=== PATIENT | female | born 1985 | race Caucasian/White ===

== ENCOUNTER → 2017-10-10 13:50 | Outpatient (CLI) | payer BC, SELFPAY ==
[2017-10-10 15:53] LABS: BUN 8 mg/dL (7-18); Creatinine, Serum 0.83 mg/dL (0.55-1.02); EST Glomerular Filtration Rate 86 mL/min (>60); Est Glom Filt Rate - Afr Amer 104 mL/min (>60)
== END ==
PROVIDERS: Family Provider Family Medicine; PCP Family Medicine; Visit Provider Ophthalmology
DX: H57.02 Anisocoria (principal); R51 Headache
CPT/HCPCS: 36415; 82565; 84520

== ENCOUNTER → 2017-10-10 16:31 | Outpatient (CLI) | payer BC, SELFPAY ==
--- NOTE | 2017-10-10 16:34 | CT_ITS ---
STUDY: CTA OF THE BRAIN REASON FOR EXAM: Female, 31 years old. Headaches different pupil size RADIATION DOSAGE (If Supplied By Facility): CTDIvol = ( 24.73 ) mGy, DLP = ( 1133.15 ) mGycm TECHNIQUE: CT angiography was performed with a multi-detector CT scanner. Data acquisition was obtained from the skull base through the vertex following intravenous administration of 100 ml of Isovue-370. MIP images were reconstructed from the axial data set. Post-processing of the angiographic images was performed, with multiplanar reformation and 3D reconstruction. Individualized dose optimization techniques were used for this CT. COMPARISON: None. FINDINGS: Normal bilateral petrous carotid arteries. Normal right cavernous carotid artery with a normal supraclinoid bifurcation. Normal left cavernous carotid artery with a normal supraclinoid bifurcation. Nonvisualization of the right A1 segment of the anterior cerebral artery. Normal left A1 segments of the anterior cerebral artery. Normal intact anterior communicating artery (ACOM). Normal bilateral A2 segments of the anterior cerebral arteries. Normal right M1 and M2 segments of the middle cerebral arteries, with a normal M1 bifurcation. Normal left M1 and M2 segments of the middle cerebral arteries, with a normal M1 bifurcation. Normal right posterior communicating artery (PCOM). Nonvisualization of the left posterior communicating artery (PCOM). Normal bilateral vertebral arteries. Normal basilar artery with a normal basilar bifurcation. The visualized bilateral superior cerebellar (SCA) arteries are normal. Normal left posterior cerebral artery. Nonvisualization of the proximal segment of the right posterior cerebral artery. There is no demonstrated aneurysm of the [place]. There is no demonstrated abnormality of the visualized brain. CT/CTA Head W/WO Contrast IMPRESSION: Nonvisualization of the right A1 segment and the proximal segment of the right posterior cerebral artery. Electronically Signed: Mateo Jarvis DO at 18:26 EST Tel [phone], Service support ,
== END ==
PROVIDERS: Family Provider Family Medicine; PCP Family Medicine; Visit Provider Ophthalmology
DX: R51 Headache (principal)
CPT/HCPCS: 70496; Q9967

== ENCOUNTER → 2017-10-25 16:56 | Outpatient (CLI) | payer BC, SELFPAY ==
[2017-10-25 18:11] LABS: Progesterone Level 12.91 ng/mL (See Comment)
[2017-10-28 13:37] LABS: HPV Reflexed? NOT INDICATED
== END ==
PROVIDERS: Visit Provider Obstetrics & Gynecology
DX: Z12.4 Encounter for screening for malignant neoplasm of cervix (principal); N92.0 Excessive and frequent menstruation with regular cycle
CPT/HCPCS: 36415; 82670; 84144; 88175; G0145

== ENCOUNTER → 2018-02-13 17:50 | Outpatient (CLI) | payer BC, SELFPAY ==
--- NOTE | 2018-02-13 17:58 | US_ITS ---
STUDY: ULTRASOUND OF THE FEMALE PELVIS - COMPLETE REASON FOR EXAM: Female, 32 years old. Right lower quadrant pain LMP: 01/29/2018 TECHNIQUE: Transabdominal and Transvaginal TECHNICAL QUALITY: Adequate. COMPARISON: 04/27/2017. FINDINGS: The uterus is anteverted and is in a midline position. The uterus measures 9.2 x 5.8 x 3.3 cm. There is a Nabothian cyst of the cervix. The endometrium measures 14 mm in thickness, and is hyperechoic. There is no demonstrated endometrial mass. There is a left upper uterine segment/fundal fibroid measuring up to 4.1 cm. The right ovary is visualized. The right ovary measures 7.9 x 6.2 x 5.5 cm. There is no right ovarian cyst. There is a 2.6 cm paraovarian cyst. There is a 5.1 x 4.9 cm heterogeneous ovarian mass without color flow. There is no visualized right adnexal mass or complex lesion. There is normal arterial and normal venous vascularity. The left ovary is visualized. The left ovary measures 4.0 x 2.7 x 1.9 cm. There is a 1.7 cm complex left ovarian cyst. No ovarian mass. There is no visualized left adnexal mass or complex lesion. There is normal arterial and normal venous vascularity. There is no fluid in the cul-de-sac. The pre void volume of the bladder was 338 ml. US/Pelvic (Non ) IMPRESSION: There is a right ovarian 5.1 cm nonvascular mass. Right paraovarian cyst. Left ovarian complex cyst. No torsion. There is a 4.1 cm fibroid. Thickened homogeneous endometrium measuring 14 mm. Electronically Signed: Eliezer Zamorano DO at 19:29 EDT , Service support ,
--- NOTE | 2018-02-13 18:20 | US_ITS ---
STUDY: ULTRASOUND OF THE FEMALE PELVIS - COMPLETE REASON FOR EXAM: Female, 32 years old. Right lower quadrant pain LMP: 01/29/2018 TECHNIQUE: Transabdominal and Transvaginal TECHNICAL QUALITY: Adequate. COMPARISON: 04/27/2017. FINDINGS: The uterus is anteverted and is in a midline position. The uterus measures 9.2 x 5.8 x 3.3 cm. There is a Nabothian cyst of the cervix. The endometrium measures 14 mm in thickness, and is hyperechoic. There is no demonstrated endometrial mass. There is a left upper uterine segment/fundal fibroid measuring up to 4.1 cm. The right ovary is visualized. The right ovary measures 7.9 x 6.2 x 5.5 cm. There is no right ovarian cyst. There is a 2.6 cm paraovarian cyst. There is a 5.1 x 4.9 cm heterogeneous ovarian mass without color flow. There is no visualized right adnexal mass or complex lesion. There is normal arterial and normal venous vascularity. The left ovary is visualized. The left ovary measures 4.0 x 2.7 x 1.9 cm. There is a 1.7 cm complex left ovarian cyst. No ovarian mass. There is no visualized left adnexal mass or complex lesion. There is normal arterial and normal venous vascularity. There is no fluid in the cul-de-sac. The pre void volume of the bladder was 338 ml. US/Transvaginal Non- IMPRESSION: There is a right ovarian 5.1 cm nonvascular mass. Right paraovarian cyst. Left ovarian complex cyst. No torsion. There is a 4.1 cm fibroid. Thickened homogeneous endometrium measuring 14 mm. Electronically Signed: Eliezer Zamorano DO at 19:29 EDT , Service support ,
== END ==
PROVIDERS: Family Provider Family Medicine; PCP Family Medicine; Visit Provider Family Medicine
DX: D25.9 Leiomyoma of uterus, unspecified (principal)
CPT/HCPCS: 76830; 76856; 93976

== ENCOUNTER → 2018-02-16 15:53 | Outpatient (CLI) | payer BC, SELFPAY ==
--- NOTE | 2018-02-16 16:01 | CT_ITS ---
STUDY: CT ABDOMEN AND PELVIS WITH CONTRAST REASON FOR EXAM: Female, 32 years old. Right-sided abdominal pain for months. Worsening recently. RADIATION DOSAGE (If Supplied By Facility): CTDIvol = ( 6.7+13.7 ) mGy, DLP = ( 650.22 ) mGycm TECHNIQUE: Transaxial images were obtained from the dome of the diaphragm to the symphysis pubis with oral contrast. 75 ml of Isovue 300 contrast was administered. Sagittal and coronal images were reconstructed. Individualized dose optimization techniques were used for this CT. COMPARISON: None. FINDINGS: Body wall soft tissues: No acute process. Osseous structures: No acute process. Inferior chest: No acute process. Hepatobiliary: Normal. Pancreas: No acute process. Spleen: Normal. Adrenal glands: Normal. Urogenital: Normal kidneys, collecting systems, ureters, urinary bladder. There is a dermoid of the right ovary, measuring approximately 6.6+4.6+3.8 cm. Left ovary unremarkable. A small amount of cul-de-sac free fluid. Uterine fundal fibroid approximately 3.4 cm. Probable nabothian cysts. Pelvic floor and sidewalls and retroperitoneum: No mass or adenopathy. Vasculature: No acute process. Stomach: No acute process. Small bowel and mesentery: No acute process. Large bowel: A short appendix is visible and appears normal. Unremarkable large bowel and rectum. Free fluid or free air: None. CT/Abdomen/Pelvis WITH Contrast IMPRESSION: Large right adnexal dermoid. No other acute intra-abdominal process. Electronically Signed: Campbell Lynn, at 21:34 EDT Tel , Service support ,
[2018-02-16 17:10] LABS: ALB/GLOB Ratio 0.9 RATIO (0.9-2.4); AST(SGOT) 13 U/L (15-37); Alanine Aminotransfer ALT/SGPT 17 U/L (13-56); Alkaline Phosphatase 64 U/L (45-117); Anion Gap 8 (5-15); BUN 11 mg/dL (7-18); BUN/Creat Ratio 10.8 RATIO (10-20); Calcium,Total 8.8 mg/dL (8.5-10.1); Chloride 105 mmol/L (98-107); Creatinine, Serum 1.02 mg/dL (0.55-1.02); EST Glomerular Filtration Rate 68 mL/min (>60); Est Glom Filt Rate - Afr Amer 82 mL/min (>60); Globulin 4.4 g/dL (2.2-4.2); Glucose 86 mg/dL (74-106); Potassium 3.5 mmol/L (3.5-5.1); Protein, Total 8.4 g/dL (6.4-8.2); Sodium Level 139 mmol/L (136-145)
== END ==
PROVIDERS: Family Provider Family Medicine; PCP Family Medicine; Visit Provider Obstetrics & Gynecology
DX: R10.9 Unspecified abdominal pain (principal); N83.9 Noninflammatory disorder of ovary, fallopian tube and broad ligament, unspecified; R19.00 Intra-abdominal and pelvic swelling, mass and lump, unspecified site
CPT/HCPCS: 36415; 74177; 80053; Q9967

== ENCOUNTER → 2018-02-16 16:14 | Outpatient (CLI) | payer SELFPAY ==
[2018-03-20 13:40] LABS: Hematocrit 38.9 % (37-47); Hemoglobin 12.9 g/dl (12.0-15.0); Mean Corp Hgb Conc 33.2 g/gl (32-36); Mean Corpuscular Hgb 30.5 pg (27.0-32.0); Mean Platelet Vol. 11.4 fl (6.2-12.0); Platelet Count 232 K/mm3 (150-450); RBC Distribution Width CV 12.7 % (11.6-14.6); Red Blood Count 4.23 M/mm3 (4.2-5.4); White Blood Count 8.1 K/mm3 (4.4-11.0)
[2018-03-20 13:41] LABS: Scan Indicated on CBC? Y/N NO
[2018-03-20 13:58] LABS: International Normalized Ratio 1.1
[2018-03-20 13:59] LABS: Partial Thromboplast Time 32.8 Seconds (24.1-36.2)
[2018-03-20 16:15] LABS: AST(SGOT) 16 U/L (15-37); Alanine Aminotransfer ALT/SGPT 21 U/L (13-56); Albumin, Serum 3.8 g/dL (3.2-5.0); Alkaline Phosphatase 61 U/L (45-117); Anion Gap 10 (5-15); BUN 6 mg/dL (7-18); BUN/Creat Ratio 7.2 RATIO (10-20); Calcium,Total 8.6 mg/dL (8.5-10.1); Chloride 105 mmol/L (98-107); Creatinine, Serum 0.84 mg/dL (0.55-1.02); EST Glomerular Filtration Rate 85 mL/min (>60); Est Glom Filt Rate - Afr Amer 103 mL/min (>60); Glucose 86 mg/dL (74-106); Potassium 3.6 mmol/L (3.5-5.1); Protein, Total 7.8 g/dL (6.4-8.2); Sodium Level 140 mmol/L (136-145)
--- OUTSIDE RECORDS SUMMARY | 2018-09-01 00:10 | XMS RPT_ITS ---
:1985 Author Organization OHIP Support Name Relationship Address Phone [facility] Unavailable [address] + [address] [place] [address] CRYSTAL, BILL Unavailable Unavailable + [place] [address] [facility] Unavailable [address] + [address] [place] [address] CRYSTAL, BILL Unavailable Unavailable + [place] [address] CRYSTAL, BILL Unavailable [address] + [place] [address] [facility] Unavailable [address] + [place] [address] CRYSTAL, BILL Unavailable [address] + [place] [address] [facility] Unavailable [address] + [place] [address] CRYSTAL, BILL Unavailable [address] + [place] [address] [facility] Unavailable [address] + [place] [address] [facility] Unavailable [address] + [address] [place] [address] CRYSTAL, BILL Unavailable Unavailable + [place] [address] CRYSTAL, BILL Unavailable [address] + [place] [address] [facility] Unavailable [address] + [place] [address] CRYSTLA, BILL Unavailable [address] + [place] [address] [facility] Unavailable [address] + [place] [address] CRYSTAL, BILL Unavailable [address] + [place] [address] [facility] Unavailable [address] + [place] [address] CRYSTAL, BILL Unavailable [address] + [place] [address] [facility] Unavailable [address] + [place] [address] CRYSTAL, BILL Unavailable [address] + [place] [address] [facility] Unavailable [address] + [place] [address] Care Team Providers Name Role Phone Babin, Elvis Primary Care Unavailable Al Murguia Attending Unavailable Familia Atkinson Attending Unavailable Berto, Elvis Primary Care Unavailable Familia Atkinson Attending Unavailable Familia Atkinson Referring Unavailable Babin, Elvis Primary Care Unavailable Christie Loyd Attending Unavailable Elvis Babin Attending Unavailable Babin, Elvis Referring Unavailable Babin, Elvis Primary Care Unavailable Christie Loyd Attending Unavailable Christie Loyd Referring Unavailable Babin, Elvis Primary Care Unavailable Christie Loyd Attending Unavailable Christie Loyd Referring Unavailable Babin, Elvis Primary Care Unavailable Yolande Brizuela Attending Unavailable Elivs Babin Referring Unavailable Babin, Elvis Primary Care Unavailable Noah Levy Attending Unavailable Christie Loyd Referring Unavailable Magda Cooley Attending Unavailable Magda Cooley Referring Unavailable Babin, Evlis Primary Care Unavailable Christie Loyd Attending Unavailable Babin, Elvis Primary Care Unavailable PROBLEMS PROBLEMS DATE TYPE CONDITION / CODE ATTENDING STATUS SOURCE 03/22/2018 Unknown N83.209 - Christie Loyd Active [place] Unspecified ovarian Community cyst, unspecified Hospital side / Repository N83.209(ICD-10) 03/22/2018 Unknown 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 / D68.51(ICD-10) Hospital Repository 04/18/2018 Unknown Z01.810 - Encounter Noah Levy Active [place] for preprocedural [facility] examination / Repository Z01.810(ICD-10) 07/08/2018 Unknown R10.10 - Upper Christie Loyd abdominal pain, Community unspecified / Hospital R10.10(ICD-10) Repository 10/25/2017 Unknown N92.0 - Excessive Christie Loyd and frequent Community menstruation with Hospital regular cycle / Repository N92.0(ICD-10) 10/25/2017 Unknown Z12.4 - Encounter Christie Loyd for screening for Community malignant neoplasm [facility] / Repository Z12.4(ICD-10) 10/16/2017 Unknown R51 - Headache / DemetrioFamilia Active [place] R51(ICD-10) [facility] Repository 10/10/2017 Unknown H57.02 - Anisocoria Familia Atkinson Active [place] / H57.02(ICD-10) [facility] Repository PROCEDURES PROCEDURES No Procedure Records FoundRESULTS RESULTS EMERGENCY DEPARTMENT Observed: 07/23/2018 Status: F Source: [place] SUMMARY 4:11 PM [facility] REPOSITORY [facility] Medical Records Department [address] [place] [address] Emergency Department Summary 07/23/18 1609 MR#: [id number] Acct: [id number] Name: AN MOYA Rep #: [id number] : 1985 32 From: Al Murguia MD PCP: Elvis Babin MD Status: REG ER - ER Visit Summary Date of Service: 07/23/18 Chief Complaint: Near syncope History of Present Illness: The patient is a 32 F who presents with near syncopal-like symptoms. She states that she was on the toilet when she started feeling lightheaded and dizzy. She was having some lower abdominal cramping and she went back to the bathroom and still felt the same way. She is not on her menstrual cycle. She denies any blood in her stools. No heavy straining. She has been sick with a cold for the past couple of days. Denies chest pain but did feel short of breath. She has a history of vasovagal syncope. She has been eating and drinking well normally. She states that she did question she did have some palpitations earlier this week. Physical Examination: Vital signs reviewed. HEENT exam unremarkable. Heart is regular rate and rhythm without murmurs. Lungs are clear to auscultation. Abdomen is soft and nontender. Extremities reveal no edema. Skin exam normal. Neurologic exam normal. Test Results: EKG is sinus rhythm with rate of 76. No ST changes. White blood cell count 12.2. Chloride 108, AST of 10. Urinalysis negative for infection. HCG negative Emergency Department Course and Treatment: Patient was given IV fluids. Upon reevaluation she feels much better. This is likely vasovagal syncope. I do not feel she needs to be admitted to the hospital. Patient will be discharged to follow-up with her PCP. Treatment Plan: [] Disposition: Discharge Impression: Vasovagal syncope This note was generated with [employer] dictation software. It may contain incorrect words, spelling, and punctuation that were not noted in review of the chart prior to signing ED Disposition - Plan for ED Patient: Chief Complaint: Syncope Referrals: Elvis Babin MD [Primary Care Provider] - What to do if you have Problems For any increased pain, shortness of breath, bleeding, nausea or vomiting, chest pain, or any unexpected problems, contact your Primary Care Provider. Call [facility] ([phone]) or report to the closest Emergency Room. Call 911 if necessary. 07/23/181610 <Electronically signed by Al Murguia MD> Date Al Murguia MD Cosigner Signature (If Indicated): Date CC: Elvis Babin MD DISCHARGE INSTRUCTION Observed: 07/23/2018 Status: F Source: [place] 4:11 PM [facility] REPOSITORY [facility] Medical Records Department [address] [place] [address] Discharge Instruction 07/23/181610 MR#: [id number] Acct: [id number] Name: AN MOYA Rep #: [id number] : 1985 32 From: Al Murguia MD PCP: Elvis Babin MD Status: REG ER ED Disposition - Plan for ED Patient: Disposition: Home or Assisted Living Chief Complaint: Syncope Instructions: ED Syncope Vasovagal Referrals: Elvis Babin MD [Primary Care Provider] - What to do if you have Problems For any increased pain, shortness of breath, bleeding, nausea or vomiting, chest pain, or any unexpected problems, contact your Primary Care Provider. Call [facility] ([phone]) or report to the closest Emergency Room. Call 911 if necessary. 07/23/18 1611 <Electronically signed by Al Murguia MD> Date Al Murguia MD Cosigner Signature (If Indicated): Date CC: Elvis Babin MD URINALYSIS, COMPLETE Collected: 07/23/2018 Status: F Source: [place] 3:00 PM [facility] REPOSITORY Order Comment: How was Urine Obtained? CLEAN CATCH TYPE CODE TESTS RESULT OUT OF RANGE REFERENCE UNITS LAB L400.3000 Yellow COLOR Normal Yellow LAB L400.3050 Clear Normal CLARITY Sl. Cloudy LAB L400.3200 Normal mg/dl Normal GLUCOSE, UR Normal LAB L400.3300 Negative mg/dL Normal BILIRUBIN URINE Negative LAB L400.3400 Negative mg/dl Normal KETONE UR Negative LAB L400.3465 1.002-1.030 Normal SP.GR. DIPSTX 1.015 LAB L400.3550 5.0 - 8.0 pH UR Normal 8.0 LAB L400.3600 Negative mg/dl PROT Normal DIPSTX Negative LAB L400.3700 Normal mg/dl Normal UROBILI Normal LAB L400.3750 Negative Normal NITRITE UR Negative LAB L400.3780 Negative /ul High 10 OCCULT BLOOD-UR LAB L400.3800 Negative /ul LEUK Normal ESTERASE Negative LAB L400.4050 0-5 /hpf WBC 0 Normal SEEN LAB L400.4100 0-5 /hpf Normal RBC-UA 0-5 SEEN LAB L400.4150 5-10 /hpf SQUAM Normal EPI 0-5 SEEN LAB L400.4300 None Seen /hpf 1+ Normal BACTERIA LAB L400.4350 <or=2+ /hpf 0 Normal MUCUS, URINE SEEN LAB L400.4900 1+ Normal AMORPHOUS Performed By: #### L400.0001 #### [facility] [address] [place], [address] ,URINE Collected: 07/23/2018 Status: F Source: [place] 3:00 PM [facility] REPOSITORY TYPE CODE TESTS RESULT OUT OF REFERENCE UNITS RANGE LAB L400.8000 Negative Normal HCGUQUAL Negative Result Comment: Very dilute urine specimens, as indicated by a low specific gravity, may not contain public service representative levels of hCG. If is still suspected, a first morning urine specimen should be collected 48 hours later and tested. Performed By: #### L400.7600 #### [facility] [address] [facility] [place], [place], [address] CBC W/DIFF, AUTOMATED Collected: 07/23/2018 Status: F Source: [place] 2:50 PM [facility] REPOSITORY TYPE CODE TESTS RESULT OUT OF RANGE REFERENCE UNITS LAB L100.1000 4.4-11.0 K/mm3 High WBC 12.2 LAB L100.1200 4.2-5.4 M/mm3 Low RBC 4.16 LAB L100.1300 12.0-15.0 g/dl Normal HGB 12.7 LAB L100.1400 37-47 % Normal HCT 38.2 LAB L100.1500 81-99 fL Normal MCV 91.8 LAB L100.1600 27.0-32.0 pg Normal MCH 30.5 LAB L100.1700 32-36 g/gl Normal MCHC 33.2 LAB L100.1810 11.6-14.6 % Normal RDW CV 12.5 LAB L100.1820 35.1-43.9 fl Normal RDW SD 41.0 LAB L100.1900 150-450 K/mm3 Normal PLT 226 LAB L100.2000 6.2-12.0 fl Normal MPV 10.9 LAB L100.2100 47-70 % High NEUT% 73.7 LAB L100.2200 19-41 % Low LY% 18.3 LAB L100.2300 0-10 % Normal MONO% 6.3 LAB L100.2400 0-5 % Normal EO% 1.1 LAB L100.2500 0-1 % Normal BASO% 0.4 LAB L100.2550 0.0-0.9 % Normal IM GRAN % 0.200 Result Comment: IG% - Immature Granulocytes (promyelocytes, myelocytes and metamyelocytes) > 1% indicates that a LEFT SHIFT is Present. LAB L100.2620 2.0-7.7 X10 3/uL High Absolute Neut 9.0 LAB L100.2720 0.83-4.51 X10 3/ul Normal Absolute Lymph 2.23 Performed By: #### L100.0100 #### [facility] [address] [place], [address] COMPREHENSIVE METABOLIC Collected: 07/23/2018 Status: F Source: [facility] 2:50 PM [facility] REPOSITORY TYPE CODE TESTS RESULT OUT OF RANGE REFERENCE UNITS LAB L501.0100 74-106 mg/dL High GLU 110 Result Comment: Fasting Glucose result from 100 to 125 mg/dL suggests IMPAIRED HOMEOSTASIS per A.D.A. criteria. Please note revised GLUCOSE reference range effective 2017. LAB L501.1000 7-18 mg/dL Normal BUN 11 LAB L501.1100 0.55-1.02 mg/dL Normal CREAT,SERUM 0.78 Result Comment: The validity of the calculated GFR AND GFRAA in patients over 70 years has not been determined. Clinical correlation is essential. LAB L501.1110 >60 mL/min Normal EST GFR 92 Result Comment: Non- GFR Calc LAB L501.1115 >60 mL/min Normal EST GFR - AA 111 Result Comment: GFR Calc LAB L501.1255 ml/min Normal Estimated CRCL 87.24 LAB L501.1300 10-20 RATIO Normal BUN/CRE 14.1 LAB L501.1500 6.4-8. g/dL Normal 2 T PROT 7.4 LAB L501.1800 3.2-5. g/dL Normal 0 ALB 3.5 LAB L501.1950 2.2-4. g/dL Normal 2 GLOB 3.9 LAB L501.2000 0.9-2. RATIO Normal 4 A/G 0.9 LAB L501.2200 8.5-10 mg/dL Normal .1 CA 8.5 LAB L501.4100 15-37 U/L Low AST 10 LAB L501.4305 45-117 U/L Normal ALK P 67 LAB L501.4405 13-56 U/L Normal ALT 16 LAB L501.4600 0.20-1 mg/dL Normal .00 T BILI 0.20 LAB L501.5300 136-14 mmol/L Normal 5 NA 140 LAB L501.5600 3.5-5. mmol/L Normal 1 K 3.7 LAB L501.5900 98-107 mmol/L High CL 108 LAB L501.6100 21.0-3 mmol/L Normal 2.0 CO2 26.0 LAB L501.6200 5-15 Normal GAP 6 Performed By: #### L500.4050, L501.4010 #### [facility] [address] [place], [place], [address] TROPONIN-I Collected: 07/23/2018 Status: F Source: [place] 2:50 PM [facility] REPOSITORY TYPE CODE TESTS RESULT OUT OF RANGE REFERENCE UNITS LAB L501.4010 <0.045 ng/mL Normal < 0.015 TROPONIN-I Result Comment: TROPONIN-I EXPECTED VALUES <0.045 Negative 0.045 - 0.590 Consistent with Cardiac Damage > OR = 0.600 Critical Value Not every elevated troponin is indicative of ID. These values should be used with clinical judgement in examining the patient's clinical picture for diagnosis. To establish a diagnosis of ID versus myocardial injury, there must be a demonstrated rise and/or fall in the troponin values, in addition to ischemic symptoms, EKG changes, new regional wall motion abnormality, and/or angiographical evidence. PLEASE NOTE: REFERENCE RANGES EDITED 17 Performed By: #### L500.4050, L501.4010 #### [facility] [address] [place], [place], [address] KIDNEY AND BLADDER Observed: 07/09/2018 Status: F Source: [place] 4:55 PM [facility] REPOSITORY [facility] Imaging Services [address] [place] [address] Kidney and Bladder MR#: [id number] Acct: [id number] Name: AN MOYA Rep #: [id number] : 1985 F 32 From: Abdulkadir Hammonds MD PCP: Elvis Babin MD Status: REG CLI Study: Kidney and Bladder Date of Exam: 07/09/18 Exam# [id number] Ordering Dr: Magda Cooley MD STUDY: RENAL ULTRASOUND - COMPLETE REASON FOR EXAM: Female, 32 years old. Nocturia. TECHNIQUE: Ultrasound evaluation of the kidneys was performed with real-time and static cole-scale imaging. COMPARISON: CT scan 02/16/2018. FINDINGS: RIGHT KIDNEY: Normal location of the right kidney, which is normal in size. The right kidney measures 11.1 x 5.4 x 4.1 cm. There is a normal cortex of the right kidney. The renal cortex measures 1.5 cm. There is no right renal mass or cyst. There are no right renal calculi. There is no right hydronephrosis. DISTAL RIGHT URETER: There is non-visualization of the distal right ureter. There is no demonstrated right ureterovesical junction calculus. There is no demonstrated right ureteral jet. LEFT KIDNEY: Normal location of the left kidney, which is normal in size. The left kidney measures 11.2 x 4.6 x 6.4 cm. There is a normal cortex of the left kidney. The renal cortex measures 1.8 cm. There is no left renal mass or cyst. There are no left renal calculi. There is no left hydronephrosis. DISTAL LEFT URETER: There is non-visualization of the distal left ureter. There is no demonstrated left ureterovesical junction calculus. There is a visualized left ureteral jet. BLADDER: The distended urinary bladder has a volume of 464 ml. The empty urinary bladder has a volume of 27 ml. There is a normal wall thickness of the distended urinary bladder. There is no demonstrated mass within the urinary bladder. There are no demonstrated bladder calculi. US/Kidney and Bladder IMPRESSION: Normal ultrasound of the kidneys and urinary bladder. Electronically Signed: Abdulkadir Hammonds MD at 0:01 EST , Service support , CC: Magda Cooley MD; Elvis Babin MD Breaker Oiler: Signed [employer] OFFICE VISIT Observed: 03/28/2018 Status: F Source: [place] REPORT 11:49 AM [facility] [address] [place] [address] OFFICE VISIT Date of Service: 03/28/18 MR#: [id number] Acct: [id number] Name: AN MOYA Rep #: [id number] : 1985 Provider: Yolande Brizuela MD Age/Sex: 32/F Location: [facility] Status: Signed Intake Vital Signs03/28/18 Height 5 ft 3 in 03/28/18 Weight: 167 lb 4 oz 03/28/18 Body Mass Index (BMI) 29.6 03/28/18 Blood Pressure 109/79 Intake Visit Reasons: 2nd opinion Regulatory Manager Required: No Is patient in pain?: Yes Allergies No Known Allergies Allergy (Verified 03/28/18 08:50) Medications Albuterol Inhaler [Ventolin Hfa (SP)] 1 - 2 puff INHALATION Q4H PRN PRN 03/13/15 [History Confirmed 03/28/18] Budesonide/Formoterol 80-4.5 [Symbicort 80-4.5 Mcg Inhaler] 2 puff INHALATION PRN PRN 03/13/15 [History Confirmed 03/28/18] L.acidoph,Paracasei, B.lactis [Probiotic] 1 ea PO DAILY 03/19/18 [History Confirmed 03/28/18] Multivitamin [Multiple Vitamins] 1 ea PO DAILY 03/19/18 [History Confirmed 03/28/18] Oxycodone HCl/Acetaminophen [Percocet 5/325] 1 - 2 tab PO Q4H PRN PRN 7 Days #20 tab 03/22/18 [Rx Confirmed 03/28/18] Is last menstrual period known: Yes Last Menstral Period: 03/24/18 Post menopausal: No : No [facility] Medical History Factor V Leiden (Acute) Surgical History Dermoid cyst (Acute) Family History Grandmother Cancer lymphoma ruptured aneurysm Social History number of children: 0 current occupational status: employed current occupation: [employer] Smoking Status: Never smoker alcohol intake: never substance use type: does not use caffeine: Yes Type: carbonated beverages Number of servings: 1 seatbelt use: always do you feel safe at home: Yes HPI 2nd opinion: Details: AN MOYA is a 32 year old who presents for hormonal concerns heavy menses and dyspareunia. she started having urinary symptoms- she has uti type symptoms, she has urge incontinence only occasionally and has lost urine several times at night- no causal factors associated. she denies any stress incontinence. she has had her urine checked for infections she has very painful periods and heavy. she has tried progesterone cream at different levels with no improvements and she has a 4 cm fundal uterine fibroid. she wants to maintain fertility but her has had a vasectomy. Female Reproductive History Last Menstral Period: 03/24/18 Cycle Length: 21-35 Bleeding Duration: 7 associated symptoms: heavy, painful Questions: Metorrhagia: No, Sexually active: Yes, Dyspareunia: Yes (deep) Pregancy History 0 Elective abortions Hx Para 0 Spontaneous abortions ROS Const Constitutional: Reports system reviewed and no additional complaints, except as docu GI GI: Reports as per HPI and other : Reports as per HPI Exam Const General: cooperative, healthy appearing, comfortable, no acute distress, well developed Nutritional Appearance: average body habitus Orientation: alert [facility] Head: normal to inspection, normocephalic Neck Neck: normal visual inspection, trachea midline Thyroid: thyroid normal Resp Effort AND Inspection: normal respiratory effort GI Inspection: normal to inspection, non-distended Palpation: soft, no hepatosplenomegaly, other (incisions: C/D/I) General: bladder normal to palpation External Female Exam: normal external appearance, normal appearance of the urethra Urethra: normal appearance of the urethra, normal palpation, no discharge Speculum Exam - Vagina: normal appearance of the vagina, normal vaginal discharge Speculum Exam - Cervix: normal appearance of the cervix, nontender Bimanual Exam- Vagina AND Uterus: bladder normal to palpation, No cervical tenderness, normal bimanual exam, uterine size normal, uterine shape normal, uterine mobility normal, uterine consistency normal, normal cervical palpation, uterus non-tender Bimanual Exam- Adnexa, other: normal adnexae, adnexae mobile, no adnexal masses, pelvic support normal Pelvic Support: normal Skin General: no rashes or lesions noted Assessment AND Plan Problems 1. Abnormal uterine bleeding N93.9 2. Intramural and subserous leiomyoma of uterus D25.1; D25.2 refer to RGI for removal 3. Nocturnal enuresis N39.44 Plan discussed failed hormonal management- could consider IUD but most likely needs a myomectomy. refer to RGI. discussed nocturnal eneuresis with urogyn- recommend exp management until recovered from surgery and if persistent, consider myrbetriq, and if no improvement recommend urogyn referral for evaluation. Coding Level of Care Code Off vis,new,level 3 Diagnoses Abnormal uterine bleeding N93.9 Intramural and subserous leiomyoma of uterus D25.1; D25.2 Uterine leiomyoma location: intramural and subserous Nocturnal enuresis N39.44 Urinary Incontinence type: nocturnal enuresis 03/28/18 1149 <Electronically signed by Yolande Brizuela MD> Date Yolande Brizuela MD Cosigner Signature: Date (if applicable) CC: 12 LEAD ELECTROCARDIOGRAM Observed: 03/27/2018 Status: F Source: [place] 3:04 PM [facility] REPOSITORY [facility] Cardiovascular Services [address] [place] [address] 12 Lead EKG 03/22/18 0705 MR#: [id number] Acct: [id number] Name: AN MOYA Rep #: [id number] : 1985 32 From: Noah Levy MD Attending Dr: Christie Loyd MD Status: [place] [facility] [place] Dr: Christie Loyd MD Date: 03/22/18 [place] [facility] [place] Sex: F C Admitted: Test Reason : PREOP Blood Pressure : / mmHG Vent. Rate : 079 BPM Atrial Rate : 079 BPM P-R Int : 136 ms QRS Dur : 086 ms QT Int : 394 ms P-R-T Axes : 049 057 027 degrees QTc Int : 451 ms Normal sinus rhythm Normal ECG When compared with ECG of 06-JUL-2011 22:44, No significant change was found Confirmed by NOAH LEVY MD ([id number]), material expeditor LION BABIN ([id number]) on 03/27/2018 3:03:46 PM Referred By: Christie Loyd Confirmed By:NOAH LEVY MD 03/27/18 1503 Date Noah Levy MD CC: Christie Loyd MD; Elvis Babin MD Signed DISCHARGE INSTRUCTION Observed: 03/22/2018 Status: F Source: [place] 8:58 AM [facility] REPOSITORY [facility] Medical Records Department [address] [place] [address] Instructions for Home/Discharge Instructions 03/22/18 0856 MR#: [id number] Acct: [id number] Name: AN MOYA Rep #: [id number] : 1985 32 From: Christie Loyd MD PCP: Elvis Babin MD Status: [place] [facility] [place] Diet: No Restrictions - increase fluid intake for 48 hours., - - low residue diet x 72 hours. Protein drinks/smoothies encouraged Discharge Activity: Return to Normal Activity, May Drive - when you are no longer taking pain/narcotic medicines., May Shower, May Take a Tub Bath - in 14 days. May shower in (days): 0 - TODAY May resume sexual activity in: 3 weeks Weight Bearing Status: Full weight bearing Lifting Restrictions: 10 pounds Additional Activity Instructions:: Ambulate often the next week after surgery. Nothing in the vagina for 5 days. Call your doctor if your incision/area has: Continuous Slow Oozing, Sudden Increased Bleeding, Increased Pain/ Swelling, Increased Redness, Foul Smelling Discharge Call your doctor if you observe: Fever of 101 or Higher, Inability to urinate, Inability to have a bowel movement Remove Dressing in (days):: 1 - remove and leave open to air on 03/23/18 Cleanse incision/area with: Soap AND Water Allergies/Adverse Reactions: Allergies No Known Allergies Allergy (Verified 03/19/18 14:08) Medications to take at Discharge Albuterol Inhaler [Ventolin Hfa (SP)] 1 - 2 puff INHALATION Q4H PRN PRN 03/13/15 Budesonide/Formoterol 80-4.5 [Symbicort 80-4.5 Mcg Inhaler] 2 puff INHALATION PRN PRN 03/13/15 L.acidoph,Paracasei, B.lactis [Probiotic] 1 each PO DAILY 03/19/18 Multivitamin [Multiple Vitamins] 1 each PO DAILY 03/19/18 Primary Care Physician: Elvis Babin MD [Primary Care Provider] - Test Results: Test results from this visit will be discussed in further detail at your follow-up appointment, if applicable. Please Follow Up With: Christie Loyd MD - [phone] When: post op appt next week. Call to schedule if not already arranged 03/22/18 0858 <Electronically signed by Christie Loyd MD> Date Christie Loyd MD CC: Elvis Babin MD OPERATIVE REPORT Observed: 03/22/2018 Status: F Source: [place] 8:55 AM [facility] [facility] Medical Records Department [address] [place] [address] Operative Report 03/22/18 0845 MR#: [id number] Acct: [id number] Name: AN MOYA Rep #: [id number] : 1985 32 From: Christie Loyd MD PCP: Elvis Babin MD Status: [place] [facility] [place] [address] Report of Operation Date of Procedure: 03/22/18 Pre-Operative Diagnosis: Right ovarian cyst Post-Operative Diagnosis: Right ovarian dermoid cyst Surgery/Procedure Performed:: Operative laparoscopy, right oophorectomy Description of Surgical Findings:: Uterus was sounded to approximately 9 cm in an anterior position and fully mobile. The adnexa on pelvic examination were somewhat limited examination secondary to bowel preparation. Upon entering the abdominal cavity with the laparoscope it was noted that the left ovary was within normal limits. The right ovary appeared to have a large dermoid cyst encompassing the entire ovary with no normal ovarian tissue noted. Bilateral fallopian tubes normal. There is an anterior fibroid of the uterus noted. Appendix noted to be normal. Rest of the pelvis noted to be normal. zig zag stitcher: Mike Leyva zig zag stitcher: Elaine Saavedra Type of Anesthesia:: General Anesthesiologist: Bin Martins Special Medications: Cefotetan 2 g IV and heparin 5000 subcu preoperatively Specimen's removed: Right ovary Drains: None Estimated Blood Loss (mL): Minimal Fluids Replaced: Lactated Ringer Description of Procedure: Patient presented to the surgical suite in an n.p.o. status. Patient was placed on the operating bed with appropriate monitors attached. She underwent a general anesthetic. Once found to be adequate, the patient was placed in dorsal lithotomy position via the Shivam stirrups. Patient then was prepped and draped in the normal sterile fashion. The uterine manipulator was placed to the cervical region after uterus was sounded to approximately 9 cm in anterior position. Rivera catheter drainage throughout the procedure occurred via a Rivera catheter. Gloves and turned to the top of the patient a 1 cm incision was placed at the umbilicus in anticipation of using the enlarged trocar for Endo Catch bag for removal of the ovarian cyst. There is seen was placed through this incision and once water test confirmed abdominal placement 2 L of CO2 gas placed into the abdominal cavity. Veress needle was then removed and placement of a disposable 1112 trocar into the abdominal incision occurred. Lap scope placed into the abdominal cavity revealed abdominal placement and hemostasis. The station of the pelvis with the prior notations of an enlarged right ovary ring fully encapsulated by this was appeared to be a dermoid cyst. 2 additional disposable trochars of 5 mm size were placed in the left and right lower quadrants under direct visualization. Through these trochars then the ovary was grasped and elevated and the suture was used to sequentially cauterize and transected the ovary away from the mesosalpinx and the uterine ovarian ligament. Stasis was noted throughout in the ovary with encapsulating cyst was placed into the posterior Cul-de-sac. Investigation of the operative site for added hemostasis was noted. At this point time the camera was removed from the umbilical incision replaced by an Endo Catch bag of the right lower quadrant 5 mm trocar site was used for camera placement. The Endo Catch bag was then used to encapsulate the right ovary with cyst into the Endo Catch bag and this was brought up through the umbilical incision. The umbilical incision was extended and the fascial and peritoneal relationships under direct visualization to aid with removal of the entire cyst intact inside the Endo Catch bag to be sent away for pathological evaluation. Replacement of the trocar back into that umbilical incision and replacement the camera into the umbilical incision further investigation of the pelvis occurred with a bilateral ureters noting to be peristalsing and well away from the operative site. The right operative site was noted be hemostatic as well. At this point in time the camera was then switched to the right lower quadrant trocar site once again and manual replacement and repair of the fascia of the umbilical area due to the extension occurred with an 0 Vicryl suture. This was repaired with an 0 Vicryl suture in a running interlocking stitch. The subcutaneous fascia cutaneous tissue was then reapproximated with a throat 3-0 Vicryl suture. And then the skin was approximate with a 4-0 Monocryl. Investigation revealed hemostasis and encapsulation and occlusion of the entire fascial area and this repaired to prevent hernia later on. The bilateral lower quadrant 5 mm trochars were released and removed under direct visualization with release of CO2 gas as well. These trocar sites were closed in a subcuticular fashion with the 4-0 Monocryl. Turning to the vagina the Rivera catheter was removed along with the uterine manipulator and sponge instrument and needle counts were correct 2 patient was awakened in stable condition to be taken to recovery room and discharged home later today Grafts/Implants Used: None - Complications None - Admit VTE Documentation VTE Present on Admission: No VTE Mechan Device Prophylaxis: SCD's VTE Pharm Prophylaxis ordered?: Yes 03/22/18 0855 <Electronically signed by Christie Loyd MD> Date Christie Loyd MD CC: Christie Loyd MD; Elvis Babin MD Signed OVARY (CHOOSE SIDE) Observed: 03/22/2018 Status: F Source: [place] 7:30 AM [facility] REPOSITORY Patient: AN MOYA : 1985 () Acct Num: [id number] Phys: Christie Loyd MD Unit Num: [id number] [place] [facility] [place] Specimen: [id number] Received: 03/22/18914 Spec Type: OVARY TISSUES TISSUES: Right ovary GROSS DESCRIPTION Received in fixative is one container labeled with the patient's name and designated right ovary. The specimen consists of a previously opened ovary weighing 42 gm and measuring 6.5 x 4 x 4 cm. The outer surface is smooth. The entire ovary is replaced by a cyst filled with multiple hairs and sebum-like material. The cyst measures 0.2 to 1 cm in thickness. At one edge, normal appearing uninvolved ovary is also noted and shows multiple cysts filled with clear to bloody fluid. Network Security Administrator sections are submitted in six cassettes. Cassettes 5 AND 6 contain the adjacent portion of the normal appearing uninvolved portion of ovarian tissue. / SJ:татьяна 03/22/18 TC:1 CPT: 54121 HEADER OPERATION: Diagnostic laparoscopy, oophorectomy PRE-OP DIAGNOSIS: Benign neoplasm right ovary TISSUE SUBMITTED: Right ovary MICROSCOPIC DESCRIPTION Slides are reviewed. MICROSCOPIC DIAGNOSIS Right ovary, oophorectomy: Mature cystic teratoma (dermoid cyst). AM: 03/23/18 Signed [facility] 03/23/18 <signature on file> Performed By: #### POV #### [facility] [address] [place], [place], [address] BASIC METABOLIC Collected: 03/22/2018 Status: F Source: [place] PROFILE (BMP) 6:50 AM [facility] REPOSITORY TYPE CODE TESTS RESULT OUT OF RANGE REFERENCE UNITS LAB L501.0100 74-106 mg/dL Normal GLU 84 Result Comment: Please note revised GLUCOSE reference range effective 2017. LAB L501.1000 7-18 mg/dL Normal BUN 7 LAB L501.1100 0.55-1.02 mg/dL Normal CREAT,SERUM 0.84 Result Comment: The validity of the calculated GFR AND GFRAA in patients over 70 years has not been determined. Clinical correlation is essential. LAB L501.1110 >60 mL/min Normal EST GFR 85 Result Comment: Non- GFR Calc LAB L501.1115 >60 mL/min Normal EST GFR - AA 102 Result Comment: GFR Calc LAB L501.1300 10-20 RATIO Low BUN/CRE 8.3 LAB L501.2200 8.5-10.1 mg/dL Normal CA 8.8 LAB L501.5300 136-145 mmol/L Normal NA 139 LAB L501.5600 3.5-5.1 mmol/L Normal K 3.8 LAB L501.5900 98-107 mmol/L Normal CL 105 LAB L501.6100 21.0-32.0 mmol/L Normal CO2 27.0 LAB L501.6200 5-15 Normal GAP 7 Performed By: #### L500.2500 #### [facility] [address] [place], [place], [address] ,SERUM,HCG QUALI. Collected: Status: F Source: JUAN 03/22/2018 6:50 AM [facility] REPOSITORY TYPE CODE TESTS RESULT OUT OF REFERENCE UNITS RANGE LAB L700.7000 0-9 Nonpreg Negative Normal HCGSQUAL NEGATIVE LAB L700.6700 =>Qualitative mIU/mL Normal HCG Qual < 1 triggr Performed By: #### L700.6800 #### [facility] [address] [place], [address] TYPE AND SCREEN Collected: 03/20/2018 Status: F Source: [place] 12:15 PM [facility] REPOSITORY Order Comment: Surgery Date: 03/23/18 Hx of Preganancy in last 3 Months No Ever experience any problems with transfusion(s)? N Hx of Transfusion in last 3 Months N Reason for Type AND Screen/Red Cells: SURGERY Time: 0600 SURGICAL PROCEDURE: CYCTECTOMY TYPE CODE TESTS RESULT OUT OF RANGE REFERENCE UNITS LAB B10.0800 A Normal BLOOD TYPE GEL POSITIVE LAB B100.4000 Normal Antibody NEGATIVE Screen Performed By: #### B101.7475 #### [facility] [address] [place], [place], [id number] CBC-COMPLETE BLOOD CNT Collected: 03/20/2018 Status: F Source: [place] NO DIFF 12:10 PM [facility] REPOSITORY TYPE CODE TESTS RESULT OUT OF RANGE REFERENCE UNITS LAB L100.1000 4.4-11.0 K/mm3 Normal WBC 8.1 LAB L100.1200 4.2-5.4 M/mm3 Normal RBC 4.23 LAB L100.1300 12.0-15.0 g/dl Normal HGB 12.9 LAB L100.1400 37-47 % Normal HCT 38.9 LAB L100.1500 81-99 fL Normal MCV 92.0 LAB L100.1600 27.0-32.0 pg Normal MCH 30.5 LAB L100.1700 32-36 g/gl Normal MCHC 33.2 LAB L100.1810 11.6-14.6 % Normal RDW CV 12.7 LAB L100.1820 35.1-43.9 fl Normal RDW SD 42.0 LAB L100.1900 150-450 K/mm3 Normal PLT 232 LAB L100.2000 6.2-12.0 fl Normal MPV 11.4 Performed By: #### L100.0500 #### [facility] [address] [place], [place], [id number] PROTHROMBIN TIME W/INR Collected: 03/20/2018 Status: F Source: [place] 12:10 PM [facility] REPOSITORY TYPE CODE TESTS RESULT OUT OF RANGE REFERENCE UNITS LAB L300.4150 11.7-14.9 SECONDS Normal PROTIME 14.0 LAB L300.4200 Normal INR 1.1 Performed By: #### L300.3900, L300.4310 #### [facility] [address] [place], [place], [address] PARTIAL THROMBOPLAST Collected: 03/20/2018 Status: F Source: [place] TIME 12:10 PM [facility] REPOSITORY TYPE CODE TESTS RESULT OUT OF RANGE REFERENCE UNITS LAB L300.4310 24.1-36.2 Seconds Normal PTT 32.8 Performed By: #### L300.3900, L300.4310 #### [facility] [address] [place], [place], [address] COMPREHENSIVE METABOLIC Collected: 03/20/2018 Status: F Source: [place] M[place] 12:10 PM [facility] REPOSITORY TYPE CODE TESTS RESULT OUT OF RANGE REFERENCE UNITS LAB L501.0100 74-106 mg/dL Normal GLU 86 Result Comment: Please note revised GLUCOSE reference range effective 2017. LAB L501.1000 7-18 mg/dL Low BUN 6 LAB L501.1100 0.55-1.02 mg/dL Normal CREAT,SERUM 0.84 Result Comment: The validity of the calculated GFR AND GFRAA in patients over 70 years has not been determined. Clinical correlation is essential. LAB L501.1110 >60 mL/min Normal EST GFR 85 Result Comment: Non- GFR Calc LAB L501.1115 >60 mL/min Normal EST GFR - AA 103 Result Comment: GFR Calc LAB L501.1300 10-20 RATIO Low BUN/CRE 7.2 LAB L501.1500 6.4-8.2 g/dL Normal T PROT 7.8 LAB L501.1800 3.2-5.0 g/dL Normal ALB 3.8 LAB L501.1950 2.2-4.2 g/dL Normal GLOB 4.0 LAB L501.2000 0.9-2.4 RATIO Normal A/G 1.0 LAB L501.2200 8.5-10.1 mg/dL Normal CA 8.6 LAB L501.4100 15-37 U/L Normal AST 16 LAB L501.4305 45-117 U/L Normal ALK P 61 LAB L501.4405 13-56 U/L Normal ALT 21 LAB L501.4600 0.20-1.00 mg/dL Normal T BILI 0.40 LAB L501.5300 136-145 mmol/L Normal NA 140 LAB L501.5600 3.5-5.1 mmol/L Normal K 3.6 LAB L501.5900 98-107 mmol/L Normal CL 105 LAB L501.6100 21.0-32.0 mmol/L Normal CO2 25.0 LAB L501.6200 5-15 Normal GAP 10 Performed By: #### L500.4050 #### [facility] [address] [place], [address] ABDOMEN/PELVIS WITH Observed: 02/16/2018 Status: F Source: [place] CONTRAST 4:02 PM [facility] REPOSITORY [facility] Imaging Services [address] [place] [address] Abdomen/Pelvis WITH Contrast MR#: [id number] Acct: [id number] Name: AN MOYA Rep #: [id number] : 1985 F 32 From: Campbell Lynn MD PCP: Elvis Babin MD Status: REG CLI Study: Abdomen/Pelvis WITH Contrast Date of Exam: 02/16/18 Exam# [id number] Ordering Dr: Christie Loyd MD STUDY: CT ABDOMEN AND PELVIS WITH CONTRAST REASON FOR EXAM: Female, 32 years old. Right-sided abdominal pain for months. Worsening recently. RADIATION DOSAGE (If Supplied By Facility): CTDIvol = ( 6.7+13.7 ) mGy, DLP = ( 650.22 ) mGycm TECHNIQUE: Transaxial images were obtained from the dome of the diaphragm to the symphysis pubis with oral contrast. 75 ml of Isovue 300 contrast was administered. Sagittal and coronal images were reconstructed. Individualized dose optimization techniques were used for this CT. COMPARISON: None. FINDINGS: Body wall soft tissues: No acute process. Osseous structures: No acute process. Inferior chest: No acute process. Hepatobiliary: Normal. Pancreas: No acute process. Spleen: Normal. Adrenal glands: Normal. Urogenital: Normal kidneys, collecting systems, ureters, urinary bladder. There is a dermoid of the right ovary, measuring approximately 6.6+4.6+3.8 cm. Left ovary unremarkable. A small amount of cul-de-sac free fluid. Uterine fundal fibroid approximately 3.4 cm. Probable nabothian cysts. Pelvic floor and sidewalls and retroperitoneum: No mass or adenopathy. Vasculature: No acute process. Stomach: No acute process. Small bowel and mesentery: No acute process. Large bowel: A short appendix is visible and appears normal. Unremarkable large bowel and rectum. Free fluid or free air: None. CT/Abdomen/Pelvis WITH Contrast IMPRESSION: Large right adnexal dermoid. No other acute intra-abdominal process. Electronically Signed: Campbell Lynn, at 21:34 EDT Tel , Service support , CC: Christie Loyd MD; Elvis Babin MD Breaker Oiler: Signed COMPREHENSIVE METABOLIC Collected: 02/16/2018 Status: F Source: [place] M[place] 3:58 PM [facility] REPOSITORY TYPE CODE TESTS RESULT OUT OF RANGE REFERENCE UNITS LAB L501.0100 74-106 mg/dL Normal GLU 86 Result Comment: Please note revised GLUCOSE reference range effective 2017. LAB L501.1000 7-18 mg/dL Normal BUN 11 LAB L501.1100 0.55-1.02 mg/dL Normal CREAT,SERUM 1.02 Result Comment: The validity of the calculated GFR AND GFRAA in patients over 70 years has not been determined. Clinical correlation is essential. LAB L501.1110 >60 mL/min Normal EST GFR 68 Result Comment: Non- GFR Calc LAB L501.1115 >60 mL/min Normal EST GFR - AA 82 Result Comment: GFR Calc LAB L501.1300 10-20 RATIO Normal BUN/CRE 10.8 LAB L501.1500 6.4-8.2 g/dL High T PROT 8.4 LAB L501.1800 3.2-5.0 g/dL Normal ALB 4.0 LAB L501.1950 2.2-4.2 g/dL High GLOB 4.4 LAB L501.2000 0.9-2.4 RATIO Normal A/G 0.9 LAB L501.2200 8.5-10.1 mg/dL CA Normal 8.8 LAB L501.4100 15-37 U/L Low AST 13 LAB L501.4305 45-117 U/L Normal ALK P 64 LAB L501.4405 13-56 U/L Normal ALT 17 LAB L501.4600 0.20-1.00 mg/dL T Normal BILI 0.40 LAB L501.5300 136-145 mmol/L NA Normal 139 LAB L501.5600 3.5-5.1 mmol/L K Normal 3.5 LAB L501.5900 98-107 mmol/L CL Normal 105 LAB L501.6100 21.0-32.0 mmol/L Normal CO2 26.0 LAB L501.6200 5-15 Normal GAP 8 Performed By: #### L500.4050 #### [facility] [address] [place], [address] TRANSVAGINAL Observed: 02/13/2018 Status: F Source: [place] NON- 6:20 PM [facility] REPOSITORY [facility] Imaging Services [address] [place] [address] Transvaginal Non- MR#: [id number] Acct: [id number] Name: AN MOYA Rep #: [id number] : 1985 F 32 From: Eliezer Zamorano PCP: Elvis Babin MD Status: REG CLI Study: Transvaginal Non- Date of Exam: 02/13/18 Exam# [id number] Ordering Dr: Elvis Babin MD STUDY: ULTRASOUND OF THE FEMALE PELVIS - COMPLETE REASON FOR EXAM: Female, 32 years old. Right lower quadrant pain LMP: 01/29/2018 TECHNIQUE: Transabdominal and Transvaginal TECHNICAL QUALITY: Adequate. COMPARISON: 04/27/2017. FINDINGS: The uterus is anteverted and is in a midline position. The uterus measures 9.2 x 5.8 x 3.3 cm. There is a Nabothian cyst of the cervix. The endometrium measures 14 mm in thickness, and is hyperechoic. There is no demonstrated endometrial mass. There is a left upper uterine segment/fundal fibroid measuring up to 4.1 cm. The right ovary is visualized. The right ovary measures 7.9 x 6.2 x 5.5 cm. There is no right ovarian cyst. There is a 2.6 cm paraovarian cyst. There is a 5.1 x 4.9 cm heterogeneous ovarian mass without color flow. There is no visualized right adnexal mass or complex lesion. There is normal arterial and normal venous vascularity. The left ovary is visualized. The left ovary measures 4.0 x 2.7 x 1.9 cm. There is a 1.7 cm complex left ovarian cyst. No ovarian mass. There is no visualized left adnexal mass or complex lesion. There is normal arterial and normal venous vascularity. There is no fluid in the cul-de-sac. The pre void volume of the bladder was 338 ml. US/Transvaginal Non- IMPRESSION: There is a right ovarian 5.1 cm nonvascular mass. Right paraovarian cyst. Left ovarian complex cyst. No torsion. There is a 4.1 cm fibroid. Thickened homogeneous endometrium measuring 14 mm. Electronically Signed: Eliezer Zamorano DO at 19:29 EDT , Service support , CC: Elvis Babin MD Breaker Oiler: Signed PELVIC (NON ) Observed: 02/13/2018 Status: F Source: [place] 5:58 PM [facility] REPOSITORY [facility] Imaging Services [address] [place] [address] Pelvic (Non ) MR#: [id number] Acct: [id number] Name: AN MOYA Rep #: [id number] : 1985 F 32 From: Eliezer Zamorano PCP: Elvis Babin MD Status: REG CLI Study: Pelvic (Non ) Date of Exam: 02/13/18 Exam# [id number] Ordering Dr: Elvis Babin MD STUDY: ULTRASOUND OF THE FEMALE PELVIS - COMPLETE REASON FOR EXAM: Female, 32 years old. Right lower quadrant pain LMP: 01/29/2018 TECHNIQUE: Transabdominal and Transvaginal TECHNICAL QUALITY: Adequate. COMPARISON: 04/27/2017. FINDINGS: The uterus is anteverted and is in a midline position. The uterus measures 9.2 x 5.8 x 3.3 cm. There is a Nabothian cyst of the cervix. The endometrium measures 14 mm in thickness, and is hyperechoic. There is no demonstrated endometrial mass. There is a left upper uterine segment/fundal fibroid measuring up to 4.1 cm. The right ovary is visualized. The right ovary measures 7.9 x 6.2 x 5.5 cm. There is no right ovarian cyst. There is a 2.6 cm paraovarian cyst. There is a 5.1 x 4.9 cm heterogeneous ovarian mass without color flow. There is no visualized right adnexal mass or complex lesion. There is normal arterial and normal venous vascularity. The left ovary is visualized. The left ovary measures 4.0 x 2.7 x 1.9 cm. There is a 1.7 cm complex left ovarian cyst. No ovarian mass. There is no visualized left adnexal mass or complex lesion. There is normal arterial and normal venous vascularity. There is no fluid in the cul-de-sac. The pre void volume of the bladder was 338 ml. US/Pelvic (Non ) IMPRESSION: There is a right ovarian 5.1 cm nonvascular mass. Right paraovarian cyst. Left ovarian complex cyst. No torsion. There is a 4.1 cm fibroid. Thickened homogeneous endometrium measuring 14 mm. Electronically Signed: Eliezer Zamorano DO at 19:29 EDT , Service support , CC: Elvis Babin MD Breaker Oiler: Signed ESTRADIOL Collected: 10/25/2017 Status: F Source: [place] 4:59 PM [facility] REPOSITORY TYPE CODE TESTS RESULT OUT OF RANGE REFERENCE UNITS LAB L3300.1750 pg/mL Normal ESTRADIOL 115.0 Result Comment: NORMAL REFERENCE RANGES FEMALE FOLLICULAR 21.4 - 164.8 pg/mL MID-CYCLE PEAK 49.9 - 367.2 pg/mL LUTEAL 40.2 - 259.0 pg/mL POST-MENOPAUSAL ON MHT <11.0 - 462.1 pg/mL NOT ON MHT <11.0 - 58.3 pg/mL MALE <11.0 - 52.5 pg/mL NOTE: [facility] HAS CONFIRMED THE DRUG FULVETRANT (FASLODEX) MAY CAUSE FALSELY ELEVATED ESTRADIOL RESULTS WHEN USING THIS TEST METHOD. IF PATIENT IS TAKING FULVESTRANT AN ALTERNATIVE METHOD SHOULD BE USED TO DETERMINE ESTRADIOL CONCENTRATION. Performed By: #### L3300.1750 #### [facility] [address] [place], [address] PROGESTERONE LEVEL Collected: 10/25/2017 Status: F Source: [place] 4:59 PM [facility] REPOSITORY TYPE CODE TESTS RESULT OUT OF REFERENCE UNITS RANGE LAB L509.4001 See Comment ng/mL Progesterone Normal 12.91 Result Comment: Progesterone Reference Table: UNITS Female: Follicular 0.15 - 1.40 ng/mL Luteal 3.34 - 25.56 ng/mL Mid-luteal 4.44 - 28.03 ng/mL Postmenopausal 0.0 - 0.73 ng/mL : 1st Trimester 11.22 - 90.00 ng/mL 2nd Trimester 25.55 - 89.40 ng/mL 3rd Trimester 48.40 -422.50 ng/mL Performed By: #### L509.4001 #### [facility] [address] [place], [address] PAP I-G W/RFX HRHPV Collected: 10/25/2017 Status: F Source: [place] 4:15 PM [facility] REPOSITORY Order Comment: CYTOLOGY INFORMATION: - CLINICAL INFORMATION: - DATE LMP/MENOPAUSE: LMP - COLLECTION VIAL: Thin Prep Vial - TRANSFER PUMPER SOURCE: CERVICAL/ENDOCERVICAL - COLLECTION TECHNIQUE: BRUSH/SPATULA Specimen Comment: [id number] Specimen Comment: No. of containers..01 ThinPrep Vial TYPE CODE TESTS RESULT OUT OF RANGE REFERENCE UNITS LAB L7400.0800 . Normal DIAGN Comment Result Comment: NEGATIVE FOR INTRAEPITHELIAL LESION AND MALIGNANCY. LAB L7400.0900 . Normal ADEQ Comment Result Comment: Satisfactory for evaluation. No endocervical component is identified. LAB L7400.1400 . Normal PERFORM Comment Result Comment: Karen Ramirez, Intake Counselor (ASCP) LAB L7400.2575 . Normal TEST METHOD Comment Result Comment: This liquid based ThinPrep(R) pap test was screened with the use of an image guided system. LAB L7400.2600 . Normal . COMM LAB L7400.2700 . Normal PAPSMR Comment Result Comment: The Pap smear is a screening test designed to aid in the detection of premalignant and malignant conditions of the uterine cervix. It is not a diagnostic procedure and should not be used as the sole means of detecting cervical cancer. Both false-positive and false-negative reports do occur. LAB L7400.2800 . Normal HPV RFLX Comment Result Comment: The HPV DNA reflex criteria were not met with this specimen result therefore, no HPV testing was performed. Performed at: [facility] [id number] Fagoter: Soo Tariq MD, Phone: [phone] Performed By: #### L7400.0350 #### [facility] (refer to report for specific site) refer to report for address and phone number CTA HEAD W/WO Observed: 10/10/2017 Status: F Source: [place] CONTRAST 4:35 PM [facility] REPOSITORY [facility] Imaging Services [address] [place] [address] CTA Head W/WO Contrast MR#: [id number] Acct: [id number] Name: AN MOYA Rep #: [id number] : 1985 F 31 From: Mateo Jarvis DO PCP: Elvis Babin MD Status: REG CLI Study: CTA Head W/WO Contrast Date of Exam: 10/10/17 Exam# [id number] Ordering Dr: Familia Atkinson MD STUDY: CTA OF THE BRAIN REASON FOR EXAM: Female, 31 years old. Headaches different pupil size RADIATION DOSAGE (If Supplied By Facility): CTDIvol = ( 24.73 ) mGy, DLP = ( 1133.15 ) mGycm TECHNIQUE: CT angiography was performed with a multi-detector CT scanner. Data acquisition was obtained from the skull base through the vertex following intravenous administration of 100 ml of Isovue-370. MIP images were reconstructed from the axial data set. Post-processing of the angiographic images was performed, with multiplanar reformation and 3D reconstruction. Individualized dose optimization techniques were used for this CT. COMPARISON: None. FINDINGS: Normal bilateral petrous carotid arteries. Normal right cavernous carotid artery with a normal supraclinoid bifurcation. Normal left cavernous carotid artery with a normal supraclinoid bifurcation. Nonvisualization of the right A1 segment of the anterior cerebral artery. Normal left A1 segments of the anterior cerebral artery. Normal intact anterior communicating artery (ACOM). Normal bilateral A2 segments of the anterior cerebral arteries. Normal right M1 and M2 segments of the middle cerebral arteries, with a normal M1 bifurcation. Normal left M1 and M2 segments of the middle cerebral arteries, with a normal M1 bifurcation. Normal right posterior communicating artery (PCOM). Nonvisualization of the left posterior communicating artery (PCOM). Normal bilateral vertebral arteries. Normal basilar artery with a normal basilar bifurcation. The visualized bilateral superior cerebellar (SCA) arteries are normal. Normal left posterior cerebral artery. Nonvisualization of the proximal segment of the right posterior cerebral artery. There is no demonstrated aneurysm of the [place]. There is no demonstrated abnormality of the visualized brain. CT/CTA Head W/WO Contrast IMPRESSION: Nonvisualization of the right A1 segment and the proximal segment of the right posterior cerebral artery. Electronically Signed: Mateo Jarvis DO at 18:26 EST Tel [phone], Service support , CC: Elvis Babin MD; Familia Atkinson MD Breaker Oiler: Signed BUN Collected: 10/10/2017 Status: F Source: JUAN 1:53 PM [facility] REPOSITORY TYPE CODE TESTS RESULT OUT OF RANGE REFERENCE UNITS LAB L501.1000 7-18 mg/dL Normal BUN 8 Performed By: #### L501.1000, L501.1105 #### [facility] [address] [place], [address] SERUM CREATININE AND Collected: 10/10/2017 Status: F Source: JUAN GFR 1:53 PM [facility] REPOSITORY TYPE CODE TESTS RESULT OUT OF RANGE REFERENCE UNITS LAB L501.1100 0.55-1.02 mg/dL Normal 0.83 CREAT,SERUM Result Comment: The validity of the calculated GFR AND GFRAA in patients over 70 years has not been determined. Clinical correlation is essential. LAB L501.1110 >60 mL/min Normal EST GFR 86 Result Comment: Non- GFR Calc LAB L501.1115 >60 mL/min Normal EST GFR - AA 104 Result Comment: GFR Calc Performed By: #### L501.1000, L501.1105 #### [facility] [address] [place], [address] ALLERGIES ALLERGIES DATE TYPE / CODE NAME / CODE REACTION SEVERITY SOURCE 07/23/2018 Drug No Known Unknown [facility] Allergy/4160 Allergies/F00 Hospital [address](SNOMED 4855357(RXNOR Repository CT) M) ENCOUNTERS ENCOUNTERS ADMIT/DISCHARGE ACCOUNT ADMITTING ENCOUNTER LOCATION SOURCE NUMBER CLASS 07/23/2018/ [id number] Emergency [place] 8 8 [facility] ing:ED Repository 07/09/2018 [id number] Ambulatory [place] 0 [facility] ing:[place] Repository 03/28/2018/ [id number] Ambulatory BMSBuilding:B [place] 8 8 [place] Repository 03/22/2018/ [id number] Ambulatory [place] 8 6 [facility] ing[place] [place] 03/22/2018 [id number] Ambulatory BMSBuilding:W [place] 1 [facility] Repository 02/16/2018 [id number] Ambulatory [place] Juan 6 [facility] ing:LAB.FUTUR Repository E 02/16/2018 [id number] Ambulatory [place] 1 [facility] ing:CT Repository 02/13/2018 [id number] Ambulatory [place] 8 [facility] ing:US Repository 10/25/2017 [id number] Ambulatory [place] Juan 2 [facility] ing:WOBLAB Repository 10/10/2017 [id number] Ambulatory [place] 8 [facility] ing:CT Repository 10/10/2017 [id number] Ambulatory [place] 7 [facility] ing:MFPLAB Repository PAYERS PAYERS ENCOUNTER GUARANTOR PAYER SUBSCRIBER SOURCE 07/23/2018 AN B Primary AN B [place] [id number] Insurance:ANTHEMPolic AMSTUTZDOB: [facility] y [place]: [id number] [id number] Repository [address]Jjp: (330) Date:7762-96-56JV [phone] () [id number], [place] [address]YK: 07/23/2018 Secondary NOT GIVENUNK [place] Insurance:SELF PAY [facility] Number: Effective Repository Date:2018-07-23 07/09/2018 AN B Primary AN B [place] [id number] Insurance:ANTHEMPolic AMSTUTZDOB: [facility] y Number: [id number] [id number] Repository [address]Rsk: (330) Date:3986-63-76YS [phone] () [id number], [place] [address]EA: 07/09/2018 Secondary NOT GIVENUNK [place] Insurance:SELF PAY [facility] Number: Effective Repository Date:2018-07-03 03/28/2018 AN B Primary AN B [place] [id number] Insurance:ANTHEMPolic AMSTUTZDOB: [facility] y Number: [id number] [id number] Repository [address]Ygw: (330) Date:0504-36-94HF [phone] () 189372HZJDEEZ, [place] [address]UG: 03/28/2018 Secondary NOT GIVENUNK [place] Insurance:SELF PAY [facility] Number: Effective Repository Date:2018-03-23 03/22/2018 An B Primary An B Juan [id number] Insurance:ANTHEMPolic AmstutzDOB: [facility] y Number: [id number], [place] [id number] Repository [address]Bmm: (330) Date:5284-19-46DB [phone] () [id number], [place] [address]DZ: 03/22/2018 Secondary NOT GIVENUNK [place] Insurance:SELF PAY [facility] Number: Effective Repository Date:2018-02-23 03/22/2018 AN B Primary AN B Jaun [id number] Insurance:ANTHEMPolic AMSTUTZDOB: [facility] y Number: [id number], [place] [id number] Repository [address]Vfz: (330) Date:4110-97-72SP [phone] () [id number], [place] [address]KD: 03/22/2018 Secondary NOT GIVENUNK [place] Insurance:SELF PAY [facility] Number: Effective Repository Date:2018-03-22 02/16/2018 AN B Primary NOT GIVENUNK [place] [id number] Insurance:SELF [place] Number: Effective Repository [phone]: (330) Date:2018-02-16 [phone] () 02/16/2018 An B Primary An B Juan [id number] Insurance:ANTHEMPolic AmstutzDOB: [facility] y Number: [id number] [id number] Repository [address]Ttm: (330) Date:6445-72-04VY [phone] () [id number], [place] [address]OF: 02/16/2018 Secondary NOT GIVENUNK [place] Insurance:SELF PAY [facility] Number: Effective Repository Date:2018-02-15 02/13/2018 An B Primary An B [place] [id number] Insurance:ANTHEMPolic AmstutzDOB: [facility] y Number: [id number], [place] [id number] Repository [address]Yjg: (330) Date:0297-30-28DP [phone] () TANISHA WILSON [address]JP: 02/13/2018 Secondary NOT GIVENUNK [place] Insurance:SELF PAY [facility] Number: Effective Repository Date:2018-02-13 10/25/2017 An B Primary An B [place] [id number] Insurance:ANTHEMPolic AmstutzDOB: [facility] y Number: [id number], [place] [id number] Repository [address]Bcd: (330) Date:4829-49-85ZQ [phone] () TANISHA WILSON [address]LQ: 10/25/2017 Secondary NOT GIVENUNK [place] Insurance:SELF PAY [facility] Number: Effective Repository Date:2017-10-25 10/10/2017 An B Primary An B [place] [id number] Insurance:ANTHEMPolic AmstutzDOB: [facility] y Number: [id number], [place] [id number] Repository [address]Cyj: (330) Date:1407-01-19OD [phone] () TANISHA WILSON [address]GN: 10/10/2017 Secondary NOT GIVENUNK [place] Insurance:SELF PAY [facility] Number: Effective Repository Date:2017-10-05 10/10/2017 An B Primary An B [place] [id number] Insurance:ANTHEMPolic AmstutzDOB: [facility] y Number: [id number], [place] [id number] Repository [address]Pqr: (330) Date:1703-06-41GP [phone] () TANISHA WILSON [address]KJ: 10/10/2017 Secondary NOT GIVENUNK [place] Insurance:SELF PAY [facility] Effective Repository Date:2017-10-10
== END ==
PROVIDERS: Family Provider Family Medicine; PCP Family Medicine; Visit Provider Obstetrics & Gynecology
DX: Z01.812 Encounter for preprocedural laboratory examination (principal); R10.10 Upper abdominal pain, unspecified
CPT/HCPCS: 36415; 80053; 85027; 85610; 85730; 86850; 86900

== ENCOUNTER 2018-03-22 05:58 | Day surgery (SDC) | payer BC, SELFPAY ==
[2018-03-22] VITALS (8 sets, daily range): BP systolic 104–124; BP diastolic 62–75; PULSE 71–105; RESP 14–16; TEMP 36.9–37.1; O2SAT 96–100
[2018-03-22 07:16] LABS: Anion Gap 7 (5-15); BUN 7 mg/dL (7-18); BUN/Creat Ratio 8.3 RATIO (10-20); Calcium,Total 8.8 mg/dL (8.5-10.1); Chloride 105 mmol/L (98-107); Creatinine, Serum 0.84 mg/dL (0.55-1.02); EST Glomerular Filtration Rate 85 mL/min (>60); Est Glom Filt Rate - Afr Amer 102 mL/min (>60); Glucose 84 mg/dL (74-106); Potassium 3.8 mmol/L (3.5-5.1); Sodium Level 139 mmol/L (136-145)
--- NOTE | 2018-03-22 07:30 | OV_PTH ---
PATIENT: EMMANUEL ROJAS LOC: [facility] [place] U#:[id number] AGE/SX: 32/F ROOM: RE03/22/[address]: Dr. Christie Loyd MD : [id number] BED: DIS: 03/22/2018 SPEC #: [id number] RECD: 03/22/18 09:15 STATUS: CAMILA YASIR #: [id number] WILNER: 03/22/18 07:[address]: Christie Loyd DEPT: SURGICAL PATHOLOGY RECD BY: Campbell Toro ENTERED: 03/22/18 10:15 SP TYPE: OVARY OTHR DR: Dr. Elvis Thomson MD Tissues: Right ovary Procedures: Surgery Specimen Level IV HEADER OPERATION: Diagnostic laparoscopy, oophorectomy PRE-OP DIAGNOSIS: Benign neoplasm right ovary TISSUE SUBMITTED: Right ovary MICROSCOPIC DIAGNOSIS Right ovary, oophorectomy: Mature cystic teratoma (dermoid cyst). AM:татьяна 8/17/18 MICROSCOPIC DESCRIPTION Slides are reviewed. GROSS DESCRIPTION Received in fixative is one container labeled with the patient's name and designated right ovary. The specimen consists of a previously opened ovary weighing 42 gm and measuring 6.5 x 4 x 4 cm. The outer surface is smooth. The entire ovary is replaced by a cyst filled with multiple hairs and sebum-like material. The cyst measures 0.2 to 1 cm in thickness. At one edge, normal appearing uninvolved ovary is also noted and shows multiple cysts filled with clear to bloody fluid. Rn Baby sections are submitted in six cassettes. Cassettes 5 & 6 contain the adjacent portion of the normal appearing uninvolved portion of ovarian tissue. / SJ:татьяна 03/22/18 TC:1 CPT: 07351
[2018-03-22 07:34] LABS: Pregnancy, Serum, hCG Quali. NEGATIVE Negative (0-9 Nonpreg)
--- NOTE | 2018-03-22 08:45 | PCM.OPRPT ---
Report of Operation Date of Procedure: 03/22/18 Pre-Operative Diagnosis: Right ovarian cyst Post-Operative Diagnosis: Right ovarian dermoid cyst Surgery/Procedure Performed:: Operative laparoscopy, right oophorectomy Description of Surgical Findings:: Uterus was sounded to approximately 9 cm in an anterior position and fully mobile. The adnexa on pelvic examination were somewhat limited examination secondary to bowel preparation. Upon entering the abdominal cavity with the laparoscope it was noted that the left ovary was within normal limits. The right ovary appeared to have a large dermoid cyst encompassing the entire ovary with no normal ovarian tissue noted. Bilateral fallopian tubes normal. There is an anterior fibroid of the uterus noted. Appendix noted to be normal. Rest of the pelvis noted to be normal. hardware design engineer: Mike Leyva hardware design engineer: Elaine Saavedra Type of Anesthesia:: General Anesthesiologist: Bin [employer]ins Special Medications: Cefotetan 2 g IV and heparin 5000 subcu preoperatively Specimen's removed: Right ovary Drains: None Estimated Blood Loss (mL): Minimal Fluids Replaced: Lactated Ringer Description of Procedure: Patient presented to the surgical suite in an n.p.o. status. Patient was placed on the operating bed with appropriate monitors attached. She underwent a general anesthetic. Once found to be adequate, the patient was placed in dorsal lithotomy position via the Shivam stirrups. Patient then was prepped and draped in the normal sterile fashion. The uterine manipulator was placed to the cervical region after uterus was sounded to approximately 9 cm in anterior position. Rivera catheter drainage throughout the procedure occurred via a Rivera catheter. Gloves and turned to the top of the patient a 1 cm incision was placed at the umbilicus in anticipation of using the enlarged trocar for Endo Catch bag for removal of the ovarian cyst. There is seen was placed through this incision and once water test confirmed abdominal placement 2 L of CO2 gas placed into the abdominal cavity. Veress needle was then removed and placement of a disposable 1112 trocar into the abdominal incision occurred. Lap scope placed into the abdominal cavity revealed abdominal placement and hemostasis. The station of the pelvis with the prior notations of an enlarged right ovary ring fully encapsulated by this was appeared to be a dermoid cyst. 2 additional disposable trochars of 5 mm size were placed in the left and right lower quadrants under direct visualization. Through these trochars then the ovary was grasped and elevated and the suture was used to sequentially cauterize and transected the ovary away from the mesosalpinx and the uterine ovarian ligament. Stasis was noted throughout in the ovary with encapsulating cyst was placed into the posterior Cul-de-sac. Investigation of the operative site for added hemostasis was noted. At this point time the camera was removed from the umbilical incision replaced by an Endo Catch bag of the right lower quadrant 5 mm trocar site was used for camera placement. The Endo Catch bag was then used to encapsulate the right ovary with cyst into the Endo Catch bag and this was brought up through the umbilical incision. The umbilical incision was extended and the fascial and peritoneal relationships under direct visualization to aid with removal of the entire cyst intact inside the Endo Catch bag to be sent away for pathological evaluation. Replacement of the trocar back into that umbilical incision and replacement the camera into the umbilical incision further investigation of the pelvis occurred with a bilateral ureters noting to be peristalsing and well away from the operative site. The right operative site was noted be hemostatic as well. At this point in time the camera was then switched to the right lower quadrant trocar site once again and manual replacement and repair of the fascia of the umbilical area due to the extension occurred with an 0 Vicryl suture. This was repaired with an 0 Vicryl suture in a running interlocking stitch. The subcutaneous fascia cutaneous tissue was then reapproximated with a throat 3-0 Vicryl suture. And then the skin was approximate with a 4-0 Monocryl. Investigation revealed hemostasis and encapsulation and occlusion of the entire fascial area and this repaired to prevent hernia later on. The bilateral lower quadrant 5 mm trochars were released and removed under direct visualization with release of CO2 gas as well. These trocar sites were closed in a subcuticular fashion with the 4-0 Monocryl. Turning to the vagina the Rivera catheter was removed along with the uterine manipulator and sponge instrument and needle counts were correct ?2 patient was awakened in stable condition to be taken to recovery room and discharged home later today Grafts/Implants Used: None - Complications None - Admit VTE Documentation VTE Present on Admission: No VTE Mechan Device Prophylaxis: SCD's VTE Pharm Prophylaxis ordered?: Yes
--- NOTE | 2018-03-22 08:56 | PCM.DC.TUB ---
Discharge Diet: No Restrictions - increase fluid intake for 48 hours., - - low residue diet x 72 hours. Protein drinks/smoothies encouraged Discharge Activity: Return to Normal Activity, May Drive - when you are no longer taking pain/narcotic medicines., May Shower, May Take a Tub Bath - in 14 days. May shower in (days): 0 - TODAY May resume sexual activity in: 3 weeks Weight Bearing Status: Full weight bearing Lifting Restrictions: 10 pounds Additional Activity Instructions:: Ambulate often the next week after surgery. Nothing in the vagina for 5 days. Call your doctor if your incision/area has: Continuous Slow Oozing, Sudden Increased Bleeding, Increased Pain/ Swelling, Increased Redness, Foul Smelling Discharge Call your doctor if you observe: Fever of 101 or Higher, Inability to urinate, Inability to have a bowel movement Remove Dressing in (days):: 1 - remove and leave open to air on 03/23/18 Cleanse incision/area with: Soap & Water Allergies/Adverse Reactions: Allergies No Known Allergies Allergy (Verified 03/19/18 14:08) Medications to take at Discharge Albuterol Inhaler [Ventolin Hfa (SP)] 1 - 2 puff INHALATION Q4H PRN PRN 03/13/15 Budesonide/Formoterol 80-4.5 [Symbicort 80-4.5 Mcg Inhaler] 2 puff INHALATION PRN PRN 03/13/15 L.acidoph,Paracasei, B.lactis [Probiotic] 1 each PO DAILY 03/19/18 Multivitamin [Multiple Vitamins] 1 each PO DAILY 03/19/18 Primary Care Physician: Elvis Thomson MD [Primary Care Provider] - Test Results: Test results from this visit will be discussed in further detail at your follow-up appointment, if applicable. Please Follow Up With: Christie Loyd MD - [phone] When: post op appt next week. Call to schedule if not already arranged
== END 2018-03-22 14:30 | disposition home or self-care (01) ==
LOC: SDC 06:01 → AC 07:25
PROVIDERS: Family Provider Family Medicine; PCP Family Medicine; Visit Provider Obstetrics & Gynecology
PROC: (CPT 58720; principal; 2018-03-22 07:15)
DX: D27.0 Benign neoplasm of right ovary (principal); D68.51 Activated protein C resistance; J45.909 Unspecified asthma, uncomplicated
CPT/HCPCS: 00840; 58661; 80048; 84703; 88305; 93005; J7120; J2405

== ENCOUNTER → 2018-07-09 16:50 | Outpatient (CLI) | payer BC, SELFPAY ==
--- NOTE | 2018-07-09 16:55 | US_ITS ---
STUDY: RENAL ULTRASOUND - COMPLETE REASON FOR EXAM: Female, 32 years old. Nocturia. TECHNIQUE: Ultrasound evaluation of the kidneys was performed with real-time and static cole-scale imaging. COMPARISON: CT scan 02/16/2018. FINDINGS: RIGHT KIDNEY: Normal location of the right kidney, which is normal in size. The right kidney measures 11.1 x 5.4 x 4.1 cm. There is a normal cortex of the right kidney. The renal cortex measures 1.5 cm. There is no right renal mass or cyst. There are no right renal calculi. There is no right hydronephrosis. DISTAL RIGHT URETER: There is non-visualization of the distal right ureter. There is no demonstrated right ureterovesical junction calculus. There is no demonstrated right ureteral jet. LEFT KIDNEY: Normal location of the left kidney, which is normal in size. The left kidney measures 11.2 x 4.6 x 6.4 cm. There is a normal cortex of the left kidney. The renal cortex measures 1.8 cm. There is no left renal mass or cyst. There are no left renal calculi. There is no left hydronephrosis. DISTAL LEFT URETER: There is non-visualization of the distal left ureter. There is no demonstrated left ureterovesical junction calculus. There is a visualized left ureteral jet. BLADDER: The distended urinary bladder has a volume of 464 ml. The empty urinary bladder has a volume of 27 ml. There is a normal wall thickness of the distended urinary bladder. There is no demonstrated mass within the urinary bladder. There are no demonstrated bladder calculi. US/Kidney and Bladder IMPRESSION: Normal ultrasound of the kidneys and urinary bladder. Electronically Signed: Abdulkadir Hammonds MD at 0:01 EST , Service support ,
== END ==
PROVIDERS: Family Provider Family Medicine; PCP Family Medicine; Referring Provider Urology; Visit Provider Urology
DX: N39.44 Nocturnal enuresis (principal)
CPT/HCPCS: 76770

== ENCOUNTER 2018-07-23 14:21 | Emergency (ER) | payer BC, SELFPAY ==
[2018-07-23 14:22] VITALS: BP 128/94; PULSE 69; RESP 14; TEMP 36.7; O2SAT 100; BMI 30.1
--- NOTE | 2018-07-23 14:44 | EKG12_ITS ---
Test Reason : SYNCOPE Blood Pressure : / mmHG Vent. Rate : 076 BPM Atrial Rate : 076 BPM P-R Int : 132 ms QRS Dur : 084 ms QT Int : 378 ms P-R-T Axes : 063 061 029 degrees QTc Int : 425 ms Normal sinus rhythm with sinus arrhythmia Normal ECG Confirmed by ANALI PORTILLO, ZEB ([id number]), industrial editor LION BABIN ([id number] on 07/27/2018 1:20:26 PM Referred By: JEREMY Confirmed By:ZEB BRIONES MD
[2018-07-23] MEDS: 0.9% Normal Saline 1,000 ML 1000 ML IV (15:06)
[2018-07-23 15:11] LABS: Absolute Lymphocyte Count 2.23 X10^3/ul (0.83-4.51); Basophil# 0.05 X10^3/uL; Basophil% 0.4 % (0-1); Eosinophil# 0.13 X10^3/uL; Eosinophils% 1.1 % (0-5); Hematocrit 38.2 % (37-47); Hemoglobin 12.7 g/dl (12.0-15.0); Lymphocyte # 2.23 X10^3/ul (4.0); Lymphocyte % 18.3 % (19-41); Mean Corp Hgb Conc 33.2 g/gl (32-36); Mean Corpuscular Hgb 30.5 pg (27.0-32.0); Mean Corpuscular Volume 91.8 fL (81-99); Mean Platelet Vol. 10.9 fl (6.2-12.0); Monocyte# 0.77 X10^3/uL; Monocyte% 6.3 % (0-10); Neutrophil # 8.96 X10^3/uL (2.7-7.7); Neutrophil % 73.7 % (47-70); Platelet Count 226 K/mm3 (150-450); RBC Distribution Width CV 12.5 % (11.6-14.6); Red Blood Count 4.16 M/mm3 (4.2-5.4); White Blood Count 12.2 K/mm3 (4.4-11.0)
[2018-07-23 15:12] LABS: POSITIVE COUNT NO; POSITIVE DIFFERENTIAL NO; POSITIVE MORPHOLOGY NO
[2018-07-23 15:13] LABS: Mucous, Urine 0 SEEN /hpf (<or=2+)
[2018-07-23 15:15] LABS: Color, Urine Yellow (Yellow); Glucose, Dipstick Normal (Normal); Ketone-Dipstick Negative (Negative); Leukocyte Esterase-Dipstick Negative /ul (Negative); Nitrite-Dipstick Negative (Negative); Occult Blood-Urine 10 /ul (Negative); Protein-Dipstick Negative (Negative); Specific Gravity, Urine 1.015 (1.002-1.030); Urine Bilirubin Dipstick Negative (Negative); Urine Clarity Sl. Cloudy (Clear); Urine Urobilinogen Normal (Normal)
[2018-07-23 15:16] LABS: Internal QC Validated? YES +Cl - CLEAR BKGD; Pregnancy, Urine Negative Negative
[2018-07-23 15:27] LABS: Red Blood Cells-Urine 0-5 SEEN /hpf (0-5); Squamous Epithelial Cells - UA 0-5 SEEN /hpf (5-10); White Blood Cells 0 SEEN /hpf (0-5)
[2018-07-23 15:28] LABS: Amorphous Sediment 1+; Bacteria 1+ /hpf (None Seen)
[2018-07-23 15:31] LABS: ALB/GLOB Ratio 0.9 RATIO (0.9-2.4); AST(SGOT) 10 U/L (15-37); Alanine Aminotransfer ALT/SGPT 16 U/L (13-56); Albumin, Serum 3.5 g/dL (3.2-5.0); Alkaline Phosphatase 67 U/L (45-117); Anion Gap 6 (5-15); BUN 11 mg/dL (7-18); BUN/Creat Ratio 14.1 RATIO (10-20); Calcium,Total 8.5 mg/dL (8.5-10.1); Chloride 108 mmol/L (98-107); Creatinine, Serum 0.78 mg/dL (0.55-1.02); EST Glomerular Filtration Rate 92 mL/min (>60); Est Glom Filt Rate - Afr Amer 111 mL/min (>60); Estimated Creatinine Clearance 87.24 ml/min; Globulin 3.9 g/dL (2.2-4.2); Glucose 110 mg/dL (74-106); Potassium 3.7 mmol/L (3.5-5.1); Protein, Total 7.4 g/dL (6.4-8.2); Sodium Level 140 mmol/L (136-145)
--- NOTE | 2018-07-23 16:09 | ED.VISSUMM ---
- ER Visit Summary Date of Service: 07/23/18 Chief Complaint: Near syncope History of Present Illness: The patient is a 32 F who presents with near syncopal-like symptoms. She states that she was on the toilet when she started feeling lightheaded and dizzy. She was having some lower abdominal cramping and she went back to the bathroom and still felt the same way. She is not on her menstrual cycle. She denies any blood in her stools. No heavy straining. She has been sick with a cold for the past couple of days. Denies chest pain but did feel short of breath. She has a history of vasovagal syncope. She has been eating and drinking well normally. She states that she did question she did have some palpitations earlier this week. Physical Examination: Vital signs reviewed. HEENT exam unremarkable. Heart is regular rate and rhythm without murmurs. Lungs are clear to auscultation. Abdomen is soft and nontender. Extremities reveal no edema. Skin exam normal. Neurologic exam normal. Test Results: EKG is sinus rhythm with rate of 76. No ST changes. White blood cell count 12.2. Chloride 108, AST of 10. Urinalysis negative for infection. HCG negative Emergency Department Course and Treatment: Patient was given IV fluids. Upon reevaluation she feels much better. This is likely vasovagal syncope. I do not feel she needs to be admitted to the hospital. Patient will be discharged to follow-up with her PCP. Treatment Plan: [] Disposition: Discharge Impression: Vasovagal syncope This note was generated with [employer] dictation software. It may contain incorrect words, spelling, and punctuation that were not noted in review of the chart prior to signing ED Disposition - Plan for ED Patient: Chief Complaint: Syncope Referrals: Elvis Thomson MD [Primary Care Provider] -
--- NOTE | 2018-07-23 16:11 | ED.DEP ---
ED Disposition - Plan for ED Patient: Disposition: Home or Assisted Living Chief Complaint: Syncope Instructions: ED Syncope Vasovagal Referrals: Elvis Thomson MD [Primary Care Provider] -
[2018-07-23 16:48] VITALS: BP 125/78; PULSE 78; RESP 16; O2SAT 99
--- OUTSIDE RECORDS SUMMARY | 2018-10-25 07:48 | XMS RPT_ITS ---
:1985 Author Organization OHIP Support Name Relationship Address Phone [facility] Unavailable [address] + [address] [place] [address] CRYSTAL, BILL Unavailable Unavailable + [place] [address] [facility] Unavailable [address] + [address] [place] [address] CRYSTAL, BILL Unavailable Unavailable + [place] [address] [facility] Unavailable [address] + [address] [place] [address] CRYSTAL, BILL Unavailable Unavailable + [place] [address] [facility] Unavailable [address] + [address] [place] [address] CRYSTAL, BILL Unavailable Unavailable + [place] [address] CRYSTAL, BILL Unavailable [address] + [place] [address] [facility] Unavailable [address] + [place] [address] CRYSTAL, BILL Unavailable [address] + [place] [address] [facility] Unavailable [address] + [place] [address] CRYSTAL, BILL Unavailable [address] + [place] [address] [facility] Unavailable [address] + [place] [address] [facility] Unavailable [address] + [address] [place] [address] CRYSTAL, BILL Unavailable Unavailable + [place] [address] CRYSTAL, BILL Unavailable [address] + [place] [address] [facility] Unavailable [address] + [place] [address] CRYSTAL, BILL Unavailable [address] + [place] [address] [facility] Unavailable [address] + [place] [address] CRYSTAL, BILL Unavailable [address] + [place] [address] [facility] Unavailable [address] + [place] [address] CRYSTAL, BILL Unavailable [address] + [place] [address] [facility] Unavailable [address] + [place] [address] CRYSTAL, BILL Unavailable [address] + [place] [address] [facility] Unavailable [address] + [place] [address] Care Team Providers Name Role Phone Babin, Elvis Primary Care Unavailable Al Murguia Attending Unavailable Christie Loyd Attending Unavailable Babin, Elvis Primary Care Unavailable Noah Levy Attending Unavailable Christie Loyd Referring Unavailable Yolande Brizuela Attending Unavailable Babin, Elvis Referring Unavailable Babin, Elvis Primary Care Unavailable Christie Loyd Attending Unavailable Christie Loyd Referring Unavailable Babin, Elvis Primary Care Unavailable Christie Loyd Attending Unavailable Christie Loyd Referring Unavailable Babin, Elvis Primary Care Unavailable Babin, Elvis Attending Unavailable Babin, Elvis Referring Unavailable Babin, Elvis Primary Care Unavailable Babin, Elvis Attending Unavailable Babin, Elvis Referring Unavailable Babin, Elvis Primary Care Unavailable Christie Loyd Attending Unavailable Familia Atkinson Attending Unavailable Familia Atkinson Referring Unavailable Babin, Elvis Primary Care Unavailable Familia Atkinson Attending Unavailable Babin, Elvis Primary Care Unavailable BabinElvis Attending Unavailable Babin, Elvis Referring Unavailable Babin, Elvis Primary Care Unavailable Magda Cooley Attending Unavailable Magda Cooley Referring Unavailable Elvis Babin Primary Care Unavailable PROBLEMS PROBLEMS DATE TYPE CONDITION / CODE ATTENDING STATUS SOURCE 08/03/2018 Unknown R55 - Syncope and Al Murguia Active [place] collapse / Community R55(ICD-10) Hospital Repository 04/18/2018 Unknown Z01.810 - Encounter Noah Levy Active [place] for preprocedural [facility] cardiovascular Hospital examination / Repository Z01.810(ICD-10) 03/22/2018 Unknown N83.209 - Christie Loyd Active [place] Unspecified ovarian Community cyst, unspecified Hospital side / Repository N83.209(ICD-10) 03/22/2018 Unknown 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 Community / D68.51(ICD-10) Hospital Repository 07/08/2018 Unknown R10.10 - Upper ShrChristie michel Active [place] abdominal pain, Community unspecified / Hospital R10.10(ICD-10) Repository 10/25/2017 Unknown N92.0 - Excessive ShrChristie michel Active [place] and frequent [facility] menstruation with Hospital regular cycle / Repository N92.0(ICD-10) 10/25/2017 Unknown Z12.4 - Encounter Christie Loyd Active [place] for screening for [facility] malignant neoplasm [facility] cervix / Repository Z12.4(ICD-10) 10/16/2017 Unknown R51 - Headache / Familia Atkinson Active [place] R51(ICD-10) [facility] Repository 10/10/2017 Unknown H57.02 - Anisocoria Familia Atkinson Active [place] / H57.02(ICD-10) [facility] Repository PROCEDURES PROCEDURES No Procedure Records FoundRESULTS RESULTS SPINE LUMBAR Observed: 08/22/2018 Status: F Source: [place] (ROUTINE) 7:34 AM [facility] REPOSITORY [facility] Imaging Services [address] [place] [address] Spine Lumbar (Routine) MR#: [id number] Acct: [id number] Name: AN MOYA Rep #: [id number] : 1985 F 32 From: Trevin King MD PCP: Elvis Babin MD Status: REG CLI Study: Spine Lumbar (Routine) Date of Exam: 08/22/18 Exam# [id number] Ordering Dr: Elvis Babin MD ADDENDUM by Trevin King MD on 08/23/18 at 2159 ADDENDUM ADDENDUM: Comparison with lumbar spine films demonstrate no significant change given differences in imaging techniques Electronically Signed: Trevin King MD at 21:59 EST , Service support , 08/23/182158 Date cc: Elvis Babin MD * Signed ADDENDUM by Trevin King MD on 08/23/18 at 215 MRI/Spine Lumbar (Routine) 08/23/182205 Date cc: Elvis Babin MD * Signed STUDY: MRI LUMBAR SPINE WITHOUT CONTRAST REASON FOR EXAM: Female, 32 years old. Low back pain with foot numbness and incontinence TECHNIQUE: Standardized fat and water weighted pulse sequences were obtained in the sagittal and axial planes. COMPARISON: None FINDINGS: T12-L1: Normal endplates. Normal disc height, hydration and morphology. Normal bilateral facet joints. Normal central canal and bilateral lateral recesses. Normal bilateral intervertebral neural foramina. Normal lumbar lordosis. There is no substantial scoliosis. Normal conus medullaris that terminates at T12-L1 L1-2: Normal endplates. Normal disc height, hydration and morphology. Normal bilateral facet joints. Normal central canal and bilateral lateral recesses. Normal bilateral intervertebral neural foramina. L2-3: Normal endplates. Normal disc height, hydration and morphology. Normal bilateral facet joints. Normal central canal and bilateral lateral recesses. Normal bilateral intervertebral neural foramina. L3-4: Normal endplates. Normal disc height, hydration and morphology. Normal bilateral facet joints. Normal central canal and bilateral lateral recesses. Normal bilateral intervertebral neural foramina. L4-5: Normal endplates. Normal disc height, hydration and morphology. Normal bilateral facet joints. Normal central canal and bilateral lateral recesses. Normal bilateral intervertebral neural foramina. L5-S1: Normal endplates. Normal disc height, desiccation and mild annular bulge in association with small right paracentral annular tear and disc protrusion.. Mild facet arthropathy.. Normal central canal and bilateral lateral recesses. Mild bilateral neural foraminal encroachment. Normal visualized sacral ala. Normal visualized paraspinous soft tissue structures. MRI/Spine Lumbar (Routine) IMPRESSION: Mild spinal stenosis at L5-S1 secondary to mild annular bulge with small right paracentral annular tear and disc protrusion with facet arthropathy.. Electronically Signed: Trevin King MD at 19:04 EST , Service support , CC: Elvis Babin MD Dwarf Tree Grower: Signed L/S SPINE MIN 4 Observed: 08/20/2018 Status: F Source: [place] VIEWS 9:05 AM [facility] REPOSITORY [facility] Imaging Services [address] [place] [address] L/S Spine Min 4 Views MR#: [id number] Acct: [id number] Name: AN MOYA Rep #: [id number] : 1985 F 32 From: Trevin King MD PCP: Elvis Babin MD Status: REG CLI Study: L/S Spine Min 4 Views Date of Exam: 08/20/18 Exam# [id number] Ordering Dr: Elvis Babin MD STUDY: X-RAY - LUMBAR SPINE REASON FOR EXAM: Female, 32 years old. Back pain radiating down both legs TECHNIQUE: 5 view(s) of the lumbar spine were obtained. COMPARISON: None FINDINGS: Normal lumbar lordosis. There is no substantial scoliosis. There is a normal alignment of the vertebrae. Normal vertebral bodies and endplates. Normal disc space heights. The soft tissue structures are unremarkable. RAD/L/S Spine Min 4 Views IMPRESSION: Normal x-ray examination of the lumbar spine. Electronically Signed: Trevin King MD at 17:10 EST , Service support , CC: Elvis Babin MD Dwarf Tree Grower: Signed 12 LEAD ELECTROCARDIOGRAM Observed: 07/27/2018 Status: F Source: [place] 1:20 PM [facility] REPOSITORY [facility] Cardiovascular Services [address] [place] [address] 12 Lead EKG 07/23/18 1502 MR#: [id number] Acct: [id number] Name: AN MOYA Rep #: [id number] : 1985 32 From: Noah Levy MD Attending Dr: Status: DEP ER Ordering Dr: Al Murguia MD Date: 07/23/18 Location: ED Sex: F C Admitted: Test Reason : SYNCOPE Blood Pressure : / mmHG Vent. Rate : 076 BPM Atrial Rate : 076 BPM P-R Int : 132 ms QRS Dur : 084 ms QT Int : 378 ms P-R-T Axes : 063 061 029 degrees QTc Int : 425 ms Normal sinus rhythm with sinus arrhythmia Normal ECG Confirmed by NOAH LEVY MD ([id number]), primer expeditor and drier LION BABIN (56) on 07/27/2018 1:20:26 PM Referred By: JEREMY Confirmed By:NOAH LEVY MD 07/27/18 1320 Date Noah Levy MD CC: Elvis Babin MD; Al Murguia MD Signed EMERGENCY DEPARTMENT Observed: 07/23/2018 Status: F Source: [place] SUMMARY 4:11 PM [facility] REPOSITORY [facility] Medical Records Department [address] [place] [address] Emergency Department Summary 07/23/18 1609 MR#: [id number] Acct: [id number] Name: AN MOYA Rep #: [id number] : 1985 32 From: Al Murguia MD [...] Vasovagal syncope This note was generated with Elanceation software. It may contain incorrect words, spelling, [...] your Primary Care Provider. Call [facility] ([phone]) or report to the closest Emergency Room. Call 911 if necessary. 07/23/181610 <Electronically signed by Al Murguia MD> Date Al Murguia MD Cosigner Signature (If Indicated): Date CC: Elvis Babin MD DISCHARGE INSTRUCTION Observed: 07/23/2018 Status: F Source: [place] 4:11 PM [facility] REPOSITORY [facility] Medical Records Department [address] [place] [address] Discharge Instruction 07/23/181610 MR#: [id number] Acct: [id number] Name: AN MOYA Rep #: [id number] : 1985 32 From: Al Murguia MD [...] your Primary Care Provider. Call [facility] ([phone]) or report to the closest Emergency Room. Call 911 if necessary. 07/23/181610 <Electronically signed by Al Murguia MD> Date Al Murguia MD Cosigner Signature (If Indicated): Date CC: Elvis Babin MD URINALYSIS, COMPLETE Collected: 07/23/2018 Status: F Source: [place] 3:00 PM [facility] REPOSITORY Order Comment: How was Urine Obtained? [...] Normal AMORPHOUS Performed By: #### L400.0001 #### [facility] [address] [place], [place], [address] ,URINE Collected: 07/23/2018 Status: F Source: [place] 3:00 PM [facility] REPOSITORY TYPE CODE TESTS RESULT OUT OF REFERENCE UNITS RANGE LAB L400.8000 Negative Normal HCGUQUAL Negative Result Comment: Very dilute urine specimens, as indicated by a low specific gravity, may not contain player services representative levels of hCG. If is still suspected, a first morning urine specimen should be collected 48 hours later and tested. Performed By: #### L400.7600 #### [facility] [address] [place], [place], [address] CBC W/DIFF, AUTOMATED Collected: 07/23/2018 Status: F Source: [place] 2:50 PM [facility] REPOSITORY TYPE CODE TESTS RESULT OUT OF [...] Lymph 2.23 Performed By: #### L100.0100 #### [facility] [address] [place], [address] COMPREHENSIVE METABOLIC Collected: 07/23/2018 Status: F Source: [place] 2:50 PM [facility] REPOSITORY TYPE CODE TESTS RESULT OUT OF [...] 6 Performed By: #### L500.4050, L501.4010 #### [facility] [address] [place], [address] TROPONIN-I Collected: 07/23/2018 Status: F Source: [place] 2:50 PM [facility] REPOSITORY TYPE CODE TESTS RESULT OUT OF RANGE REFERENCE UNITS LAB L501.4010 <0.045 ng/mL Normal < 0.015 TROPONIN-I Result Comment: TROPONIN-I EXPECTED VALUES <0.045 Negative 0.045 - 0.590 Consistent with Cardiac Damage > OR = 0.600 Critical Value Not every elevated troponin is indicative of AZ. These values should be used with clinical judgement in examining the patient's clinical picture for diagnosis. To establish a diagnosis of AZ versus myocardial injury, there must be a demonstrated rise and/or fall in the troponin values, in addition to ischemic symptoms, EKG changes, new regional wall motion abnormality, and/or angiographical evidence. PLEASE NOTE: REFERENCE RANGES EDITED 17 Performed By: #### L500.4050, L501.4010 #### [facility] [address] [place], [address] KIDNEY AND BLADDER Observed: 07/09/2018 Status: F Source: [place] 4:55 PM [facility] REPOSITORY [facility] Imaging Services [address] [place] [address] Kidney and Bladder MR#: [id number] Acct: [id number] Name: AN MOYA Rep #: [id number] : 1985 F 32 From: Abdulkadir Hammonds MD PCP: Elvis Babin MD Status: REG CLI Study: Kidney and Bladder Date of Exam: 07/09/18 Exam# [id number] Ordering Dr: Magda Cooley MD STUDY: RENAL [...] CC: Magda Cooley MD; Elvis Babin MD Dwarf Tree Grower: Signed PLANISHER OFFICE VISIT Observed: 03/28/2018 Status: F Source: [place] REPORT 11:49 AM [facility]'s [address] [place] [address] OFFICE VISIT Date of Service: 03/28/18 MR#: [id number] Acct: [id number] Name: AN MOYA Rep #: [id number] : 1985 Provider: Yolande Brizuela MD Age/Sex: 32/F [place] [facility]: Signed Intake Vital Signs03/28/18 Height 5 ft 3 in 03/28/18 Weight: 167 lb 4 oz 03/28/18 Body Mass Index (BMI) 29.6 03/28/18 Blood Pressure 109/79 Intake Visit Reasons: 2nd opinion Salon Leader Required: No Is patient in pain?: Yes [...] Period: 03/24/18 Post menopausal: No : No PFSH Medical History Factor V Leiden (Acute) Surgical History Dermoid cyst (Acute) Family History Grandmother Cancer lymphoma ruptured aneurysm Social History number of children: 0 current occupational status: employed current occupation: [employer] Smoking Status: Never smoker alcohol intake: [...] Nutritional Appearance: average body habitus Orientation: alert HENMT Head: normal to inspection, normocephalic Neck Neck: [...] LEAD ELECTROCARDIOGRAM Observed: 03/27/2018 Status: F Source: [place] 3:04 PM [facility] REPOSITORY [facility] Cardiovascular Services [address] [place] [address] 12 Lead EKG 03/22/18 0705 MR#: [id number] Acct: [id number] Name: AN MOYA Rep #: [id number] : 1985 32 From: Noah Levy MD Attending Dr: Christie [place]oyd MD Status: DEP [facility] [place]: Christie Loyd MD Date: 03/22/18 [place] [facility] Sex: F C Admitted: Test Reason : [...] found Confirmed by NOAH LEVY MD ([id number]), primer expeditor and drier LION BABIN (56) on 03/27/2018 3:03:46 PM Referred By: Christie Loyd Confirmed By:NOAH LEVY MD 03/27/18 1503 Date Noah Levy MD CC: Christie Loyd MD; Elvis Babin MD Signed DISCHARGE INSTRUCTION Observed: 03/22/2018 Status: F Source: [place] 8:58 AM [facility] REPOSITORY [facility] Medical Records Department [address] [place] [address] Instructions for Home/Discharge Instructions 03/22/18 0856 MR#: [id number] Acct: [id number] Name: AN MOYA Rep #: [id number] : 1985 32 From: Christie Loyd MD PCP: Elvis Babin MD Status: REG SDC Discharge Diet: No Restrictions - increase fluid [...] Follow Up With: Christie Loyd MD - [phone] When: post op appt next week. Call to schedule if not already arranged 03/22/18 0858 <Electronically signed by Christie Loyd MD> Date Christie Loyd MD CC: Elvis Babin MD OPERATIVE REPORT Observed: 03/22/2018 Status: F Source: [place] 8:55 AM [facility] REPOSITORY [facility] Medical Records Department [address] [place] [address] Operative Report 03/22/18 0845 MR#: [id number] Acct: [id number] Name: AN MOYA Rep #: [id number] : 1985 32 From: Christie Loyd MD PCP: Elvis Babin MD Status: REG SD Y Location: [place] [address] Report of Operation Date of Procedure: 03/22/18 [...] of the pelvis noted to be normal. metallographic technician: Mike Leyva metallographic technician: Elaine Saavedra Type of Anesthesia:: General Anesthesiologist: [...] 03/22/2018 Status: F Source: [place] 7:30 AM [facility] REPOSITORY Patient: AN MOYA : 1985 () Acct Num: [id number] Phys: Christie Loyd MD Unit Num: [id number] [place] [facility] Specimen: [id number] Received: 03/22/18914 Spec Type: OVARY TISSUES TISSUES: [...] cysts filled with clear to bloody fluid. Fire Prevention Officer sections are submitted in six cassettes. Cassettes 5 AND 6 contain the adjacent portion of the normal appearing uninvolved portion of ovarian tissue. / SJ:татьяна 03/22/18 TC:1 CPT: 57708 HEADER OPERATION: Diagnostic laparoscopy, oophorectomy PRE-OP DIAGNOSIS: Benign neoplasm right ovary TISSUE SUBMITTED: Right ovary MICROSCOPIC DESCRIPTION Slides are reviewed. MICROSCOPIC DIAGNOSIS Right ovary, oophorectomy: Mature cystic teratoma (dermoid cyst). AM:татьяна 03/23/18 Signed Jose Chelsea 03/23/18 <signature on file> Performed By: #### POV #### [facility] [address] [place], [place] [address], [address] BASIC METABOLIC Collected: 03/22/2018 Status: F Source: [place] PROFILE ([facility]) 6:50 AM [facility] REPOSITORY TYPE CODE TESTS RESULT OUT OF [...] GAP 7 Performed By: #### L500.2500 #### [facility] [address] [facility] [place], [address] ,SERUM,HCG QUALI. Collected: Status: F Source: [place] 03/22/2018 6:50 AM [facility] REPOSITORY TYPE CODE TESTS RESULT OUT OF REFERENCE UNITS RANGE LAB L700.7000 0-9 Nonpreg Negative Normal HCGSQUAL NEGATIVE LAB L700.6700 =>Qualitative mIU/mL Normal HCG Qual < 1 triggr Performed By: #### L700.6800 #### [facility] [address] [place], [address] TYPE AND SCREEN Collected: 03/20/2018 Status: F Source: [place] 12:15 PM [facility] REPOSITORY Order Comment: Surgery Date: 03/23/18 Hx of Preganancy in last 3 Months No Ever experience any problems with transfusion(s)? N Hx of Transfusion in last 3 Months N Reason for Type AND Screen/Red Cells: SURGERY Time: 06 SURGICAL PROCEDURE: CYCTECTOMY TYPE CODE TESTS RESULT OUT OF RANGE REFERENCE UNITS LAB B10.0800 A Normal BLOOD TYPE GEL POSITIVE LAB B100.4000 Normal Antibody NEGATIVE Screen Performed By: #### B101.7475 #### [facility] [address] [place], [address] CBC-COMPLETE BLOOD CNT Collected: 03/20/2018 Status: F Source: [place] NO DIFF 12:10 PM [facility] REPOSITORY TYPE CODE TESTS RESULT OUT OF [...] MPV 11.4 Performed By: #### L100.0500 #### [facility] [address] [facility] [place], [address] PROTHROMBIN TIME W/INR Collected: 03/20/2018 Status: F Source: [place] 12:10 PM [facility] REPOSITORY TYPE CODE TESTS RESULT OUT OF RANGE REFERENCE UNITS LAB L300.4150 11.7-14.9 SECONDS Normal PROTIME 14.0 LAB L300.4200 Normal INR 1.1 Performed By: #### L300.3900, L300.4310 #### [facility] [address] [facility] [address] PARTIAL THROMBOPLAST Collected: 03/20/2018 Status: F Source: [facility] 12:10 PM [facility] REPOSITORY TYPE CODE TESTS RESULT OUT OF RANGE REFERENCE UNITS LAB L300.4310 24.1-36.2 Seconds Normal PTT 32.8 Performed By: #### L300.3900, L300.4310 #### [facility] [address] [place], [address] COMPREHENSIVE METABOLIC Collected: 03/20/2018 Status: F Source: [place]IL 12:10 PM [facility] REPOSITORY TYPE CODE TESTS RESULT OUT OF [...] GAP 10 Performed By: #### L500.4050 #### [facility] [address] [place], [address] ABDOMEN/PELVIS WITH Observed: 02/16/2018 Status: F Source: [place] CONTRAST 4:02 PM [facility] REPOSITORY [facility] Imaging Services [address] [place] [address] Abdomen/Pelvis WITH Contrast MR#: [id number] Acct: [id number] Name: HAIIVELISSEAN B Rep #: [id number] : 1985 F 32 From: Campbell Lynn MD PCP: Elvis Babin MD Status: REG CLI Study: Abdomen/Pelvis WITH Contrast Date of Exam: 02/16/18 Exam# [id number] Ordering Dr: Christie Loyd MD STUDY: CT [...] CC: Christie Loyd MD; Elvis Babin MD Dwarf Tree Grower: Signed COMPREHENSIVE METABOLIC Collected: 02/16/2018 Status: F Source: [place] 3:58 PM [facility] REPOSITORY TYPE CODE TESTS RESULT OUT OF [...] GAP 8 Performed By: #### L500.4050 #### [facility] [address] [place], [address] TRANSVAGINAL Observed: 02/13/2018 Status: F Source: [place] NON- 6:20 PM [facility] REPOSITORY [facility] Imaging Services [address] [place] [address] Transvaginal Non- MR#: [id number] Acct: [id number] Name: AN MOYA Rep #: [id number] : 1985 F 32 From: Eliezer Zamorano PCP: Elvis Babin MD Status: REG CLI Study: Transvaginal Non- Date of Exam: 02/13/18 Exam# [id number] Ordering Dr: Elvis Babin MD STUDY: ULTRASOUND [...] Service support , CC: Elvis Babin MD Dwarf Tree Grower: Signed PELVIC (NON ) Observed: 02/13/2018 Status: F Source: [place] 5:58 PM [facility] REPOSITORY [facility] Imaging Services [address] [place] [address] Pelvic (Non ) MR#: [id number] Acct: [id number] Name: AN MOYA Rep #: [id number] : 1985 F 32 From: Eliezer Zamorano PCP: Elvis Babin MD Status: REG CLI Study: Pelvic (Non ) Date of Exam: 02/13/18 Exam# [id number] Ordering Dr: Elvis Babin MD STUDY: ULTRASOUND [...] Service support , CC: Elvis Babin MD Dwarf Tree Grower: Signed ESTRADIOL Collected: 10/25/2017 Status: F Source: [place] 4:59 PM [facility] REPOSITORY TYPE CODE TESTS RESULT OUT OF [...] ESTRADIOL CONCENTRATION. Performed By: #### L3300.1750 #### [facility] [address] [place], [address] PROGESTERONE LEVEL Collected: 10/25/2017 Status: F Source: [place] 4:59 PM [facility] REPOSITORY TYPE CODE TESTS RESULT OUT OF [...] -422.50 ng/mL Performed By: #### L509.4001 #### [facility] [address] [place], [address] PAP I-G W/RFX HRHPV Collected: 10/25/2017 Status: F Source: [place] 4:15 PM [facility] REPOSITORY Order Comment: CYTOLOGY INFORMATION: - CLINICAL INFORMATION: - DATE LMP/MENOPAUSE: LMP - COLLECTION VIAL: Thin Prep Vial - SHUTTLE HAND SOURCE: CERVICAL/ENDOCERVICAL - COLLECTION TECHNIQUE: BRUSH/SPATULA Specimen Comment: [id number] Specimen Comment: No. of containers..01 ThinPrep Vial TYPE CODE TESTS RESULT OUT OF RANGE REFERENCE UNITS LAB L7400.0800 . Normal DIAGN Comment Result Comment: NEGATIVE FOR INTRAEPITHELIAL LESION AND MALIGNANCY. LAB L7400.0900 . Normal ADEQ Comment Result Comment: Satisfactory for evaluation. No endocervical component is identified. LAB L7400.1400 . Normal PERFORM Comment Result Comment: Karen Ramirez, Contract Administration Manager (ASCP) LAB L7400.2575 . Normal TEST METHOD [...] no HPV testing was performed. Performed at: [facility] [place] [id number] Laborer Pipelines: Soo Tariq MD, Phone: [phone] Performed By: #### L7400.0350 #### [facility] (refer to report for specific site) refer to report for address and phone number CTA HEAD W/WO Observed: 10/10/2017 Status: F Source: [place] CONTRAST 4:35 PM [facility] REPOSITORY [facility] Imaging Services [address] [place] [address] CTA Head W/WO Contrast MR#: [id number] Acct: [id number] Name: AN MOYA Rep #: [id number] : 1985 F 31 From: Mateo Jarvis DO PCP: Elvis Babin MD Status: REG CLI Study: CTA Head W/WO Contrast Date of Exam: 10/10/17 Exam# [id number] Ordering Dr: Familia Atkinson MD STUDY: CTA [...] There is no demonstrated aneurysm of the [place]. There is no demonstrated abnormality of the visualized brain. CT/CTA Head W/WO Contrast IMPRESSION: Nonvisualization of the right A1 segment and the proximal segment of the right posterior cerebral artery. Electronically Signed: Mateo Jarvis DO at 18:26 EST Tel [phone], Service support , CC: Elvis Babin MD; Familia Atkinson MD Dwarf Tree Grower: Signed BUN Collected: 10/10/2017 Status: F Source: [place] 1:53 PM [facility] REPOSITORY TYPE CODE TESTS RESULT OUT OF RANGE REFERENCE UNITS LAB L501.1000 7-18 mg/dL Normal BUN 8 Performed By: #### L501.1000, L501.1105 #### [facility] Laboratory [address] [place], [place], [id number] SERUM CREATININE AND Collected: 10/10/2017 Status: F Source: [place] GFR 1:53 PM [facility] REPOSITORY TYPE CODE TESTS RESULT OUT OF [...] Calc Performed By: #### L501.1000, L501.1105 #### [facility] Laboratory [address] [place], [place], [address] ALLERGIES ALLERGIES DATE TYPE / CODE NAME / CODE REACTION SEVERITY SOURCE 07/23/2018 Drug No Known Unknown Juan [facility] Allergy/4160 Allergies/F00 Hospital 19856(SNOMED [id number](RXNOR Repository CT) M) ENCOUNTERS ENCOUNTERS ADMIT/DISCHARGE ACCOUNT ADMITTING ENCOUNTER LOCATION SOURCE NUMBER CLASS 08/22/2018 [id number] Ambulatory Juan [place] 1 [facility] ing:MRI Repository 08/20/2018 [id number] Ambulatory [place] D[place]o 4 [facility] ing:MTRAD Repository 07/23/2018/ [id number] Emergency [place]o D[place]o 8 8 [facility] ing:ED Repository 07/09/2018 [id number] Ambulatory Juan Juan 0 [facility] ing:US Repository 03/28/2018/ [id number] Ambulatory BMSBuilding:B [place] 8 8 [facility] Repository 03/22/2018 [id number] Ambulatory BMSBuilding:W Juan 1 [facility] Repository 03/22/2018/ [id number] Ambulatory Juan Juan 8 6 [facility] ing:SDC Repository 02/16/2018 [id number] Ambulatory Juan Juan 6 [facility] ing:LAB.FUTUR Repository E 02/16/2018 [id number] Ambulatory Juan Juan 1 [facility] Hospital ing:CT Repository 02/13/2018 [id number] Ambulatory Juan [place]o 8 [facility] Hospital ing:US Repository 10/25/2017 [id number] Ambulatory Juan Juan 2 [facility] ing:WOBLAB Repository 10/10/2017 [id number] Ambulatory [place] Juan 8 [facility] Hospital ing:CT Repository 10/10/2017 [id number] Ambulatory [place] Juan 7 [facility] ing:MFPLAB Repository PAYERS PAYERS ENCOUNTER GUARANTOR PAYER SUBSCRIBER SOURCE 08/22/2018 AN B Primary AN B Juan [id number] [facility] AMSTUTZD[facility]: [facility] y Number: [id number] [id number] Repository [address]Nbk: (330) Date:3679-51-37JW [phone] () TANISHA WILSON [address]TF: 08/22/2018 Secondary NOT GIVENUNK [place] Insurance:SELF PAY [facility] Number: Effective Repository Date:2018-08-21 08/20/2018 AN B Primary AN B [place] [id number] Insurance:ANTHEMPolic AMSTUTZDOB[facility] Number: [id number], [place] [id number] Repository [address]Nyt: (330) Date:7125-44-45KG [phone] () TANISHA WILSON [address]NJ: 08/20/2018 Secondary NOT GIVENUNK Juan Insurance:SELF PAY [facility] Number: Effective Repository Date:2018-08-20 07/23/2018 AN B Primary AN B [place] [id number] Insurance:ANTHEMPolic AMSTUTZDOB: [facility] y Number: [id number], [place] [id number] Repository [address]Aua: (330) Date:6483-00-97RI [phone] () TANISHA WILSON [address]SI: 07/23/2018 Secondary NOT GIVENUNK Juan Insurance:SELF PAY [facility] Number: Effective Repository Date:2018-07-23 07/09/2018 AN B Primary AN B [place] [id number] Insurance:ANTHEMPolic AMSTUTZDOB: [facility] y Number: [id number], [place] [id number] Repository [address]Hmy: (330) Date:9681-75-42PX [phone] () [id number] LINDA [address]NW: 07/09/2018 Secondary NOT GIVENUNK [place] Insurance:SELF PAY [facility] Number: Effective Repository Date:2018-07-03 03/28/2018 AN B Primary AN B [place] [id number] Insurance:ANTHEMPolic AMSTUTZDOB: [facility] y Number: [id number] [id number] Repository [address]Ejz: (330) Date:7817-15-01HD [phone] () [address] [place] [address] [place] [address]GC: 03/28/2018 Secondary NOT GIVENUNK Juan Insurance:SELF PAY [facility] Number: Effective Repository Date:2018-03-23 03/22/2018 AN B Primary AN B [place] [id number] Insurance:ANTHEMPolic AMSTUTZDOB: [facility] y Number: [id number], [place] [id number] Repository [address]Xyx: (330) Date:0898-33-71FY [phone] () [address] [place] [address] [place] [address]JV: 03/22/2018 Secondary NOT GIVENUNK Juan Insurance:SELF PAY [facility] Number: Effective Repository Date:2018-03-22 03/22/2018 An B Primary An B Juan [id number] Insurance:ANTHEMPolic AmstutzDOB[facility] y Number: [id number], [place] [id number] Repository [address]Jmv: (330) Date:6759-67-35SM [phone] () [address] [place] [address] [place] [address]TM: 03/22/2018 Secondary NOT GIVENUNK Juan Insurance:SELF PAY [facility] Number: Effective Repository Date:2018-02-23 02/16/2018 AN B Primary NOT GIVENUNK [place] [id number] Insurance:SELF PAY [place] Number: Effective Repository [address]Vgj: (330) Date:2018-02-16 [phone] () 02/16/2018 An B Primary An B [place] [id number] Insurance:ANTHEMPolic AmstutzDOB: [facility] y Number: [id number], [place] [id number] Repository [address]Myu: (330) Date:8418-55-32SX [phone] () 757857ODKZHATTANISHA LINDA [address]LX: 02/16/2018 Secondary NOT GIVENUNK [place] Insurance:SELF PAY [facility] Number: Effective Repository Date:2018-02-15 02/13/2018 An B Primary An B [place] [id number] Insurance:ANTHEMPolic AmstutzDOB: [facility] y Number: [id number], [place] [id number] Repository [address]Bhd: (330) Date:7169-82-24TF [phone] () 230652VWSFMQDTANISHA LINDA [address]TW: 02/13/2018 Secondary NOT GIVENUNK Juan Insurance:SELF PAY [facility] Number: Effective Repository Date:2018-02-13 10/25/2017 An B Primary An B [place] [id number] Insurance:ANTHEMPolic AmstutzDOB: [facility] y Number: [id number], [place] [id number] Repository [address]Hto: (330) Date:4860-10-23BU [phone] () [id number] LINDA [address]RI: 10/25/2017 Secondary NOT GIVENUNK [place] Insurance:SELF PAY [facility] Number: Effective Repository Date:2017-10-25 10/10/2017 An B Primary An B [place] [id number] Insurance:ANTHEMPolic AmstutzDOB: [facility] y Number: [id number], [place] [id number] Repository [address]Qbr: (330) Date:0954-88-60IC [phone] () TANISHA WILSON [address]JL: 10/10/2017 Secondary NOT GIVENUNK [place] Insurance:SELF PAY [facility] Number: Effective Repository Date:2017-10-05 10/10/2017 An B Primary An B Juan [id number] Insurance:ANTHEMPolic AmstutzDOB: [facility] Number: [id number], [place] [id number] Repository [address]Ply: (330) Date:9843-23-28OI [phone] () [id number], [place] [address]CN: 10/10/2017 Secondary NOT GIVENUNK Juan Insurance:SELF PAY [facility] Number: Effective Repository Date:2017-10-10
== END 2018-07-23 16:49 | disposition home or self-care (01) ==
PROVIDERS: Emergency Provider Emergency Medicine; Family Provider Family Medicine; PCP Family Medicine
DX: R55 Syncope and collapse (principal); R10.9 Unspecified abdominal pain; D68.51 Activated protein C resistance; R42 Dizziness and giddiness
CPT/HCPCS: 80053; 81001; 81025; 84484; 85025; 93005; 96360; 99285; J7030; A4216

== ENCOUNTER → 2018-08-20 09:02 | Outpatient (CLI) | payer BC, SELFPAY ==
[2018-07-23 14:22] VITALS: BMI 30.1
--- NOTE | 2018-08-20 09:05 | RAD_ITS ---
STUDY: X-RAY - LUMBAR SPINE REASON FOR EXAM: Female, 32 years old. Back pain radiating down both legs TECHNIQUE: 5 view(s) of the lumbar spine were obtained. COMPARISON: None FINDINGS: Normal lumbar lordosis. There is no substantial scoliosis. There is a normal alignment of the vertebrae. Normal vertebral bodies and endplates. Normal disc space heights. The soft tissue structures are unremarkable. RAD/L/S Spine Min 4 Views IMPRESSION: Normal x-ray examination of the lumbar spine. Electronically Signed: Trevin King MD at 17:10 EST , Service support ,
== END ==
PROVIDERS: Family Provider Family Medicine; PCP Family Medicine; Referring Provider Family Medicine; Visit Provider Family Medicine
DX: M54.5 Low back pain (principal)
CPT/HCPCS: 72110

== ENCOUNTER → 2018-08-22 07:20 | Outpatient (CLI) | payer BC, SELFPAY ==
[2018-07-23 14:22] VITALS: BMI 30.1
--- NOTE | 2018-08-22 07:34 | MRI_ITS ---
STUDY: MRI LUMBAR SPINE WITHOUT CONTRAST REASON FOR EXAM: Female, 32 years old. Low back pain with foot numbness and incontinence TECHNIQUE: Standardized fat and water weighted pulse sequences were obtained in the sagittal and axial planes. COMPARISON: None FINDINGS: T12-L1: Normal endplates. Normal disc height, hydration and morphology. Normal bilateral facet joints. Normal central canal and bilateral lateral recesses. Normal bilateral intervertebral neural foramina. Normal lumbar lordosis. There is no substantial scoliosis. Normal conus medullaris that terminates at T12-L1 L1-2: Normal endplates. Normal disc height, hydration and morphology. Normal bilateral facet joints. Normal central canal and bilateral lateral recesses. Normal bilateral intervertebral neural foramina. L2-3: Normal endplates. Normal disc height, hydration and morphology. Normal bilateral facet joints. Normal central canal and bilateral lateral recesses. Normal bilateral intervertebral neural foramina. L3-4: Normal endplates. Normal disc height, hydration and morphology. Normal bilateral facet joints. Normal central canal and bilateral lateral recesses. Normal bilateral intervertebral neural foramina. L4-5: Normal endplates. Normal disc height, hydration and morphology. Normal bilateral facet joints. Normal central canal and bilateral lateral recesses. Normal bilateral intervertebral neural foramina. L5-S1: Normal endplates. Normal disc height, desiccation and mild annular bulge in association with small right paracentral annular tear and disc protrusion.. Mild facet arthropathy.. Normal central canal and bilateral lateral recesses. Mild bilateral neural foraminal encroachment. Normal visualized sacral ala. Normal visualized paraspinous soft tissue structures. MRI/Spine Lumbar (Routine) IMPRESSION: Mild spinal stenosis at L5-S1 secondary to mild annular bulge with small right paracentral annular tear and disc protrusion with facet arthropathy.. Electronically Signed: Trevin King MD at 19:04 EST , Service support ,
--- OUTSIDE RECORDS SUMMARY | 2018-10-26 22:21 | XMS RPT_ITS ---
:1985 Author Organization OHIP Support Name Relationship Address Phone [facility] Unavailable [address] + [address] [place] [address] CRYSTAL, BILL Unavailable Unavailable + [place] [address] [facility] Unavailable [address] + [address] [place] [address] CRYSTAL, BILL Unavailable Unavailable + [place] [address] [facility] Unavailable [address] + [address] [place] [address] CRYSTAL, BILL Unavailable Unavailable + [place] [address] [facility] Unavailable [address] + [address] [place] [address] CRYSTAL, BILL Unavailable Unavailable + [place] [address] CRYSTAL, BILL Unavailable [address] + [place] [address] [facility] Unavailable [address] + [place] [address] CRYSTAL, BILL Unavailable [address] + [place] [address] [facility] Unavailable [address] + [place] [address] CRYSTAL, BILL Unavailable [address] + [place] [address] [facility] Unavailable [address] + [place] [address] [facility] Unavailable [address] + [address] [place] [address] CRYSTAL, BILL Unavailable Unavailable + [place] [address] CRYSTAL, BILL Unavailable [address] + [place] [address] [facility] Unavailable [address] + [place] [address] CRYSTAL, BILL Unavailable [address] + [place] [address] [facility] Unavailable [address] + [place] [address] CRYSTAL, BILL Unavailable [address] + [place] [address] [facility] Unavailable [address] + [place] [address] CRYSTAL, BILL Unavailable [address] + [place] [address] [facility] Unavailable [address] + [place] [address] CRYSTAL, BILL Unavailable [address] + [place] [address] [facility] Unavailable [address] + [place] [address] Care Team Providers Name Role Phone Babin, Elvis Primary Care Unavailable Al Murguia Attending Unavailable BabinElvis Attending Unavailable Babin, Elvis Referring Unavailable Babin, Elvis Primary Care Unavailable Familia Atkinson Attending Unavailable Babin, Elvis Primary Care Unavailable Familia [...] Primary Care Unavailable Yolande Brizuela Attending Unavailable Babin, Elvis Referring Unavailable Babin, Elvis Primary Care Unavailable Noah Levy Attending Unavailable Christie Loyd Referring Unavailable Magda Cooley Attending Unavailable Magda Cooley Referring Unavailable Babin, Elvis Primary Care Unavailable Christie Loyd Attending Unavailable Elvis Babin Primary Care Unavailable PROBLEMS PROBLEMS DATE TYPE CONDITION / CODE ATTENDING STATUS SOURCE 08/03/2018 Unknown R55 - Syncope and LowAl steward Active [place] collapse / Community R55(ICD-10) Hospital Repository 03/22/2018 Unknown N83.209 - Christie Loyd Active [place] Unspecified ovarian Community cyst, unspecified Hospital side / Repository N83.209(ICD-10) 03/22/2018 Unknown 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 Community / D68.51(ICD-10) Hospital Repository 04/18/2018 Unknown Z01.810 - Encounter CamAdolph helmsril Active [place] for preprocedural [facility] cardiovascular [facility] examination / Repository Z01.810(ICD-10) 07/08/2018 Unknown R10.10 - Upper Christie Loyd Active [place] abdominal pain, Community unspecified / Hospital R10.10(ICD-10) Repository 10/25/2017 Unknown N92.0 - Excessive Christie Loyd Active [place] and frequent Community menstruation with Hospital regular cycle / Repository N92.0(ICD-10) 10/25/2017 Unknown Z12.4 - Encounter Christie Loyd Active [place] for screening for [facility] malignant neoplasm [facility] cervix / Repository Z12.4(ICD-10) 10/16/2017 Unknown R51 - Headache / Familia Atkinson Active [place] R51(ICD-10) [facility] Hospital Repository 10/10/2017 Unknown H57.02 - Anisocoria Familia Atkinson Active [place] / H57.02(ICD-10) [facility] Repository PROCEDURES PROCEDURES No Procedure Records FoundRESULTS RESULTS SPINE LUMBAR Observed: 08/22/2018 Status: F Source: [place] (ROUTINE) 7:34 AM [facility] REPOSITORY [facility] Imaging Services [address] [place] [address] Spine Lumbar (Routine) MR#: [id number] Acct: [id number] Name: AN MOYA Rep #: [id number] : 1985 F 32 From: Trevin King MD PCP: Elvis Babin MD Status: REG CLI Study: Spine Lumbar (Routine) Date of Exam: 08/22/18 Exam# [id number] Ordering Dr: Elvis Babin MD ADDENDUM by [...] Service support , CC: Elvis Babin MD Woods Rider: Signed L/S SPINE MIN 4 Observed: 08/20/2018 Status: F Source: [place] VIEWS 9:05 AM [facility] REPOSIT[facility] Imaging Services [address] [place] [address] L/S Spine Min 4 Views MR#: [id number] Acct: [id number] Name: AN MOYA Rep #: [id number] : 1985 F 32 From: Trevin King MD PCP: Elvis Babin MD Status: REG CLI Study: L/S Spine Min 4 Views Date of Exam: 08/20/18 Exam# [id number] Ordering Dr: Elvis Babin MD STUDY: X-RAY [...] Service support , CC: Elvis Babin MD Woods Rider: Signed 12 LEAD ELECTROCARDIOGRAM Observed: 07/27/2018 Status: F Source: [place] 1:20 PM [facility] REPOS[facility] Cardiovascular Services [address] [place] [address] 12 Lead EKG 07/23/18 1502 MR#: [id number] Acct: [id number] Name: AN MOYA Rep #: [id number] : 1985 32 From: Noah Levy MD [...] ECG Confirmed by NOAH LEVY MD ([id number]), index editor LION BABIN (56) on 07/27/2018 1:20:26 PM Referred By: JEREMY Confirmed By:NOAH LEVY MD 07/27/18 1320 Date Noah Levy MD CC: Elvis Babin MD; Al Murguia MD Signed EMERGENCY DEPARTMENT Observed: 07/23/2018 Status: F Source: [place] SUMMARY 4:11 PM [facility] REPOSITORY [facility] Medical Records Department [address] [place] [address] Emergency Department Summary 07/23/18 1609 MR#: [id number] Acct: [id number] Name: AN MOYA Rep #: [id number] : 1985 32 From: Al Murguia MD [...] Vasovagal syncope This note was generated with Prematicsation software. It may contain incorrect words, spelling, [...] your Primary Care Provider. Call [facility] ([phone]) or report to the closest Emergency Room. Call 911 if necessary. 07/23/181610 <Electronically signed by Al Murguia MD> Date Al Murguia MD Cosigner Signature (If Indicated): Date CC: Elvis Babin MD DISCHARGE INSTRUCTION Observed: 07/23/2018 Status: F Source: [place] 4:11 PM [facility]POS[facility] Medical Records Department [address] [place] [address] Discharge Instruction 07/23/181610 MR#: [id number] Acct: [id number] Name: AN MOYA Rep #: [id number] : 1985 32 From: Al Murguia MD [...] your Primary Care Provider. Call [facility] ([phone]) or report to the closest Emergency Room. Call 911 if necessary. 07/23/181610 <Electronically signed by Al Murguia MD> Date Al Murguia MD Cosigner Signature (If Indicated): Date CC: Elvis Babin MD URINALYSIS, COMPLETE Collected: 07/23/2018 Status: F Source: [place] 3:00 PM [facility] REPOSITORY Order Comment: How was Urine Obtained? [...] Normal AMORPHOUS Performed By: #### L400.0001 #### [facility] [address] [place], [place], [address] ,URINE Collected: 07/23/2018 Status: F Source: [place] 3:00 PM [facility] REPOSITORY TYPE CODE TESTS RESULT OUT OF REFERENCE UNITS RANGE LAB L400.8000 Negative Normal HCGUQUAL Negative Result Comment: Very dilute urine specimens, as indicated by a low specific gravity, may not contain labor service representative levels of hCG. If is still suspected, a first morning urine specimen should be collected 48 hours later and tested. Performed By: #### L400.7600 #### [facility] [address] [place], [place], [address] CBC W/DIFF, AUTOMATED Collected: 07/23/2018 Status: F Source: [place] 2:50 PM [facility] TYPE CODE TESTS RESULT OUT OF [...] Lymph 2.23 Performed By: #### L100.0100 #### [facility] [address] [place], [address] COMPREHENSIVE METABOLIC Collected: 07/23/2018 Status: F Source: [place] 2:50 PM [facility]POS[facility] TYPE CODE TESTS RESULT OUT OF [...] 6 Performed By: #### L500.4050, L501.4010 #### [facility] [address] [place], [address] TROPONIN-I Collected: 07/23/2018 Status: F Source: [place] 2:50 PM [facility] REPOS[facility] TYPE CODE TESTS RESULT OUT OF RANGE REFERENCE UNITS LAB L501.4010 <0.045 ng/mL Normal < 0.015 TROPONIN-I Result Comment: TROPONIN-I EXPECTED VALUES <0.045 Negative 0.045 - 0.590 Consistent with Cardiac Damage > OR = 0.600 Critical Value Not every elevated troponin is indicative of OK. These values should be used with clinical judgement in examining the patient's clinical picture for diagnosis. To establish a diagnosis of OK versus myocardial injury, there must be a demonstrated rise and/or fall in the troponin values, in addition to ischemic symptoms, EKG changes, new regional wall motion abnormality, and/or angiographical evidence. PLEASE NOTE: REFERENCE RANGES EDITED 17 Performed By: #### L500.4050, L501.4010 #### [facility] [address] [place], [address] KIDNEY AND BLADDER Observed: 07/09/2018 Status: F Source: [place] 4:55 PM [facility] Imaging Services [address] [place] [address] Kidney and Bladder MR#: [id number] Acct: [id number] Name: AN MOYA Rep #: [id number] : 1985 F 32 From: Abdulkadir Hammonds MD PCP: Elvis Babin MD Status: REG CLI Study: Kidney and Bladder Date of Exam: 07/09/18 Exam# [id number] Ordering Dr: Magda Cooley MD STUDY: RENAL [...] CC: Magda Cooley MD; Elvis Babin MD Woods Rider: Signed MANAGER OF HOSPITAL OFFICE VISIT Observed: 03/28/2018 Status: F Source: [place] REPORT 11:49 AM [facility]'s [address] [place] [address] OFFICE VISIT Date of Service: 03/28/18 MR#: [id number] Acct: [id number] Name: AN MOYA Rep #: [id number] : 1985 Provider: Yolande Brizuela MD Age/Sex: 32/F Location: [facility] Status: Signed Intake Vital Signs03/28/18 Height 5 ft 3 in 03/28/18 Weight: 167 lb 4 oz 03/28/18 Body Mass Index (BMI) 29.6 03/28/18 Blood Pressure 109/79 Intake Visit Reasons: 2nd opinion Song Lyricist Required: No Is patient in pain?: Yes [...] 0 current occupational status: employed current occupation: [employer] Smoking Status: Never smoker alcohol [...] LEAD ELECTROCARDIOGRAM Observed: 03/27/2018 Status: F Source: [place] 3:04 PM [facility] Cardiovascular Services [address] [place] [address]509 12 Lead EKG 03/22/18 0705 MR#: [id number] Acct: [id number] Name: AN MOYA Rep #: [id number] : 1985 32 From: Noah Levy MD Attending Dr: Christie Loyd MD Status: DEP [facility] Ordering Dr: Christie Loyd MD Date: 03/22/18 Location: [facility] Sex: F C Admitted: [...] found Confirmed by NOAH LEVY MD ([id number]), index editor LION BABIN (56) on 03/27/2018 3:03:46 PM Referred By: Christie Loyd Confirmed By:NOAH LEVY MD 03/27/18 1503 Date Noah Levy MD CC: Christie Loyd MD; Elvis Babin MD Signed DISCHARGE INSTRUCTION Observed: 03/22/2018 Status: F Source: [place] 8:58 AM [facility] Medical Records Department [address] [place] [address] Instructions for Home/Discharge Instructions 03/22/18 0856 MR#: [id number] Acct: [id number] Name: AN MOYA Rep #: [id number] : 1985 32 From: Christie Loyd MD [...] Follow Up With: Christie Loyd MD - [phone] When: post op appt next week. Call to schedule if not already arranged 03/22/18 0858 <Electronically signed by Christie Loyd MD> Date Christie Loyd MD CC: Elvis Babin MD OPERATIVE REPORT Observed: 03/22/2018 Status: F Source: [place] 8:55 AM [facility] Medical Records Department [address] [place] [address] Operative Report 03/22/18 0845 MR#: [id number] Acct: [id number] Name: AN MOYA Rep #: [id number] : 1985 32 From: Christie [place] MD PCP: Elvis Babin MD Status: REG SD Y Location: [place] [address] Report of Operation Date of Procedure: 03/22/18 [...] of the pelvis noted to be normal. crown and bridge technician: Mike Leyva crown and bridge technician: Elaine Saavedra Type of Anesthesia:: General [...] 03/22/2018 Status: F Source: [place] 7:30 AM [facility] Patient: AN MOYA : 1985 () Acct Num: [id number] Phys: Christie Loyd MD Unit Num: [id number] Loc: [facility] Specimen: [id number] Received: 03/22/18914 Spec Type: OVARY TISSUES TISSUES: [...] cysts filled with clear to bloody fluid. High School Chemistry Teacher sections are submitted in six cassettes. Cassettes 5 AND 6 contain the adjacent portion of the normal appearing uninvolved portion of ovarian tissue. / SJ:татьяна 03/22/18 TC:1 CPT: 71356 HEADER OPERATION: Diagnostic laparoscopy, oophorectomy PRE-OP DIAGNOSIS: Benign neoplasm right ovary TISSUE SUBMITTED: Right ovary MICROSCOPIC DESCRIPTION Slides are reviewed. MICROSCOPIC DIAGNOSIS Right ovary, oophorectomy: Mature cystic teratoma (dermoid cyst). AM:татьяна 03/23/18 Signed Jose Chelsea 03/23/18 <signature on file> Performed By: #### POV #### [facility] [address] [place], [place] [address], [address] BASIC METABOLIC Collected: 03/22/2018 Status: F Source: [place] PROFILE ([facility]) 6:50 AM [facility] TYPE CODE TESTS RESULT OUT OF [...] GAP 7 Performed By: #### L500.2500 #### [facility] [address] [facility], [address] ,SERUM,HCG QUALI. Collected: Status: F Source: [place] 03/22/2018 6:50 AM [facility] TYPE CODE TESTS RESULT OUT OF REFERENCE UNITS RANGE LAB L700.7000 0-9 Nonpreg Negative Normal HCGSQUAL NEGATIVE LAB L700.6700 =>Qualitative mIU/mL Normal HCG Qual < 1 triggr Performed By: #### L700.6800 #### [facility] [address] [place], [address] TYPE AND SCREEN Collected: 03/20/2018 Status: F Source: [place] 12:15 PM [facility] RE[facility] Order Comment: Surgery Date: 03/23/18 Hx [...] NEGATIVE Screen Performed By: #### B101.7475 #### [facility] [address] [place], [address] CBC-COMPLETE BLOOD CNT Collected: 03/20/2018 Status: F Source: [place] NO DIFF 12:10 PM [facility]POS[facility] TYPE CODE TESTS RESULT OUT OF [...] MPV 11.4 Performed By: #### L100.0500 #### [facility] [address] [facility] [place], [address] PROTHROMBIN TIME W/INR Collected: 03/20/2018 Status: F Source: [place] 12:10 PM [facility] TYPE CODE TESTS RESULT OUT OF RANGE REFERENCE UNITS LAB L300.4150 11.7-14.9 SECONDS Normal PROTIME 14.0 LAB L300.4200 Normal INR 1.1 Performed By: #### L300.3900, L300.4310 #### [facility] [address] [facility] [address] PARTIAL THROMBOPLAST Collected: 03/20/2018 Status: F Source: [facility] 12:10 PM [facility] TYPE CODE TESTS RESULT OUT OF RANGE REFERENCE UNITS LAB L300.4310 24.1-36.2 Seconds Normal PTT 32.8 Performed By: #### L300.3900, L300.4310 #### [facility] [address] [facility] [place], [address] COMPREHENSIVE METABOLIC Collected: 03/20/2018 Status: F Source: [place] PROFIL 12:10 PM [facility] TYPE CODE TESTS RESULT OUT OF [...] GAP 10 Performed By: #### L500.4050 #### [facility] [address] [facility] [place], [address] ABDOMEN/PELVIS WITH Observed: 02/16/2018 Status: F Source: [place] CONTRAST 4:02 PM [facility] Imaging Services [address] [place] [address] Abdomen/Pelvis WITH Contrast MR#: [id number] Acct: [id number] Name: HAIIVELISSEAN B Rep #: [id number] : 1985 F 32 From: Campbell Lynn MD PCP: Elvis Babin MD Status: REG CLI Study: Abdomen/Pelvis WITH Contrast Date of Exam: 02/16/18 Exam# [id number] Ordering Dr: Christie Loyd MD STUDY: CT [...] CC: Christie Loyd MD; Elvis Babin MD Woods Rider: Signed COMPREHENSIVE METABOLIC Collected: 02/16/2018 Status: F Source: [place] 3:58 PM [facility] TYPE CODE TESTS RESULT OUT OF [...] GAP 8 Performed By: #### L500.4050 #### [facility] [address] [place], [address] TRANSVAGINAL Observed: 02/13/2018 Status: F Source: [place] NON- 6:20 PM [facility] REPOS[facility] Imaging Services [address] [place] [address] Transvaginal Non- MR#: [id number] Acct: [id number] Name: AN MOYA Rep #: [id number] : 1985 F 32 From: Eliezer Zamorano PCP: Elvis Babin MD Status: REG CLI Study: Transvaginal Non- Date of Exam: 02/13/18 Exam# [id number] Ordering Dr: Elvis Babin MD STUDY: ULTRASOUND [...] Service support , CC: Elvis Babin MD Woods Rider: Signed PELVIC (NON ) Observed: 02/13/2018 Status: F Source: [place] 5:58 PM [facility] Imaging Services [address] [place] [address] Pelvic (Non ) MR#: [id number] Acct: [id number] Name: AN MOYA Rep #: [id number] : 1985 F 32 From: Eliezer Zamorano PCP: Elvis Babin MD Status: REG CLI Study: Pelvic (Non ) Date of Exam: 02/13/18 Exam# [id number] Ordering Dr: Elvis Babin MD STUDY: ULTRASOUND [...] Service support , CC: Elvis Babin MD Woods Rider: Signed ESTRADIOL Collected: 10/25/2017 Status: F Source: [place] 4:59 PM [facility] TYPE CODE TESTS RESULT OUT OF [...] ESTRADIOL CONCENTRATION. Performed By: #### L3300.1750 #### [facility] [address] [place], [address] PROGESTERONE LEVEL Collected: 10/25/2017 Status: F Source: [place] 4:59 PM [facility] TYPE CODE TESTS RESULT OUT OF [...] -422.50 ng/mL Performed By: #### L509.4001 #### [facility] [address] [place], [address] PAP I-G W/RFX HRHPV Collected: 10/25/2017 Status: F Source: [place] 4:15 PM [facility] Order Comment: CYTOLOGY INFORMATION: - CLINICAL INFORMATION: - DATE LMP/MENOPAUSE: LMP - COLLECTION VIAL: Thin Prep Vial - DIVER ASSISTANT SOURCE: CERVICAL/ENDOCERVICAL - COLLECTION TECHNIQUE: BRUSH/SPATULA Specimen Comment: [id number] Specimen Comment: No. of containers..01 ThinPrep Vial TYPE CODE TESTS RESULT OUT OF RANGE REFERENCE UNITS LAB L7400.0800 . Normal DIAGN Comment Result Comment: NEGATIVE FOR INTRAEPITHELIAL LESION AND MALIGNANCY. LAB L7400.0900 . Normal ADEQ Comment Result Comment: Satisfactory for evaluation. No endocervical component is identified. LAB L7400.1400 . Normal PERFORM Comment Result Comment: Karen Ramierz, X Ray Technologist (ASCP) LAB L7400.2575 . Normal TEST METHOD [...] testing was performed. Performed at: [facility] [place] [id number] Laborer Brush Clearing: Soo Tariq MD, Phone: [phone] Performed By: #### L7400.0350 #### [facility] (refer to report for specific site) refer to report for address and phone number CTA HEAD W/WO Observed: 10/10/2017 Status: F Source: [place] CONTRAST 4:35 PM [facility] Imaging Services [address] [place] [address] CTA Head W/WO Contrast MR#: [id number] Acct: [id number] Name: AN MOYA Rep #: [id number] : 1985 F 31 From: Mateo Jarvis DO PCP: Elvis Babin MD Status: REG CLI Study: CTA Head W/WO Contrast Date of Exam: 10/10/17 Exam# [id number] Ordering Dr: Familia Atkinson MD STUDY: CTA [...] There is no demonstrated aneurysm of the [place]. There is no demonstrated abnormality of the visualized brain. CT/CTA Head W/WO Contrast IMPRESSION: Nonvisualization of the right A1 segment and the proximal segment of the right posterior cerebral artery. Electronically Signed: Mtaeo Jarvis DO at 18:26 EST Tel [phone], Service support , CC: Elvis Babin MD; Familia Atkinson MD Woods Rider: Signed BUN Collected: 10/10/2017 Status: F Source: [place] 1:53 PM [facility] TYPE CODE TESTS RESULT OUT OF RANGE REFERENCE UNITS LAB L501.1000 7-18 mg/dL Normal BUN 8 Performed By: #### L501.1000, L501.1105 #### [facility] [address] [place], [place], [address] SERUM CREATININE AND Collected: 10/10/2017 Status: F Source: [place] GFR 1:53 PM [facility] TYPE CODE TESTS RESULT OUT OF [...] Calc Performed By: #### L501.1000, L501.1105 #### [facility] [address] [place], [place], [address] ALLERGIES ALLERGIES DATE TYPE / CODE NAME / CODE REACTION SEVERITY SOURCE 07/23/2018 Drug No Known Unknown [place] [facility] Allergy/4160 Allergies/F00 Hospital 90995(SNOMED 1857333(RXNOR Repository CT) M) ENCOUNTERS ENCOUNTERS ADMIT/DISCHARGE ACCOUNT ADMITTING ENCOUNTER LOCATION SOURCE NUMBER CLASS 08/22/2018 [id number] Ambulatory [place] 1 [facility] ing:MRI Repository 08/20/2018 [id number] Ambulatory [place] 4 [facility] ing:MTRAD Repository 07/23/2018/ [id number] Emergency [place] 8 8 [facility] ing:ED Repository 07/09/2018 [id number] Ambulatory [place] 0 [facility] ing:US Repository 03/28/2018/ [id number] Ambulatory BMSBuilding:B [place] 8 8 [facility] Repository 03/22/2018/ [id number] Ambulatory [place] 8 6 [facility] Hospital ing:SDC Repository 03/22/2018 [id number] Ambulatory BMSBuilding:W [place] 1 [facility] Repository 02/16/2018 [id number] Ambulatory [place] 6 [facility] Hospital ing:LAB.FUTUR Repository E 02/16/2018 [id number] Ambulatory [place] 1 [facility] Hospital ing:CT Repository 02/13/2018 [id number] Ambulatory [place] 8 [facility] Hospital ing:US Repository 10/25/2017 [id number] Ambulatory [place] 2 [facility] Hospital ing:WOBLAB Repository 10/10/2017 [id number] Ambulatory [place] 8 [facility] Hospital ing:CT Repository 10/10/2017 [id number] Ambulatory [place] 7 [facility] ing:MFPLAB Repository PAYERS PAYERS ENCOUNTER GUARANTOR PAYER SUBSCRIBER SOURCE 08/22/2018 AN B Primary AN B [place] [id number] [facility] AMSTUTZDOB: [facility] y [place]: [id number] [id number] Repository [address]Aup: (330) Date:8507-91-37[phone] () TANISHA [place]SON [address]MN: 08/22/2018 Secondary NOT GIVENUNK [place] Insurance:SELF PAY [facility] Number: Effective Repository Date:2018-08-21 08/20/2018 AN B Primary AN B [place] [id number] Insurance:ANTHEMPolic AMSTUTZDOB: [facility] y Number: [id number] [id number] Repository [address]Mkr: (330) Date:3375-40-25[phone] () TANISHA WILSON [id number]: 08/20/2018 Secondary NOT GIVENUNK [place] Insurance:SELF PAY [facility] Number: Effective Repository Date:2018-08-20 07/23/2018 AN B Primary AN B [place] [id number] Insurance:ANTHEMPolic AMSTUTZDOB: [facility] y Number: [id number] [id number] Repository [address]Awm: (330) Date:3413-08-61[phone] () TANISHA WILSON [address]UY: 07/23/2018 Secondary NOT GIVENUNK [place] Insurance:SELF PAY [facility] Number: Effective Repository Date:2018-07-23 07/09/2018 AN B Primary AN B [place] [id number] Insurance:ANTHEMPolic AMSTUTZDOB: [facility] y Number: [id number] [place], [place] [id number] Repository [address]Frx: (330) Date:0506-33-12TT [phone] () [id number] LINDA 25598VR: 07/09/2018 Secondary NOT GIVENUNK [place] Insurance:SELF PAY [facility] Number: Effective Repository Date:2018-07-03 03/28/2018 AN B Primary AN B [place] [id number] Insurance:ANTHEMPolic AMSTUTZDOB: [facility] y Number: [id number] [id number] Repository [address]Hee: (330) Date:0710-48-04LF [phone] () [address] [place] [address] [place] [address]WW: 03/28/2018 Secondary NOT GIVENUNK Juan Insurance:SELF PAY [facility] Number: Effective Repository Date:2018-03-23 03/22/2018 An B Primary An B [place] [id number] Insurance:ANTHEMPolic AmstutzDOB: [facility] y Number: [id number] [id number] Repository [address]Jho: (330) Date:2570-18-62BQ [phone] () [address] [place] [address] [place] [address]OK: 03/22/2018 Secondary NOT GIVENUNK Juan Insurance:SELF PAY [facility] Number: Effective Repository Date:2018-02-23 03/22/2018 AN B Primary AN B Juan [id number] Insurance:ANTHEMPolic AMSTUTZDOB: [facility] y Number: [id number] [place], [place] [id number] Repository [address]Bav: (330) Date:5149-13-53TW [phone] () [address] [place] [address] [place] [address]KJ: 03/22/2018 Secondary NOT GIVENUNK Juan Insurance:SELF PAY [facility] Number: Effective Repository Date:2018-03-22 02/16/2018 AN B Primary NOT GIVENUNK [place] [id number] Insurance:SELF [place]Y [place] Number: Effective Repository [id number]: (330) Date:2018-02-16 [phone] () 02/16/2018 An B Primary An B [place] [id number] Insurance:ANTHEMPolic AmstutzDOB: [facility] y Number: [id number] [place] [id number] Repository [address]Ehj: (330) Date:3552-74-25GV [phone] () 597950YLDRMEXTANISHA LINDA 85270TL: 02/16/2018 Secondary NOT GIVENUNK [place] Insurance:SELF PAY [facility] Number: Effective Repository Date:2018-02-15 02/13/2018 An B Primary An B [place] [id number] Insurance:ANTHEMPolic AmstutzDOB: [facility] y Number: [id number] [place] [id number] Repository [address]Cqh: (330) Date:3610-64-80SW [phone] () [id number] LINDA 90674XY: 02/13/2018 Secondary NOT GIVENUNK Juan Insurance:SELF PAY [facility] Number: Effective Repository Date:2018-02-13 10/25/2017 An B Primary An B [place] [id number] Insurance:ANTHEMPolic AmstutzDOB: [facility] y Number: [id number] [place] [id number] Repository [address]Rvp: (330) Date:4084-02-60TP [phone] () [id number] LINDA 25[address]TT: 10/25/2017 Secondary NOT GIVENUNK [place] Insurance:SELF PAY [facility] Number: Effective Repository Date:2017-10-25 10/10/2017 An B Primary An B [place] [id number] Insurance:ANTHEMPolic AmstutzDOB: [facility] y Number: [id number] [place], [place] [id number] Repository [address]Aql: (330) Date:2950-45-72KD [phone] () TANISHA WILSON [address]97[address]AO: 10/10/2017 Secondary NOT GIVENUNK [place] Insurance:SELF PAY [facility] Number: Effective Repository Date:2017-10-05 10/10/2017 An B Primary An B Juan [id number] Insurance:ANTHEMPolic AmstutzDOB: [facility] Number: [id number] [id number] Repository [address]Cni: (330) Date:9207-59-27MC [phone] () [id number], [place] [address]MV: 10/10/2017 Secondary NOT GIVENUNK Juan Insurance:SELF PAY [facility] Number: Effective Repository Date:2017-10-10
== END ==
PROVIDERS: Family Provider Family Medicine; PCP Family Medicine; Referring Provider Family Medicine; Visit Provider Family Medicine
DX: M54.5 Low back pain (principal)
CPT/HCPCS: 72148

== ENCOUNTER → 2018-10-29 16:53 | Outpatient (CLI) | payer BC, SELFPAY ==
--- NOTE | 2018-10-29 17:04 | MRI_ITS ---
STUDY: MRI BRAIN WITHOUT CONTRAST REASON FOR EXAM: Female, 32 years old. MCMAOHN,URINARY INCONTINENCE TECHNIQUE: Standardized multiplanar fat and water weighted pulse sequences were obtained. COMPARISON: None. FINDINGS: Normal size of the ventricles and extra-axial spaces for the patient's age. Normal white matter tracts of the supratentorial brain. Small foci of increased T2 signal are seen in the subcortical white matter in the right frontal lobe most likely represent dilated perivascular spaces. Normal bilateral basal ganglia. Normal thalami. There is no extra-axial fluid accumulation. Normal flow voids within the major intracranial circulation suggesting patency by spin echo criteria. Normal sella turcica, pituitary gland, infundibular stalk, optic chiasm and hypothalamus. Normal tectal plate and pineal gland. Normal midbrain, lora and medulla. Normal cerebellum. Normal basal cisterns. Normal bilateral temporal bones. Normal bilateral internal auditory canals. No demonstrated orbital abnormality, within the constraints of a routine brain study. Normal visualized paranasal sinuses. Normal calvarium and skull base. Normal visualized soft tissue structures. Normal visualized upper cervical spine. MRI/Brain without Contrast IMPRESSION: There is no evidence of congenital malformation. There is no intracranial hemorrhage. There is no intracranial neoplasm. There is no evidence of hydrocephalus. Electronically Signed: Digna Lyons, at 8:01 EDT Tel , Service support ,
== END ==
PROVIDERS: Family Provider Family Medicine; PCP Family Medicine; Referring Provider Psychiatry & Neurology Neurology; Visit Provider Psychiatry & Neurology Neurology
DX: R51 Headache (principal); R32 Unspecified urinary incontinence; M54.2 Cervicalgia; Z86.79 Personal history of other diseases of the circulatory system
CPT/HCPCS: 70551

== ENCOUNTER → 2018-12-14 15:31 | Outpatient (CLI) | payer BC, SELFPAY ==
--- NOTE | 2018-12-14 15:36 | US_ITS ---
STUDY: THYROID ULTRASOUND REASON FOR EXAM: Female, 33 years old. Pain TECHNIQUE: Ultrasound evaluation of the thyroid was performed with real-time and static duran-scale imaging. COMPARISON: None. FINDINGS: RIGHT LOBE: The right lobe of the thyroid gland measures 5.3 x 1.7 x 1.7 cm. There is a homogeneous echotexture. There is a well-circumscribed 7 x 5 x 3 minute right thyroid near isoechoic nodule with some vascularity. LEFT LOBE: The left lobe of the thyroid gland measures 4.8 x 1.6 x 1.4 cm. There is a homogeneous echotexture. There are no demonstrated solid, cystic or complex lesions. ISTHMUS: The isthmus measures 3 mm . There is a right neck area pain lymph node with well-circumscribed borders measuring 1.7 x 0.4 cm minimally thickened cortex. US/Thyroid IMPRESSION: Reactive appearing lymph node in the reported region of pain, in the right neck soft tissues recommend clinical follow-up and further imaging if further enlargement. Small near isoechoic nodule within the right midline thyroid vascularity recommend close interval follow-up study in 6 months to ensure stability. Electronically Signed: Char Henao MD at 8:47 EDT Tel , Service support ,
== END ==
PROVIDERS: Family Provider Family Medicine; PCP Family Medicine; Referring Provider Family Medicine; Visit Provider Family Medicine
DX: E07.89 Other specified disorders of thyroid (principal)
CPT/HCPCS: 76536

== ENCOUNTER → 2018-12-17 09:12 | Outpatient (CLI) | payer BC, SELFPAY ==
--- NOTE | 2018-12-19 10:46 | EEG ---
- Electroencephalogram It of service 12/17/2018 This is a 18 channel electroencephalogram performed on this 33-year-old female with a history of enuresis. The test was performed utilizing the International 10-20 electrode placement protocol as well as hyperventilation, photic simulation, and EKG reference leads. Background activity is 10 Hz symmetrically in the posterior leads which attenuates with eye-opening. Hyperventilation is performed for 3 minutes with no lateralizing or epileptiform changes and the post hyperventilatory phase is unremarkable. Patient remained awake throughout the recording without lateralizing or epileptiform changes. Photic stimulation generates a normal symmetric driving response in the posterior leads and EKG is normal sinus rhythm throughout the recording. Impression: Normal awake electroencephalogram
== END ==
PROVIDERS: Family Provider Family Medicine; PCP Family Medicine; Referring Provider Psychiatry & Neurology Neurology; Visit Provider Psychiatry & Neurology Neurology
DX: R55 Syncope and collapse (principal); G47.33 Obstructive sleep apnea (adult) (pediatric)

== ENCOUNTER → 2019-01-09 | Outpatient (CLI) | payer BC, SELFPAY ==
[2019-01-09 13:07] LABS: Free T3 3.1 pg/mL (2.18-3.98); T4 Free Direct 1.08 ng/dL (0.76-1.46); Thyroid Stim Hormone (TSH) 3.11 uIU/mL (0.358-3.74)
== END | disposition home or self-care (01) ==
LOC: MFPLAB 11:12
PROVIDERS: Family Provider Family Medicine; PCP Family Medicine; Referring Provider Family Medicine; Visit Provider Family Medicine
DX: E04.1 Nontoxic single thyroid nodule (principal)
CPT/HCPCS: 36415; 84439; 84443; 84481

== ENCOUNTER → 2019-01-24 07:43 | Outpatient (CLI) | payer BC, SELFPAY ==
--- NOTE | 2019-01-24 07:47 | US_ITS ---
STUDY: ULTRASOUND COMPLETE CLINICAL: Female, 33 years old. Intrauterine fibroid TECHNIQUE: Transvaginal and transabdominal COMPARISON: February 13 2018 FINDINGS: Normal uterine size measuring 9.2 x 5.1 x 4.2 cm in maximal craniocaudal dimension. There is a fibroid in the fundus measuring 4.8 x 4.1 x 3.4 cm. Normal endometrial thickness measuring 16 mm. There are no endometrial masses, and there is no fluid in the endometrial cavity. Normal uterine cervix. Right ovary not visualized status post oophorectomy Normal left ovary, measuring 4. 4 x 4 by 3.1 cm. There are multiple follicles. There is a cyst measuring 2.7 x 2.5 x 1.8 cm. There is no free fluid in the pelvis. The intrauterine fibroid has increased slightly in size since prior study US/Pelvic (Non ) IMPRESSION: Slightly increased size of intrauterine fibroid. Status post right oophorectomy. Small left ovarian cyst measuring 2.7 x 2.5 x 1.8 cm Electronically Signed: Trevin King MD at 17:36 EDT , Service support ,
--- NOTE | 2019-01-24 08:02 | US_ITS ---
STUDY: ULTRASOUND COMPLETE CLINICAL: Female, 33 years old. Intrauterine fibroid TECHNIQUE: Transvaginal and transabdominal COMPARISON: February 13 2018 FINDINGS: Normal uterine size measuring 9.2 x 5.1 x 4.2 cm in maximal craniocaudal dimension. There is a fibroid in the fundus measuring 4.8 x 4.1 x 3.4 cm. Normal endometrial thickness measuring 16 mm. There are no endometrial masses, and there is no fluid in the endometrial cavity. Normal uterine cervix. Right ovary not visualized status post oophorectomy Normal left ovary, measuring 4. 4 x 4 by 3.1 cm. There are multiple follicles. There is a cyst measuring 2.7 x 2.5 x 1.8 cm. There is no free fluid in the pelvis. The intrauterine fibroid has increased slightly in size since prior study US/Transvaginal Non- IMPRESSION: Slightly increased size of intrauterine fibroid. Status post right oophorectomy. Small left ovarian cyst measuring 2.7 x 2.5 x 1.8 cm Electronically Signed: Trevin King MD at 17:36 EDT , Service support ,
== END ==
PROVIDERS: Family Provider Family Medicine; PCP Family Medicine; Referring Provider Family Medicine; Visit Provider Family Medicine
DX: D25.9 Leiomyoma of uterus, unspecified (principal)
CPT/HCPCS: 76830; 76856; 93976

== ENCOUNTER → 2019-05-13 13:44 | Outpatient (CLI) | payer BC, SELFPAY ==
[2019-03-12 08:10] VITALS: BMI 30.1
--- NOTE | 2019-05-13 13:50 | US_ITS ---
STUDY: THYROID ULTRASOUND REASON FOR EXAM: Female, 33 years old. Follow-up TECHNIQUE: Ultrasound evaluation of the thyroid was performed with real-time and static druan-scale imaging. COMPARISON: December 14, 2018 FINDINGS: RIGHT LOBE: The right lobe of the thyroid gland measures 5.9 x 1.6 x 4 cm. There is a homogeneous echotexture An 8 x 6 x 4 mm nodule is seen at the inferior pole of the right lobe. LEFT LOBE: The left lobe of the thyroid gland measures 5.4 x 1.5 x 1.3 cm. There is a homogeneous echotexture. There are no demonstrated solid, cystic or complex lesions. ISTHMUS: The isthmus measures 2 mm . A 2.1 x 1.1 x 0.5 cm lymph node is seen on the right side of the neck and a 1.1 x 0.7 x 0.3 cm lymph node is seen on the left side of the neck. US/Thyroid IMPRESSION: There has not been much change since the last examination. A stable benign looking 8 x 6 x 4 mm nodule seen at the inferior pole of the right lobe Electronically Signed: Kevyn Laureano MD at 3:30 EDT Tel , Service support ,
== END ==
PROVIDERS: Family Provider Family Medicine; PCP Family Medicine; Referring Provider Otolaryngology; Visit Provider Otolaryngology
DX: E04.1 Nontoxic single thyroid nodule (principal)
CPT/HCPCS: 76536

== ENCOUNTER → 2019-05-16 13:41 | Outpatient (CLI) | payer BC, SELFPAY ==
[2019-03-12 08:10] VITALS: BMI 30.1
[2019-05-16 16:17] LABS: Absolute Lymphocyte Count 2.98 X10^3/uL (0.83-4.51); Absolute Neutrophil Count 5.5 X10^3/uL (2.0-7.7); Basophil# 0.07 X10^3/uL; Basophil% 0.7 % (0-1); Eosinophil# 0.14 X10^3/uL; Eosinophils% 1.5 % (0-5); Hematocrit 39.2 % (37-47); Hemoglobin 12.4 g/dL (12.0-15.0); Lymphocyte # 2.98 X10^3/ul (4.0); Lymphocyte % 31.2 % (19-41); Mean Corp Hgb Conc 31.6 g/dL (32-36); Mean Corpuscular Hgb 29.5 pg (27.0-32.0); Mean Corpuscular Volume 93.1 fL (81-99); Mean Platelet Vol. 11.6 fl (6.2-12.0); Monocyte% 8.4 % (0-10); NRBC Flagged by Analyzer 0 % (0-5); Neutrophil # 5.51 X10^3/uL (2.7-7.7); Neutrophil % 57.7 % (47-70); Platelet Count 253 K/mm3 (150-450); RBC Distribution Width SD 44.3 fl (35.1-43.9); Red Blood Count 4.21 M/mm3 (4.2-5.4); White Blood Count 9.6 K/mm3 (4.4-11.0)
[2019-05-16 16:28] LABS: Rheumatoid Factor < 10.0 IU/mL (<15)
[2019-05-16 16:37] LABS: Erythrocyte Sedimentation Rate 6 mm/hr (0-20)
[2019-05-20 14:08] LABS: SJOGREN'S Anti-SS-A test < 0.2 AI (0.0-0.9); SJOGREN'S Anti-SS-B test < 0.2 AI (0.0-0.9)
[2019-05-20 16:08] LABS: Angiotensin Convert Enzyme 55 U/L (14-82); Cytoplasmic Ab (C-ANCA) <1:20 titer (Neg:<1:20)
[2019-05-20 17:34] LABS: ANTINUCLEAR ANTIBODIES DIRECT Negative (Negative)
[2019-05-20 20:50] LABS: Anti-Thyroglobulin AB < 1.0 IU/mL (0.0-0.9); Perinuclear Ab (P-ANCA) <1:20 titer (Neg:<1:20); Thyroglobulin, Serum Qt. 9.4 ng/mL (1.5-38.5); Thyroid Peroxidase AB 19 IU/mL (0-34)
== END ==
PROVIDERS: Family Provider Family Medicine; PCP Family Medicine; Referring Provider Family Medicine; Visit Provider Otolaryngology
DX: E04.1 Nontoxic single thyroid nodule (principal); M54.2 Cervicalgia
CPT/HCPCS: 36415; 82164; 84432; 85025; 85652; 86038; 86235; 86256; 86376; 86431; 86800

== ENCOUNTER → 2019-06-18 16:52 | Outpatient (CLI) | payer BC, SELFPAY ==
[2019-03-12 08:10] VITALS: BMI 30.1
--- NOTE | 2019-06-18 16:54 | CT_ITS ---
STUDY: CT SOFT TISSUE NECK WITH CONTRAST REASON FOR EXAM: Female, 33 years old. Neck pain. Swollen lymph nodes. RADIATION DOSAGE (If Supplied By Facility): CTDIvol = ( 14.70 ) mGy, DLP = ( 422.14 ) mGycm TECHNIQUE: The patient was scanned in a multi-detector CT scanner. High resolution transaxial imaging was performed following intravenous administration of IV Isovue 370 75. Sagittal and coronal images were reconstructed. Individualized dose optimization techniques were used for this CT. COMPARISON: None. FINDINGS: Normal bilateral parotid glands. Normal bilateral manager photography spaces. Normal bilateral parapharyngeal spaces. Normal bilateral carotid spaces. Normal bilateral sublingual and submandibular glands and spaces. Normal visualized nasopharynx. Normal retropharyngeal space. Normal perivertebral space. Normal visualized bilateral faucial tonsils. The visualized tongue, tongue base and oropharynx are normal. The visualized cervical lymph nodes (levels I-) are within normal size limits, and maintain normal morphology. There is no demonstrated solid or cystic mass lesion. There is no abnormal contrast enhancement. Normal epiglottis, bilateral vallecula and hypopharynx. The pre-epiglottic and paraglottic adipose spaces are normal. Normal visualized bilateral piriform sinuses, aryepiglottic folds, vocal cords, and arytenoid-cricoid articulations. Normal subglottic trachea. Normal bilateral lobes of the thyroid gland. Normal visualized pulmonary apices. Normal visualized paranasal sinuses. Normal visualized cervical spine. CT/Soft Tissue Neck WITH Contrast IMPRESSION: Normal enhanced CT examination of the soft tissues of the neck. Electronically Signed: Abdulkadir Hammonds MD at 17:15 EST , Service support ,
== END ==
PROVIDERS: Family Provider Family Medicine; PCP Family Medicine; Referring Provider Otolaryngology; Visit Provider Otolaryngology
DX: M54.2 Cervicalgia (principal)
CPT/HCPCS: 70491; Q9967

== ENCOUNTER 2019-07-23 09:28 | Observation (INO) | payer BC, SELFPAY ==
[2019-03-12 08:10] VITALS: BMI 30.1
[2019-07-08 10:33] VITALS: BMI 30.1
--- NOTE | 2019-07-22 21:50 | HP.PCM_ITS ---
- Problem List (1) Factor 5 Leiden mutation, heterozygous Status: Acute Comment: lovneox preop and 2 weeks postop (2) Abnormal uterine bleeding Status: Chronic (3) Uterine fibroid Status: Chronic Qualifiers: Comment: plan abdominal myomectomy mini-laparotomy, schedule as surgical obs, if she needs additional night will need resubmitted POD 1 History and Physical Date of Admission: 07/23/19 Intake Vital Signs 07/08/19 Body Mass Index (BMI) 30.1 07/08/19 Height 5 ft 3.5 in 07/08/19 Weight: 184 lb 07/08/19 Body Mass Index (BMI) 32.1 07/08/19 Blood Pressure 120/84 H Intake Visit Reasons: ERAS myomectomy Chief Complaint: Pre op 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 Is patient in pain?: No Allergies No Known Allergies Allergy (Verified 07/08/19 10:32) Medications Albuterol Inhaler [Ventolin Hfa (SP)] 1 - 2 puff INHALATION Q4H PRN PRN 03/13/15 [History Confirmed 07/08/19] Budesonide/Formoterol 80-4.5 [Symbicort 80-4.5 Mcg Inhaler] 2 puff INHALATION PRN PRN 03/13/15 [History Confirmed 07/08/19] L.acidoph,Paracasei, B.lactis [Probiotic] 1 ea PO DAILY 03/19/18 [History Confirmed 07/08/19] Multivitamin [Multiple Vitamins] 1 ea PO DAILY 03/19/18 [History Confirmed 07/08/19] Is last menstrual period known: No Post menopausal: No Patient : No : [facility] Medical History (Updated 07/08/19 @ 10:42 by Yolande Brizuela MD) Factor V Leiden (Acute) Surgical History (Updated 07/08/19 @ 10:43 by Yolande Brizuela MD) Dermoid cyst (Acute) History of right oophorectomy (Acute) Family History Grandmother auto immune hepititis Lupus Lymphoma Grandfather AAA (abdominal aortic aneurysm) Heart disease Social History (Updated 07/08/19 @ 11:31 by Yolande Brizuela MD) number of children: 0 current occupational status: employed current occupation: [employer] Smoking Status: Never smoker alcohol intake: never substance use type: does not use caffeine: Yes Type: carbonated beverages Number of servings: 1 what type of physical activity do you participate in: walking seatbelt use: always do you feel safe at home: Yes additional social history: single- works at [employer] and [employer] HPI ERAS myomectomy: Details: EMMANUEL MOYA is a 33 year old who presents for preop exam. she is having heavy periods and lower abdominal bloating, planning a mini laparotomy for myomectomy. Female Reproductive History Cycle Length: <21 Bleeding Duration: 5 Pregancy History 0 Elective abortions Hx Para 0 Spontaneous abortions Hx # Term Pregnancies Ectopic pregnancies Hx # Pregnancies Multiple births # of living children ROS Const Constitutional: Denies fatigue, fever(s), headache(s), increased appetite, poor appetite, weight gain or weight loss ENT ENT: Reports system reviewed and no additional complaints, except as docu Cardio Card: Denies chest pain Resp Resp: Denies cough or dyspnea GI GI: Reports as per HPI; denies abdominal pain, constipation, nausea or vomiting : Reports as per HPI; denies difficulty urinating, painful urination, nipple discharge, urinary frequency, urinary incontinence, urinary hesitancy, urinary urgency, vaginal discharge, vaginal dryness, vaginal odor or vaginal itching Musc Musc: Denies joint pain, back pain or muscle weakness Skin Skin/Breast: Denies nipple discharge Neuro Neuro: Reports system reviewed and no additional complaints, except as docu Psych Psych: Reports system reviewed and no additional complaints, except as docu Endo Endo: Denies cold intolerance, excessive sweating, heat intolerance or increased thirst Robel/Lymph Hematologic/Lymphatic: Denies easy bleeding, Denies easy bruising, Denies enlarged lymph nodes Exam Const General: cooperative, healthy appearing, comfortable, no acute distress, well developed Nutritional Appearance: average body habitus Orientation: alert [facility] Head: normal to inspection, normocephalic Ears: hearing grossly normal bilaterally, external ears normal Nose: external nose normal, nares normal Face and sinus: normal facial exam Neck Neck: normal visual inspection, trachea midline Thyroid: thyroid normal Chest Chest palpation & inspection: normal inspection of the chest Resp Effort & Inspection: normal respiratory effort Cardio Rate: regular rate Rhythm: regular rhythm GI Inspection: normal to inspection, non-distended Palpation: soft, no hepatosplenomegaly General: bladder normal to palpation External Female Exam: normal external appearance, normal appearance of the urethra Urethra: normal appearance of the urethra Speculum Exam - Vagina: normal appearance of the vagina, normal vaginal discharge Speculum Exam - Cervix: normal appearance of the cervix, nontender Bimanual Exam- Vagina & Uterus: bladder normal to palpation, No cervical tenderness Bimanual Exam- Adnexa, other: normal adnexae, adnexae mobile, no adnexal masses, pelvic support normal Pelvic Support: normal Musc Other: gross motor intact no deficits, full bilateral strength Skin General: no rashes or lesions noted Neuro General: alert, awake, moves all extremities, no focal motor deficits Motor: muscle tone normal throughout Extrem General: normal to inspection, no pedal edema Psych Appearance: grossly normal Mental Status: mental status grossly normal Affect: normal affect Speech and Movement: speech and movement normal Assessment & Plan Problems 1. Uterine fibroid D25.9 plan abdominal myomectomy mini-laparotomy, schedule as surgical obs, if she needs additional night will need resubmitted POD 1 2. Abnormal uterine bleeding N93.9 3. Factor 5 Leiden mutation, heterozygous D68.51 lovneox preop and 2 weeks postop Plan After discussing the patient's diagnosis and treatment plan options, patient wishes to proceed with surgical management. I have discussed with the patient the risks, benefits, and alternatives of the procedure which include but are not limited to risks of anesthesia, bleeding, infection, possible damage to bowel, bladder, or surrounding vasculature which could lead to additional surgery to evaluate any complications. Patient agrees to procedure and wishes to proceed. ACOG/uptodate references given for additional information regarding procedure. Coding Level of Care Code No Charge Diagnoses Uterine fibroid D25.9 Abnormal uterine bleeding N93.9 Factor 5 Leiden mutation, heterozygous D68.51 UPDATE- I have seen the patient and performed any clinically relevant updates to the history and physical exam. Yolande Brizuela MD
[2019-07-23] VITALS (12 sets, daily range): BP systolic 89–103; BP diastolic 45–73; PULSE 50–76; RESP 14–18; TEMP 36.7–37.6; O2SAT 98–100; BMI 32.3
[2019-07-23] MEDS: Scopolamine 1mg/72hr Patch 1 PATCH TRANSDERM. (07:00)
[2019-07-23 10:06] LABS: Hematocrit 40.9 % (37-47); Hemoglobin 13.4 g/dL (12.0-15.0); Mean Corp Hgb Conc 32.8 g/dL (32-36); Mean Corpuscular Hgb 29.9 pg (27.0-32.0); Mean Corpuscular Volume 91.3 fL (81-99); Mean Platelet Vol. 10.9 fl (6.2-12.0); Platelet Count 275 K/mm3 (150-450); RBC Distribution Width CV 12.5 % (11.6-14.6); RBC Distribution Width SD 41.5 fl (35.1-43.9); Red Blood Count 4.48 M/mm3 (4.2-5.4); White Blood Count 8.5 K/mm3 (4.4-11.0)
[2019-07-23 10:25] LABS: Bedside Glucose 86 mg/dL (70-110)
[2019-07-23 10:31] LABS: Internal QC Validated? YES +Cl - CLEAR BKGD; Pregnancy, Urine Negative Negative
[2019-07-23] MEDS: Lactated Ringers 1,000 ML 40 ML IV ×2 (10:38→13:27)
[2019-07-23] MEDS: Gabapentin 600 MG Tablet PO (10:39)
[2019-07-23] MEDS: Celecoxib 200 MG Capsule 400 MG PO (10:39)
[2019-07-23] MEDS: Acetaminophen 500 MG Tablet 1000 MG PO ×3 (10:39→23:11)
[2019-07-23] MEDS: Magnesium Sulfate 4gm/100mL 4 GM/100 ML IV.SOLN. IV (10:39)
[2019-07-23] MEDS: Enoxaparin 40 MG/0.4 ML Syringe SC (10:40)
[2019-07-23] MEDS: dexAMETHasone 10 MG/ML Vial 8 MG IV (10:40)
[2019-07-23] MEDS: Phenazopyridine 95 MG Tablet 190 MG PO (10:40)
[2019-07-23] MEDS: Cefazolin 2 GM in 0.9% Normal Saline 100 ML IV (11:30)
--- NOTE | 2019-07-23 11:30 | OV_PTH ---
PATIENT: EMMANUEL ROJAS LOC: MS3 U#:[id number] AGE/SX: 33/F ROOM: MS322 RE07/23/[address]: Dr. Yolande Brizuela MD : 1985 BED: 1 DIS: 07/24/2019 SPEC #: [id number] RECD: 07/23/19 14:58 STATUS: CAMILA COOLEY #: [id number] WILNER: 07/23/19 11:[address]: Yolande Brizuela DEPT: SURGICAL PATHOLOGY RECD BY: Reinaldo Mario ENTERED: 07/24/19 11:58 SP TYPE: OVARY OTHR DR: Dr. 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 Fibroids - leiomyomas (three fragments, largest measuring 5 cm in greatest dimension). MOJGAN:татьяна 07/29/19 MICROSCOPIC DESCRIPTION Slides are reviewed. GROSS DESCRIPTION Received in fixative is one container labeled with the patient's name and designated fibroids and left ovarian dermoid cyst. The specimen consists of three nodules and a cyst. The three indurated nodules consistent with fibroid measures 1.5 and 1 cm in greatest dimension and 5 x 4 x 3 cm. Sections of these masses reveal tang whorled cut surfaces without areas of hemorrhage, necrosis or cystic degeneration. Also present in the container are two pieces of tissue consistent with ovarian cystic tissue measuring 5 x 3 x 2.7 cm. A focal area also shows the bone formation. Sections reveal solid and cystic cut surfaces. [employer] sections are submitted in eight cassettes as follows: 1-4 - nodular masses (1 smaller two nodular masses, 2-4 - largest nodular mass), 5-8 - cystic tissue consistent with dermoid (8 contains area of bone and submitted after decalcification). / MOJGAN:татьяна 07/24/19 TC:1 CPT: 32792, 43760
--- NOTE | 2019-07-23 11:43 | PCM.OPRPT ---
Problem List (1) Factor 5 Leiden mutation, heterozygous Status: Acute Comment: lovneox preop and 2 weeks postop (2) Abnormal uterine bleeding Status: Chronic (3) Uterine fibroid Status: Chronic Qualifiers: Comment: plan abdominal myomectomy mini-laparotomy, schedule as surgical obs, if she needs additional night will need resubmitted POD 1 Report of Operation Date of Procedure: 07/23/19 Pre-Operative Diagnosis: fibroid aub Post-Operative Diagnosis: same plus left ovarian dermoid cyst Surgery/Procedure Performed:: mini laparotomy myomectomy Description of Surgical Findings:: left ovarian dermoid, 3 fibroids special delivery clerk: Mike Leyva Type of Anesthesia:: General Special Medications: vasopressin, myrna, interceded Specimen's removed: fibroids left dermoid Drains: alvarez Estimated Blood Loss (mL): 50 Fluids Replaced: crystalloid Description of Procedure: Patient was taken to the operating room and placed under general anesthesia was prepped and draped in normal sterile fashion the dorsal position. Mini laparotomy measuring 10 cm and located 2 cm above the pubic bone was made transversely in Pfannenstiel fashion down to the layer of the fascia which was nicked in the midline and the incision extended laterally and the rectus bellies dissected off bluntly and sharply superiorly and inferiorly. Peritoneum was entered digitally incision stretched laterally. Jose Rafael retractor was used and the bowel was packed away with moist sponges. Uterus was well visualized and noted to be twice its normal size with a 5 cm fibroid seen subserosal at the fundus. The left ovary was noted be significantly enlarged and upon entering the ovary for evaluation and a 4 cm dermoid cyst was seen. This was shelled out and removed via cystectomy and was sent to pathology for analysis. Multiple other sub-follicular cysts ranging in size from 1 to 3 cm were seen which these were drilled and drained to confirm no further dermoid cyst were present. Myrna was placed over the base of the cyst wall removal on the normal ovarian tissue and hemostasis was noted. A layer of Interceed was placed over this area after the myomectomies were performed also to help reduce the risk for future adhesions. This area was injected with dilute vasopressin and a transverse incision made across the fundus and the fibroid dissected out and removed. The defect did not go through into the endometrium or even breech the myometrium significantly there was still excellent integrity to the muscle of the uterus. The myometrium and then serosa were closed in multiple layers with 2-0 and 3-0 Monocryl and Vicryl. A 1 cm fibroid was also removed just posteriorly to this fibroid that was serosal and a third 2 cm serosal fibroid was also removed after injecting with dilute vasopressin posteriorly and a small transverse incision was made and this was closed with 3-0 Vicryl. Excellent hemostasis was noted. All areas were covered with Myrna and then a layer of Interceed and noted of excellent hemostasis. Peritoneum was closed with 3-0 Monocryl after all instruments were removed from the abdomen. Fascia closed with 0 PDS strata fix suture. Subcutaneous tissue was reapproximated and subcuticular stitch was performed. Steri's and Mepilex were applied and patient was taken recovery in stable condition. Grafts/Implants Used: none - Complications none - Admit VTE Documentation VTE Present on Admission: No VTE Mechan Device Prophylaxis: SCD's Multi Select Codes - Urinary/Genital Urinary/Genital CPT Codes: 96469 Myomectomy, 1-4fibroids <250gr uterus - abdominal mini laparotomy
[2019-07-23] MEDS: Vasopressin 20 UNITS/ML Vial (12:10)
--- NOTE | 2019-07-23 13:04 | PCM.DC.AHY ---
Discharge Diet: No Restrictions Discharge Activity: Return to Normal Activity, May Not Drive - while taking narcotic pain medications. May resume sexual activity in: 6-8 weeks Call your doctor if your incision/area has: Continuous Slow Oozing, Sudden Increased Bleeding, Increased Pain/ Swelling, Increased Redness, Foul Smelling Discharge Call your doctor if you observe: Fever of 101 or Higher Allergies/Adverse Reactions: Allergies No Known Allergies Allergy (Verified 07/23/19 10:19) Medications to take at Discharge Albuterol Inhaler [Ventolin Hfa (SP)] 1 - 2 puff INHALATION Q4H PRN PRN 03/13/15 Budesonide/Formoterol 80-4.5 [Symbicort 80-4.5 Mcg Inhaler] 2 puff INHALATION PRN PRN 03/13/15 L.acidoph,Paracasei, B.lactis [Probiotic] 1 ea PO DAILY 03/19/18 Multivitamin [Multiple Vitamins] 1 ea PO DAILY 03/19/18 Naproxen [Naprosyn] 250 - 500 mg PO Q8H PRN PRN #30 tab 07/23/19 Oxycodone HCl/Acetaminophen [Percocet 5-325] 1 - 2 tab PO Q6H PRN PRN 7 Days #28 tab 07/23/19 The following prescriptions were given: Naproxen [Naprosyn] 250 - 500 mg PO Q8H PRN PRN #30 tab PRN Reason: MILD PAIN Transmission Status: Received by [facility] Oxycodone HCl/Acetaminophen [Percocet 5-325] 1 - 2 tab PO Q6H PRN PRN 7 Days #28 tab PRN Reason: Moderate-Severe pain Transmission Status: Received by [facility] Primary Care Physician: Elvis Apodaca MD [Primary Care Provider] - Test Results: Test results from this visit will be discussed in further detail at your follow-up appointment, if applicable. Please Follow Up With: Yolande Brizuela MD - [phone] When: in 2 weeks
[2019-07-23] MEDS: Lactated Ringers 1,000 ML 100 ML IV (14:24)
[2019-07-23] MEDS: Ketorolac 30 MG/ML Syringe IV ×3 (14:34→23:11)
[2019-07-23] MEDS: Lactated Ringers 1,000 ML 70 ML IV (15:09)
[2019-07-23] MEDS: 0.9% Saline Lock 10 ML Syringe IV (23:11)
[2019-07-23] MEDS: Docusate Sodium 100 MG Capsule PO (23:11)
[2019-07-24] MEDS: Acetaminophen 500 MG Tablet 1000 MG PO ×2 (05:11→11:50)
[2019-07-24] MEDS: Ketorolac 30 MG/ML Syringe IV ×2 (05:11→11:50)
[2019-07-24] MEDS: 0.9% Saline Lock 10 ML Syringe IV ×2 (05:15→11:49)
[2019-07-24 05:21] VITALS: BP 97/50; PULSE 63; RESP 16; TEMP 36.8; O2SAT 97
[2019-07-24 05:54] LABS: Hematocrit 33.9 % (37-47); Hemoglobin 11.2 g/dL (12.0-15.0); Mean Corpuscular Hgb 30.4 pg (27.0-32.0); Mean Corpuscular Volume 91.9 fL (81-99); Mean Platelet Vol. 11.4 fl (6.2-12.0); Platelet Count 222 K/mm3 (150-450); RBC Distribution Width CV 12.8 % (11.6-14.6); RBC Distribution Width SD 42.5 fl (35.1-43.9); Red Blood Count 3.69 M/mm3 (4.2-5.4); White Blood Count 14.6 K/mm3 (4.4-11.0)
--- NOTE | 2019-07-24 07:52 | PCM.PN.OB ---
Subjective: Doing well. No SOB, CP. Pain controlled. Tolerated PO well. Cath remains. - Physical Exam Vitals/I&O's: Vital Signs Temp Pulse Resp BP Pulse Ox 98.2 F 63 16 97/50 L 97 07/24/19 05:21 07/24/19 05:21 07/24/19 05:21 07/24/19 05:21 07/24/19 05:21 Oxygen Flow Rate (L/min) 3 Oxygen Delivery Method Room Air Weight: 182 lb 8.684 oz Body Mass Index (BMI) 32.3 Intake and Output for Last 24 Hours 07/22/19 07/23/19 07/24/19 23:59 23:59 23:59 Intake Total 3338.66 / 3338.66 896.67 / 896.67 Output Total 1250 / 1250 300 / 300 Balance 2088.66 / 2088.66 596.67 / 596.67 General: Alert, Oriented x3 Abdomen: Soft, Non-Distended, - - dressing dry and intact Laboratory Results 07/23/19 09:45: Urine Test Negative 07/23/19 09:54: WBC 8.5, RBC 4.48, Hgb 13.4, Hct 40.9, MCV 91.3, MCH 29.9, MCHC 32.8, RDW Std Deviation 41.5, RDW Coeff of Casandra 12.5, Plt Count 275, MPV 10.9 07/23/19 09:54: Blood Type A POSITIVE, Antibody Screen NEGATIVE 07/23/19 10:23: POC Glucose 86 07/24/19 05:35: WBC 14.6 H, RBC 3.69 L, Hgb 11.2 L, Hct 33.9 L, MCV 91.9, MCH 30.4, MCHC 33.0, RDW Std Deviation 42.5, RDW Coeff of Casandra 12.8, Plt Count 222, MPV 11.4 Current Medications Acetaminophen (Tylenol) 1,000 mg PO Q6 [facility] Last Admin: 07/24/19 05:11 Dose: 1,000 mg Documented by: Docusate Sodium (Colace) 100 mg PO BID [facility] Last Admin: 07/23/19 23:11 Dose: 100 mg Documented by: Enoxaparin Sodium (Lovenox) 40 mg SC DAILY [facility] Ketorolac Tromethamine (Toradol) 30 mg IV Q6 [facility] Stop: 07/24/19 18:01 Last Admin: 07/24/19 05:11 Dose: 30 mg Documented by: Magnesium Oxide (Mag-Ox 400) 400 mg PO DAILY PRN PRN PRN Reason: Constipation Nutritional Formula (Lactose Free) (Ensure Enlive) 120 ml PO TIDCM [facility] Last Admin: 07/23/19 18:17 Dose: 120 ml Documented by: Ondansetron HCl (Zofran Odt) 4 mg PO Q6H PRN PRN PRN Reason: NAUSEA Oxycodone HCl (Oxyir) 5 - 10 mg PO Q4H PRN PRN PRN Reason: Pain Score 4-10/10 Sodium Chloride () 10 - 40 ml IV UD PRN PRN Reason: SALINE FLUSH Last Admin: 07/24/19 05:15 Dose: 10 ml Documented by: Medical Necessity - Tobacco Use Smoking Status: Never smoker Tobacco Use: Non-smoker Assessment/Plan All Active Problems (Last Reviewed 07/08/19 @ 10:32 by Key Brody) Factor 5 Leiden mutation, heterozygous (Acute) Myomectomy, ovarian cystectomy POD #1 Routine care DC cath Will continue lovenox X 2 weeks postop May discharge home when ambulatory and voiding qs
[2019-07-24 09:21] VITALS: BP 104/57; PULSE 62; RESP 16; TEMP 36.8; O2SAT 100
--- NOTE | 2019-07-24 10:10 | CASEMGMT ---
RN CM Face to Face with patient for initial transition planning/care coordination assessment. RN CM introduced self and role at [facility]. Patient lying in bed, alert and oriented, mother at bedside. Patient willing to participate in assessment and is able to answer all questions appropriately. Care providers, pharmacy, and demographics verified. Patient wishes to discharge home, denies need for home health at this time. Patient states she has no further needs or concerns at this time. CM to follow for discharge planning needs that may arise. PCP: Constanza Specialists: RENNY Russell Preferred Pharmacy: [facility] retail Insurance: [employer] Prescription Benefit: yes Living Will/HPOA: none LNOK: parents Living Arrangements: Patient lives with parents in 2 story home with bed and bath on first level. Patient independent at home prior to surgery. Transportation: self/mother DME/HHC: Patient denies personal DME, father is paraplegic and has access to DME. Disposition Plan: Patient to discharge home with family support and follow-up plans in place. Krysten BARRIOS, RN, CM
[2019-07-24] MEDS: Docusate Sodium 100 MG Capsule PO (10:34)
[2019-07-24] MEDS: Enoxaparin 40 MG/0.4 ML Syringe SC (10:35)
[2019-07-24 15:21] VITALS: BP 97/61; PULSE 62; RESP 16; TEMP 36.3; O2SAT 98
[2019-07-24] MEDS: oxyCODONE 5 MG Tablet PO (15:21)
== END 2019-07-24 16:00 | disposition home or self-care (01) | DRG 742 ==
LOC: MS3 07-24 09:36 → ACINP 02-27 07:41 → MS3 02-27 07:41
PROVIDERS: Anesthesiology; Admitting Provider Obstetrics & Gynecology; Family Provider Family Medicine; PCP Family Medicine; Referring Provider Obstetrics & Gynecology; Visit Provider Obstetrics & Gynecology
PROC: 0UT90ZZ Resection of Uterus, Open Approach (ICD-10-PCS; CPT 58150; principal; 2019-07-23 11:15)
DX: D25.2 Subserosal leiomyoma of uterus (principal); D68.51 Activated protein C resistance; D27.1 Benign neoplasm of left ovary; N83.02 Follicular cyst of left ovary; Z79.899 Other long term (current) drug therapy
CPT/HCPCS: 00840; 58545; 36415; 81025; 82962; 85027; 86850; 86900; 86901; 88305; 99218; 99251; J7120; A4216; G0378; G0379; G0463; J2405

== ENCOUNTER → 2019-08-30 09:02 | Outpatient (CLI) | payer BC, SELFPAY ==
[2019-08-05 11:44] VITALS: BMI 32.1
== END ==
LOC: MTLAB 09:04
PROVIDERS: PCP Family Medicine; Referring Provider Family Medicine; Visit Provider Family Medicine
DX: J02.9 Acute pharyngitis, unspecified (principal)
CPT/HCPCS: 87070

== ENCOUNTER 2019-09-13 14:47 | Emergency (ER) | payer SELFPAY ==
[2019-08-05 11:44] VITALS: BMI 32.1
[2019-09-13 14:48] VITALS: BP 120/73; PULSE 64; RESP 16; TEMP 36.6; O2SAT 98; BMI 34.0
--- NOTE | 2019-09-13 15:09 | ED.DCSUM_ITS ---
- ER Visit Summary Date of Service: 09/13/19 Chief Complaint: occupational exposure History of Present Illness: The patient is a 33 F who was exposed to urine today. Urine spilled onto her left arm and closed. He did not get in her eyes or her mouth. She has no open sores on the left arm. She states that the source patient was hepatitis positive. Denies any symptoms. Physical Examination: Vital signs are reviewed. Left arm exam is unremarkable. There are no open areas. The rest of her exam is unremarkable Test Results: Occupational exposure panel will be obtained Emergency Department Course and Treatment: [] Treatment Plan: At this point there are no open sores. No mouth or eye exposure was known. I do not feel she needs any postexposure prophylaxis. She will follow-up with occupational health Disposition: Discharge Impression: Exposure to urine This note was generated with [employer] dictation software. It may contain incorrect words, spelling, and punctuation that were not noted in review of the chart prior to signing ED Disposition - Plan for ED Patient: Referrals: Elvis Apodaca MD [Primary Care Provider] -
--- NOTE | 2019-09-13 15:12 | ED.DEP ---
ED Disposition - Plan for ED Patient: Disposition: Home or Assisted Living Instructions: BODY FLUID EXPOSURE, Health Care Worker Referrals: Elvis Apodaca MD [Primary Care Provider] -
[2019-09-13 16:05] VITALS: RESP 16
--- NOTE | 2019-09-13 16:05 | ED.RN ---
REVIEWED D/C INSTRUCTIONS, FOLLOW UP CARE, AND S/S THAT WOULD WARRANT A RETURN TO THE ED WITH PT. PT VERBALIZED AN UNDERSTANDING AND DENIES FURTHER QUESTIONS FOR THIS RN. PT SKIN P/W/D, RESP EVEN AND UNLABORED, PT A&O X 3, NO DISTRESS NOTED. PT AMBULATED OUT OF ED, GAIT STEADY.
[2019-09-13 17:39] LABS: HIV - WCH Non-Reactive (Nonreactive); Hepatitis B Surface Antibody Reactive; Hepatitis B Surface Antigen Non-Reactive (Nonreactive); Hepatitis C Antibody Non-Reactive (Nonreactive)
== END 2019-09-13 16:07 | disposition home or self-care (01) ==
PROVIDERS: Emergency Provider Emergency Medicine; PCP Family Medicine
DX: Z57.8 Occupational exposure to other risk factors (principal)
CPT/HCPCS: 86703; 86706; 86803; 87340; 99282

== ENCOUNTER → 2020-01-27 09:27 | Outpatient (CLI) | payer BC, SELFPAY ==
--- NOTE | 2020-01-27 09:33 | BI_ITS ---
MAMMOGRAPHY - BILATERAL DIAGNOSTIC REASON FOR EXAM: Female, 34 years old. Routine screening PERTINENT HISTORY: NO FM HX , RT UPPER INNER RETROAREOLAR AREA 1 CM LUMP X 1 WEEK W PAIN IN LOQ, PT HAS BEEN WORKED UP IN PAST 9--17 FOR CYST AND LYMPH NODES W/ TENDERNESS=B, PT HAS NEVER GIVEN TECHNIQUE: Digital examination. Mediolateral oblique (MLO) and craniocaudad (CC) views of both breasts were obtained. CAD: CAD was performed on this study. COMPARISON: 2016 FINDINGS: Breast Composition: The breasts are heterogeneously dense, which may obscure small masses. There are no dominant masses or suspicious calcifications. However, because the patient complains of a palpable lump in the retroareolar region of the right breast further evaluation with ultrasound of this area is recommended. BI/DIAG MAMM W/CAD, BILAT IMPRESSION: Further ultrasonographic evaluation recommended, as described above. Recall Side: Right Breast ASSESSMENT CATEGORY: BIRADS Category 0: Incomplete. Need additional imaging evaluation. A letter regarding these results will be sent to the patient by the facility within 30 days. FOLLOW UP RECOMMENDATION: Ultrasound Recommended. (I) Approximately 10% of breast cancers are not detected by mammography. A normal mammogram should not delay biopsy of a clinically suspicious abnormality. Electronically Signed: Felix Stringer MD at 12:08 EDT , Service support ,
--- NOTE | 2020-01-27 10:04 | US_ITS ---
STUDY: ULTRASOUND BREAST - RIGHT REASON FOR EXAM: Female, 34 years old. Lump TECHNIQUE: Axial and longitudinal images of the RIGHT breast were performed with a high resolution ultrasound transducer. # OF IMAGES: 44 COMPARISON: 2016 FINDINGS: RIGHT Breast: Ultrasound evaluation of the right breast in the area of concern shows a retroareolar simple cyst measuring 1.4 x 1.5 x 1.0 cm. Cyst is anechoic with posterior enhancement. No suspicious shadowing solid lesion, architectural distortion or clustered calcification. There is a right axillary lymph node measuring 0.9 x 0.9 x 0.7 cm. US/Breast Limited Unilateral IMPRESSION: There is a 1.4 x 1.5 x 1.0 cm anechoic simple cyst in the retroareolar region corresponding to the patient''s palpable abnormality and pain. No suspicious sonographic findings ASSESSMENT CATEGORY: BIRADS Category 2: Benign. A letter regarding these results will be sent to the patient by the facility within 30 days. Electronically Signed: Felix Stringer MD at 11:58 EDT , Service support ,
== END ==
PROVIDERS: PCP Family Medicine; Referring Provider Family Medicine; Visit Provider Family Medicine
DX: N63.0 Unspecified lump in unspecified breast (principal)
CPT/HCPCS: 76642; 77062; 77066; G0279

== ENCOUNTER → 2020-06-22 16:23 | Outpatient (CLI) | payer BC, SELFPAY ==
--- NOTE | 2020-06-22 16:28 | US_ITS ---
STUDY: ULTRASOUND OF THE FEMALE PELVIS - COMPLETE REASON FOR EXAM: Female, 34 years old. PELVIC PAIN S/P RT OOPHORECTOMY AND RT FIBROID REMOVED LMP: 06/07/2020 TECHNIQUE: Transabdominal and Transvaginal TECHNICAL QUALITY: Adequate. COMPARISON: None. FINDINGS: The uterus is anteverted and is in a midline position. The uterus measures 8.3 x 5.4 x 5 cm. Normal uterine cervix. The endometrium measures 2 mm in thickness, and is hyperechoic. There is no demonstrated endometrial mass. There is no demonstrated myometrial mass. I.U.D. - The patient does not have an I.U.D. Status post right oophorectomy. The left ovary is visualized. The left ovary measures 6 x 5 x 4.5 cm. There is multisegmental heterogeneous hypoechoic echotexture measuring 4.2 x 3 x 2.8 cm. There is normal arterial and normal venous vascularity. There is no fluid in the cul-de-sac. The pre void volume of the bladder was 166.6 ml. US/Pelvic (Non ) IMPRESSION: Complex septated left ovarian lesion likely hemorrhagic cyst. Follow-up examination one menstrual cycle recommended. Electronically Signed: Janet Urbina MD at 4:39 EST , Service support ,
--- NOTE | 2020-06-22 16:28 | US_ITS ---
STUDY: ULTRASOUND OF THE FEMALE PELVIS - COMPLETE REASON FOR EXAM: Female, 34 years old. PELVIC PAIN S/P RT OOPHORECTOMY AND RT FIBROID REMOVED LMP: 06/07/2020 TECHNIQUE: Transabdominal and Transvaginal TECHNICAL QUALITY: Adequate. COMPARISON: None. FINDINGS: The uterus is anteverted and is in a midline position. The uterus measures 8.3 x 5.4 x 5 cm. Normal uterine cervix. The endometrium measures 2 mm in thickness, and is hyperechoic. There is no demonstrated endometrial mass. There is no demonstrated myometrial mass. I.U.D. - The patient does not have an I.U.D. Status post right oophorectomy. The left ovary is visualized. The left ovary measures 6 x 5 x 4.5 cm. There is multisegmental heterogeneous hypoechoic echotexture measuring 4.2 x 3 x 2.8 cm. There is normal arterial and normal venous vascularity. There is no fluid in the cul-de-sac. The pre void volume of the bladder was 166.6 ml. US/Transvaginal Non- IMPRESSION: Complex septated left ovarian lesion likely hemorrhagic cyst. Follow-up examination one menstrual cycle recommended. Electronically Signed: Janet Urbina MD at 4:39 EST , Service support ,
== END ==
LOC: US 16:24
PROVIDERS: PCP Family Medicine; Referring Provider Family Medicine; Visit Provider Family Medicine
DX: R10.9 Unspecified abdominal pain (principal)
CPT/HCPCS: 76830; 76856

== ENCOUNTER → 2020-06-29 13:34 | Outpatient (CLI) | payer BC, SELFPAY | PROVIDERS: PCP Family Medicine; Visit Provider Family Medicine | DX: Z20.828 Contact with and (suspected) exposure to other viral communicable diseases (principal) | CPT/HCPCS: 87635; U0003 ==

== ENCOUNTER → 2020-08-19 16:21 | Outpatient (CLI) | payer BC, SELFPAY ==
--- NOTE | 2020-08-19 16:24 | US_ITS ---
STUDY: ULTRASOUND OF THE FEMALE PELVIS - COMPLETE REASON FOR EXAM: Female, 34 years old. PELVIC PAIN, HX OF RT OOPHORECTOMY DUE TO DERMOID/TERATOMA AND MYOMECTOMY. KNOWN LT DERMOID/TERATOMA ON LEFT OVARY FOUND DURING MYOMECTOMY SURGERY.: TECHNIQUE: Transabdominal real-time exam with grayscale documentation. TECHNICAL QUALITY: Adequate. COMPARISON: None. FINDINGS: The uterus is anteverted and is in a midline position. The uterus measures 9.2 x 5.1 x 3.4 cm. Few minimal punctate cervical calcifications. The endometrium measures 12 mm in thickness, and is hyperechoic. There is no demonstrated endometrial mass. There is no demonstrated myometrial mass. I.U.D. - The patient does not have an I.U.D. The right ovary is absent by history. The left ovary is visualized. The left ovary measures 3.3 x 3.5 x 3.4 cm. The largest simple follicle is 16 mm. There is no visualized left adnexal mass or complex lesion. There is normal arterial and normal venous vascularity. There is no fluid in the cul-de-sac. The pre void volume of the bladder was 425 ml. Polycystic ovary disease: No. US/Pelvic (Non ) IMPRESSION: Normal uterus. Few punctate calcifications of the cervix. Normal size left ovary. Largest simple follicle is 16 mm. No other identified pelvic masses. There is echogenic shadowing of the pelvic space posterior to the uterus and ovary which is usually bowel. Electronically Signed: Louisa Child MD at 20:28 EST , Service support ,
== END ==
PROVIDERS: PCP Family Medicine; Referring Provider Family Medicine; Visit Provider Family Medicine
DX: R10.9 Unspecified abdominal pain (principal)
CPT/HCPCS: 76856; 93976

== ENCOUNTER → 2020-09-16 16:35 | Outpatient (CLI) | payer BC, SELFPAY ==
[2020-09-16 15:05] VITALS: BMI 31.4
[2020-09-24 13:02] LABS: HPV APTIMA, High Risk Negative (Negative)
== END ==
PROVIDERS: PCP Family Medicine; Referring Provider Obstetrics & Gynecology; Visit Provider Obstetrics & Gynecology
DX: Z12.4 Encounter for screening for malignant neoplasm of cervix (principal)
CPT/HCPCS: 87624; 88175; G0145

== ENCOUNTER → 2021-05-25 | Outpatient (CLI) | payer BC, SELFPAY | END | disposition home or self-care (01) | LOC: LABSPEC 16:57 | PROVIDERS: PCP Registered Nurse; Referring Provider Registered Nurse; Visit Provider Registered Nurse | DX: R39.15 Urgency of urination (principal) | CPT/HCPCS: 87077; 87086; 87088; 87186 ==

== ENCOUNTER → 2021-05-26 08:47 | Outpatient (CLI) | payer BC, SELFPAY ==
--- NOTE | 2021-05-26 08:52 | CT_ITS ---
STUDY: CT ABDOMEN AND PELVIS WITH CONTRAST REASON FOR EXAM: Female, 35 years old. HEMATURIA. Patient is status post bilateral oophorectomy. RADIATION DOSAGE (If Supplied By Facility): CTDIvol = ( 14.87 ) mGy, DLP = ( 1536.50 ) mGycm TECHNIQUE: Transaxial images were obtained from the dome of the diaphragm to the symphysis pubis without oral contrast. IV 100mL Isovue-300 was administered. Sagittal and coronal images were reconstructed. Individualized dose optimization techniques were used for this CT. COMPARISON: Comparison is made with prior study of 02/16/2018. FINDINGS: Stable 5.9 mm noncalcified nodule in the posterior medial segment of the left lobe. The visualized portions of the heart are within normal limits. Normal liver. Normal gallbladder and extrahepatic biliary system. Normal spleen. Normal pancreas. Normal bilateral adrenal glands. Normal right kidney. Normal left kidney. Normal visualized stomach. Normal small intestine. Normal colon. The appendix is visualized and appears normal. Normal abdominal aorta. Normal inferior vena cava. Normal retroperitoneum. Normal urinary bladder. The previously seen right ovarian dermoid has been resected. There is evidence of a 4 cm x 3.2 cm complex solid and cystic nodule in the left ovary. A dermoid should BE excluded. Correlation with ultrasound is recommended. Normal abdominal wall. Normal osseous structures. CT/Abdomen/Pelvis WITH Contrast IMPRESSION: 4 cm x 3.2 cm complex solid and cystic nodule in the left adnexa as described. Correlation with ultrasound is recommended to rule out a possible dermoid. Electronically Signed: Dennis Abdullahi MD at 10:53 EDT , Service support ,
== END ==
PROVIDERS: PCP Family Medicine; Referring Provider Registered Nurse; Visit Provider Registered Nurse
DX: R39.15 Urgency of urination (principal); R31.9 Hematuria, unspecified; Z90.722 Acquired absence of ovaries, bilateral
CPT/HCPCS: 74177; Q9967

== ENCOUNTER → 2021-06-02 09:52 | Outpatient (CLI) | payer BC, SELFPAY ==
--- NOTE | 2021-06-02 09:56 | US_ITS ---
STUDY: ULTRASOUND OF THE FEMALE PELVIS - COMPLETE REASON FOR EXAM: Female, 35 years old. Lower abdominal pain. LMP: 07/21/2021. TECHNIQUE: Transabdominal and Transvaginal TECHNICAL QUALITY: Adequate. COMPARISON: Comparison is made with prior study dated 08/19/2020. FINDINGS: The uterus is anteflexed and is tilted to the right side of the pelvis. The uterus measures 8.9 cm x 4.8 cm x 4.2 cm. There is a Nabothian cyst of the cervix. The endometrium measures 14.4 mm in thickness, and is hyperechoic. There is no demonstrated endometrial mass. There is no demonstrated myometrial mass. I.U.D. - The patient does not have an I.U.D. The patient is status post oophorectomy. The left ovary is visualized. The left ovary measures 5.7 cm x 4.9 cm x 3.6 cm. There is a 4.2 cm x 3.7 cm x 3.5 cm complex solid and cystic mass in the left ovary. Focal echogenic nodule seen within it most likely representing fat. This is new as compared to prior study. There is no visualized left adnexal mass or complex lesion. There is normal arterial and normal venous vascularity. There is no fluid in the cul-de-sac. The pre void volume of the bladder was 419 ml. US/Pelvic (Non ) IMPRESSION: Thickened endometrium. 4.2 cm x 3.7 cm x 3.5 cm complex solid and cystic mass in the left ovary possibly containing fat as well. This is new as compared to prior study. Electronically Signed: Dennis Abdullahi MD at 9:43 EDT , Service support ,
--- NOTE | 2021-06-02 09:56 | US_ITS ---
STUDY: ULTRASOUND OF THE FEMALE PELVIS - COMPLETE REASON FOR EXAM: Female, 35 years old. Lower abdominal pain. LMP: 07/21/2021. TECHNIQUE: Transabdominal and Transvaginal TECHNICAL QUALITY: Adequate. COMPARISON: Comparison is made with prior study dated 08/19/2020. FINDINGS: The uterus is anteflexed and is tilted to the right side of the pelvis. The uterus measures 8.9 cm x 4.8 cm x 4.2 cm. There is a Nabothian cyst of the cervix. The endometrium measures 14.4 mm in thickness, and is hyperechoic. There is no demonstrated endometrial mass. There is no demonstrated myometrial mass. I.U.D. - The patient does not have an I.U.D. The patient is status post oophorectomy. The left ovary is visualized. The left ovary measures 5.7 cm x 4.9 cm x 3.6 cm. There is a 4.2 cm x 3.7 cm x 3.5 cm complex solid and cystic mass in the left ovary. Focal echogenic nodule seen within it most likely representing fat. This is new as compared to prior study. There is no visualized left adnexal mass or complex lesion. There is normal arterial and normal venous vascularity. There is no fluid in the cul-de-sac. The pre void volume of the bladder was 419 ml. US/Transvaginal Non- IMPRESSION: Thickened endometrium. 4.2 cm x 3.7 cm x 3.5 cm complex solid and cystic mass in the left ovary possibly containing fat as well. This is new as compared to prior study. Electronically Signed: Dennis Abdullahi MD at 9:43 EDT , Service support ,
== END ==
PROVIDERS: PCP Family Medicine; Referring Provider Registered Nurse; Visit Provider Registered Nurse
DX: N94.89 Other specified conditions associated with female genital organs and menstrual cycle (principal)
CPT/HCPCS: 76830; 76856; 93976

== ENCOUNTER 2021-09-20 09:45 | Outpatient (CLI) | payer BC, SELFPAY ==
[2021-09-20 12:03] LABS: Absolute Lymphocyte Count 3.08 X10^3/uL (0.83-4.51); Absolute Neutrophil Count 5.2 X10^3/uL (2.0-7.7); Basophil# 0.08 X10^3/uL; Basophil% 0.9 % (0-1); Eosinophil# 0.18 X10^3/uL; Eosinophils% 1.9 % (0-5); Hematocrit 40.5 % (37-47); Hemoglobin 13.3 g/dL (12.0-15.0); Lymphocyte # 3.08 X10^3/ul (0.83-4.51); Mean Corp Hgb Conc 32.8 g/dL (32-36); Mean Corpuscular Hgb 30.2 pg (27.0-32.0); Mean Corpuscular Volume 91.8 fL (81-99); Mean Platelet Vol. 11.3 fl (6.2-12.0); Monocyte# 0.77 X10^3/uL; Monocyte% 8.3 % (0-10); NRBC Flagged by Analyzer 0 % (0-5); Neutrophil # 5.18 X10^3/uL (2.7-7.7); Neutrophil % 55.5 % (47-70); Platelet Count 273 K/mm3 (150-450); RBC Distribution Width CV 12.9 % (11.6-14.6); RBC Distribution Width SD 43.1 fl (35.1-43.9); Red Blood Count 4.41 M/mm3 (4.2-5.4); White Blood Count 9.3 K/mm3 (4.4-11.0)
[2021-09-20 12:17] LABS: Internal QC Validated? YES +Cl - CLEAR BKGD; Pregnancy, Urine Negative Negative
== END 2021-09-20 23:59 | disposition home or self-care (01) ==
LOC: MFPLAB 09:46
PROVIDERS: Obstetrics & Gynecology; PCP Family Medicine; Visit Provider Family Medicine
DX: Z01.818 Encounter for other preprocedural examination (principal)
CPT/HCPCS: 36415; 81025; 85025; 86850; 86900; 86901

== ENCOUNTER 2021-09-21 10:59 | Day surgery (SDC) | payer BC, SELFPAY ==
[2021-09-21] VITALS (9 sets, daily range): BP systolic 107–141; BP diastolic 66–108; PULSE 71–95; RESP 16–18; TEMP 37.1–37.7; O2SAT 91–100; BMI 34.4
--- NOTE | 2021-09-21 09:05 | PCM.HP.BLA ---
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 Is patient in pain?: No Allergies No Known Allergies Allergy (Verified 09/16/21 12:02) Medications lactobacillus combination no.8 3 billion cell capsule 3,000 mmu cells PO DAILY 09/16/20 [History Confirmed 09/16/21] loratadine 10 mg tablet 10 mg PO DAILY 07/05/21 [History Confirmed 09/16/21] sertraline 50 mg tablet 50 mg PO .COMPLEX #30 tab 07/15/21 [Rx Confirmed 09/16/21] albuterol sulfate [ProAir HFA] 2 puff INHALATION Q6H PRN 09/14/21 [History Confirmed 09/16/21] Post menopausal: No Patient : No : No [facility] Medical History Asthma Cardiology follow-up encounter Factor V Leiden History of echocardiogram History of stress test Kidney stones Migraine headache Non-smoker Syncope Surgical History Dermoid cyst History of right oophorectomy Hx of laparoscopy Family History Grandmother auto immune hepititis Lupus Lymphoma Grandfather AAA (abdominal aortic aneurysm) Heart disease Social History number of children: 0 current occupational status: employed current occupation: [employer] Smoking Status: Never smoker alcohol intake: never substance use type: does not use caffeine: Yes Type: carbonated beverages Number of servings: 1 what type of physical activity do you participate in: walking frequency: daily seatbelt use: always do you feel safe at home: Yes additional social history: single- works at [employer] and [employer] HPI preop D&C Ovarian cystectomy Details: EMMANUEL MOYA is a 35 year old who presents for preop appointment plan d and c hysteroscopy ovarian cystectomy. Female Reproductive History Menopausal Symptoms: No difficulty concentrating and No change in libido Pregancy History 0 Elective abortions Hx Para 0 Spontaneous abortions Hx # Term Pregnancies Ectopic pregnancies Hx # Pregnancies Multiple births # of living children ROS Const Constitutional: Denies fatigue, fever(s), headache(s), increased appetite, poor appetite, weight gain or weight loss ENT ENT: Reports system reviewed and no additional complaints, except as documented Cardio Card: Denies chest pain Resp Resp: Denies cough or dyspnea GI GI: Reports as per HPI, abdominal pain and nausea; Denies constipation or vomiting : Reports as per HPI; Denies difficulty voiding, dysuria, nipple discharge, urinary frequency, urinary incontinence, urinary hesitancy, urinary urgency, vaginal discharge, vaginal dryness, vaginal odor or vaginal pruritus Musc Musc: Denies arthralgias, back pain or muscle weakness Skin Skin/Breast: Denies change in hair, breast mass, breast pain, breast skin changes or nipple discharge Neuro Neuro: Reports system reviewed and no additional complaints, except as documented Psych Psych: Reports system reviewed and no additional complaints, except as documented; Denies change in libido or difficulty concentrating Endo Endo: Denies cold intolerance, excessive sweating, heat intolerance or polydipsia Robel/Lymph Hematologic/Lymphatic: Denies easy bleeding, Denies easy bruising and Denies lymphadenopathy Exam Const General: cooperative, healthy appearing, comfortable, no acute distress and well developed Nutritional Appearance: average body habitus Orientation: alert [facility] Head: normal to inspection and normocephalic Ears: hearing grossly normal bilaterally and external ears normal Nose: external nose normal and nares normal Face and sinus: normal facial exam Neck Neck: normal visual inspection and trachea midline Thyroid: thyroid normal Chest Chest palpation & inspection: normal inspection of the chest Resp Effort & Inspection: normal respiratory effort Auscultation: clear to auscultation bilaterally Cardio Rate: regular rate Rhythm: regular rhythm Heart Sounds: S1 normal and S2 normal GI Inspection: normal to inspection and non-distended Palpation: soft and no hepatosplenomegaly Musc Other: gross motor intact no deficits, full bilateral strength Skin General: no rashes or lesions noted Neuro General: patient alert, patient awake, moves all extremities and no focal motor deficits Motor: muscle tone normal throughout Extrem General: normal to inspection and no pedal edema Psych Appearance: grossly normal Mental Status: mental status grossly normal Affect: normal affect Speech and Movement: speech and movement normal Coding Level of Care Code No Charge Diagnoses Abnormal uterine bleeding N93.9 Factor 5 Leiden mutation, heterozygous D68.51 Dermoid D36.9 Assessment and Plan Assessment and Plan (1) Abnormal uterine bleeding: Status: Chronic Plan - Dr. Yolande Brizuela MD: After discussing the patient's diagnosis and treatment plan options, patient wishes to proceed with surgical management. I have discussed with the patient the risks, benefits, and alternatives of the procedure which include but are not limited to risks of anesthesia, bleeding, infection, possible damage to bowel, bladder, or surrounding vasculature which could lead to additional surgery to evaluate any complications. Patient agrees to procedure and wishes to proceed. ACOG/uptodate references given for additional information regarding procedure. (2) Factor 5 Leiden mutation, heterozygous: Status: Acute Comment: lovenox preop (3) Dermoid: Status: Acute Comment: ovarian cystectomy, laparoscopic . left 5 cm cyst UPDATE- I have seen the patient and performed any clinically relevant updates to the history and physical exam. Yolande Brizuela MD
[2021-09-21 11:27] LABS: Internal QC Validated? YES +Cl - CLEAR BKGD; Pregnancy, Urine Negative Negative
[2021-09-21] MEDS: Lactated Ringers 1,000 ML 125 ML IV (11:33)
[2021-09-21] MEDS: Enoxaparin 40 MG/0.4 ML Syringe SC (11:34)
--- NOTE | 2021-09-21 12:25 | EMB_PTH ---
PATIENT: EMMANUEL ROJAS LOC: [facility] [place] U#:[id number] AGE/SX: 35/F ROOM: RE09/21/[address]: Dr. Yolande Brizuela MD : 1985 BED: DIS: 09/21/2021 SPEC #: [id number] RECD: 09/21/21 14:51 STATUS: CAMILA COOLEY #: [id number] WILNER: 09/21/21 12:[address]: Yolande Brizuela DEPT: SURGICAL PATHOLOGY RECD BY: Reinaldo Mario ENTERED: 09/22/21 11:43 SP TYPE: ENDOM BX/C KELLEY DR: Dr. Ky Muniz MD Tissues: A - CYST B - Endometrium, NOS Procedures: Surgery Specimen Level IV HEADER OPERATION: Hysteroscopy, dilation and curettage PRE-OP DIAGNOSIS: Abnormal uterine bleeding, factor 5 Leiden mutation, heterozygous, dermoid TISSUE SUBMITTED: A ? Cyst wall, B ? Endometrial curettings MICROSCOPIC DIAGNOSIS A. Cyst wall: Consistent with hemorrhagic corpus luteal cyst. B. Endometrial curettings: Secretory endometrium. MOJGAN:татьяна 09/23/2021 COMMENT Clinical correlation and appropriate follow up are necessary. MICROSCOPIC DESCRIPTION Slides are reviewed. GROSS DESCRIPTION A - Received in fixative is one container labeled with the patient's name and designated cyst wall. The specimen consists of an irregular fragment of tang tissue measuring 2 x 2 x 0.3 cm. The specimen is totally submitted in one cassette. B - Received in fixative is one container labeled with the patient's name and designated endometrial curettings. The specimen consists of multiple irregular fragments of dark tang soft tissue that in aggregate measure 8.5 x 3 x 0.2 cm. The specimen is totally submitted in three cassettes. / AM:татьяна 09/22/2021 TC:5 CPT: 47936 x2
[2021-09-21] MEDS: Bupivacaine 0.25% 30 ML Vial (13:00)
--- NOTE | 2021-09-21 13:51 | PCM.OPRPT ---
Problems Associated Problem List Diagnoses (1) H/O ovarian cystectomy: (2) Abnormal uterine bleeding: (3) Factor 5 Leiden mutation, heterozygous: (4) Dermoid: Report of Operation Date of Procedure: 09/21/21 Pre-Operative Diagnosis: aub left ovarian cyst Post-Operative Diagnosis: same Surgery/Procedure Performed:: laparoscopic left ovarian cystectomy d and c hysteroscopy Description of Surgical Findings:: left ovarian multicystic ovary with periovarian adhesions uterine thickened lining Type of Anesthesia: General Special Medications: none Specimen's removed: [facility] [place] ovarian cyst wall Drains: alvarez Estimated Blood Loss (mL): 50 Fluids Replaced: crystalloid Description of Procedure: Patient was taken to the operating room and placed under general anesthesia was prepped and draped in the normal sterile fashion in dorsolithotomy position. Uterine manipulator placed inside the uterus and umbilical and right and left lower quadrant ports were placed under direct visualization after Veress needle was used to place the ports. Visualization of the ovarian cyst was made and significant adhesions were noted around the multicystic ovary that had completely immobilized the ovary and the left ovarian fossa. The ovary had a multicystic appearance and upon mobilization and cutting through the adhesions the cyst spontaneously ruptured and clear fluid was released. Cyst wall was removed and sent to pathology for analysis. No other abnormalities were noted in the abdomen. FloSeal was placed over the ovary for hemostasis. All instruments and port sites were removed from the abdomen and they were closed with 3-0 Monocryl. At this time attention was then paid to the vaginal portion and hysteroscopy and D&C were performed dilating the cervix to allow passage of a 5 mm hysteroscope seeing a thickened lining which was then thinned with using sharp curettage and the tissue sent to pathology for analysis. All instruments removed from the patient and patient was awoken and taken recovery in stable condition without complication Complications no Multi Select Codes Urinary/Genital Urinary/Genital CPT Codes: 63234 Hysteroscopy, diagnostic and 24891 Laproscopic ablation endometriosis (ovarian cystectomy)
--- NOTE | 2021-09-21 14:01 | DCINST_ITS ---
Discharge Instructions Diet Discharge Diet: No restrictions Activity Discharge Activity: Return to Normal Activity, May Not Drive (for 2 weeks or while taking narcotic pain meds.), May Shower and May Take a Tub Bath (in 7 days) May resume sexual activity in: 1 week Weight Bearing Status: Full weight bearing Dressing / Incision Call your doctor if your incision/area has: Continuous Slow Oozing, Sudden Increased Bleeding, Increased Pain/ Swelling, Increased Redness and Foul Smelling Discharge Call your doctor if you observe: Fever of 101 or Higher, Using more than 1 pad per hour, Shortness of breath, Chest pain and Uncontrolled pain Suture Line Care: Avoid Pulling/Pushing and Avoid Pinching/Bending Remove Dressing in: 1 week (if present) Cleanse incision/area with: Soap & Water and Keep Dressing Clean & Dry Follow Up Care When: Call to make an appointment with your doctor for a fu/incision check in 1- 2 weeks. Test Results: Test results from this visit will be discussed in further detail at your follow-up appointment, if applicable. Discharge Plan Admission Attending Provider: Yolande Brizuela Primary Care Provider: Krishna Muniz Discharge Orders/Prescriptions Prescriptions: New oxycodone-acetaminophen [Percocet] 5-325 mg tablet 1 tab PO Q6H PRN (Reason: pain) 7 Days Qty: 10 RF: 0 naproxen [naproxen] 500 MG tablet 500 mg PO BID PRN PRN (Reason: Pain) Qty: 30 RF: 1 No Action Adult Probiotic 3 billion cell capsule 3,000 mmu cells PO DAILY RF: 0 loratadine [Claritin] 10 mg tablet 10 mg PO DAILY RF: 0 sertraline [Zoloft] 50 mg tablet 50 mg PO .COMPLEX Qty: 30 RF: 12 albuterol sulfate [ProAir HFA] 90 mcg/actuation Hfa Aerosol Inhaler 2 puff INHALATION Q6H PRN (Reason: ASTHMA) RF: 0 Referrals / Follow Up: Krishna Muniz MD [Primary Care Provider] - Disposition Disposition (needs filled in before D/C Order can be placed): Home, Self Care
[2021-09-21] MEDS: HYDROcodone Bitartrate/Apap 5/325 Tablet PO (16:18)
== END 2021-09-21 23:59 | disposition home or self-care (01) ==
LOC: SDC 11:00 → AC 11:01
PROVIDERS: PCP Family Medicine; Referring Provider Obstetrics & Gynecology; Visit Provider Obstetrics & Gynecology
PROC: 0UDB8ZZ Extraction of Endometrium, Via Natural or Artificial Opening Endoscopic (ICD-10-PCS; CPT 58558; principal; 2021-09-21 12:10)
PROC: (CPT 49320; 2021-09-21 12:10)
DX: N83.12 Corpus luteum cyst of left ovary (principal); D68.51 Activated protein C resistance; Z79.899 Other long term (current) drug therapy; J45.909 Unspecified asthma, uncomplicated
CPT/HCPCS: 58558; 58662; 57135; 00952; 81025; 88304; 88305; J7120; J2405

== ENCOUNTER 2022-11-02 05:07 | Emergency (ER) | payer BC, SELFPAY ==
[2022-11-02 05:08] VITALS: PULSE 74; RESP 15; TEMP 36.8; O2SAT 99; BMI 34.9
[2022-11-02 05:10] VITALS: O2SAT 99
[2022-11-02 05:43] LABS: Mucous, Urine 0 SEEN /hpf (<or=2+); Red Blood Cells-Urine 0 SEEN /hpf (0-5); Squamous Epithelial Cells - UA 0 SEEN /hpf (5-10)
[2022-11-02 05:45] LABS: Absolute Lymphocyte Count 1.65 X10^3/uL (0.83-4.51); Basophil# 0.06 X10^3/uL; Basophil% 0.4 % (0-1); Eosinophil# 0.06 X10^3/uL; Eosinophils% 0.4 % (0-5); Hematocrit 40.3 % (37-47); Hemoglobin 13.3 g/dL (12.0-15.0); Lymphocyte # 1.65 X10^3/ul (0.83-4.51); Lymphocyte % 10.5 % (19-41); Mean Corpuscular Hgb 30.2 pg (27.0-32.0); Mean Corpuscular Volume 91.4 fL (81-99); Monocyte# 0.92 X10^3/uL; Monocyte% 5.8 % (0-10); NRBC Flagged by Analyzer 0 % (0-5); Neutrophil % 82.5 % (47-70); Platelet Count 270 K/mm3 (150-450); RBC Distribution Width CV 12.7 % (11.6-14.6); RBC Distribution Width SD 41.9 fl (35.1-43.9); Red Blood Count 4.41 M/mm3 (4.2-5.4); White Blood Count 15.8 K/mm3 (4.4-11.0)
--- NOTE | 2022-11-02 05:50 | ED.VIS.GI ---
HPI HPI - GI History of Present Illness Chief Complaint: Abd Pain Informant: patient Abdominal Pain/Flank Pain Context: Gradual Onset Timing: Continuous Quality: Cramping Location: RLQ and LLQ Worsened by: Movement Relieved by: Nothing Nausea/Vomiting/Emesis GI Symptom: Positive for Nausea; Negative for Vomiting Diarrhea/Melena/Hematochezia GI Symptom: Positive for Hematochezia; Negative for Diarrhea or Melena Episodes: 2 Associated Symptoms Associated Symptoms: Negative for Dysuria, Frequency or Hematuria Narrative Narrative: Presents with abdominal pain that began yesterday. Patient states it came on gradually. Patient states it has been constant. Patient describes it as cramping. Patient states it is mainly over the lower abdomen. Patient states it is worse with certain movements. Patient admits to nausea but denies any vomiting. Patient states she did have some blood in her stools a couple days ago but this has resolved. Patient states she has had bowel movements after this with no blood in her stools. Patient denies any dysuria, frequency, or hematuria. Patient states that she had an episode of severe pain while she was on the toilet tonight and then passed out. Patient denies any palpitations with this. Patient denies any recent fevers. Patient admits to some subjective chills. Patient denies any chest pain or shortness of breath. [facility] Medical History Asthma Cardiology follow-up encounter Factor V Leiden History of echocardiogram History of stress test Kidney stones Migraine headache Non-smoker Syncope Home Medications lactobacillus combination no.8 3 billion cell capsule (Adult Probiotic) 3,000 mmu cells PO DAILY 09/16/20 [History Last Taken Unknown] loratadine 10 mg tablet (Claritin) 10 mg PO DAILY 07/05/21 [History Last Taken Unknown] sertraline 50 mg tablet (Zoloft) 50 mg PO .COMPLEX #30 tabs 07/15/21 [Rx Last Taken Unknown] albuterol sulfate 90 mcg/actuation aerosol inhaler (ProAir HFA) 2 puff inhalation Q6H PRN ASTHMA 09/14/21 [History Last Taken Unknown] naproxen 500 mg tablet 500 mg PO BID PRN pain #30 tabs 10/08/21 [Rx Last Taken Unknown] naproxen 500 mg tablet 500 mg PO BID PRN pain #30 tabs 10/08/21 [Rx Last Taken Unknown] Allergy/AdvReac Type Severity Reaction Status Date / Time No Known Allergies Allergy Verified 11/02/22 05:11 Family History Grandmother auto immune hepititis Lupus Lymphoma Grandfather AAA (abdominal aortic aneurysm) Heart disease Surgical History Dermoid cyst H/O ovarian cystectomy History of right oophorectomy Hx of laparoscopy Social History number of children: 0 current occupational status: employed current occupation: [employer] Smoking Status: Never smoker alcohol intake: never substance use type: does not use caffeine: Yes Type: carbonated beverages Number of servings: 1 what type of physical activity do you participate in: walking frequency: daily seatbelt use: always do you feel safe at home: Yes additional social history: single- works at [employer] and [employer] ROS ROS ED Constitutional Constitutional ED: Reports chills and subjective; Denies fever(s) Eyes Eyes: Denies blurry vision or change in vision ENT ENT ED: Denies rhinorrhea or sore throat Cardiovascular Cardiovascular: Denies chest pain or palpitations Respiratory/Chest Respiratory/Chest: Denies cough or dyspnea Gastrointestinal Gastrointestinal: Reports abdominal pain and nausea; Denies vomiting Genitourinary Genitourinary ED: Denies dysuria or hematuria Musculoskeletal Musculoskeletal: Denies back pain or neck pain Integumentary Denies abscess or rash Neurologic Neurologic: Denies headache(s) or weakness Allergic/Immunologic Allergic/Immunologic ED: Denies mouth swelling or urticaria EXAM Physical Exam Const Vital Signs: 11/02/22 05:08 11/02/22 05:10 11/02/22 07:34 Temperature 98.2 F Temperature Source Temporal Pulse Rate 74 Respiratory Rate 15 14 Pulse Ox 99 99 Oxygen Delivery Method Room Air Room Air Positive well nourished, well developed and obese General Appearance ED: well developed and NAD Nutritional Appearance: obese HEENT Reports moist mucous membranes Neck supple and no JVD Resp normal respiratory effort and clear to auscultation bilaterally Cardio regular rate, regular rhythm and no murmurs GI normal to inspection, nondistended, normoactive bowel sounds Palpation: soft and tender LLQ, RLQ and suprapubic; Negative for guarding or rebound tenderness present Extremity normal to inspection General Extremety ED: Negative for edema or tenderness General Extremity: Negative for edema Neuro oriented x3, CN's II-XII intact bilaterally and no sensory deficits noted Sensorium / Orientation: alert Motor Exam: strength 5/5 throughout Psych mental status grossly normal Skin no rashes or lesions noted MDM MDM MDM Narrative Medical decision making narrative: Differential diagnosis includes diverticulitis, urinary tract infection, bowel obstruction, perforation, abscess, ovarian cyst, ovarian torsion, and pyelonephritis. CBC will be obtained to assess for leukocytosis and anemia. Comprehensive metabolic profile will be obtained to assess for electrolyte abnormality, renal function, and hepatic function. Urinalysis will be obtained to assess for urinary tract infection. CT scan of the abdomen and pelvis will be obtained to assess for bowel obstruction, diverticulitis, abscess, and perforation. Serum hCG will be obtained to assess for status. Lab Data Attestation: I reviewed the patient's lab results. Lab results narrative: CBC was reviewed. There is a mild leukocytosis of 15.8. Comprehensive metabolic profile was reviewed and was within normal limits. Serum hCG was reviewed and was negative. Urinalysis was reviewed. There is no evidence of urinary tract infection or hematuria. Labs: Laboratory Results - last 24 hr 11/02/22 11/02/22 11/02/22 05:30 05:30 05:30 WBC 15.8 H RBC 4.41 Hgb 13.3 Hct 40.3 MCV 91.4 MCH 30.2 MCHC 33.0 RDW Std Deviation 41.9 RDW Coeff of Casandra 12.7 Plt Count 270 MPV 11.0 Immature Gran % (Auto) 0.400 Neut % (Auto) 82.5 H Lymph % (Auto) 10.5 L Dickens % (Auto) 5.8 Eos % (Auto) 0.4 Baso % (Auto) 0.4 Absolute Neuts (auto) 13.0 H Absolute Lymphs (auto) 1.65 Nucleated RBC % 0 Sodium Cancelled Potassium Cancelled Chloride Cancelled Carbon Dioxide Cancelled Anion Gap Cancelled BUN Cancelled Creatinine Cancelled Estim Creat Clear Calc Cancelled Est GFR (MDRD) Af Amer Cancelled Est GFR (MDRD) Non-Af Cancelled BUN/Creatinine Ratio Cancelled Glucose Cancelled Calcium Cancelled Total Bilirubin AST ALT Alkaline Phosphatase Total Protein Albumin Globulin Albumin/Globulin Ratio Serum , Qual NEGATIVE Urine Color Urine Clarity Urine pH Ur Specific [place] Urine Protein Urine Glucose (UA) Urine Ketones Urine Occult Blood Urine Nitrite Urine Bilirubin Urine Urobilinogen Ur Leukocyte Esterase Urine RBC Urine WBC Ur Squamous Epith Cells Urine Bacteria Urine Mucus 11/02/22 11/02/22 05:30 05:30 WBC RBC Hgb Hct MCV MCH MCHC RDW Std Deviation RDW Coeff of Casandra Plt Count MPV Immature Gran % (Auto) Neut % (Auto) Lymph % (Auto) Dickens % (Auto) Eos % (Auto) Baso % (Auto) Absolute Neuts (auto) Absolute Lymphs (auto) Nucleated RBC % Sodium 136 Potassium 4.0 Chloride 107 Carbon Dioxide 22.0 Anion Gap 7 BUN 12 Creatinine 0.91 Estim Creat Clear Calc 72.06 Est GFR (MDRD) Af Amer 91 Est GFR (MDRD) Non-Af 75 BUN/Creatinine Ratio 13.2 Glucose 140 H Calcium 8.7 Total Bilirubin 0.40 AST 15 ALT 21 Alkaline Phosphatase 61 Total Protein 7.5 Albumin 3.6 Globulin 3.9 Albumin/Globulin Ratio 0.9 Serum , Qual Urine Color Yellow Urine Clarity Clear Urine pH 8.0 Ur Specific [place] 1.015 Urine Protein 30 H Urine Glucose (UA) Normal Urine Ketones Negative Urine Occult Blood Negative Urine Nitrite Negative Urine Bilirubin Negative Urine Urobilinogen Normal Ur Leukocyte Esterase Negative Urine RBC 0 SEEN Urine WBC 0-5 SEEN Ur Squamous Epith Cells 0 SEEN Urine Bacteria RARE Urine Mucus 0 SEEN Treatment and Re-Evaluation :: Patient was given IV fluids, morphine, and Zofran. Care of the patient was turned over to the oncoming physician pending CT results. Discharge Plan Triage Chief Complaint: Abd Pain ED Provider: Bin Puente Dx/Rx/DC Orders Clinical Impression: Abdominal pain Prescriptions: No Action Adult Probiotic 3 billion cell capsule 3,000 mmu cells PO DAILY Rx Instructions: administer with a meal loratadine [Claritin] 10 mg tablet 10 mg PO DAILY sertraline [Zoloft] 50 mg tablet 50 mg PO .COMPLEX Qty: 30 12RF Rx Instructions: 50 mg PO daily day 14 through onset of menses; HASN'T STARTED YET naproxen 500 mg tablet 500 mg PO BID PRN (Reason: pain) Qty: 30 2RF Rx Instructions: administer with food or milk naproxen 500 mg tablet 500 mg PO BID PRN (Reason: pain) Qty: 30 2RF Rx Instructions: administer with food or milk albuterol sulfate [ProAir HFA] 90 mcg/actuation Hfa Aerosol Inhaler 2 puff INHALATION Q6H PRN (Reason: ASTHMA) Primary Care Provider: Terri Farnsworth Referrals: Krishna Muniz MD [Med Staff - Asl Interpreter] -
--- NOTE | 2022-11-02 05:56 | CT_ITS ---
HISTORY: Abdominal pain. TECHNIQUE: Helically acquired images were obtained of the abdomen and pelvis after the intravenous administration of 100mL Isovue-300. Oral contrast also administered. A radiation dose optimization technique was used for this scan. 408 images. COMPARISON: 05/26/2021. FINDINGS: LOWER CHEST: Stable 7 mm left lower lobe pulmonary nodule. BOWEL: Bowel nondilated. No focal inflammatory change observed. LIVER: No enhancing mass. GALLBLADDER/BILIARY TREE: Gallbladder present. SPLEEN/PANCREAS: Homogeneous and nonenlarged. KIDNEYS/ADRENAL GLANDS: Unremarkable. VESSELS: No abdominal aortic aneurysm. PELVIC ORGANS: 6 x 7.8 cm lobulated cystic mass in the mid pelvis extending to both adnexa Mild complex free fluid in the pelvis with a 1.8 cm involuting left ovarian cyst. BONES: Intact. CT/Abdomen/Pelvis WITH Contrast IMPRESSION: 7.8 cm cystic mass in the pelvis. Recommend correlation with pelvic Doppler ultrasound to assess for ovarian cyst or cystic neoplasm. Small involuting left ovarian cyst with mild complex free fluid in the pelvis from hemorrhage or debris. Stable 7 mm left lower lobe pulmonary nodule Electronically Signed: Doreen Estrada MD at 8:58 EDT ,
[2022-11-02 06:02] LABS: Internal QC Validated? YES +Cl - CLEAR BKGD; Pregnancy, Serum, hCG Quali. NEGATIVE Negative
[2022-11-02 06:05] LABS: Color, Urine Yellow (Yellow); Glucose, Dipstick Normal (Normal); Ketone-Dipstick Negative (Negative); Leukocyte Esterase-Dipstick Negative /ul (Negative); Nitrite-Dipstick Negative (Negative); Occult Blood-Urine Negative /ul (Negative); Protein-Dipstick 30 mg/dl (Negative); Specific Gravity, Urine 1.015 (1.002-1.030); Urine Bilirubin Dipstick Negative (Negative); Urine Clarity Clear (Clear); Urine Urobilinogen Normal (Normal)
[2022-11-02] MEDS: Ondansetron 4 MG/2 ML Vial IV (06:09)
[2022-11-02] MEDS: Morphine 4 MG/ML Syringe IV (06:09)
[2022-11-02] MEDS: 0.9% Normal Saline 1,000 ML 1000 ML IV (06:09)
[2022-11-02 06:15] LABS: Bacteria RARE /hpf (None Seen); White Blood Cells 0-5 SEEN /hpf (0-5)
[2022-11-02 06:36] LABS: ALB/GLOB Ratio 0.9 RATIO (0.9-2.4); AST(SGOT) 15 U/L (15-37); Alanine Aminotransfer ALT/SGPT 21 U/L (13-56); Albumin, Serum 3.6 g/dL (3.2-5.0); Alkaline Phosphatase 61 U/L (45-117); Anion Gap 7 (5-15); BUN 12 mg/dL (7-18); BUN/Creat Ratio 13.2 RATIO (10-20); Calcium,Total 8.7 mg/dL (8.5-10.1); Chloride 107 mmol/L (98-107); Creatinine, Serum 0.91 mg/dL (0.55-1.02); EST Glomerular Filtration Rate 75 mL/min (>60); Est Glom Filt Rate - Afr Amer 91 mL/min (>60); Estimated Creatinine Clearance 72.06 ml/min; Globulin 3.9 g/dL (2.2-4.2); Glucose 140 mg/dL (74-106); Protein, Total 7.5 g/dL (6.4-8.2); Sodium Level 136 mmol/L (136-145)
[2022-11-02 07:34] VITALS: RESP 14
[2022-11-02 08:12] VITALS: BP 112/63; PULSE 86; RESP 16; O2SAT 100
== END 2022-11-02 09:21 | disposition home or self-care (01) ==
PROVIDERS: Emergency Provider Emergency Medicine; PCP Family Medicine; Visit Provider Emergency Medicine
DX: R10.9 Unspecified abdominal pain (principal); D68.51 Activated protein C resistance; R19.7 Diarrhea, unspecified; R11.2 Nausea with vomiting, unspecified; R55 Syncope and collapse; J45.909 Unspecified asthma, uncomplicated
CPT/HCPCS: 74177; 80053; 81001; 84703; 85025; 96361; 96374; 96375; 99283; J7030; Q9967; A4216; J2405

== ENCOUNTER → 2022-11-02 | Outpatient (CLI) | payer BC, SELFPAY ==
--- NOTE | 2022-11-02 16:25 | US_ITS ---
EXAM: US PELVIS TRANSABDOMINAL AND TRANSVAGINAL, COMPLETE CLINICAL INDICATION: pelvic pain TECHNIQUE: Transabdominal and transvaginal pelvic ultrasound was performed with grayscale and color Doppler imaging. Transvaginal imaging was used for better evaluation of the endometrium and adnexa. This report was created using [employer] technology. COMPARISON: None. FINDINGS: UTERUS/CERVIX: Uterus measures 9.1 x 5.2 x 4.7 cm. The endometrium measures 1.6 cm. Within the uterus is a hypoechoic structure measuring 1.3 x 1.4 x 1.4 cm which may represent a fibroid. Anteverted. RIGHT OVARY: Right ovary was not visualized and is surgically absent. LEFT OVARY: The left ovary measures 3.4 x 4.0 x 3.0 cm. Within the left ovary there is a thick-walled cyst that measures 1.8 x 2.9 x 2.3 cm. Within the left adnexa there is a cystic structure that measures 6.7 x 5.9 x 7.8 cm. Blood flow is present in the left ovary. FREE FLUID: None. BLADDER: Unremarkable as visualized. Wall is normal thickness for degree of distention. US/Pelvic (Non ) IMPRESSION: 1. Large cystic structure in the left adnexa which may represent an adnexal cyst. There is a thick-walled cyst within the left ovary. 2. Small uterine fibroid. Patient status post right oophorectomy. Electronically Signed: Roldan Linn MD at 18:39 EDT ,
== END | disposition home or self-care (01) ==
LOC: US 16:24
PROVIDERS: PCP Family Medicine; Referring Provider Obstetrics & Gynecology; Visit Provider Obstetrics & Gynecology
DX: R10.2 Pelvic and perineal pain (principal)
CPT/HCPCS: 76830; 76856

== ENCOUNTER → 2022-11-03 | Outpatient (CLI) | payer BC, SELFPAY ==
[2022-11-03 17:11] LABS: Absolute Lymphocyte Count 2.92 X10^3/uL (0.83-4.51); Absolute Neutrophil Count 6.8 X10^3/uL (2.0-7.7); Basophil# 0.08 X10^3/uL; Basophil% 0.7 % (0-1); Eosinophil# 0.13 X10^3/uL; Eosinophils% 1.2 % (0-5); Hematocrit 40.4 % (37-47); Hemoglobin 13.1 g/dL (12.0-15.0); Lymphocyte # 2.92 X10^3/ul (0.83-4.51); Mean Corp Hgb Conc 32.4 g/dL (32-36); Mean Corpuscular Volume 92.4 fL (81-99); Mean Platelet Vol. 11.3 fl (6.2-12.0); Monocyte# 0.82 X10^3/uL; Monocyte% 7.6 % (0-10); NRBC Flagged by Analyzer 0 % (0-5); Neutrophil # 6.83 X10^3/uL (2.7-7.7); Neutrophil % 63.1 % (47-70); Platelet Count 286 K/mm3 (150-450); RBC Distribution Width SD 43.8 fl (35.1-43.9); Red Blood Count 4.37 M/mm3 (4.2-5.4); White Blood Count 10.8 K/mm3 (4.4-11.0)
[2022-11-03 17:44] LABS: ALB/GLOB Ratio 0.9 RATIO (0.9-2.4); AST(SGOT) 14 U/L (15-37); Alanine Aminotransfer ALT/SGPT 18 U/L (13-56); Albumin, Serum 3.8 g/dL (3.2-5.0); Alkaline Phosphatase 65 U/L (45-117); Anion Gap 4 (5-15); BUN 9 mg/dL (7-18); Chloride 106 mmol/L (98-107); Creatinine, Serum 0.82 mg/dL (0.55-1.02); EST Glomerular Filtration Rate 85 mL/min (>60); Est Glom Filt Rate - Afr Amer 102 mL/min (>60); Globulin 4.1 g/dL (2.2-4.2); Glucose 88 mg/dL (74-106); Potassium 3.9 mmol/L (3.5-5.1); Protein, Total 7.9 g/dL (6.4-8.2); Sodium Level 138 mmol/L (136-145)
[2022-11-06 11:17] LABS: Cancer Antigen 125 2303 15.5 U/mL (0.0-38.1); Carcinoembryonic Antigen 2139 0.7 ng/mL (0.0-4.7)
[2022-11-07 06:06] LABS: Chlamydia By Nucleic Acid AMP Negative (Negative)
[2022-11-08 11:14] LABS: Gonococcus By Nucleic Acid AMP Negative (Negative)
== END | disposition home or self-care (01) ==
PROVIDERS: PCP Family Medicine; Referring Provider Obstetrics & Gynecology; Visit Provider Obstetrics & Gynecology
DX: N83.202 Unspecified ovarian cyst, left side (principal); R10.2 Pelvic and perineal pain; R10.9 Unspecified abdominal pain; Z11.3 Encounter for screening for infections with a predominantly sexual mode of transmission
CPT/HCPCS: 36415; 80053; 82378; 85025; 86304; 87086; 87088; 87491; 87591

== ENCOUNTER → 2022-11-09 | Outpatient (CLI) | payer BC, SELFPAY ==
[2022-11-09 15:33] LABS: Bacteria 0 SEEN /hpf (None Seen); Mucous, Urine 0 SEEN /hpf (<or=2+); Squamous Epithelial Cells - UA 0 SEEN /hpf (5-10); White Blood Cells 0 SEEN /hpf (0-5)
[2022-11-09 18:07] LABS: Color, Urine Yellow (Yellow); Glucose, Dipstick Normal (Normal); Ketone-Dipstick Negative (Negative); Leukocyte Esterase-Dipstick Negative /ul (Negative); Nitrite-Dipstick Negative (Negative); Occult Blood-Urine 150 /ul (Negative); Protein-Dipstick 15 mg/dl (Negative); Specific Gravity, Urine 1.015 (1.002-1.030); Urine Bilirubin Dipstick Negative (Negative); Urine Clarity Clear (Clear); Urine Urobilinogen Normal (Normal)
[2022-11-09 18:40] LABS: Red Blood Cells-Urine 0-5 SEEN /hpf (0-5)
== END | disposition home or self-care (01) ==
LOC: LABSPEC 15:31
PROVIDERS: PCP Family Medicine; Visit Provider Obstetrics & Gynecology
DX: R10.2 Pelvic and perineal pain (principal); R39.9 Unspecified symptoms and signs involving the genitourinary system
CPT/HCPCS: 81001; 87086

== ENCOUNTER → 2022-11-15 | Outpatient (CLI) | payer BC, SELFPAY ==
--- NOTE | 2022-11-15 12:05 | MRI_ITS ---
EXAM: MR PELVIS WITHOUT AND WITH INTRAVENOUS CONTRAST CLINICAL INDICATION: pelvic pain/ovarian cyst TECHNIQUE: Multiplanar and multisequence MR images of the pelvis without and with intravenous contrast. This report was created using Jaman report generation technology. CONTRAST: IV 18ml clariscan COMPARISON: None. FINDINGS: APPENDIX: No evidence of acute appendicitis. INTRAPERITONEAL SPACE: Unremarkable. No ascites or other fluid collection. BLADDER: Unremarkable. REPRODUCTIVE: Left adnexal or paraadnexal cyst (T1 dark, T1 bright) measures 7.5 x 9.9 cm with thin wall. Possible small septations versus peritoneal reflections posteriorly. No mural nodularity or focal enhancement. Somewhat lobular contours along the periphery suggests possibility of paraovarian/peritoneal inclusion cyst. The uterus measures 4.4 x 5.6 x 7.6 cm and towards the right. No uterine masses. There are multiple follicles of the left ovary, subcentimeter. BONES/JOINTS: Unremarkable. No suspicious lytic or blastic abnormality. SOFT TISSUES: Unremarkable. No pelvic wall hernia. LYMPH NODES: Unremarkable. No enlarged lymph nodes. MRI/Pelvis W/WO Contrast IMPRESSION: Large but simple left adnexal/periadnexal cyst versus peritoneal inclusion cyst (favored). ORads 2 (almost certainly benign). Recommend follow-up pelvic ultrasound in 6 months based on ACR guidance. Electronically Signed: Reji Cobos (Brooks), at 16:53 EDT Reading Location ID and State: [facility] / [place] , Service support ,
== END | disposition home or self-care (01) ==
PROVIDERS: PCP Family Medicine; Referring Provider Obstetrics & Gynecology; Visit Provider Obstetrics & Gynecology
DX: R10.2 Pelvic and perineal pain (principal)
CPT/HCPCS: 72197; A9575

== ENCOUNTER → 2022-12-30 | Outpatient (CLI) | payer BC, SELFPAY ==
--- NOTE | 2022-12-30 07:51 | US_ITS ---
STUDY: ULTRASOUND OF THE FEMALE PELVIS - COMPLETE REASON FOR EXAM: Female, 37 years old. Pelvic pain LMP: 12/10/2022 TECHNIQUE: Transabdominal and Transvaginal TECHNICAL QUALITY: Limited. Examination limited by bowel gas. COMPARISON: Ultrasound from 11/02/2022, MR pelvis from 11/15/2022 FINDINGS: The uterus is anteverted and is tilted to the right side of the pelvis. The uterus measures 8.8 x 5.5 x 5.3 cm. Normal uterine cervix. The endometrium measures 2.2 mm in thickness, and is hyperechoic. There is no demonstrated endometrial mass. There is no demonstrated myometrial mass. I.U.D. - The patient does not have an I.U.D. The right ovary is not visualized. Left ovary is visualized measuring 5.1 x 4.9 x 5.1 cm. There is a complex cystic lesion measuring 4.0 x 3.5 x 4.2 cm and a second 7.3 x 7.1 x 6.0 cm left adnexal region cyst. Both of these are unchanged compared to the most recent ultrasound and MRI. Small amount of free fluid around the left ovary The bladder is sonographically normal with estimated capacity of 462 mL US/Pelvic w/ Transvaginal IMPRESSION: Stable complex left adnexal region cysts larger measures 7.3 x 7.1 x 6.0 cm, smaller 4.0 x 3.5 x 4.2 cm. Both are unchanged dating back to October. Another 6 month follow-up is recommended to assess stability or resolution Small amount of associated fluid adjacent to the left ovary Sonographically normal uterus and bladder, the right ovary was not visualized Electronically Signed: Felix Stringer MD at 10:48 EDT ,
== END | disposition home or self-care (01) ==
LOC: US 07:50
PROVIDERS: PCP Family Medicine; Referring Provider Obstetrics & Gynecology; Visit Provider Obstetrics & Gynecology
DX: R10.2 Pelvic and perineal pain (principal)
CPT/HCPCS: 76830; 76856

== ENCOUNTER 2023-02-14 08:15 | Day surgery (SDC) | payer BC, SELFPAY ==
[2023-02-14] VITALS (8 sets, daily range): BP systolic 97–127; BP diastolic 61–76; PULSE 72–98; RESP 14–16; TEMP 36.4–37.1; O2SAT 96–100; BMI 34.5
[2023-02-14 08:52] LABS: Hematocrit 41.5 % (37-47); Hemoglobin 13.4 g/dL (12.0-15.0); Mean Corp Hgb Conc 32.3 g/dL (32-36); Mean Corpuscular Hgb 29.6 pg (27.0-32.0); Mean Corpuscular Volume 91.6 fL (81-99); Mean Platelet Vol. 10.6 fl (6.2-12.0); Platelet Count 269 K/mm3 (150-450); RBC Distribution Width CV 12.6 % (11.6-14.6); RBC Distribution Width SD 41.6 fl (35.1-43.9); Red Blood Count 4.53 M/mm3 (4.2-5.4); White Blood Count 8.4 K/mm3 (4.4-11.0)
[2023-02-14 08:56] LABS: Internal QC Validated? YES +Cl - CLEAR BKGD; Pregnancy, Urine Negative Negative
[2023-02-14] MEDS: Enoxaparin 40 MG/0.4 ML Syringe SC (08:57)
[2023-02-14] MEDS: Lactated Ringers 1,000 ML 15 ML IV ×2 (09:00→12:51)
--- NOTE | 2023-02-14 09:48 | HP.PCM_ITS ---
History and Physical Intake Vital Signs 11/03/2314:13 01/23/2315:55 01/23/2315:55 Height 5 ft 3 in 5 ft 3 in 5 ft 3 in Weight: 198 lb 8 oz BMI 35.2 BP 117/82 H Intake Visit Reasons: Needs 20 minutes/diagnostic lap. 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 Is patient in pain?: No Allergies No Known Allergies Allergy (Verified 01/23/23 15:56) Medications lactobacillus combination no.8 3 billion cell capsule (Adult Probiotic) 3,000 mmu cells PO DAILY 09/16/20 [History Confirmed 01/23/23] loratadine 10 mg tablet (Claritin) 10 mg PO DAILY 07/05/21 [History Confirmed 01/23/23] albuterol sulfate 90 mcg/actuation aerosol inhaler (ProAir HFA) 2 puff inhalation Q6H PRN ASTHMA 09/14/21 [History Confirmed 01/23/23] ceftriaxone 500 mg solution for injection 500 mg IM ONCE #1 ea 11/03/22 [Rx Confirmed 01/23/23] doxycycline monohydrate 100 mg capsule 100 mg PO BID #28 caps 11/03/22 [Rx Confirmed 01/23/23] ondansetron HCl 4 mg tablet 4 mg PO Q4H #30 tabs 11/03/22 [Rx Confirmed 01/23/23] oxycodone-acetaminophen 5 mg-325 mg tablet 1 - 2 tab PO Q4H PRN PRN Pain 7 days #20 tabs 11/18/22 [Rx Confirmed 01/23/23] PFSH Medical History Asthma Cardiology follow-up encounter Factor V Leiden History of echocardiogram History of stress test Kidney stones Migraine headache Non-smoker Syncope Surgical History Dermoid cyst H/O ovarian cystectomy History of right oophorectomy Hx of laparoscopy Family History Grandmother auto immune hepititis Lupus LymphomaGrandfather AAA (abdominal aortic aneurysm) Heart disease Social History number of children: 0 current occupational status: employed current occupation: [employer] Smoking Status: Never smoker alcohol intake: never substance use type: does not use caffeine: Yes Type: carbonated beverages Number of servings: 1 what type of physical activity do you participate in: walking frequency: daily seatbelt use: always do you feel safe at home: Yes additional social history: single- works at [employer] and [employer] HPI Needs 20 minutes/diagnostic lap. Details: EMMANUEL MOYA is a 37 year old who presents for. Patient has a history of right oophorectomy and multiple left ovarian surgeries and has had persistent left enlargement of cystic fluid and complex areas. She initially had significant pain in the left lower quadrant but this has since resolved. She occasionally has discomfort if the lower pelvis gets kicked or pressed too hard but overall she does not have pain with intercourse and denies any irregular bleeding or abnormal discharge. 7.5 x 9.9 cm with thin wall. Female Reproductive History Menopausal Symptoms: No night sweats History 0 Elective abortions Hx Para 0 Spontaneous abortions Hx # Term Pregnancies Ectopic pregnancies Hx # Pregnancies Multiple births # of living children ROS Const Constitutional: Denies fatigue, night sweats, weight gain or weight loss ENT ENT: Reports system reviewed and no additional complaints, except as documented Cardio Card: Denies chest pain Resp Resp: Denies cough or dyspnea GI GI: Reports as per HPI and abdominal pain; Denies constipation, nausea or vomiting : Denies nipple discharge, urinary frequency, urinary incontinence, urinary hesitancy, urinary urgency, vaginal discharge, vaginal dryness, vaginal odor or vaginal pruritus Musc Musc: Denies arthralgias, back pain or muscle weakness Skin Skin/Breast: Denies alopecia, change in hair, dry skin, breast mass, breast pain, breast skin changes or nipple discharge Neuro Neuro: Reports system reviewed and no additional complaints, except as documented Psych Psych: Reports system reviewed and no additional complaints, except as documented Endo Endo: Denies cold intolerance, excessive sweating, heat intolerance or polydipsia Robel/Lymph Hematologic/Lymphatic: Denies easy bleeding, Denies easy bruising and Denies lymphadenopathy Exam Const General: cooperative, healthy appearing, comfortable and no acute distress Orientation: alert HENMT Head: normal to inspection and normocephalic Ears: hearing grossly normal bilaterally and external ears normal Nose: external nose normal and nares normal Face and sinus: normal facial exam Neck Neck: normal visual inspection and no lymphadenopathy Thyroid: thyroid normal Chest Chest palpation & inspection: normal inspection of the chest Resp Effort & Inspection: normal respiratory effort Auscultation: clear to auscultation bilaterally Cardio Rate: regular rate Rhythm: regular rhythm Heart Sounds: S1 normal and S2 normal GI Inspection: normal to inspection and non-distended Palpation: soft and no hepatosplenomegaly Musc Other: gross motor intact no deficits, full bilateral strength Skin General: no rashes or lesions noted Neuro General: patient alert, patient awake, moves all extremities and no focal motor deficits Motor: muscle tone normal throughout Extrem General: normal to inspection and no pedal edema Psych Appearance: grossly normal Mental Status: mental status grossly normal Affect: normal affect Speech and Movement: speech and movement normal Coding Level of Care Code Off vis,est,level 4 Diagnoses Factor 5 Leiden mutation, heterozygous D68.51 Pelvic pain R10.2 Left ovarian cyst N83.202 S/P laparotomy Z98.890 Assessment and Plan Assessment and Plan (1) Factor 5 Leiden mutation, heterozygous: Status: Acute Comment: plan preop lovenox x 1 and 1 week postop 40 mg once daily (2) Pelvic pain: Status: Acute Comment: s/p pelvic US and MRI. (3) Left ovarian cyst: Status: Acute Comment: persistent, s/p right oophorectomy. plan diagnostic laparoscopy with chromotubation. (4) S/P laparotomy: Status: Acute Comment: 2019 minilap with left dermoid cyst removal Plan After discussing the patient's diagnosis and treatment plan options, patient w ishes to proceed with surgical management. I have discussed with the patient the risks, benefits, and alternatives of the procedure which include but are not limited to risks of anesthesia, bleeding, infection, possible damage to bowel, bladder, or surrounding vasculature which could lead to additional surgery to evaluate any complications. Patient agrees to procedure and wishes to proceed. ACOG/uptodate references given for additional information regarding procedure. UPDATE- I have seen the patient and performed any clinically relevant updates to the history and physical exam. Yolande Brizuela MD
--- NOTE | 2023-02-14 09:50 | OV_PTH ---
PATIENT: EMMANUEL ROJAS LOC: [facility] [place] U#:[id number] AGE/SX: 37/F ROOM: RE02/14/[address]: Dr. Yolande Brizuela MD : 1985 BED: DIS: 02/14/2023 SPEC #: [id number] RECD: 02/14/23 14:27 STATUS: CAMILA REHoda #: [id number] WILNER: 02/14/23 09:[address]: Yolande Brizuela DEPT: SURGICAL PATHOLOGY RECD BY: Jayne Bergman ENTERED: 02/15/23 10:26 SP TYPE: OVARY OTHR DR: Terri Farnsworth DO Tissues: OVARIAN CYST Procedures: Surgery Specimen Level V HEADER OPERATION: Laparoscopy, left ovarian cystectomy PRE-OP DIAGNOSIS: Left ovarian cyst, pelvic pain TISSUE SUBMITTED: Left ovarian cyst MICROSCOPIC DIAGNOSIS Left ovarian cyst, excision: Serous cystadenoma. AM:linnette 7/13/23 MICROSCOPIC DESCRIPTION Slides are reviewed. GROSS DESCRIPTION Received is one container labeled with the patient name and designated left ovarian cyst. The specimen consists of one irregular piece of preciously opened cyst that measures 7.0 x 2 x 0.5 cm. Outer cyst wall is smooth without any papillations and inked black. Inner cyst wall is ragged and congested. Account Services Associate sections are submitted in two cassettes. / SJ: 02/15/23 TC:1 CPT: 97611
--- NOTE | 2023-02-14 09:52 | PCM.OPRPT ---
Problems Associated Problem List Diagnoses (1) S/P laparotomy: (2) Left ovarian cyst: (3) Pelvic pain: (4) Factor 5 Leiden mutation, heterozygous: Report of Operation Date of Procedure: 02/14/23 Pre-Operative Diagnosis: see problem list Post-Operative Diagnosis: same Surgery/Procedure Performed:: left ovarian cystectomy lysis of adhesions ablation of endometriosis lesion chromotubation Surgeon: Yolande Brizuela rough and truing machine operator: Aaliyah Pimentel Type of Anesthesia: General and Local Special Medications: none Specimen's removed: ovarian cyst endometriosis implant bilateral patent tubes, severe left ovarian adhesions obliteration of cul de sac Drains: none Estimated Blood Loss (mL): 50 Fluids Replaced: crystalloid Description of Procedure: Patient was taken in the operating room and was placed under general anesthesia was prepped and draped in normal sterile fashion in the dorsal lithotomy position. Bladder was drained of clear urine and SCDs were on preoperatively. Uterus was sounded and a uterine manipulator was placed after dilating. Attention was then paid to the abdominal portion of the procedure and the umbilicus was elevated with towel clamps and injected with Marcaine and after a 5 mm incision was made and the Veress needle was entered into the abdomen confirmed to be intra-abdominal with a low opening pressure of less than 5 mmHg. Abdomen was insufflated with CO2 gas and a 5 mm optical trocar was placed under direct visualization. A right 5 and left lower quadrant 5 mm ports were placed under direct visualization. A large left ovarian cyst 9 cm in size was noted and it was adherent completely to the anterior abdominal wall with filmy adhesions and also to the nearby bowel and posterior uterine corpus and cul-de-sac. All adhesions were taken down with the LigaSure without complication. The left ovary was noted to be completely adherent to the ovarian fossa and nearby bowel which were taken down with the LigaSure as well as hydrodissection. Monopolar energy was used to obtain hemostasis. Ovarian cystectomy was performed and the tissue removed and sent to pathology for analysis. Floseal was placed over the raw areas after adhesiolysis was performed. Excellent hemostasis was noted. Chromotubation was performed and bilateral tubal patency was noted. An endometriosis implant was seen on the left anterior cul-de-sac close to the round ligament which was ablated with monopolar energy. Liver and upper abdomen were visualized notably within normal limits and no other gross abnormalities were seen in the abdomen. All instruments removed from the abdomen after gas was desufflated. Port sites were closed with 3-0 Monocryl Steri's and op sites were applied. All instruments removed from the vagina and patient was awoken and taken recovery in stable condition. Grafts/Implants Used: none Complications none Admit VTE Documentation VTE Present on Admission: No VTE Mechan Device Prophylaxis: SCD's Multi Select Codes Urinary/Genital Urinary/Genital CPT Codes: 88832 Chromotubation and 41505 Laproscopic ablation endometriosis
--- NOTE | 2023-02-14 09:53 | DCINST_ITS ---
Discharge Instructions Diet Discharge Diet: No restrictions Activity Discharge Activity: Return to Normal Activity, May Not Drive (for 2 weeks or while taking narcotic pain meds.), May Shower and May Take a Tub Bath (in 7 days) May resume sexual activity in: 1 week Weight Bearing Status: Full weight bearing Dressing / Incision Call your doctor if your incision/area has: Continuous Slow Oozing, Sudden Increased Bleeding, Increased Pain/ Swelling, Increased Redness and Foul Smelling Discharge Call your doctor if you observe: Fever of 101 or Higher, Using more than 1 pad per hour, Shortness of breath, Chest pain and Uncontrolled pain Suture Line Care: Avoid Pulling/Pushing and Avoid Pinching/Bending Remove Dressing in: 1 week (if present) Cleanse incision/area with: Soap & Water and Keep Dressing Clean & Dry Follow Up Care When: Call to make an appointment with your doctor for a fu/incision check in 1- 2 weeks. Test Results: Test results from this visit will be discussed in further detail at your follow- up appointment, if applicable. Discharge Plan Admission Attending Provider: Yolande Brizuela Primary Care Provider: Terri Farnsworth Discharge Orders/Prescriptions Prescriptions: New oxycodone-acetaminophen [Percocet] 5-325 mg tablet 1 tab PO Q6H PRN (Reason: pain) 7 Days Qty: 20 0RF naproxen [naproxen] 500 mg tablet 500 mg PO BID PRN PRN (Reason: Pain) Qty: 30 1RF Continued Adult Probiotic 3 billion cell capsule 3,000 mmu cells PO DAILY Rx Instructions: administer with a meal loratadine [Claritin] 10 mg tablet 10 mg PO DAILY PRN (Reason: ALLERGIES) ondansetron HCl 4 mg tablet 4 mg PO Q4H Qty: 30 3RF albuterol sulfate [ProAir HFA] 90 mcg/actuation Hfa Aerosol Inhaler 2 puff INHALATION Q6H PRN (Reason: ASTHMA) magnesium 250 mg tablet 250 mg PO DAILY Referrals / Follow Up: Terri Farnsworth DO [Primary Care Provider] - Disposition Disposition (needs filled in before D/C Order can be placed): Home, Self Care
[2023-02-14] MEDS: Bupivacaine 0.25% 30 ML Vial (12:23)
[2023-02-14] MEDS: Oxycodone/Apap 5/325 Tablet PO (14:20)
== END 2023-02-14 15:42 | disposition home or self-care (01) ==
LOC: SDC 08:17 → AC 08:19
PROVIDERS: PCP Family Medicine; Referring Provider Obstetrics & Gynecology; Visit Provider Obstetrics & Gynecology
PROC: (CPT 49320; principal; 2023-02-14 09:35)
DX: D27.1 Benign neoplasm of left ovary (principal); D68.51 Activated protein C resistance
CPT/HCPCS: 58350; 58662; 81025; 85027; 86850; 86900; 86901; 88305; 88307; J7120; J2405; Q9968

== ENCOUNTER → 2023-11-02 | Outpatient (CLI) | payer BC, SELFPAY ==
--- NOTE | 2023-11-02 14:26 | US_ITS ---
STUDY: ULTRASOUND OF THE FEMALE PELVIS - LIMITED REASON FOR EXAM: Female, 37 years old . Pelvic pain. Prior right nephrectomy. TECHNIQUE: Transabdominal and Transvaginal TECHNICAL QUALITY: Adequate. COMPARISON: Comparison is made with prior study dated December 30, 2022. FINDINGS: The uterus is anteverted and is in a midline position. The uterus measures 8.5 x 5 x 4 cm. Normal uterine cervix. The endometrium measures 6.9 mm in thickness, and is heterogeneous (striated). Minimal amount of free fluid is seen within the endocervical canal. 2 small fibroids are seen in the body of the uterus. The larger measures 1.6 cm x 1.8 cm x 1 cm. The patient is status post right oophorectomy. The left ovary measures 3.5 cm x 3 cm x 2.5 cm. There is a 2.5 cm x 1.8 cm by 1.3 cm septated cyst in the left ovary. Sonographic follow-up recommended. There is no visualized left adnexal mass or complex lesion. There is normal arterial and normal venous vascularity. There is no fluid in the cul-de-sac. US/Pelvic w/ Transvaginal IMPRESSION: Status post right nephrectomy. Small fibroids in the uterus. 2.5 cm x 1.8 cm x 1.3 cm septated cyst in the left ovary. Sonographic follow-up recommended. Electronically Signed: Dennis Abdullahi MD at 15:35 EDT ,
== END | disposition home or self-care (01) ==
LOC: US 14:25
PROVIDERS: PCP Family Medicine; Referring Provider Family Medicine; Visit Provider Family Medicine
DX: R10.2 Pelvic and perineal pain (principal)
CPT/HCPCS: 76830; 76856

== ENCOUNTER → 2024-01-18 | Outpatient (CLI) | payer BC, SELFPAY ==
[2024-01-18 10:03] LABS: Absolute Lymphocyte Count 3.04 X10^3/uL (0.83-4.51); Absolute Neutrophil Count 4.1 X10^3/uL (2.0-7.7); Basophil# 0.06 X10^3/uL; Basophil% 0.7 % (0-1); Eosinophil# 0.37 X10^3/uL; Eosinophils% 4.5 % (0-5); Hematocrit 40.9 % (37-47); Lymphocyte # 3.04 X10^3/ul (0.83-4.51); Lymphocyte % 37.1 % (19-41); Mean Corp Hgb Conc 31.8 g/dL (32-36); Mean Corpuscular Hgb 29.6 pg (27.0-32.0); Mean Corpuscular Volume 93.2 fL (81-99); Mean Platelet Vol. 10.9 fl (6.2-12.0); Monocyte# 0.61 X10^3/uL; Monocyte% 7.4 % (0-10); NRBC Flagged by Analyzer 0 % (0-5); Neutrophil # 4.08 X10^3/uL (2.7-7.7); Neutrophil % 49.8 % (47-70); Platelet Count 300 K/mm3 (150-450); RBC Distribution Width CV 12.7 % (11.6-14.6); RBC Distribution Width SD 43.9 fl (35.1-43.9); Red Blood Count 4.39 M/mm3 (4.2-5.4); White Blood Count 8.2 K/mm3 (4.4-11.0)
[2024-01-18 11:19] LABS: ALB/GLOB Ratio 0.8 RATIO (0.9-2.4); AST(SGOT) 23 U/L (15-37); Alanine Aminotransfer ALT/SGPT 19 U/L (13-56); Albumin, Serum 3.5 g/dL (3.2-5.0); Alkaline Phosphatase 59 U/L (45-117); Anion Gap 9 (5-15); BUN 12 mg/dL (7-18); BUN/Creat Ratio 14.9 RATIO (10-20); Calcium,Total 8.5 mg/dL (8.5-10.1); Chloride 107 mmol/L (98-107); EST Glomerular Filtration Rate 86 mL/min (>60); Est Glom Filt Rate - Afr Amer 104 mL/min (>60); Free T3 2.9 pg/mL (2.18-3.98); Globulin 4.3 g/dL (2.2-4.2); Glucose 88 mg/dL (74-106); Potassium 3.9 mmol/L (3.5-5.1); Protein, Total 7.8 g/dL (6.4-8.2); Sodium Level 139 mmol/L (136-145); T4 Free Direct 0.93 ng/dL (0.76-1.46); Thyroid Stim Hormone (TSH) 3.89 uIU/mL (0.358-3.74)
== END | disposition home or self-care (01) ==
LOC: MTLAB 07:23
PROVIDERS: PCP Family Medicine; Referring Provider Nurse Practitioner Family; Visit Provider Nurse Practitioner Family
DX: R53.83 Other fatigue (principal)
CPT/HCPCS: 36415; 80053; 84439; 84443; 84481; 85025

== ENCOUNTER → 2024-02-07 | Outpatient (CLI) | payer BC, SELFPAY ==
--- NOTE | 2024-02-07 08:09 | US_ITS ---
STUDY: ULTRASOUND OF THE FEMALE PELVIS - COMPLETE REASON FOR EXAM: Female, 38 years old. ovarian cyst LMP: 01/18/2024 TECHNIQUE: Transabdominal and Transvaginal TECHNICAL QUALITY: Adequate. COMPARISON: 11/02/2023 FINDINGS: The uterus is anteverted and is in a midline position. The uterus measures 8.9 x 5.0 x 4.7 cm. Normal uterine cervix. The endometrium measures 16 mm in thickness, and is hyperechoic. There is no demonstrated endometrial mass. No change in 1.8 cm oval hypoechoic mass within the anterior fundus of uterus consistent with an intramural fibroid. Also no change in 1.8 cm hypoechoic mass in the posterior body the uterus consistent with an intramural fibroid. I.U.D. - The patient does not have an I.U.D. Status post right oophorectomy.. The left ovary is visualized. The left ovary measures 5.4 x 5.2 x 5.0 cm. 4 cm oval anechoic mass with increased transverse left ovary consistent with a corpus luteum cyst. There is no visualized left adnexal mass or complex lesion. There is normal arterial and normal venous vascularity. There is no fluid in the cul-de-sac. The pre void volume of the bladder was ml. The post void volume of the bladder was ml. Polycystic ovary disease: No. US/Pelvic w/ Transvaginal IMPRESSION: 1. Small uterine fibroids but overall normal sized uterus. 2. 4.0 cm left ovarian corpus luteum cyst. Electronically Signed: Campbell Hernández MD at 16:09 EDT ,
--- NOTE | 2024-02-07 08:09 | BI_ITS ---
MAMMOGRAPHY - BILATERAL DIAGNOSTIC REASON FOR EXAM: Female, 38 years old. breast pain/LUMPS PERTINENT HISTORY: Non-contributory. TECHNIQUE: Digital examination. Mediolateral oblique (MLO) and craniocaudad (CC) views of both breasts were obtained. CAD: CAD was performed on this study. COMPARISON: 01/27/2020 FINDINGS: Breast Composition: The breasts are extremely dense, which lowers the sensitivity of mammography. There are no dominant masses or suspicious calcifications. No other significant abnormalities are identified. BI/DIAG MAMM W/CAD, BILAT IMPRESSION: Stable bilateral diagnostic mammogram. Ultrasound of the palpable abnormalities in the right breast will be obtained. ASSESSMENT CATEGORY: BIRADS Category 0: Incomplete. Need additional imaging evaluation. A letter regarding these results will be sent to the patient by the facility within 30 days. FOLLOW UP RECOMMENDATION: Ultrasound Recommended. (I) Approximately 10% of breast cancers are not detected by mammography. A normal mammogram should not delay biopsy of a clinically suspicious abnormality. Electronically Signed: Campbell Hernández MD at 9:40 EDT ,
--- NOTE | 2024-02-07 08:12 | US_ITS ---
STUDY: ULTRASOUND BREAST - RIGHT REASON FOR EXAM: Female, 38 years old. Palpable mass TECHNIQUE: Axial and longitudinal images of the RIGHT breast were performed with a high resolution ultrasound transducer. # OF IMAGES: 31 COMPARISON: Diagnostic mammogram earlier today, right breast ultrasound 01/27/2020 FINDINGS: RIGHT Breast: Heterogeneous background echotexture. Within the retroareolar right breast there is no change in the 1.4 cm oval parallel circumscribed anechoic mass with posterior enhancement consistent with a cyst. Multiple longitudinal and transverse ultrasound images of the upper outer quadrant right breast in the area of the palpable abnormality do not demonstrate a discrete solid or cystic mass most consistent with normal breast parenchyma.: US/Breast Limited Unilateral IMPRESSION: 1. No change 1.4 cm cyst in the retroareolar right breast. 2. No mass by ultrasound or mammography in the upper outer quadrant right breast most consistent with normal breast recommended. ASSESSMENT CATEGORY: BIRADS Category 2: Benign. A letter regarding these results will be sent to the patient by the facility within 30 days. Electronically Signed: Campbell Hernández MD at 11:31 EDT ,
== END | disposition home or self-care (01) ==
LOC: OPBI 08:07
PROVIDERS: PCP Family Medicine; Referring Provider Nurse Practitioner Family; Visit Provider Nurse Practitioner Family
DX: N64.4 Mastodynia (principal); N60.01 Solitary cyst of right breast
CPT/HCPCS: 76642; 76830; 76856; 77062; 77066; G0279

== ENCOUNTER → 2024-05-14 | Outpatient (CLI) | payer BC, SELFPAY ==
--- NOTE | 2024-05-14 15:18 | US_ITS ---
EXAM: US PELVIS TRANSABDOMINAL AND TRANSVAGINAL, COMPLETE CLINICAL INDICATION: cyst-LTO TECHNIQUE: Transabdominal and endovaginal pelvic ultrasound was performed with grayscale and color Doppler imaging. Endovaginal imaging was used for better evaluation of the endometrium and adnexa. COMPARISON: US Pelvis Transabdominal Endovaginal dated 02/07/2024 FINDINGS: UTERUS/CERVIX: Uterus measures 7.7 x 4.9 x 3.6 cm. Endometrial thickness is 10 mm. Anterior fundal fibroid noted measuring 17 mm in maximum diameter. Additional 11 mm posterior myometrial fibroid. RIGHT OVARY: Surgical absence of the right ovary. LEFT OVARY: Left ovary measures 4.2 x 3.1 x 2.4 cm. Previously noted large cystic mass is no longer seen. Blood flow is present in the left ovary. FREE FLUID: None. US/Pelvic w/ Transvaginal IMPRESSION: 1. Small uterine fibroids. 2. Interval resolution of the left ovarian complex cyst Electronically Signed: Manuel Luevano MD at 16:41 EDT ,
== END | disposition home or self-care (01) ==
LOC: US 15:14
PROVIDERS: PCP Family Medicine; Referring Provider Nurse Practitioner Family; Visit Provider Nurse Practitioner Family
DX: N83.202 Unspecified ovarian cyst, left side (principal)
CPT/HCPCS: 76830; 76856

== ENCOUNTER → 2024-07-17 | Outpatient (CLI) | payer BC, SELFPAY ==
[2024-07-17 10:36] LABS: T4 Free Direct 0.92 ng/dL (0.76-1.46)
== END | disposition home or self-care (01) ==
PROVIDERS: PCP Family Medicine; Referring Provider Nurse Practitioner Family; Visit Provider Nurse Practitioner Family
DX: E04.1 Nontoxic single thyroid nodule (principal)
CPT/HCPCS: 36415; 84439; 84443

== ENCOUNTER → 2024-12-16 | Outpatient (CLI) | payer BC, SELFPAY ==
--- NOTE | 2024-12-16 09:24 | RAD_ITS ---
PROCEDURE: CHEST PA AND LATERAL 12/16/2024 REASON FOR EXAM: COUGH TECHNIQUE: Frontal and lateral views of the chest. COMPARISON: None FINDINGS: Hardware: None Heart: The heart size is normal. Mediastinum: The mediastinal contour is unremarkable. Lungs: The lungs are clear. Bones: The bones are unremarkable. RAD/Chest PA and Lateral IMPRESSION: NO ACUTE FINDINGS. Reading Location: [id number]
== END | disposition home or self-care (01) ==
LOC: MTRAD 09:24
PROVIDERS: PCP Family Medicine; Referring Provider Physician Assistant; Visit Provider Physician Assistant
DX: R05.9 Cough, unspecified (principal)
CPT/HCPCS: 71046

== ENCOUNTER → 2025-01-09 | Outpatient (CLI) | payer BC, SELFPAY ==
--- NOTE | 2025-01-09 06:57 | MRI_ITS ---
PROCEDURE: PELVIS W/WO CONTRAST, 01/09/2025 REASON FOR EXAM: PELVIC PAIN/ BACK PAIN/ FIBROIDS/PMHX OF ENDOMETRIOSIS TECHNIQUE: Multisequence multiplanar MR of the pelvis was performed with and without IV contrast. IV contrast: 19 mL Clariscan COMPARISON: 11/15/2022 FINDINGS: Variable overall mild motion limitation. Visualized bowel: Grossly unremarkable. Lymph nodes: Unremarkable. Vasculature: Unremarkable. Peritoneum: Trace barely perceptible free fluid. Previous suspected peritoneal inclusion cyst in the longer seen. Bladder: Underdistended and suboptimally evaluated, grossly unremarkable.. Reproductive Organs: Normal endometrial and junctional zone thicknesses. Few small T2 dark and hypoenhancing presumed fibroids are mostly intramural, largest along the anterior fundus measuring 1.6 x 1.4 x 1.9 cm. Few of the smaller lesions demonstrate subserosal components. No submucosal lesions identified. Mildly heterogeneous 2.0 x 1.1 x 1.8 cm LEFT ovarian lesion demonstrates T1 hyperintensity with T2 shading compatible with endometrioma. RIGHT ovary not identified. Suspect mild T2 dark peritoneal thickening and possible adherence of the anterior rectum with the LEFT ovary and posterior aspect of the lower uterine segment as can be seen in the setting of scarring. No definite T1 bright foci in the region. Suspected punctate cervical nabothian cysts. Ovoid cysts along the bilateral labia, 2.1 cm on the RIGHT and 0.9 cm on the LEFT, located inferior and slightly posterior to the urethral meatus near the introitus, presumably reflecting Bartholin or Livingston's duct cysts, unchanged. No definite associated inflammation. Body Wall: Unremarkable. Bones: Unremarkable. MRI/Pelvis W/WO Contrast IMPRESSION: 1. Small presumed uterine fibroids up to 1.9 cm are mostly intramural with some demonstrating small subserosal components. No submucosal lesions identified. 2. 2.0 cm LEFT ovarian lesion compatible with an endometrioma. Additional ques tionable adhesion of the anterior rectum and posterior lower uterine segment/LEFT ovary with associated minimal peritoneal t hickening, findings which may be seen in endometriosis. Correlation with exam should be helpful. 3. Trace barely perceptible free fluid, potentially physiologic. Previous susp ected peritoneal inclusion cyst no longer seen. 4. RIGHT ovary not identified. 5. Additional description as above. Reading Location: [id number]
--- OUTSIDE RECORDS SUMMARY | 2025-01-09 07:12 | XMS RPT_ITS | CCD ---
Author Organization [facility] Care Team Providers Care Advertising Space Clerk Name Role Phone IRIS PA Attending Unavailable PROVIDER, UNKNOWN Referring Unavailable Elvis Thomson Primary Care Unavailable DO Terri Farnsworth Primary Care Provider DO Terri Farnsworth Referring Provider [phone] Dao NEUROLOGY STROKE PHYSICIAN, NEUROLOGY STROKE PHYSICIANPamela Velásquez Attending Provider Dr. Yolande Brizuela Attending Provider [phone] Dr. Yolaned Brizuela Referring Provider Dr. Yolande Brizuela Other Provider Rocio Obando MD Primary Care Provider [phone] Rocio Obando MD Referring Provider Arvin Steinberg Attending Provider Arvin Steinberg Referring Provider [phone] Arvin Steinberg Attending Unavailable Arvin Steinberg Referring Unavailable Topher, Chalon Primary Care Unavailable Topher, Chalon Primary Care Unavailable Tu NEUROLOGY STROKE PHYSICIAN, Neema Attending Unavailable Tu NEUROLOGY STROKE PHYSICIAN, Neema Referring Unavailable Arvin Steinberg Attending Unavailable Topher, Chalon Referring Unavailable Topher, Chalon Primary Care Unavailable Topher, Chalon Primary Care Unavailable Tu NEUROLOGY STROKE PHYSICIAN, Neema Attending Unavailable Tu NEUROLOGY STROKE PHYSICIAN, Neema Referring Unavailable McMorrow NEUROLOGY STROKE PHYSICIAN, Ke Attending Unavailable McMorrow NEUROLOGY STROKE PHYSICIAN, Ke Referring Unavailable Topher, Chalon Primary Care Unavailable Topher, Chalon Primary Care Unavailable Tu NEUROLOGY STROKE PHYSICIAN, Neema Attending Unavailable Tu NEUROLOGY STROKE PHYSICIAN, Neema Referring Unavailable Topher, Chalon Primary Care Unavailable Tu NEUROLOGY STROKE PHYSICIAN, Neema Referring Unavailable Tu NEUROLOGY STROKE PHYSICIAN, Neema Attending Unavailable Assessment, Health Risk Attending Unavaila ble Topher, Chalon Primary Care Unavailable Medications Current Medications Medication Drug Class(es) Dates Sig (Normalized) Sig (Original) [id number] 200 actuat albuterol 0.09 mg/actuat metered dose inhaler (8 sources) beta2-Adrenergic Agonist Start: 09-14-2021 Albuterol Sulfate (Proair Hfa) 90 mcg/actuation Hfa Aerosol Inhaler Active 2 NMA INHALATION EVERY 6 HOURS as needed for ASTHMA September 14, 2021 1:00am Start: 09-14-2021 take 1 puff(s) by in halation every six hours Albuterol Sulfate (Proair Hfa) 90 mcg/actuation Hfa Aerosol Inhaler Active 2 PUFF INHALATION EVERY 6 HOURS September 14, 2021 1:00am amoxicillin 875 mg / clavulanate 125 mg oral tablet (1 source) Penicillin-class Antibacterial Start: 12-16-2024 Amoxicillin-Pot Clavulanate 875-125 mg tablet Active 1 {tbl} PO TWICE A DAY December 16, 2024 12:00am azithromycin 250 mg oral tablet (1 source) Macrolide Antimicrobial Start: 12-16-2024 Azithromycin 250 mg tablet Active 0 PO .COMPLEX December 16, 2024 12:00am For 250 mg dose pack: take 500 mg today (day 1), then 250 mg for 4 days (days 2-5) PO cefTRIAXone 500 mg injection (4 sources) Cephalosporin Antibacterial Start: 11-03-2022 inject 500 mg by intramuscular injection once Ceftriaxone Active 500 MG IM ONCE November 03, 2022 12:00am doxycycline monohydrate 100 mg oral capsule (4 sources) Tetracycline-class Drug Start: 11-03-2022 take 100 mg by mouth twice daily Doxycycline Monohydrate Active 100 MG PO TWICE A DAY November 03, 2022 12:00am methylPREDNISolone 4 mg oral tablet (1 source) Corticosteroid Start: 12-16-2024 take 1 tablet by mouth once Methylprednisolone (Medrol (Ameya)) 4 mg tablets,dose pack Active 0 PO per package directions December 16, 2024 12:00am PO PER PKG DIR Completed/Discontinued Medications Medication Drug Class(es) Dates Sig (Normalized) Sig (Original) acetaminophen 325 mg / oxyCODONE hydrochloride 5 mg oral tablet (20 sources) Opioid Agonist Start: 02-14-2023 End: 03-10-2023 Oxycodone-Acetamino phen (Percocet) 5-325 mg tablet Discontinued 1 {tbl} PO EVERY 6 HOURS as needed for pain 23 02February 14, 2023 March 10, 2023 2:57pm Start: 11-02-2022 End: 11-18-2022 Oxycodone-Acetaminophen 5-32 5 mg tablet Discontinued 1 - 2 {tbl} PO EVERY 4 HOURS NEEDED as needed for Pain 23 02November 02, 2022 November 18, 2022 3:55pm Start: 11-02-2022 End: 11-18-2022 take 1 tablet by mouth every four hours as needed Oxycodone-Acetaminophen Discontinued 1 - 2 TABLET PO EVERY 4 HOURS NEEDED 23 02November 02, 2022 November 18, 2022 3:55pm Start: 09-21-2021 End: 10-08-2021 Oxycodone-Acetaminophen (Per cocet) 5-325 mg tablet Discontinued 1 {tbl} PO EVERY 6 HOURS as needed for pain 05 13September 21, 2021 October 08, 2021 11:49am Start: 07-23-2019 End: 07-30-2019 Oxycodone-Acetaminophen 1 TA BLET tablet Discontinued 1 - 2 {tbl} PO EVERY 6 HOURS NEEDED as needed for Moderate-Severe pain 03 03July 23, 2019 July 29, 2019 1:00am July 30, 2019 1:07am Start: 07-23-2019 End: 07-30-2019 take 1 tablet by mouth every six hours as needed Oxycodone-Acetaminophen Discontinued 1 - 2 TABLET PO EVERY 6 HOURS NEEDED 03 03July 23, 2019 July 30, 2019 1:07am 0.4 ml enoxaparin sodium 100 mg/ml prefilled syringe (11 sources) Low Molecular Weight Heparin Start: 02-14-2023 End: 12-16-2024 Enoxaparin (Lovenox) 40 mg/0.4 mL syringe Discontinued 40 mg SC DAILY 2.8 February 14, 2023 12:00am December 16, 2024 9:09am Start: 03-22-2018 End: 03-28-2018 inject 40 mg by subcutaneous injection once daily Enoxaparin 40 MG/0.4 ML syringe Discontinued 40 mg SQ DAILY 7 March 22, 2018 12:00am March 28, 2018 8:51am Lactobacillus Combination No.8 (Adult Probiotic) 3 billion cell capsule (8 sources) Start: 09-16-2020 End: 12-16-2024 take 3 capsules by mouth once daily Lactobacillus Combination No.8 (Adult Probiotic) 3 billion cell capsule Discontinued 3000 NMA PO DAILY September 16, 2020 1:00am December 16, 2024 9:09am administer with a meal Start: 09-16-2020 take 3 capsules by m outh once daily Lactobacillus Combination No.8 (Adult Probiotic) 3 billion cell capsule Active 3000 MMU CELLS PO DAILY September 16, 2020 1:00am administer with a meal loratadine 10 mg oral tablet (8 sources) Start: 07-05-2021 End: 12-16-2024 take 1 tablet by mouth once daily as needed Loratadine (Claritin) 10 mg tablet Discontinued 10 mg PO DAILY as needed for ALLERGIES July 05, 2021 1:00am December 16, 2024 9:09am Magnesium (3 sources) Start: 02-08-2023 End: 12-16-2024 take 1 tablet by mouth once daily Magnesium 250 mg tablet Discontinued 250 mg PO DAILY February 08, 2023 12:00am December 16, 2024 9:09am Start: 02-08-2023 take 250 mg by mouth once saul y Magnesium Active 250 MG PO DAILY February 08, 2023 12:00am metroNIDAZOLE 500 mg oral tablet (7 sources) Nitroimidazole Antimicrobial Start: 11-03-2022 End: 11-17-2022 take 1 tablet by mouth twice daily Metronidazole 500 mg tablet Discontinued 500 mg PO TWICE A DAY November 03, 2022 12:00am November 16, 2022 12:00am November 17, 2022 12:05am naproxen 500 mg oral tablet (20 sources) Nonsteroidal Anti-inflammatory Drug Start: 02-14-2023 End: 12-16-2024 take 1 tablet by mouth twice daily as needed for pain Naproxen 500 mg tablet Discontinued 500 mg PO TWICE DAILY NEEDED as needed for Pain February 14, 2023 12:00am December 16, 2024 9:09am Start: 09-21-2021 End: 11-02-2022 take 1 tablet by mouth twice daily as needed for pain Naproxen 500 mg tablet Discontinued 500 mg PO TWICE A DAY as needed for pain October 08, 2021 1:00am November 02, 2022 2:04pm administer with food or milk ondansetron 4 mg oral tablet (7 sources) Serotonin-3 Receptor Antagonist Start: 11-03-2022 End: 03-10-2023 take 1 tablet by mouth every four hours Ondansetron Hcl 4 mg tablet Discontinued 4 mg PO Q4H November 03, 2022 12:00am March 10, 2023 2:58pm sertraline 50 mg oral tablet (8 sources) Serotonin Reuptake Inhibitor Start: 07-15-2021 End: 11-02-2022 Sertraline (Zoloft) 50 mg tablet Discontinued 50 mg PO .COMPLEX July 15, 2021 1:00am November 02, 2022 2:04pm 50 mg PO daily day 14 through onset of menses; HASN'T STARTED YET Problems Active Problems Problem Classification Problem Date Documented Date Episodic/Chronic Abdominal pain (20 sources) Abdominal pain; Translations: [Unspecified abdominal pain] Onset: 01-06-2025 11-02-2022 Episodic Comment on above: s/p pelvic US and MR I. 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 left 5 cm cyst Other female genital disorders (8 sources) Abelardo; Translations: [Abelardo] 10-11-2021 Chronic Comment on above: naproxen PRN Other female genital disorders (8 sources) Abnormal uterine bleeding; Translations: [Abnormal uterine and vaginal bleeding, unspecified] 10-11-2021 Chronic Other lower respiratory disease (2 sources) Single lobe lung infiltrate; Translations: [Other nonspecific abnormal finding of lung field] 12-16-2024 Episodic Otitis media and related conditions (2 sources) Acute bilateral otitis media ; Translations: [Otitis media, unspecified, bilateral] 12-16-2024 Episodic Residual codes; unclassified (7 sources) Other specified postprocedural states; Translations: [Other postprocedural status] 11-03-2022 Episodic Residual codes; unclassified (3 sources) History of laparoscopy; Translations: [Other specified postprocedural states] 02-14-2023 Episodic Thyroid disorders (1 source) Nontoxic single thyroid nodule; Translations: [Nontoxic single thyroid nodule] Onset: 08-18-2024 Chronic Unclassified (1 source) Cough, unspecified; Translations: [Cough, unspecified] Onset: 12-20-2024 Past or Other Problems Problem Classification Problem Date Documented Da te Episodic/Chronic Malaise and fatigue (1 source) Other fatigue; Translations: [Other fatigue] Onset: 01-23-2024 Episodic Nonmalignant breast conditions (1 source) Mastodynia; Translations: [Mastodynia] Onset: 02-22-2024 Episodic Ovarian cyst (20 sources) Hemorrhagic cyst of ovary; Translations: [Unspecified ovarian cyst, unspecified side] Onset: 06-06-2024 11-03-2022 Episodic Comment on above: empiric therapy for PID given, gcc ordered pelvic MRI ordered. Rocephin doxycycline and flagyl ordered. persistent, s/p righ t oophorectomy. plan diagnostic laparoscopy with chromotubation. Results Test Name Value Interpretation Reference Range Facility Chest PA and Lateralon 12-16 Chest PA and Lateral [facility] Imaging Services [address] [place] [address] Chest PA and Lateral MR#: [id number] Acct: [id number] Name: EMMANUEL ROJAS Rep #: [id number] : 1985 F 39 From: Dennis otoole MD PCP: Dr. Rocio Obando MD Status: [facility] CLI Study: Chest PA and Lateral Date of Exam: 12/16/24 Exam# [id number] Ordering Dr: Arvin Orourke PA PROCEDURE: CHEST PA AND LATERAL 12/16/2024 REASON FOR EXAM: COUGH TECHNIQUE: Frontal and lateral views of the chest. COMPARISON: None FINDINGS: Hardware: None Heart: The heart size is normal. Mediastinum: The mediastinal contour is unremarkable. Lungs: The lungs are clear. Bones: The bones are unremarkable. RAD/Chest PA and Lateral IMPRESSION: NO ACUTE FINDINGS. Reading Location: [id number] CC: Dr. Rocio Obando MD; MARIA R Dominguez Clerk Carrier: Signed Normal [facility] Urgent Care Visit Reporton 0 12-16-2024 Urgent Care Visit Report [facility] [address], [address] [place] [address] OFFICE VISIT Date of Service: 12/16/24 MR#: [id number] Acct: [id number] Name: EMMANUEL ROJAS Rep #: [id number] : 1985 Provider: MARIA R Dominguez Age/Sex: 39/F Location: [facility] Status: Signed Intake Vital Signs 03/10/23 14:58 12/16/24 09:23 Height 5 ft 3 in 5 ft 3 in Weight: 211 lb 8 oz BMI 37.4 BP 120/82 H Position Sitting Pulse 109 H Temp 98.5 F Temp Source Oral Pulse Oximetry (%) 98 Oxygen Delivery Method room air Intake Visit Reasons: Cough Accompanied by: Self Allergies No Known Allergies Allergy (Verified 12/16/24 09:09) Medications ???Medication ???Instructions ???Recorded ???Confirmed ???Type albuterol sulfate 90 mcg/actuation 2 puff inhalation Q6H PRN ASTHMA 09/14/21 12/16/24 History aerosol inhaler (ProAir HFA) amoxicillin 875 mg-potassium 1 tab PO BID #20 tabs 12/16/2407/31 Rx clavulanate 125 mg tablet azithromycin 250 mg tablet See Rx Instructions PO .COMPLEX #6 12/16/24 12/16/24 Rx tabs methylprednisolone 4 mg tablets in See Rx Instructions PO PER PKG D IR 12/16/24 12/16/24 Rx a dose pack (Medrol (Ameya)) #21 tabs Nurse's Note: Patient has a cough, chest congestion, wheezing. Patient states she had sinus but that moved and settled in her chest. [facility] Medical History (Updated 12/16/24 @ 11:10 by Arvin HECK, PA) Right lower lobe pulmonary infiltrate Acute otitis media, bilateral Kidney stones Migraine headache Syncope Non-smoker Asthma History of echocardiogram History of stress test Cardiology follow-up encounter Factor V Leiden Surgical History History of hysteroscopy H/O ovarian cystectomy Hx of laparoscopy History of right oophorectomy Dermoid cyst Family History Grandmother auto immune hepititis Lupus Lymphoma Grandfather AAA (abdominal aortic aneurysm) Heart disease Social History number of children: 0 current occupational status: employed current occupation: [employer] Smoking Status: Never smoker alcohol intake: never substance use type: does not use caffeine: Yes Type: carbonated beverages Number of servings: 1 what type of physical activity do you participate in: walking frequency: daily seatbelt use: always do you feel safe at home: Yes additional social history: single- works at [employer] and [employer] HPI HPI Details: EMMANUEL ROJAS, is a 39 F who presents to the office today for initial evaluation of nonclinic for approximately 1 week history of persistent moist nonproductive cough with chest congestion and occasional wheeze. Patient is particularly concerned as several years ago she was diagnosed with pneumonia and feels she is developing the same symptoms at this time and as result is requesting a chest x-ray. She is a non-smoker. She has taken no vghj-[id number]-[id number] products to assist with symptoms. No close contacts with similar complaints. No other associated symptoms and no other alleviating/aggravating factors. ROS Const Constitutional: No other (as above) Exam Const General: cooperative, healthy appearing and no acute distress Orientation: alert and awake HENNH Head: normal to inspection Ears: hearing grossly normal bilaterally, external ears normal, EAC's normal and TM abnormal bulging bilaterally (R>L) and erythematous bilaterally Nose: external nose normal, nares normal, septum normal and no nasal discharge Face and sinus: normal facial exam, sinuses nontender and face symmetric Mouth: oral mucosae normal, lip normal, tongue normal, oropharynx normal and moist mucous membranes Throat: posterior oropharynx normal, tonsils normal, uvula midline and no postnasal drainage Eyes General: appearance normal, both eyes and all related structures Neck Neck: normal visual inspection, full ROM, no lymphadenopathy, no meningeal signs and supple Neck mass: No Thyroid: thyroid normal Lymphatic: no lymphadenopathy noted Chest Chest palpation inspection: normal inspection of the chest Resp Effort Inspection: normal respiratory effort and able to speak in complete sentences Auscultation: Left: Clear to Auscultation and Right: Rales Cardio Palpation: normal PMI Rate: tachycardic Rhythm: regular rhythm Heart Sounds: S1 normal, S2 normal, no gallops, no murmurs and no rubs Pulses: radial pulses present GI Inspection: normal to inspection Palpation: soft Skin General: no rashes or lesions noted Neuro General: patient alert, patient awake and patient oriented x3 Cognition: normal cognition Speech: speech normal Psych Appear (more content not included)... Normal [facility] CBC, Employeeon 07-17-2024 Absolute Lymph 3.19 X10 3/uL Normal 0.83-4.51 [facility] Comment on above: Performed By: #### L 506.0400, L514.7420 #### [facility] [address] [place], [address] Absolute Neut 5.2 X10 3/uL Normal 2.0-7.7 [facility] Comment on above: Performed By: #### L 506.0400, L595.9520 #### [facility] [address] [place], [address] Basophils/100 WBC (Bld) 1.0 % Normal 0-1 [facility] Comment on above: Performed By: #### L 506.0400, L501.9520 #### [facility] [address] [place], [address] Eosinophils/100 WBC (Bld) 5.0 % Normal 0-5 [facility] Comment on above: Performed By: #### L 506.0400, L501.9520 #### [facility] [address] [place], [address] Erythrocyte distribution width (RBC) [Ratio] 13.1 % Normal 11.6-14.6 [facility] Comment on above: Performed By: #### L 506.0400, [id number] #### [facility] [address] [place], [address] Hematocrit (Bld) [Volume fraction] 40.6 % Normal 37-47 [facility] Comment on above: Performed By: #### L 506.0400, L501.9520 #### [facility] [address] [place], [address] Hemoglobin (Bld) [Mass/Vol] 13.3 g/dL Normal 12.0-15.0 [facility] Comment on above: Performed By: #### L 506.0400, L501.9520 #### [facility] [address] [place], [address] Lymphocytes/100 WBC (Bld) 32.5 % Normal 19-41 [facility] Comment on above: Performed By: #### L 506.0400, [id number] #### [facility] [address] [place], [address] MCH (RBC) [Entitic mass] 30.0 pg Normal 27.0-32.0 [facility] Comment on above: Performed By: #### L 506.0400, L501.9520 #### [facility] [address] [place], [address] MCHC (RBC) [Mass/Vol] 32.8 g/dL Normal 32-36 [facility] Comment on above: Performed By: #### L 506.0400, L501.20 #### [facility] [address] [place], [address] MCV (RBC) [Entitic vol] 91.4 fL Normal 81-99 [facility] Comment on above: Performed By: #### L 506.0400, L5.20 #### [facility] [address] [place], [address] Monocytes/100 WBC (Bld) 8.3 % Normal 0-10 [facility] Comment on above: Performed By: #### L 506.0400, L5.20 #### [facility] [address] [place], [address] Neutrophils/100 WBC (Bld) 52.5 % Normal 47-70 [facility] Comment on above: Performed By: #### L 506.0400, L5.20 #### [facility] [address] [place], [address] NRBC # 0.00 10 3/uL Normal 0-5 [facility] Comment on above: Performed By: #### L 506.0400, L5.20 #### [facility] [address] [place], [address] Nucleated RBC (Bld) [#/Vol] 0 10*3/uL Normal 0-5 [facility] Comment on above: Performed By: #### L 506.0400, L5.20 #### [facility] [address] [place], [address] Platelet mean volume (Bld) [Entitic vol] 10.8 fL Normal 6.2-12.0 [facility] Comment on above: Performed By: #### L 506.0400, L5.20 #### [facility] [address] [place], [address] Platelets (Bld) [#/Vol] 297 10*3/uL Normal 150-450 [facility] Comment on above: Performed By: #### L 506.0400, L501.20 #### [facility] [address] [place], [address] RBC (Bld) [#/Vol] 4.44 10*6/uL Normal 4.2-5.[address] [facility] Comment on above: Performed By: #### L 506.0400, L501.20 #### [facility] [address] [place], [address] RDW SD 43.3 fl Normal 35.1-43.9 [facility] Comment on above: Performed By: #### L 506.0400, L501.20 #### [facility] [address] [place], [address] WBC (Bld) [#/Vol] 9.8 10*3/uL Normal 4.4-11.0 [facility] Comment on above: Performed By: #### L 506.0400, L501.20 #### [facility] [address] [place], [address] [employer] 4 Albumin [Mass/Vol] 3.6 g/dL Normal 3.2-5.0 [facility] Comment on above: Performed By: #### L 506.0400, L5.20 #### [facility] [address] [place], [address] Albumin/Globulin [Mass ratio] 1.0 {ratio} Normal 0.9-2.4 [facility] Comment on above: Performed By: #### L 506.0400, L501.9520 #### [facility] [address] [place], [address] ALK P 74 U/L Normal 45-117 [facility] Comment on above: Performed By: #### L 506.0400, [id number] #### [facility] [address] [place], [address] ALT [Catalytic activity/Vol] 18 U/L Normal 13-56 [facility] Comment on above: Performed By: #### L 506.0400, L501.9520 #### [facility] [address] [place], [address] AST [Catalytic activity/Vol] 15 U/L Normal 15-37 [facility] Comment on above: Performed By: #### L 506.0400, L501.9520 #### [facility] [address] [place], [address] Bilirubin [Mass/Vol] 0.40 mg/dL Normal 0.20-1.00 [facility] Comment on above: Result Comment: For patients on eltrombopag therapy, use of Dimension [place] TBIL is not recommended. Performed By: #### L 506.0400, L501.9520 #### [facility] [address] [place], [address] Bilirubin.direct [Mass/Vol] 0.08 mg/dL Normal 0.00-0.30 [facility] Comment on above: Performed By: #### L 506.0400, L501.9520 #### [facility] [address] [place], [address] BUN/CRE 11.0 RATIO Normal 10-20 [facility] Comment on above: Performed By: #### L 506.0400, [id number] #### [facility] [address] [place], [address] CA,Total 9.0 mg/dL Normal 8.5-10.1 [facility] Comment on above: Performed By: #### L 506.0400, L501.9520 #### [facility] [address] [place], [address] Chloride [Moles/Vol] 105 mmol/L Normal 98-107 [facility] Comment on above: Performed By: #### L 506.0400, [id number] #### [facility] [address] [place], [address] CHOL:HDL 6.50 Normal [facility] Comment on above: Performed By: #### L 506.0400, [id number] #### [facility] [address] [place], [address] Cholesterol [Mass/Vol] 207 mg/dL High 200 [facility] Comment on above: Result Comment: <200 mg/dL Desirable 200-240 mg/dL Borderline >240 mg/dL High Risk Performed By: #### L 506.0400, L501.9520 #### [facility] [address] [place], [address] Cholesterol in HDL [Mass/Vol] 32 mg/dL Low [facility] Comment on above: Result Comment: The drugs N-Acetylcysteine and Metamizole may falsely depress this assay. Reference Range HDL <40 mg/dL Low HDL Cholesterol HDL >or= 60 mg/dL High HDL Cholesterol Performed By: #### L 506.0400, L501.9520 #### [facility] [address] [place], [address] Cholesterol in LDL [Mass/Vol] 141 mg/dL High 0-130 [facility] Comment on above: Performed By: #### L 506.0400, L501.9520 #### [facility] [address] [place], [address] Cholesterol in VLDL [Mass/Vol] 34 mg/dL Normal 5-40 [facility] Comment on above: Performed By: #### L 506.0400, L501.9520 #### [facility] [address] [place], [address] CO2 [Moles/Vol] 28.0 mmol/L Normal 21.0-32.0 [facility] Comment on above: Performed By: #### L 506.0400, L501.9520 #### [facility] [address] [place], [address] Creatinine [Mass/Vol] 0.82 mg/dL Normal 0.55-1.02 [facility] Comment on above: Result Comment: The validity of the calculated GFR GFRAA in patients over 70 years has not been determined. Clinical correlation is essential. Performed By: #### L 506.0400, L501.9520 #### [facility] [address] [place], [address] EST GFR - AA 101 mL/min Normal >60 [facility] Comment on above: Result Comment: Afri can [place] GFR Calc Performed By: #### L 506.0400, L501.9520 #### [facility] [address] [place], [address] GAP 7 Normal 5-15 [facility] Comment on above: Performed By: #### L 506.0400, L501.9520 #### [facility] [address] [place], [address] GFR/1.73 sq M.predicted among non-blacks MDRD (S/P/Bld) [Vol rate/Area] 84 mL/min/{1.73_m2} Normal >60 [facility] Comment on above: Result Comment: Non- GFR Calc Performed By: #### L 506.0400, L501.9520 #### [facility] [address] [place], [address] Globulin (S) [Mass/Vol] 3.6 g/dL Normal 2.2-4.2 [facility] Comment on above: Performed By: #### L 506.0400, L501.9520 #### [facility] [address] [place], [address] Glucose [Mass/Vol] 88 mg/dL Normal 74-106 [facility] Comment on above: Performed By: #### L 506.0400, L501.9520 #### [facility] [address] [place], [address] LDH 205 U/L Normal 84-246 [facility] Comment on above: Performed By: #### L 506.0400, L501.9520 #### [facility] [address] [place], [address] Phosphate [Mass/Vol] 3.7 mg/dL Normal 2.5-4.9 [facility] Comment on above: Performed By: #### L 506.0400, L501.9520 #### [facility] [address] [place], [address] Potassium [Moles/Vol] 4.0 mmol/L Normal 3.5-5.1 [facility] Comment on above: Performed By: #### L 506.0400, L501.9520 #### [facility] [address] [place], [address] Sodium [Moles/Vol] 140 mmol/L Normal 136-145 [facility] Comment on above: Performed By: #### L 506.0400, L501.9520 #### [facility] [address] [place], [address] T PROT 7.2 g/dL Normal 6.4-8.2 [facility] Comment on above: Performed By: #### L 506.0400, L501.9520 #### [facility] [address] [place], [address] Triglyceride [Mass/Vol] 172 mg/dL Normal [facility] Comment on above: Result Comment: The drugs N-Acetylcysteine and Metamizole may falsely depress this assay. Serum Triglycerides Reference Interval Normal <150 mg/dL Borderline high 150 - 199 mg/dL High 200 - 499 mg/dL Very High > or = 500 mg/dL Performed By: #### L 506.0400, L501.9520 #### [facility] [address] [place], [address] Urea nitrogen [Mass/Vol] 9 mg/dL Normal 7-18 [facility] Comment on above: Performed By: #### L 506.0400, L501.9520 #### [facility] [address] [place], [address] URIC 4.8 mg/dL Normal 2.6-6.0 [facility] Comment on above: Result Comment: The drugs N-Acetylcysteine and Metamizole may falsely depress this assay. Performed By: #### L 506.0400, L501.9520 #### [facility] [address] [place], [address] T4 Free Directon 07-17-2024 T4 FREE DIRECT 0.92 ng/dL Normal 0.76-1.46 [facility] Comment on above: Order Comment: Order Date: 05/09/24 Order Info: 3016-3 - TSH Order Info: 30211-11 - T4F Performed By: #### L 506.0400, L501.9520 #### [facility] [address] [place], [address] Thyroid Stim Hormone (TSH)on 07-17-2024 TSH 3.770 uIU/mL High 0.358-3.740 [facility] Comment on above: Order Comment: Order Date: 05/09/24 Order Info: 3016-3 - TSH Order Info: 3027 - T4F Performed By: #### L 506.0400, L501.9520 #### [facility] [address] [place], [address] Pelvic w/ Transvaginalon Pelvic w/ Transvaginal [facility] Imaging Services [address] [place] [address] Pelvic w/ Transvaginal MR#: [id number] Acct: [id number] Name: EMMANUEL ROJAS Rep #: [id number] : 1985 F 38 From: Manuel Luevano MD PCP: Dr. Rocio Obando MD Status: REG CLI Study: Pelvic w/ Transvaginal Date of Exam: 05/14/24 Exam# [id number] Ordering Dr: Neema Mae NP NEUROLOGY STROKE PHYSICIAN-Torito [id number] EXAM: US PELVIS TRANSABDOMINAL AND TRANSVAGINAL, COMPLETE CLINICAL INDICATION: cyst-LTO TECHNIQUE: Transabdominal and endovaginal pelvic ultrasound was performed with grayscale and color Doppler imaging. Endovaginal imaging was used for better evaluation of the endometrium and adnexa. COMPARISON: US Pelvis Transabdominal Endovaginal dated 02/07/2024 FINDINGS: UTERUS/CERVIX: Uterus measures 7.7 x 4.9 x 3.6 cm. Endometrial thickness is 10 mm. Anterior fundal fibroid noted measuring 17 mm in maximum diameter. Additional 11 mm posterior myometrial fibroid. RIGHT OVARY: Surgical absence of the right ovary. LEFT OVARY: Left ovary measures 4.2 x 3.1 x 2.4 cm. Previously noted large cystic mass is no longer seen. Blood flow is present in the left ovary. FREE FLUID: None. US/Pelvic w/ Transvaginal IMPRESSION: 1. Small uterine fibroids. 2. Interval resolution of the left ovarian complex cyst Electronically Signed: Manuel Luevano MD at 16:41 EDT , CC: VERN Mae; Dr. Rocio Obando MD Clerk Carrier: Signed Normal [facility] Breast Limited Unilateralon 02-07-2024 Breast Limited Unilateral [facility] Imaging Services [address] [place] [address] Breast Limited Unilateral MR#: [id number] Acct: [id number] Name: EMMANUEL ROJAS Rep #: [id number] : 1985 F 38 From: Campbell Hernández MD PCP: Dr. Rocio Obando MD Status: REG CLI Study: Breast Limited Unilateral Date of Exam: Exam# [id number] Ordering Dr: Neema Mae NP NEUROLOGY STROKE PHYSICIAN-C [id number] STUDY: ULTRASOUND BREAST - RIGHT REASON FOR EXAM: Female, 38 years old. Palpable mass TECHNIQUE: Axial and longitudinal images of the RIGHT breast were performed with a high resolution ultrasound transducer. # OF IMAGES: 31 COMPARISON: Diagnostic mammogram earlier today, right breast ultrasound 01/27/2020 FINDINGS: RIGHT Breast: Heterogeneous background echotexture. Within the retroareolar right breast there is no change in the 1.4 cm oval parallel circumscribed anechoic mass with posterior enhancement consistent with a cyst. Multiple longitudinal and transverse ultrasound images of the upper outer quadrant right breast in the area of the palpable abnormality do not demonstrate a discrete solid or cystic mass most consistent with normal breast parenchyma.: US/Breast Limited Unilateral IMPRESSION: 1. No change 1.4 cm cyst in the retroareolar right breast. 2. No mass by ultrasound or mammography in the upper outer quadrant right breast most consistent with normal breast recommended. ASSESSMENT CATEGORY: BIRADS Category 2: Benign. A letter regarding these results will be sent to the patient by the facility within 30 days. Electronically Signed: Campbell Hernández MD at 11:31 EDT , CC: VERN Mae; Dr. Rocio Obando MD Clerk Carrier: Signed Normal [facility] DIAG MAMM W/CAD, BILATon DIAG MAMM W/CAD, BILAT [facility] Imaging Services [address] [place] [address] DIAG MAMM W/CAD, BILAT MR#: [id number] Acct: [id number] Name: EMMANUEL ROJAS Rep #: [id number] : 1985 F 38 From: Campbell Hernández MD PCP: Dr. Rocio Obando MD Status: REG CLI Study: DIAG MAMM W/CAD, BILAT Date of Exam: 02/07/24 Exam# [id number] Ordering Dr: Neema Mae NP, NP-C [id number] MAMMOGRAPHY - BILATERAL DIAGNOSTIC REASON FOR EXAM: Female, 38 years old. breast pain/LUMPS PERTINENT HISTORY: Non-contributory. TECHNIQUE: Digital examination. Mediolateral oblique (MLO) and craniocaudad (CC) views of both breasts were obtained. CAD: CAD was performed on this study. COMPARISON: 01/27/2020 FINDINGS: Breast Composition: The breasts are extremely dense, which lowers the sensitivity of mammography. There are no dominant masses or suspicious calcifications. No other significant abnormalities are identified. BI/DIAG MAMM W/CAD, BILAT IMPRESSION: Stable bilateral diagnostic mammogram. Ultrasound of the palpable abnormalities in the right breast will be obtained. ASSESSMENT CATEGORY: BIRADS Category 0: Incomplete. Need additional imaging evaluation. A letter regarding these results will be sent to the patient by the facility within 30 days. FOLLOW UP RECOMMENDATION: Ultrasound Recommended. (I) Approximately 10% of breast cancers are not detected by mammography. A normal mammogram should not delay biopsy of a clinically suspicious abnormality. Electronically Signed: Campbell Hernández MD at 9:40 EDT , CC: VERN Mae; Dr. Rocio Obando MD Clerk Carrier: Signed Normal [facility] Pelvic w/ Transvaginalon Pelvic w/ Transvaginal [facility] Imaging Services [address] [place] [address] Pelvic w/ Transvaginal MR#: [id number] Acct: [id number] Name: EMMANUEL ROJAS Rep #: [id number] : 1985 F 38 From: Campbell Hernández MD PCP: Dr. Rocio Obando MD Status: [facility] Study: Pelvic w/ Transvaginal Date of Exam: 02/07/24 Exam# [id number] Ordering Dr: Neema Mae NP [id number] STUDY: ULTRASOUND OF THE FEMALE PELVIS - COMPLETE REASON FOR EXAM: Female, 38 years old. ovarian cyst LMP: 01/18/2024 TECHNIQUE: Transabdominal and Transvaginal TECHNICAL QUALITY: Adequate. COMPARISON: 11/02/2023 FINDINGS: The uterus is anteverted and is in a midline position. The uterus measures 8.9 x 5.0 x 4.7 cm. Normal uterine cervix. The endometrium measures 16 mm in thickness, and is hyperechoic. There is no demonstrated endometrial mass. No change in 1.8 cm oval hypoechoic mass within the anterior fundus of uterus consistent with an intramural fibroid. Also no change in 1.8 cm hypoechoic mass in the posterior body the uterus consistent with an intramural fibroid. I.U.D. - The patient does not have an I.U.D. Status post right oophorectomy.. The left ovary is visualized. The left ovary measures 5.4 x 5.2 x 5.0 cm. 4 cm oval anechoic mass with increased transverse left ovary consistent with a corpus luteum cyst. There is no visualized left adnexal mass or complex lesion. There is normal arterial and normal venous vascularity. There is no fluid in the cul-de-sac. The pre void volume of the bladder was ml. The post void volume of the bladder was ml. Polycystic ovary disease: No. US/Pelvic w/ Transvaginal IMPRESSION: 1. Small uterine fibroids but overall normal sized uterus. 2. 4.0 cm left ovarian corpus luteum cyst. Electronically Signed: Campbell Hernández MD at 16:09 EDT , CC: VERN Mae; Dr. Rocio Obando MD Clerk Carrier: Signed Normal [facility] CBC W/Diff, Automatedon 01-05 Absolute Lymph 3.04 X10 3/uL Normal 0.83-4.51 [facility] Comment on above: Order Comment: Order Date: 01/17/24 Order Info: 0184-1 - CBCD Performed By: #### L 501.9520, L506.0400, L100.0100, L500.4050, L501.16881 #### [facility] [place], [address] Absolute Neut 4.1 X10 3/uL Normal 2.0-7.7 [facility] Comment on above: Order Comment: Order Date: 01/17/24 Order Info: 0184-1 - CBCD Performed By: #### L 501.9520, L506.0400, L100.0100, L500.4050, L501.90474 #### [facility] [address] [place], [address] Basophils/100 WBC (Bld) 0.7 % Normal 0-1 [facility] Comment on above: Order Comment: Order Date: 01/17/24 Order Info: 0184- - CBCD Performed By: #### L 501.9520, L506.0400, L100.0100, L500.4050, L501.48061 #### [facility] [address] [place], [address] Eosinophils/100 WBC (Bld) 4.5 % Normal 0-5 [facility] Comment on above: Order Comment: Order Date: 01/17/24 Order Info: 018- - CBCD Performed By: #### L 501.9520, L506.0400, L100.0100, L500.4050, L501.51461 #### [facility] [address] [place], [address] Erythrocyte distribution width (RBC) [Ratio] 12.7 % Normal 11.6-14.6 [facility] Comment on above: Order Comment: Order Date: 01/17/24 Order Info: 018- - CBCD Performed By: #### L 501.9520, L506.0400, L100.0100, L500.4050, L501.04008 #### [facility] [address] [place], [address] Hematocrit (Bld) [Volume fraction] 40.9 % Normal 37-47 [facility] Comment on above: Order Comment: Order Date: 01/17/24 Order Info: 018-1 - CBCD Performed By: #### L 501.9520, L506.0400, L100.0100, L500.4050, L501.03046 #### [facility] [address] [place], [address] Hemoglobin (Bld) [Mass/Vol] 13.0 g/dL Normal 12.0-15.0 [facility] Comment on above: Order Comment: Order Date: 01/17/24 Order Info: 0184-1 - CBCD Performed By: #### L 501.9520, L506.0400, L100.0100, L500.4050, L501.18434 #### [facility] [address] [place], [address] IG% 0.500 Normal 0.0-0.9 [facility] Comment on above: Order Comment: Order Date: 01/17/24 Order Info: 01811-05 - CBCD Result Comment: IG% - Immature Granulocytes (promyelocytes, myelocytes and metamyelocytes) > 1% indicates that a LEFT SHIFT is Present. Performed By: #### L 501.9520, L506.0400, L100.0100, L500.4050, L501.89859 #### [facility] [address] [place], [address] Lymphocytes/100 WBC (Bld) 37.1 % Normal 19-41 [facility] Comment on above: Order Comment: Order Date: 01/17/24 Order Info: 0184-1 - CBCD Performed By: #### L 501.9520, L506.0400, L100.0100, L500.4050, L501.57431 #### [facility] [address] [place], [address] MCH (RBC) [Entitic mass] 29.6 pg Normal 27.0-32.0 [facility] Comment on above: Order Comment: Order Date: 01/17/24 Order Info: 0184- - CBCD Performed By: #### L 501.9520, L506.0400, L100.0100, L500.4050, L501.01072 #### [facility] [address] [place], [address] MCHC (RBC) [Mass/Vol] 31.8 g/dL Low 32-36 [facility] Comment on above: Order Comment: Order Date: 01/17/24 Order Info: 0184-1 - CBCD Performed By: #### L 501.9520, L506.0400, L100.0100, L500.4050, L501.25936 #### [facility] [address] [place], [address] MCV (RBC) [Entitic vol] 93.2 fL Normal 81-99 [facility] Comment on above: Order Comment: Order Date: 01/17/24 Order Info: 018- - CBCD Performed By: #### L 501.9520, L506.0400, L100.0100, L500.4050, L501.47576 #### [facility] [address] [place], [address] Monocytes/100 WBC (Bld) 7.4 % Normal 0-10 [facility] Comment on above: Order Comment: Order Date: 01/17/24 Order Info: 0184- - CBCD Performed By: #### L 501.9520, L506.0400, L100.0100, L500.4050, L501.86424 #### [facility] [address] [place], [address] Neutrophils/100 WBC (Bld) 49.8 % Normal 47-70 [facility] Comment on above: Order Comment: Order Date: 01/17/24 Order Info: 0184-1 - CBCD Performed By: #### L 501.9520, L506.0400, L100.0100, L500.4050, L501.94617 #### [facility] [address] [place], [address] Nucleated RBC (Bld) [#/Vol] 0 10*3/uL Normal 0-5 [facility] Comment on above: Order Comment: Order Date: 01/17/24 Order Info: 0184- - CBCD Performed By: #### L 501.9520, L506.0400, L100.0100, L500.4050, L501.35739 #### [facility] [address] [place], [address] Platelet mean volume (Bld) [Entitic vol] 10.9 fL Normal 6.2-12.0 [facility] Comment on above: Order Comment: Order Date: 01/17/24 Order Info: 018- - CBCD Performed By: #### L 501.9520, L506.0400, L100.0100, L500.4050, L501.60625 #### [facility] [address] [place], [address] Platelets (Bld) [#/Vol] 300 10*3/uL Normal 150-450 [facility] Comment on above: Order Comment: Order Date: 01/17/24 Order Info: 018- - CBCD Performed By: #### L 501.9520, L506.0400, L100.0100, L500.4050, L501.80411 #### [facility] [address] [place], [address] RBC (Bld) [#/Vol] 4.39 10*6/uL Normal 4.2-5.[address] [facility] Comment on above: Order Comment: Order Date: 01/17/24 Order Info: 0184- - CBCD Performed By: #### L 501.9520, L506.0400, L100.0100, L500.4050, L501.51384 #### [facility] [address] [place], [address] RDW SD 43.9 fl Normal 35.1-43.9 [facility] Comment on above: Order Comment: Order Date: 01/17/24 Order Info: 0184- - CBCD Performed By: #### L 501.9520, L506.0400, L100.0100, L500.4050, L501.92295 #### [facility] [address] [place], [address] WBC (Bld) [#/Vol] 8.2 10*3/uL Normal 4.4-11.0 [facility] Comment on above: Order Comment: Order Date: 01/17/24 Order Info: 0184-1 - CBCD Performed By: #### L 501.9520, L506.0400, L100.0100, L500.4050, L501.10023 #### [facility] [address] [place], [address] Comprehensive Metabolic Prof wion 01-18-2024 Albumin [Mass/Vol] 3.5 g/dL Normal 3.2-5.0 [facility] Comment on above: Order Comment: Order Date: 01/17/24 Order Info: 0786-1 - CMP Order Info: 3051-0 - T3F Order Info: 3016-3 - TSH Order Info: 3024-7 - T4F Performed By: #### L 501.9520, L506.0400, L100.0100, L500.4050, L501.76671 #### [facility] [address] [place], [address] Albumin/Globulin [Mass ratio] 0.8 {ratio} Low 0.9-2.4 [facility] Comment on above: Order Comment: Order Date: 01/17/24 Order Info: 0786-1 - CMP Order Info: 3051-0 - T3F Order Info: 3016-3 - TSH Order Info: 3024-7 - T4F Performed By: #### L 501.9520, L506.0400, L100.0100, L500.4050, L501.19197 #### [facility] [address] [place], [address] ALK P 59 U/L Normal 45-117 [facility] Comment on above: Order Comment: Order Date: 01/17/24 Order Info: 86-1 - CMP Order Info: 3051-0 - T3F Order Info: 3016-3 - TSH Order Info: 3024-7 - T4F Performed By: #### L 501.9520, L506.0400, L100.0100, L500.4050, L501.16806 #### [facility] [address] [place], [address] ALT [Catalytic activity/Vol] 19 U/L Normal 13-56 [facility] Comment on above: Order Comment: Order Date: 01/17/24 Order Info: 785-1 - CMP Order Info: 3051-0 - T3F Order Info: 3016-3 - TSH Order Info: 3024-7 - T4F Performed By: #### L 501.9520, L506.0400, L100.0100, L500.4050, L501.09426 #### [facility] [address] [place], [address] AST [Catalytic activity/Vol] 23 U/L Normal 15-37 [facility] Comment on above: Order Comment: Order Date: 01/17/24 Order Info: 785-1 - CMP Order Info: 3051-0 - T3F Order Info: 3016-3 - TSH Order Info: 3024-7 - T4F Performed By: #### L 501.9520, L506.0400, L100.0100, L500.4050, L501.62399 #### [facility] [address] [place], [address] Bilirubin [Mass/Vol] 0.30 mg/dL Normal 0.20-1.00 [facility] Comment on above: Order Comment: Order Date: 01/17/24 Order Info: 0786-1 - CMP Order Info: 3051-0 - T3F Order Info: 3016-3 - TSH Order Info: 3024-7 - T4F Result Comment: For patients on eltrombopag therapy, use of Dimension [place] TBIL is not recommended. Performed By: #### L 501.9520, L506.0400, L100.0100, L500.4050, L501.44043 #### [facility] [address] [place], [address] BUN/CRE 14.9 RATIO Normal 10-20 [facility] Comment on above: Order Comment: Order Date: 01/17/24 Order Info: 0786-1 - CMP Order Info: 3051-0 - T3F Order Info: 3016-3 - TSH Order Info: 3024-7 - T4F Performed By: #### L 501.9520, L506.0400, L100.0100, L500.4050, L501.48465 #### [facility] [address] [place], [address] CA,Total 8.5 mg/dL Normal 8.5-10.1 [facility] Comment on above: Order Comment: Order Date: 01/17/24 Order Info: 07-1 - CMP Order Info: 3051-0 - T3F Order Info: 3016-3 - TSH Order Info: 3024-7 - T4F Performed By: #### L 501.9520, L506.0400, L100.0100, L500.4050, L501.32061 #### [facility] [address] [place], [address] Chloride [Moles/Vol] 107 mmol/L Normal 98-107 [facility] Comment on above: Order Comment: Order Date: 01/17/24 Order Info: 0786-1 - CMP Order Info: 3051-0 - T3F Order Info: 3016-3 - TSH Order Info: 3024-7 - T4F Performed By: #### L 501.9520, L506.0400, L100.0100, L500.4050, L501.22033 #### [facility] [address] [place], [address] CO2 [Moles/Vol] 23.0 mmol/L Normal 21.0-32.0 [facility] Comment on above: Order Comment: Order Date: 01/17/24 Order Info: 86-1 - CMP Order Info: 3050-0 - T3F Order Info: 3 - TSH Order Info: 3024-02 - T4F Performed By: #### L 501.9520, L506.0400, L100.0100, L500.4050, L501.11949 #### [facility] [address] [place], [address] Creatinine [Mass/Vol] 0.80 mg/dL Normal 0.55-1.02 [facility] Comment on above: Order Comment: Order Date: 01/17/24 Order Info: 785-1 - CMP Order Info: 0 - T3F Order Info: 3015-10 - TSH Order Info: 7 - T4F Result Comment: The validity of the calculated GFR GFRAA in patients over 70 years has not been determined. Clinical correlation is essential. Performed By: #### L 501.9520, L506.0400, L100.0100, L500.4050, L501.46350 #### [facility] [address] [place], [place], [address] EST GFR - AA 104 mL/min Normal >60 [facility] Comment on above: Order Comment: Order Date: 01/17/24 Order Info: 785-1 - CMP Order Info: 0 - T3F Order Info: 3015-10 - TSH Order Info: 7 - T4F Result Comment: Afri can [place] GFR Calc Performed By: #### L 501.9520, L506.0400, L100.0100, L500.4050, L501.90749 #### [facility] [address] [place], [address] GAP 9 Normal 5-15 [facility] Comment on above: Order Comment: Order Date: 01/17/24 Order Info: 785-1 - CMP Order Info: 0 - T3F Order Info: 3016-3 - TSH Order Info: 3024-7 - T4F Performed By: #### L 501.9520, L506.0400, L100.0100, L500.4050, L501.41787 #### [facility] [address] [place], [address] GFR/1.73 sq M.predicted among non-blacks MDRD (S/P/Bld) [Vol rate/Area] 86 mL/min/{1.73_m2} Normal >60 [facility] Comment on above: Order Comment: Order Date: 01/17/24 Order Info: 07-1 - CMP Order Info: 3050-0 - T3F Order Info: 3 - TSH Order Info: 7 - T4F Result Comment: Non- GFR Calc Performed By: #### L 501.9520, L506.0400, L100.0100, L500.4050, L501.73784 #### [facility] [address] [place], [address] Globulin (S) [Mass/Vol] 4.3 g/dL High 2.2-4.2 [facility] Comment on above: Order Comment: Order Date: 01/17/24 Order Info: 0786- - CMP Order Info: 3050-0 - T3F Order Info: 3 - TSH Order Info: 7 - T4F Performed By: #### L 501.9520, L506.0400, L100.0100, L500.4050, L501.79130 #### [facility] [address] [place], [address] Glucose [Mass/Vol] 88 mg/dL Normal 74-106 [facility] Comment on above: Order Comment: Order Date: 01/17/24 Order Info: 0786-1 - CMP Order Info: 1-0 - T3F Order Info: 3 - TSH Order Info: 7 - T4F Performed By: #### L 501.9520, L506.0400, L100.0100, L500.4050, L501.16117 #### [facility] [address] [place], [address] Potassium [Moles/Vol] 3.9 mmol/L Normal 3.5-5.1 [facility] Comment on above: Order Comment: Order Date: 01/17/24 Order Info: 0786-1 - CMP Order Info: 3051-0 - T3F Order Info: 3016-3 - TSH Order Info: 3024-7 - T4F Performed By: #### L 501.9520, L506.0400, L100.0100, L500.4050, L501.53829 #### [facility] [address] [place], [address] Sodium [Moles/Vol] 139 mmol/L Normal 136-145 [facility] Comment on above: Order Comment: Order Date: 01/17/24 Order Info: 0786-1 - CMP Order Info: 3051-0 - T3F Order Info: 3016-3 - TSH Order Info: 3024-7 - T4F Performed By: #### L 501.9520, L506.0400, L100.0100, L500.4050, L501.61371 #### [facility] [address] [place], [address] T PROT 7.8 g/dL Normal 6.4-8.2 [facility] Comment on above: Order Comment: Order Date: 01/17/24 Order Info: 0786-1 - CMP Order Info: 3051-0 - T3F Order Info: 3016-3 - TSH Order Info: 3024-7 - T4F Performed By: #### L [id number], L506.0400, L100.0100, L500.4050, L501.58125 #### [facility] [address] [place], [address] Urea nitrogen [Mass/Vol] 12 mg/dL Normal 7-18 [facility] Comment on above: Order Comment: Order Date: 01/17/24 Order Info: 86-1 - CMP Order Info: 3051-0 - T3F Order Info: 3016-3 - TSH Order Info: 3024-7 - T4F Performed By: #### L 501.9520, L506.0400, L100.0100, L500.4050, L501.30630 #### [facility] [address] [place], [address] Free T3on 01-18-2024 Free T3 [Mass/Vol] 2.9 pg/mL Normal 2.18-3.98 [facility] Comment on above: Order Comment: Order Date: 01/17/24 Order Info: 785-1 - CMP Order Info: 3051-0 - T3F Order Info: 3016-3 - TSH Order Info: 3027 - T4F Performed By: #### L 501.9520, L506.0400, L100.0100, L500.4050, L501.96078 #### [facility] [address] [place], [address] T4 Free Directon 01-18-2024 T4 FREE DIRECT 0.93 ng/dL Normal 0.76-1.46 [facility] Comment on above: Order Comment: Order Date: 01/17/24 Order Info: 785-1 - CMP Order Info: 3051-0 - T3F Order Info: 3016-3 - TSH Order Info: 302-7 - T4F Performed By: #### L 501.9520, L506.0400, L100.0100, L500.4050, L501.47014 #### [facility] [address] [place], [address] Thyroid Stim Hormone (TSH)on 01-18-2024 TSH 3.89 uIU/mL High 0.358-3.74 [facility] Comment on above: Order Comment: Order Date: 01/17/24 Order Info: 0786-1 - CMP Order Info: 3051-0 - T3F Order Info: 3016-3 - TSH Order Info: 3024-7 - T4F Performed By: #### L 501.9520, L506.0400, L100.0100, L500.4050, L501.89970 #### [facility] [address] [place], [address] Basophil percentageOrdered B y: Yolande Brizuela on 02-14-2023 WBC (Bld) [#/Vol] 8.4 10*3/uL 4.4-11.0 [facility] Blood erythrocytes count (nu mber/volume)Ordered By: Yolande Brizuela on 02-14-2023 RBC (Bld) [#/Vol] 4.53 10*6/uL 4.2-5.[address] [facility] Blood hemoglobin measurement (mass/volume)Ordered By: Yolande Brizuela on 02-14-2023 Hemoglobin (Bld) [Mass/Vol] 13.4 g/dL 12.0-15.0 [facility] Blood platelet mean volumeOr dered By: Yolande Brizuela on 02-14-2023 Platelet mean volume (Bld) [Entitic vol] 10.6 fL 6.2-12.0 [facility] Determination of erythrocyte mean corpuscular volume (MCV)Ordered By: Yolande Brizuela on 02-14-2023 MCV (RBC) [Entitic vol] 91.6 fL 81-99 [facility] Hematocrit Auto (Bld) [Volum e fraction]Ordered By: Yolande Brizuela on 02-14-2023 Hematocrit (Bld) [Volume fraction] 41.5 % 37-47 [facility] - Chemistry and C hemistry - challengeOrdered By: Yolande Brizuela on 02-14-2023 HCG ( test) Ql (U) Negative [facility] Comment on above: Very dilute urine sp ecimens, as indicated by a low specificgravity, may not contain agency sales representative levels of hCG. If is still suspected, a first morning urinespecimen should be collected 48 hours later and tested. Laboratory - Hematology and Cell countsOrdered By: Yolande Brizuela on 02-14-2023 Erythrocyte distribution width (RBC) [Entitic vol] 41.6 fL 35.1-43.9 [facility] Erythrocyte distribution width (RBC) [Ratio] 12.6 % 11.6-14.6 [facility] MCH (RBC) [Entitic mass] 29.6 pg 27.0-32.0 [facility] MCHC Auto (RBC) [Mass/Vol]Or dered By: Yolande Brizuela on 02-14-2023 MCHC (RBC) [Mass/Vol] 32.3 g/dL 32-36 [facility] Platelets bldOrdered By: Taiwo Brizuela on 02-14-2023 Platelets (Bld) [#/Vol] 269 10*3/uL 150-450 [facility] Culture, urineOrdered By: Dr Nisreen Brizuela on 11-11-2022 Bacteria identified Cx Nom (U) Culture exhibits no growth. [facility] Basophil percentageOrdered B y: Dr. Brizuela on 11-09-2022 Basophil percentage 0 SEEN /hpf 0-5 [facility] Bilirubin Test strip Ql (U)O rdered By: Dr. Brizuela on 11-09-2022 Bilirubin Ql (U) Negative Negative [facility] Culture, urineOrdered By: Bruce Brizuela on 11-09-2022 Bacteria identified Cx Nom (U) Culture exhibits no growth. [facility] Ketones Test strip Ql (U)Ord ered By: Dr. Brizuela on 11-09-2022 Ketones Ql (U) Negative Negative [facility] Mucus LM Ql (Urine sed)Order ed By: Dr. Brizuela on 11-09-2022 Mucus Ql (Urine sed) 0 SEEN /hpf [facility] Nitrite Test strip Ql (U)Ord ered By: Dr. Brizuela on 11-09-2022 Nitrite Ql (U) Negative Negative [facility] Protein Test strip Ql (U)Ord ered By: Dr. Brizuela on 11-09-2022 Protein Ql (U) 15 mg/dl Negative [facility] Squamous epithelial cells de tection in urine sediment by light microscopyOrdered By: Dr. Brizuela on 11-09-2022 Epithelial cells.squamous LM Ql (Urine sed) 0 SEEN /hpf 5-10 [facility] Urine blood detectionOrdered By: Dr. Brizuela on 11-09-2022 RBC Ql (U) 150 /ul Negative [facility] RBC Ql (U) 0-5 SEEN /hpf 0-5 [facility] Urine clarityOrdered By: Dr. Brizuela on 11-09-2022 Clarity (U) Clear Clear [facility] Urine color determinationOrd ered By: Dr. Brizuela on 11-09-2022 Color (U) Yellow Yellow [facility] Urine glucose detectionOrder ed By: Dr. Brizuela on 11-09-2022 Glucose Ql (U) Normal mg/dl Normal [facility] Urine leukocyte esterase det ection by dipstickOrdered By: Dr. Brizuela on 11-09-2022 Leukocyte esterase Test strip Ql (U) Negative Negative [facility] Urine pHOrdered By: Dr. Rogelio gutierrez on 11-09-2022 pH (U) 7.0 [pH] 5.0 - 8.0 [facility] Urine sediment bacteria coun t by microscopy (number/high power field)Ordered By: Dr. Brizuela on 11-09-2022 Bacteria LM.HPF (Urine sed) [#/Area] 0 /[HPF] None Seen [facility] Urine specific gravity measu rementOrdered By: Dr. Brizuela on 11-09-2022 Specific gravity (U) [Rel density] 1.015 1.002-1.030 [facility] Urobilinogen Auto test strip Ql (U)Ordered By: Dr. Brizuela on 11-09-2022 Urobilinogen Ql (U) Normal mg/dl Normal [facility] Chlamydia trachomatis rRNA d etection by probe and target amplification methodOrdered By: Dr. Brizuela on 11-04-2022 C. trachomatis rRNA SHILPI+probe Ql (Unsp spec) Negative Negative [facility] Culture, urineOrdered By: Dr Nisreen Brizuela on 11-04-2022 Bacteria identified Cx Nom (U) Mixed Gram Pos & Gram Neg Org [facility] - Microbiology an d Antimicrobial susceptibilityOrdered By: Dr. Brizuela on 11-04-2022 N. gonorrhoeae DNA SHILPI+probe Ql (Unsp spec) Negative Negative [facility] Comment on above: Performed at: [address] [id number] Director: Soo Tariq MD, Phone: [phone] Absolute lymphocyte countOrd ered By: Dr. Brizuela on 11-03-2022 Lymphocytes Auto (Unsp spec) [#/Vol] 2.92 10*3/uL 0.83-4.51 [facility] Basophil percentageOrdered B y: Dr. Brizuela on 11-03-2022 Basophils/100 WBC (Bld) 0.7 % 0-1 [facility] Bilirubin [Mass/Vol] 0.30 mg/dL 0.20-1.00 [facility] Comment on above: For patients on eltr ombopag therapy, use of Dimension [place] TBIL is not recommended. Chloride [Moles/Vol] 106 mmol/L 98-107 [facility] Eosinophils/100 WBC (Bld) 1.2 % 0-5 [facility] Glucose [Mass/Vol] 88 mg/dL 74-106 [facility] Neutrophils (Bld) [#/Vol] 6.8 10*3/uL 2.0-7.7 [facility] Neutrophils/100 WBC (Bld) 63.1 % 47-70 [facility] Potassium [Moles/Vol] 3.9 mmol/L 3.5-5.1 [facility] Protein [Mass/Vol] 7.9 g/dL 6.4-8.2 [facility] Sodium [Moles/Vol] 138 mmol/L 136-145 [facility] WBC (Bld) [#/Vol] 10.8 10*3/uL 4.4-11.[address] [facility] Blood erythrocytes count (nu mber/volume)Ordered By: Dr. Brizuela on 11-03-2022 RBC (Bld) [#/Vol] 4.37 10*6/uL 4.2-5.[address] [facility] Blood hemoglobin measurement (mass/volume)Ordered By: Dr. Brizuela on 11-03-2022 Hemoglobin (Bld) [Mass/Vol] 13.1 g/dL 12.0-15.0 [facility] Blood lymphocytes/100 leukoc ytesOrdered By: Dr. Brizuela on 11-03-2022 Lymphocytes/100 WBC (Bld) 27.0 % 19-41 [facility] Blood monocytes/100 leukocyt esOrdered By: Dr. Brizuela on 11-03-2022 Monocytes/100 WBC (Bld) 7.6 % 0-10 [facility] Blood platelet mean volumeOr dered By: Dr. Brizuela on 11-03-2022 Platelet mean volume (Bld) [Entitic vol] 11.3 fL 6.2-12.0 [facility] Culture, urineOrdered By: Bruce Brizuela on 11-03-2022 Bacteria identified Cx Nom (U) Mixed Gram Pos & Gram Neg Org [facility] Determination of erythrocyte mean corpuscular volume (MCV)Ordered By: Dr. Brizuela on 11-03-2022 MCV (RBC) [Entitic vol] 92.4 fL 81-99 [facility] Hematocrit Auto (Bld) [Volum e fraction]Ordered By: Dr. Brizuela on 11-03-2022 Hematocrit (Bld) [Volume fraction] 40.4 % 37-47 [facility] - Chemistry and C hemistry - challengeOrdered By: Dr. Brizuela on 11-03-2022 ALP [Catalytic activity/Vol] 65 U/L 45-117 [facility] ALT [Catalytic activity/Vol] 18 U/L 13-56 [facility] CO2 [Moles/Vol] 28.0 mmol/L 21.0-32.0 [facility] Globulin (S) [Mass/Vol] 4.1 g/dL 2.2-4.2 [facility] Urea nitrogen/Creatinine [Mass ratio] 11.0 mg/mg 10-20 [facility] - Hematology and Cell countsOrdered By: Dr. Brizuela on 11-03-2022 Erythrocyte distribution width (RBC) [Entitic vol] 43.8 fL 35.1-43.9 [facility] Erythrocyte distribution width (RBC) [Ratio] 13.0 % 11.6-14.6 [facility] Immature granulocytes/100 WBC (Bld) 0.400 % 0.0-0.9 [facility] Comment on above: IG% - Immature Granu locytes (promyelocytes, myelocytes and metamyelocytes) > 1% indicates that a LEFT SHIFT is Present. MCH (RBC) [Entitic mass] 30.0 pg 27.0-32.0 [facility] Nucleated RBC/100 WBC (Bld) [Ratio] 0 % 0-5 [facility] MCHC Auto (RBC) [Mass/Vol]Or dered By: Dr. Brizuela on 11-03-2022 MCHC (RBC) [Mass/Vol] 32.4 g/dL 32-36 [facility] No Panel InformationOrdered By: Dr. Brizuela on 11-03-2022 CA 125 Antigen Serial Monitor Not Reportable [facility] Carcinoembryonic Ag Serial Monitor Not Reportable [facility] Estimated GFR (MDRD) Amer 102 mL/min >60 [facility] Comment on above: GFR Calc Estimated GFR (MDRD) Non-Af Amer 85 mL/min >60 [facility] Comment on above: Non- GFR Calc Platelets bldOrdered By: Dr. Brizuela on 11-03-2022 Platelets (Bld) [#/Vol] 286 10*3/uL 150-450 [facility] Serum or plasma albumin jules urement (mass/volume)Ordered By: Dr. Brizuela on 11-03-2022 Albumin [Mass/Vol] 3.8 g/dL 3.2-5.0 [facility] Serum or plasma albumin/glob ulin mass ratioOrdered By: Dr. Brizuela on 11-03-2022 Albumin/Globulin [Mass ratio] 0.9 {ratio} 0.9-2.4 [facility] Serum or plasma calcium jules urement (mass/volume)Ordered By: Dr. Brizuela on 11-03-2022 Calcium [Mass/Vol] 9.0 mg/dL 8.5-10.1 [facility] Serum or plasma cancer antig en 125 (CA-125) measurement (units/volume)Ordered By: Dr. Brizuela on 11-03-2022 Cancer Ag 125 Qn 15.5 [arb'U]/mL 0.0-38.1 [facility] Comment on above: [employer] El ectrochemiluminescence Immunoassay(ECLIA)Values obtained with different assay methods or kits cannotbe used interchangeably. Results cannot be interpreted asabsolute evidence of the presence or absence of malignantdisease. Serum or plasma carcinoembry onic antigen measurement (mass/volume)Ordered By: Dr. Brizuela on 11-03-2022 Carcinoembryonic Ag [Mass/Vol] 0.7 ng/mL 0.0-4.7 [facility] Comment on above: Nonsmokers <3.9 Smok ers <5.6[employer] Electrochemiluminescence Immunoassay(ECLIA)Values obtained with different assay methods or kitscannot be used interchangeably. Results cannot beinterpreted as absolute evidence of the presence orabsence of malignant disease.Performed at: [facility] [address] [id number] Director: Maurilio Feliz PhD, Phone: [phone] Serum or plasma creatinine m easurement (mass/volume)Ordered By: Dr. Brizuela on 11-03-2022 Creatinine [Mass/Vol] 0.82 mg/dL 0.55-1.02 [facility] Comment on above: The validity of the calculated GFR & GFRAA in patients over 70 years has not been determined. Clinical correlation is essential. Serum or plasma urea nitroge n measurement (mass/volume)Ordered By: Dr. Brizuela on 11-03-2022 Urea nitrogen [Mass/Vol] 9 mg/dL 7-18 [facility] Thin prep Papanicolaou smear with manual screeningOrdered By: Dr. Brizuela on 11-03-2022 Thin prep Papanicolaou smear with manual screening 14 U/L 15-37 [facility] Thin prep Papanicolaou smear with manual screening 4 5-15 [facility] Absolute lymphocyte countOrd ered By: ED PROVIDER on 11-02-2022 Lymphocytes Auto (Unsp spec) [#/Vol] 1.65 10*3/uL 0.83-4.51 [facility] Basophil percentageOrdered B y: ED PROVIDER on 11-02-2022 Basophil percentage 0-5 SEEN /hpf 0-5 [facility] Basophils/100 WBC (Bld) 0.4 % 0-1 [facility] Eosinophils/100 WBC (Bld) 0.4 % 0-5 [facility] Neutrophils (Bld) [#/Vol] 13.0 10*3/uL 2.0-7.7 [facility] Neutrophils/100 WBC (Bld) 82.5 % 47-70 [facility] WBC (Bld) [#/Vol] 15.8 10*3/uL 4.4-11.[address] [facility] Basophil percentageOrdered B y: Dr. Puente on 11-02-2022 Bilirubin [Mass/Vol] 0.40 mg/dL 0.20-1.00 [facility] Comment on above: For patients on eltr ombopag therapy, use of Dimension [place] TBIL is not recommended. Chloride [Moles/Vol] 107 mmol/L 98-107 [facility] Glucose [Mass/Vol] 140 mg/dL 74-106 [facility] Comment on above: Fasting Glucose resu lt greater than or equal to 126 mg/dL suggests DIABETES MELLITUS per A.D.A. criteria. Potassium [Moles/Vol] 4.0 mmol/L 3.5-5.1 [facility] Protein [Mass/Vol] 7.5 g/dL 6.4-8.2 [facility] Sodium [Moles/Vol] 136 mmol/L 136-145 [facility] Beta hCG serum qualOrdered B y: ED PROVIDER on 11-02-2022 Beta HCG ( test) Ql Negative [facility] Bilirubin Test strip Ql (U)O rdered By: ED PROVIDER on 11-02-2022 Bilirubin Ql (U) Negative Negative [facility] Blood erythrocytes count (nu mber/volume)Ordered By: ED PROVIDER on 11-02-2022 RBC (Bld) [#/Vol] 4.41 10*6/uL 4.2-5.[address] [facility] Blood hemoglobin measurement (mass/volume)Ordered By: ED PROVIDER on 11-02-2022 Hemoglobin (Bld) [Mass/Vol] 13.3 g/dL 12.0-15.0 [facility] Blood lymphocytes/100 leukoc ytesOrdered By: ED PROVIDER on 11-02-2022 Lymphocytes/100 WBC (Bld) 10.5 % 19-41 [facility] Blood monocytes/100 leukocyt esOrdered By: ED PROVIDER on 11-02-2022 Monocytes/100 WBC (Bld) 5.8 % 0-10 [facility] Blood platelet mean volumeOr dered By: ED PROVIDER on 11-02-2022 Platelet mean volume (Bld) [Entitic vol] 11.0 fL 6.2-12.0 [facility] Determination of erythrocyte mean corpuscular volume (MCV)Ordered By: ED PROVIDER on 11-02-2022 MCV (RBC) [Entitic vol] 91.4 fL 81-99 [facility] Hematocrit Auto (Bld) [Volum e fraction]Ordered By: ED PROVIDER on 11-02-2022 Hematocrit (Bld) [Volume fraction] 40.3 % 37-47 [facility] Ketones Test strip Ql (U)Ord ered By: ED PROVIDER on 11-02-2022 Ketones Ql (U) Negative Negative [facility] - Chemistry and C hemistry - challengeOrdered By: Dr. Puente on 11-02-2022 ALP [Catalytic activity/Vol] 61 U/L 45-117 [facility] ALT [Catalytic activity/Vol] 21 U/L 13-56 [facility] CO2 [Moles/Vol] 22.0 mmol/L 21.0-32.0 [facility] Globulin (S) [Mass/Vol] 3.9 g/dL 2.2-4.2 [facility] Urea nitrogen/Creatinine [Mass ratio] 13.2 mg/mg 10-20 [facility] - Hematology and Cell countsOrdered By: ED PROVIDER on 11-02-2022 Erythrocyte distribution width (RBC) [Entitic vol] 41.9 fL 35.1-43.9 [facility] Erythrocyte distribution width (RBC) [Ratio] 12.7 % 11.6-14.6 [facility] Immature granulocytes/100 WBC (Bld) 0.400 % 0.0-0.9 [facility] Comment on above: IG% - Immature Granu locytes (promyelocytes, myelocytes and metamyelocytes) > 1% indicates that a LEFT SHIFT is Present. MCH (RBC) [Entitic mass] 30.2 pg 27.0-32.0 [facility] Nucleated RBC/100 WBC (Bld) [Ratio] 0 % 0-5 [facility] MCHC Auto (RBC) [Mass/Vol]Or dered By: ED PROVIDER on 11-02-2022 MCHC (RBC) [Mass/Vol] 33.0 g/dL 32-36 [facility] Mucus LM Ql (Urine sed)Order ed By: ED PROVIDER on 11-02-2022 Mucus Ql (Urine sed) 0 SEEN /hpf [facility] Nitrite Test strip Ql (U)Ord ered By: ED PROVIDER on 11-02-2022 Nitrite Ql (U) Negative Negative [facility] No Panel InformationOrdered By: Dr. Puente on 11-02-2022 Estimated Creatinine Clearance Calc 72.06 ml/min [facility] Estimated GFR (MDRD) Amer 91 mL/min >60 [facility] Comment on above: GFR Calc Estimated GFR (MDRD) Non-Af Amer 75 mL/min >60 [facility] Comment on above: Non- GFR Calc Platelets bldOrdered By: ED PROVIDER on 11-02-2022 Platelets (Bld) [#/Vol] 270 10*3/uL 150-450 [facility] Protein Test strip Ql (U)Ord ered By: ED PROVIDER on 11-02-2022 Protein Ql (U) 30 mg/dl Negative [facility] Serum or plasma albumin jules urement (mass/volume)Ordered By: Dr. Puente on 11-02-2022 Albumin [Mass/Vol] 3.6 g/dL 3.2-5.0 [facility] Serum or plasma albumin/glob ulin mass ratioOrdered By: Dr. Puente on 11-02-2022 Albumin/Globulin [Mass ratio] 0.9 {ratio} 0.9-2.4 [facility] Serum or plasma calcium jules urement (mass/volume)Ordered By: Dr. Puente on 11-02-2022 Calcium [Mass/Vol] 8.7 mg/dL 8.5-10.1 [facility] Serum or plasma creatinine m easurement (mass/volume)Ordered By: Dr. Puente on 11-02-2022 Creatinine [Mass/Vol] 0.91 mg/dL 0.55-1.02 [facility] Comment on above: The validity of the calculated GFR & GFRAA in patients over 70 years has not been determined. Clinical correlation is essential. Serum or plasma urea nitroge n measurement (mass/volume)Ordered By: Dr. Puente on 11-02-2022 Urea nitrogen [Mass/Vol] 12 mg/dL 7-18 [facility] Squamous epithelial cells de tection in urine sediment by light microscopyOrdered By: ED PROVIDER on 11-02-2022 Epithelial cells.squamous LM Ql (Urine sed) 0 SEEN /hpf 5-10 [facility] Thin prep Papanicolaou smear with manual screeningOrdered By: Dr. Puente on 11-02-2022 Thin prep Papanicolaou smear with manual screening 15 U/L 15-37 [facility] Thin prep Papanicolaou smear with manual screening 7 5-15 [facility] Urine blood detectionOrdered By: ED PROVIDER on 11-02-2022 RBC Ql (U) Negative Negative [facility] RBC Ql (U) 0 SEEN /hpf 0-5 [facility] Urine clarityOrdered By: ED PROVIDER on 11-02-2022 Clarity (U) Clear Clear [facility] Urine color determinationOrd ered By: ED PROVIDER on 11-02-2022 Color (U) Yellow Yellow [facility] Urine glucose detectionOrder ed By: ED PROVIDER on 11-02-2022 Glucose Ql (U) Normal mg/dl Normal [facility] Urine leukocyte esterase det ection by dipstickOrdered By: ED PROVIDER on 11-02-2022 Leukocyte esterase Test strip Ql (U) Negative Negative [facility] Urine pHOrdered By: ED PROVI MELITON on 11-02-2022 pH (U) 8.0 [pH] 5.0 - 8.0 [facility] Urine sediment bacteria coun t by microscopy (number/high power field)Ordered By: ED PROVIDER on 11-02-2022 Bacteria LM.HPF (Urine sed) [#/Area] RARE /hpf None Seen [facility] Urine specific gravity measu rementOrdered By: ED PROVIDER on 11-02-2022 Specific gravity (U) [Rel density] 1.015 1.002-1.030 [facility] Urobilinogen Auto test strip Ql (U)Ordered By: ED PROVIDER on 11-02-2022 Urobilinogen Ql (U) Normal mg/dl Normal [facility] RF Hysterosalpingography S/I on 09-11-2018 RF Hysterosalpingography S/I Patient Name: EMMANUEL MOYA Fluoroscopy Exam Date/Time 09/11/2018 13:36:54 EST Exam RF Hysterosalpingography S/I Ordering Physician MILVIA GAN Accession Number [id number] [facility] Codes [id number] () Reason For Exam Infertility Report Hysterosalpingogram: 09/11/2018. CLINICAL INFORMATION: Infertility. FINDINGS: Hysterosalpingogram was performed by Dr. Gan. 0.4 minutes of fluoroscopic time was used for the examination. He submitted 4 fluoroscopic spot images for interpretation after the procedure. I was not present for the study. The uterine cavity is normal in configuration without evidence of filling defect. The right fallopian tube is occluded proximally. The left fallopian tube is normal in caliber. There is free spill of contrast from the left fallopian tube. IMPRESSION: Right tubal occlusion. No other abnormalities identified. Report Dictated on Final Dictated: 09/11/2018 1:46 pm Dictating Physician: MD FELIZ RISA Signed Date and Time: 09/11/2018 1:47 pm Signed by: MD FELIZ RISA Transcribed Date and Time: 09/11/2018 1:46 Normal [facility] Vital Signs Date Time Vital Sign Value Performing Clinician Jannette del toro 12-16-2024 09:23-0400 Body height 160.02 cm Rocio Obando MD Work Phone: [facility] 12-16-2024 09:23-0400 Body mass index (BMI) [Ratio] 37.4 kg/m2 Rocio Obando MD Work Phone: [facility] 12-16-2024 09:23-0400 Body temperature 98.5 [degF] Rocio Obando MD Work Phone: [facility] 12-16-2024 09:23-0400 Body weight 95.93 kg Rocio Obando MD Work Phone: [facility] 12-16-2024 09:23-0400 Diastolic blood pressure 82 mm[Hg] Rocio Obando MD Work Phone: [facility] 12-16-2024 09:23-0400 Heart rate 109 /min Rocio Obando MD Work Phone: [facility] 12-16-2024 09:23-0400 SaO2% (BldA) [Mass fraction] 98 % Rocio Obando MD Work Phone: [facility] 12-16-2024 09:23-0400 Systolic blood pressure 120 mm[Hg] Rocio Obando MD Work Phone: [facility] 02-14-2023 15:40-0400 Body temperature 98 [degF] DO Terri Javad Work Phone: [facility] 02-14-2023 15:40-0400 Diastolic blood pressure 65 mm[Hg] DO Terri Javad Work Phone: [facility] 02-14-2023 15:40-0400 Heart rate 96 /min DO Terri Javad Work Phone: [facility] 02-14-2023 15:40-0400 Respiratory rate 16 /min DO Terri Javad Work Phone: [facility] 02-14-2023 15:40-0400 SaO2% (BldA) [Mass fraction] 97 % DO Terri Javad Work Phone: [facility] 02-14-2023 15:40-0400 Systolic blood pressure 107 mm[Hg] DO Terri Javad Work Phone: [facility] 02-14-2023 08:51-0400 Body height 160.02 cm DO Terri Javad Work Phone: [facility] 02-14-2023 08:51-0400 Body mass index (BMI) [Ratio] 34.5 kg/m2 DO Terri Javad Work Phone: [facility] 02-14-2023 08:51-0400 Body weight 88.5 kg DO Terri Javad Work Phone: [facility] 01-23-2023 15:55-0400 Body mass index (BMI) [Ratio] 35.2 kg/m2 DO Terri Javad Work Phone: [facility] 01-23-2023 15:55-0400 Body weight 90.03 kg DO Terri Javad Work Phone: [facility] 01-23-2023 15:55-0400 Diastolic blood pressure 82 mm[Hg] DO Terri Javad Work Phone: [facility] 01-23-2023 15:55-0400 Systolic blood pressure 117 mm[Hg] DO Terri Javad Work Phone: [facility] 11-03-2022 15:13-0400 Body height 160.02 cm DO Terri Javad Work Phone: [facility] 11-03-2022 08:09-0400 Body mass index (BMI) [Ratio] 34.7 kg/m2 DO Terri Javad Work Phone: [facility] 11-03-2022 08:09-0400 Body weight 88.96 kg DO Terri Javad Work Phone: [facility] 11-03-2022 08:09-0400 Diastolic blood pressure 78 mm[Hg] DO Terri Javad Work Phone: [facility] 11-03-2022 08:09-0400 Systolic blood pressure 112 mm[Hg] DO Terri Javad Work Phone: [facility] 11-02-2022 13:56-0400 Body mass index (BMI) [Ratio] 34.7 kg/m2 DO Terri Javad Work Phone: [facility] 11-02-2022 13:56-0400 Body weight 88.9 kg DO Terri Javad Work Phone: [facility] 11-02-2022 13:56-0400 Diastolic blood pressure 78 mm[Hg] DO Terri Javad Work Phone: [facility] 11-02-2022 13:56-0400 Systolic blood pressure 130 mm[Hg] DO Terri Farnsworth Work Phone: [facility] 11-02-2022 08:12-0400 Diastolic blood pressure 63 mm[Hg] [facility] 11-02-2022 08:12-0400 Heart rate 86 /min [facility] 11-02-2022 08:12-0400 Respiratory rate 16 /min [facility] 11-02-2022 08:12-0400 SaO2% (BldA) [Mass fraction] 100 % [facility] 11-02-2022 08:12-0400 Systolic blood pressure 112 mm[Hg] [facility] 11-02-2022 05:08-0400 Body height 160.[address] [facility] 11-02-2022 05:08-0400 Body mass index (BMI) [Ratio] 34.9 kg/m2 [facility] 11-02-2022 05:08-0400 Body temperature 98.2 [degF] [facility] 11-02-2022 05:08-0400 Body weight 89.[address] [facility] Encounters Encounter Date Encounter Type Care Provider Facility Start: 01-09-2025 ambulatory Ke Zavala NP Facil ity:[facility] Start: 12-16-2024 End: 12-16-2024 Patient encounter procedure [facility] Work Phone: Start: 12-16-2024 End: 12-16-2024 ambulatory Rocio Obando MD Work Phone: [facility] Work Phone: Start: 12-16-2024 End: 12-16-2024 ambulatory Arvin HECK Facility:[facility] Start: 07-17-2024 ambulatory Health Risk Assessment Facility:[facility] Start: 07-17-2024 End: 07-17-2024 ambulatory Rocio Obando Facility:[facility] Start: 05-14-2024 End: 05-14-2024 ambulatory Rocio Obando Facility:[facility] Start: 02-07-2024 End: 02-07-2024 ambulatory Chalon Topher Facility:[facility] Start: 01-18-2024 End: [facility] Start: 11-02-2023 End: 11-02-2023 ambulatory [facility] Work Phone: Start: 11-02-2023 End: 11-02-2023 Patient encounter procedure [facility], [place], [facility] Work Phone: Start: 02-14-2023 Non-patient / Non-visit DO Terri Ramosnger Work Phone: [facility] Start: 02-14-2023 End: 02-14-2023 Admission to same day surgery center DO Terri Javad Work Phone: [facility] Start: 02-14-2023 End: 02-14-2023 ambulatory DO Terri Wooder Work Phone: [facility] Work Phone: Start: 01-23-2023 End: 01-23-2023 Patient encounter procedure DO Terriisela Ramosnger Work Phone: [facility] Work Phone: Start: 12-30-2022 End: 12-30-2022 ambulatory DO Terriisela Ramosnger Work Phone: [facility] Work Phone: Start: 12-30-2022 End: 12-30-2022 Patient encounter procedure DO Terri Javad Work Phone: [facility] [place], [facility] Start: 11-15-2022 End: 11-15-2022 Patient encounter procedure DO Terri Wooder Work Phone: [facility] Start: 11-09-2022 End: 11-09-2022 ambulatory DO Terri Ariella Javad Work Phone: [facility] Work Phone: Start: 11-09-2022 End: 11-09-2022 Patient encounter procedure DO Terri Farsnworth Work Phone: [facility]-Laboratory, Specimen Start: 11-03-2022 End: 11-03-2022 ambulatory DO Terri Farnsworth Work Phone: [facility] Work Phone: Start: 11-03-2022 End: 11-03-2022 Patient encounter procedure DO Terri Farnsworth Work Phone: [facility]-Laboratory Start: 11-03-2022 End: 11-03-2022 Patient encounter procedure DO Terri Farnsworth Work Phone: [facility] Start: 11-02-2022 End: 11-02-2022 ambulatory DO Terri Farnsworth Work Phone: [facility] Work Phone: Start: 11-02-2022 End: 11-02-2022 Patient encounter procedure DO Terri Farnsworth Work Phone: [facility]-Ultrasound, [facility] Start: 11-02-2022 End: 11-02-2022 Patient encounter procedure DO Terri Farnsworth Work Phone: [facility] Start: 11-02-2022 End: 11-02-2022 Emergency department patient visit [facility]-Emergency Department Start: 09-11-2018 Patient encounter procedure [facility] Procedures Date Procedure Procedure Detail Performing Clinician Start: 12-16-2024 X-ray of chest, PA a nd lateral views Rocio Obando MD Work Phone: Start: 11-02-2023 Pelvic echography Start: 02-14-2023 Laparoscopy DO Terri Ramosnger Work Phone: Start: 12-30-2022 Pelvic echography DO Khalif Farnsworth Work Phone: Start: 11-15-2022 MRI of pelvis with contrast DO Terri Farnsworth Work Phone: Start: 11-09-2022 Urine culture DO Susie Farnsworth Work Phone: Start: 11-03-2022 Urine culture DO Susie Farnsworth Work Phone: Start: 11-02-2022 Pelvic echography DO Khalif Farnsworth Work Phone: Start: 11-02-2022 Transvaginal echography DO Terri Farnsworth Work Phone: Start: 11-02-2022 Computed tomography of abdomen and pelvis with contrast H/O: surgery H/O ovarian cystectomy Comment on above: laparoscopic left, p eriovarian adhesionsand inflammation, multicystic. d and c hysteroscopy H/O: surgery S/P laparotomy DO Terri trevino Work Phone: Comment on above: 2019 minilap with le ft dermoid cyst removal Urine culture DO Terri menard Work Phone: Urine culture DO Terri menard Work Phone: Plan of Treatment Date Care Activity Detail Author Start: 02-14-2023 Ambulation without limitation [facility] Start: 02-14-2023 Medical regimen orde rs management [facility] Start: 02-14-2023 Medication education [facility] Start: 02-14-2023 Patient discharge [facility] Start: 02-14-2023 Procedure discontinued [facility] Start: 02-14-2023 Taking patient vital signs [facility] Start: 02-14-2023 Vital signs measurements [facility] Start: 02-14-2023 [facility] Start: 11-04-2022 CA 125 measurement [facility] Start: 11-04-2022 Lab findings surveillance [facility] Lab findings surveillance [facility] Patient Education Abdominal Pain [facility] Work Phone: Patient referral [facility] Work Phone: [facility] Immunizations Immunization Date Immunization Notes Care Provider Fa alisia 06-15-2016 influenza, injectabl e, quadrivalent, preservative free [facility] 06-15-2016 influenza, seasonal, injectable [facility] 07-20-2015 influenza, injectabl e, quadrivalent, preservative free [facility] 07-20-2015 influenza, seasonal, injectable [facility] 06-23-2014 influenza, injectabl e, quadrivalent, preservative free [facility] 06-23-2014 influenza, seasonal, injectable [facility] 12-26-2013 tetanus toxoid, redu keyur diphtheria toxoid, and acellular pertussis vaccine, adsorbed [facility] Payers Date Payer Category Payer Self-pay [id number] 2020 Unknown [id number] 1987 Unknown [id number] 2.16.8 [id number] Unknown Unknown [id number] 2.16.8 [id number] Unknown [id number] 2.16.8 [id number] Unknown [id number] 2.16.8 [id number] Unknown [id number] 2.16.8 [id number] Unknown [id number] 2.16.8 [id number] Unknown [id number] 2.16.8 [id number] Unknown [id number] 2.16.8 [id number] Unknown [id number] 2.16.8 [id number] Social History Date Type Detail Facility Start: 11-02-2022 End: 03-10-2023 Tobacco smoking status NHIS Unknown if ever smoked [facility] Start: 07-16-2019 Non-smoker [facility] Start: 05-12-1988 Sex Assigned At Female [facility] Start: 03-10-2023 Tobacco smoking status NHIS Never smoked tobacco (finding) [facility] NEGATED: Highlighted row [facility] Medical Equipment Procedure Code Equipment Code Equipment Origin al Text Equipment Identifier Dates Laparoscopy, diagnostic Collagen haemostatic agent, non-antimicrobial [id number] FDA Start: 02-14-2023 Hysteroscopy, with dilation and curettage of uterus SEALANT,FLOSEAL HEMOSTATIC 5ML FDA Start: 09-21-2021 Hysteroscopy, with dilation and curettage of uterus SEALANT,FLOSEAL HEMOSTATIC 5ML FDA Start: 09-21-2021 Hysteroscopy, with dilation and curettage of uterus SEALANT,FLOSEAL HEMOSTATIC 5ML FDA Start: 09-21-2021 Hysteroscopy, with dilation and curettage of uterus SEALANT,FLOSEAL HEMOSTATIC 5ML FDA Start: 09-21-2021 Hysteroscopy, with dilation and curettage of uterus SEALANT,FLOSEAL HEMOSTATIC 5ML FDA Start: 09-21-2021 Hysteroscopy, with dilation and curettage of uterus SEALANT,FLOSEAL HEMOSTATIC 5ML FDA Start: 09-21-2021 Hysteroscopy, with dilation and curettage of uterus SEALANT,FLOSEAL HEMOSTATIC 5ML FDA Start: 09-21-2021 Hysteroscopy, with dilation and curettage of uterus SEALANT,FLOSEAL HEMOSTATIC 5ML FDA Start: 09-21-2021 Hysterectomy, total, abdominal SANDHYA 3GRM HEMOSTAT ABS FDA Start: 07-23-2019 Hysterectomy, total, abdominal DRESSING,INTERCEED 3X4 FDA Start: 07-23-2019 Hysterectomy, total, abdominal DRESSING,INTERCEED 3X4 FDA Start: 07-23-2019 Hysterectomy, total, abdominal SANDHYA 3GRM HEMOSTAT ABS FDA Start: 07-23-2019 Hysterectomy, total, abdominal DRESSING,INTERCEED 3X4 FDA Start: 07-23-2019 Hysterectomy, total, abdominal DRESSING,INTERCEED 3X4 FDA Start: 07-23-2019 Hysterectomy, total, abdominal SANDHYA 3GRM HEMOSTAT ABS FDA Start: 07-23-2019 Hysterectomy, total, abdominal DRESSING,INTERCEED 3X4 FDA Start: 07-23-2019 Hysterectomy, total, abdominal DRESSING,INTERCEED 3X4 FDA Start: 07-23-2019 Hysterectomy, total, abdominal SANDHYA 3GRM HEMOSTAT ABS FDA Start: 07-23-2019 Hysterectomy, total, abdominal DRESSING,INTERCEED 3X4 FDA Start: 07-23-2019 Hysterectomy, total, abdominal DRESSING,INTERCEED 3X4 FDA Start: 07-23-2019 Hysterectomy, total, abdominal SANDHYA 3GRM HEMOSTAT ABS FDA Start: 07-23-2019 Hysterectomy, total, abdominal DRESSING,INTERCEED 3X4 FDA Start: 07-23-2019 Hysterectomy, total, abdominal DRESSING,INTERCEED 3X4 FDA Start: 07-23-2019 Hysterectomy, total, abdominal SANDHYA 3GRM HEMOSTAT ABS FDA Start: 07-23-2019 Hysterectomy, total, abdominal DRESSING,INTERCEED 3X4 FDA Start: 07-23-2019 Hysterectomy, total, abdominal DRESSING,INTERCEED 3X4 FDA Start: 07-23-2019 Hysterectomy, total, abdominal SANDHYA 3GRM HEMOSTAT ABS FDA Start: 07-23-2019 Hysterectomy, total, abdominal DRESSING,INTERCEED 3X4 FDA Start: 07-23-2019 Hysterectomy, total, abdominal DRESSING,INTERCEED 3X4 FDA Start: 07-23-2019 Hysterectomy, total, abdominal SANDHYA 3GRM HEMOSTAT ABS FDA Start: 07-23-2019 Hysterectomy, total, abdominal DRESSING,INTERCEED 3X4 FDA Start: 07-23-2019 Hysterectomy, total, abdominal DRESSING,INTERCEED 3X4 FDA Start: 07-23-2019 Goals Date Patient Goal Desired Activity /State Mental Status Date Assessment Result Facility 02-14-2023 Cognitive function Voice/Name [facility] Work Phone: Clinical Notes 11-02-2022 to 12-16-2024 Note Date & Type Note Facility 12-16-2024 Evaluation note Diagnosis Onset Date Resolution Acute otitis media, bilateral acute December 16, 2024 8 :49am Right lower lobe pulmonary infiltrate acute December 16 8:49am [facility] Work Phone: 1(330) 879-576005-12-2025 Radiology Diagnostic study note [facility] Imaging Services [address] [place] [address] Chest PA and Lateral MR#: [id number] Acct: [id number] Name: EMMANUEL ROJAS Rep #: [id number] : 1985 F 39 From: Vineet Abdullahi MD PCP: Dr. Rocio Obando MD Status: REG CL I Study:Chest PA and Lateral Date of Exam: 12/16/24 Exam# [id number] Ordering Dr: [facility] PROCEDURE: CHEST PA AND LATERAL 12/16/2024 REASON FOR EXAM: COUGH TECHNIQUE: Frontal and lateral views of the chest. COMPARISON: None FINDINGS: Hardware: None Heart: The heart size is normal. Mediastinum: The mediastinal contour is unremarkable. Lungs: The lungs are clear. Bones: The bones are unremarkable. RAD/Chest PA and Lateral IMPRESSION: NO ACUTE FINDINGS. Reading Location: [id number] CC: Dr. Rocio Obando MD; MARIA R Dominguez ~ Clerk Carrier: Signed [facility]07-11-2023 Discharge summary Author Yolande Brizuela [facility] February 14, 2023 12:16pm Note Date/Time February 14, 2023 9:53 am [facility] Medical Records Department [address] [place] [address] Instructions for Home/Discharge Instructions 02/14/23 0953 MR#: [id number] Acct: [id number] Name: EMMANUEL MOYA Rep #:[id number] : 1985 37 From: Yolande bush MD PCP: Terri Farnsworth DO Status:REG S DC Discharge Instructions Diet Discharge Diet: No restrictions Activity Discharge Activity: Return to Normal Activity, May Not Drive (for 2 weeks or while taking narcotic pain meds.), May Shower and May Take a Tub Bath (in 7 days) May resume sexual activity in: 1 week Weight Bearing Status: Full weight bearing Dressing / Incision Call your doctor if your incision/area has: Continuous Slow Oozing, Sudden Increased Bleeding, Increased Pain/ Swelling, Increased Redness and Foul Smelling Discharge Call your doctor if you observe: Fever of 101 or Higher, Using more than 1 pad per hour, Shortness of breath, Chest pain and Uncontrolled pain Suture Line Care: Avoid Pulling/Pushing and Avoid Pinching/Bending Remove Dressing in: 1 week (if present) Cleanse incision/area with: Soap & Water and Keep Dressing Clean & Dry Follow Up Care When: Call to make an appointment with your doctor for a fu/incision check in 1- 2 weeks. Test Results: Test results from this visit will be discussed in further detail at your follow- up appointment, if applicable. Discharge Plan Admission Attending Provider: Yolande Brizuela Primary Care Provider: Terri Farnsworth Discharge Orders/Prescriptions Prescriptions: New oxycodone-acetaminophen [Percocet] 5-325 mg tablet 1 tab PO Q6H PRN (Reason: pain) 7 Days Qty: 20 0RF naproxen [naproxen] 500 mg tablet 500 mg PO BID PRN PRN (Reason: Pain) Qty: 30 1RF Continued Adult Probiotic 3 billion cell capsule 3,000 mmu cells PO DAILY Rx Instructions: administer with a meal loratadine [Claritin] 10 mg tablet 10 mg PO DAILY PRN (Reason: ALLERGIES) ondansetron HCl 4 mg tablet 4 mg PO Q4H Qty: 30 3RF albuterol sulfate [ProAir HFA] 90 mcg/actuation Hfa Aerosol Inhaler 2 puff INHALATION Q6H PRN (Reason: ASTHMA) magnesium 250 mg tablet 250 mg PO DAILY Referrals / Follow Up: Terri Farnsworth DO [Primary Care Provider] - Disposition Disposition (needs filled in before D/C Order can be placed): Home, Self Care 02/14/23 1216<Electronically signed by Yolande Brizuela MD>Yolande Brizuela MD CC: Terri Farnsworth DO ~ Signed [facility] Work Phone: 1(196) 752-664807-11-2023 Procedure [facility] 02-14-2023 History and physical note Author Yolande Brizuela [facility] February 14, 2023 9:49am Note Date/Time February 14, 2023 9:49 am [facility] Medical Records Department [address] [place] [address] History & Physical Exam 02/14/23 0948 MR#: [id number] Acct: [id number] Name: EMMANUEL MOYA BRANDON Rep #:[id number] : 1985 37 From: Yolande bush MD PCP: Terri Farnsworth, DO Status:REG S DC Location: [place] [address] History and Physical Intake Vital Signs 11/03/2314:13 01/23/2315:55 01/23/2315:55 Height 5 ft 3 in 5 ft 3 in 5 ft 3 in Weight: 198 lb 8 oz BMI 35.2 BP 117/82 H Intake Visit Reasons: Needs 20 minutes/diagnostic lap. 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 Is patient in pain?: No Allergies No Known Allergies Allergy (Verified 01/23/23 15:56) Medications lactobacillus combination no.8 3 billion cell capsule (Adult Probiotic) 3,000 mmu cells PO DAILY 09/16/20 [History Confirmed 01/23/23] loratadine 10 mg tablet (Claritin) 10 mg PO DAILY 07/05/21 [History Confirmed 01/23/23] albuterol sulfate 90 mcg/actuation aerosol inhaler (ProAir HFA) 2 puff inhalation Q6H PRN ASTHMA 09/14/21 [History Confirmed 01/23/23] ceftriaxone 500 mg solution for injection 500 mg IM ONCE #1 ea 11/03/22 [Rx Confirmed 01/23/23] doxycycline monohydrate 100 mg capsule 100 mg PO BID #28 caps 11/03/22 [Rx Confirmed 01/23/23] ondansetron HCl 4 mg tablet 4 mg PO Q4H #30 tabs 11/03/22 [Rx Confirmed 01/23/23] oxycodone-acetaminophen 5 mg-325 mg tablet 1 - 2 tab PO Q4H PRN PRN Pain 7 days #20 tabs 11/18/22 [Rx Confirmed 01/23/23] PFSH Medical History Asthma Cardiology follow-up encounter Factor V Leiden History of echocardiogram History of stress test Kidney stones Migraine headache Non-smoker Syncope Surgical History Dermoid cyst H/O ovarian cystectomy History of right oophorectomy Hx of laparoscopy Family History Grandmother auto immune hepititis Lupus LymphomaGrandfather AAA (abdominal aortic aneurysm) Heart disease Social History number of children: 0 current occupational status: employed current occupation: [employer] Smoking Status: Never smoker alcohol intake: never substance use type: does not use caffeine: Yes Type: carbonated beverages Number of servings: 1 what type of physical activity do you participate in: walking frequency: daily seatbelt use: always do you feel safe at home: Yes additional social history: single- works at [employer] and [employer] HPI Needs 20 minutes/diagnostic lap. Details: EMMANUEL MOYA is a 37 year old who presents for. Patient has a history of right oophorectomy and multiple left ovarian surgeries and has had persistent left enlargement of cystic fluid and complex areas. She initially had significant pain in the left lower quadrant but this has since resolved. She occasionally has discomfort if the lower pelvis gets kicked or pressed too hard but overall she does not have pain with intercourse and denies any irregular bleeding or abnormal discharge. 7.5 x 9.9 cm with thin wall. Female Reproductive History Menopausal Symptoms: No night sweats History 0 Elective abortions Hx Para 0 Spontaneous abortions Hx # Term Pregnancies Ectopic pregnancies Hx # Pregnancies Multiple births # of living children ROS Const Constitutional: Denies fatigue, night sweats, weight gain or weight loss ENT ENT: Reports system reviewed and no additional complaints, except as documented Cardio Card: Denies chest pain Resp Resp: Denies cough or dyspnea GI GI: Reports as per HPI and abdominal pain; Denies constipation, nausea or vomiting : Denies nipple discharge, urinary frequency, urinary incontinence, urinary hesitancy, urinary urgency, vaginal discharge, vaginal dryness, vaginal odor or vaginal pruritus Musc Musc: Denies arthralgias, back pain or muscle weakness Skin Skin/Breast: Denies alopecia, change in hair, dry skin, breast mass, breast pain, breast skin changes or nipple discharge Neuro Neuro: Reports system reviewed and no additional complaints, except as documented Psych Psych: Reports system reviewed and no additional complaints, except as documented Endo Endo: Denies cold intolerance, excessive sweating, heat intolerance or polydipsia Robel/Lymph Hematologic/Lymphatic: Denies easy bleeding, Denies easy bruising and Denies lymphadenopathy Exam Const General: cooperative, healthy appearing, comfortable and no acute distress Orientation: alert HENMT Head: normal to inspection and normocephalic Ears: hearing grossly normal bilaterally and external ears normal Nose: external nose normal and nares normal Face and sinus: normal facial exam Neck Neck: normal visual inspection and no lymphadenopathy Thyroid: thyroid normal Chest Chest palpation & inspection: normal inspection of the chest Resp Effort & Inspection: normal respiratory effort Auscultation: clear to auscultation bilaterally Cardio Rate: regular rate Rhythm: regular rhythm Heart Sounds: S1 normal and S2 normal GI Inspection: normal to inspection and non-distended Palpation: soft and no hepatosplenomegaly Musc Other: gross motor intact no deficits, full bilateral strength Skin General: no rashes or lesions noted Neuro General: patient alert, patient awake, moves all extremities and no focal motor deficits Motor: muscle tone normal throughout Extrem General: normal to inspection and no pedal edema Psych Appearance: grossly normal Mental Status: mental status grossly normal Affect: normal affect Speech and Movement: speech and movement normal Coding Level of Care Code Off vis,est,level 4 Diagnoses Factor 5 Leiden mutation, heterozygous D68.51 Pelvic pain R10.2 Left ovarian cyst N83.202 S/P laparotomy Z98.890 Assessment and Plan Assessment and Plan (1) Factor 5 Leiden mutation, heterozygous: Status: Acute Comment: plan preop lovenox x 1 and 1 week postop 40 mg once daily (2) Pelvic pain: Status: Acute Comment: s/p pelvic US and MRI. (3) Left ovarian cyst: Status: Acute Comment: persistent, s/p right oophorectomy. plan diagnostic laparoscopy with chromotubation. (4) S/P laparotomy: Status: Acute Comment: 2019 minilap with left dermoid cyst removal Plan After discussing the patient's diagnosis and treatment plan options, patient wishes to proceed with surgical management. I have discussed with the patient the risks, benefits, and alternatives of the procedure which include but are notlimited to risks of anesthesia, bleeding, infection, possible damage to bowel, bladder, or surrounding vasculature which could lead to additional surgery to evaluate any complications. Patient agrees to procedure and wishes to proceed. ACOG/uptodate references given for additional information regarding procedure. UPDATE- I have seen the patient and performed any clinically relevant updates to the history and physical exam. Yolande Brizuela MD 02/14/23 0949 <Electronically signed by Yolande Brizuela MD> Cosigner Signature (if applicable): CC: Dr. Yolande Brizuela MD; Terri Farnsworth DO~ Signed [facility] Work Phone: [phone] 625-364603-29-2023 Discharge summary Author Mike Espinoza [facility] November 02, 2022 9:14am Note Date/Time November 02, 2022 5:5 5am [facility] Medical Records Department [address] [place] [address] Emergency Department Summary 11/02/22 MR#: [id number] Acct: [id number] Name: EMMANUEL MOYA Rep #:[id number] : 1985 36 From: Bin Hsu PCP: Terri Farnsworth DO Status:REG E R Location: ED HPI HPI - GI History of Present Illness Chief Complaint: Abd Pain Informant: patient Abdominal Pain/Flank Pain Context: Gradual Onset Timing: Continuous Quality: Cramping Location: RLQ and LLQ Worsened by: Movement Relieved by: Nothing Nausea/Vomiting/Emesis GI Symptom: Positive for Nausea; Negative for Vomiting Diarrhea/Melena/Hematochezia GI Symptom: Positive for Hematochezia; Negative for Diarrhea or Melena Episodes: 2 Associated Symptoms Associated Symptoms: Negative for Dysuria, Frequency or Hematuria Narrative Narrative: Presents with abdominal pain that began yesterday. Patient states it came on gradually. Patient states it has been constant. Patient describes it as cramping. Patient states it is mainly over the lower abdomen. Patient states it is worse with certain movements. Patient admits to nausea but denies any vomiting. Patient states she did have some blood in her stools a couple days ago but this has resolved. Patient states she has had bowel movements after this with no blood in her stools. Patient denies any dysuria, frequency, or hematuria. Patient states that she had an episode of severe pain while she was on the toilet tonight and then passed out. Patient denies any palpitations withthis. Patient denies any recent fevers. Patient admits to some subjective chills. Patient denies any chest pain or shortness of breath. [facility] Medical History Asthma Cardiology follow-up encounter Factor V Leiden History of echocardiogram History of stress test Kidney stones Migraine headache Non-smoker Syncope Home Medications lactobacillus combination no.8 3 billion cell capsule (Adult Probiotic) 3,000 mmu cells PO DAILY 09/16/20 [History Last Taken Unknown] loratadine 10 mg tablet (Claritin) 10 mg PO DAILY 07/05/21 [History Last Taken Unknown] sertraline 50 mg tablet (Zoloft) 50 mg PO .COMPLEX #30 tabs 07/15/21 [Rx Last Taken Unknown] albuterol sulfate 90 mcg/actuation aerosol inhaler (ProAir HFA) 2 puff inhalation Q6H PRN ASTHMA 09/14/21 [History Last Taken Unknown] naproxen 500 mg tablet 500 mg PO BID PRN pain #30 tabs 10/08/21 [Rx Last Taken Unknown] naproxen 500 mg tablet 500 mg PO BID PRN pain #30 tabs 10/08/21 [Rx Last Taken Unknown] Allergy/AdvReac Type Severity Reaction Status Date / Time No Known Allergies Allergy Verified 11/02/22 05:11 Family History Grandmother auto immune hepititis Lupus Lymphoma Grandfather AAA (abdominal aortic aneurysm) Heart disease Surgical History Dermoid cyst H/O ovarian cystectomy History of right oophorectomy Hx of laparoscopy Social History number of children: 0 current occupational status: employed current occupation: [employer] Smoking Status: Never smoker alcohol intake: never substance use type: does not use caffeine: Yes Type: carbonated beverages Number of servings: 1 what type of physical activity do you participate in: walking frequency: daily seatbelt use: always do you feel safe at home: Yes additional social history: single- works at [employer] and [employer] ROS ROS ED Constitutional Constitutional ED: Reports chills and subjective; Denies fever(s) Eyes Eyes: Denies blurry vision or change in vision ENT ENT ED: Denies rhinorrhea or sore throat Cardiovascular Cardiovascular: Denies chest pain or palpitations Respiratory/Chest Respiratory/Chest: Denies cough or dyspnea Gastrointestinal Gastrointestinal: Reports abdominal pain and nausea; Denies vomiting Genitourinary Genitourinary ED: Denies dysuria or hematuria Musculoskeletal Musculoskeletal: Denies back pain or neck pain Integumentary Denies abscess or rash Neurologic Neurologic: Denies headache(s) or weakness Allergic/Immunologic Allergic/Immunologic ED: Denies mouth swelling or urticaria EXAM Physical Exam Const Vital Signs: 11/02/22 05:08 11/02/22 05:10 11/02/22 07:34 Temperature 98.2 F Temperature Source Temporal Pulse Rate 74 Respiratory Rate 15 14 Pulse Ox 99 99 Oxygen Delivery Method Room Air Room Air Positive well nourished, well developed and obese General Appearance ED: well developed and NAD Nutritional Appearance: obese HEENT Reports moist mucous membranes Neck supple and no JVD Resp normal respiratory effort and clear to auscultation bilaterally Cardio regular rate, regular rhythm and no murmurs GI normal to inspection, nondistended, normoactive bowel sounds Palpation: soft and tender LLQ, RLQ and suprapubic; Negative for guarding or rebound tenderness present Extremity normal to inspection General Extremety ED: Negative for edema or tenderness General Extremity: Negative for edema Neuro oriented x3, CN's II-XII intact bilaterally and no sensory deficits noted Sensorium / Orientation: alert Motor Exam: strength 5/5 throughout Psych mental status grossly normal Skin no rashes or lesions noted MDM MDM MDM Narrative Medical decision making narrative: Differential diagnosis includes diverticulitis, urinary tract infection, bowel obstruction, perforation, abscess, ovarian cyst, ovarian torsion, and pyelonephritis. CBC will be obtained to assess for leukocytosis and anemia. Comprehensive metabolic profile will be obtained to assess for electrolyte abnormality, renal function, and hepatic function. Urinalysis will be obtained to assess for urinary tract infection. CT scan of the abdomen and pelvis will be obtained to assess for bowel obstruction, diverticulitis, abscess, and perforation. Serum hCG will be obtained to assess for status. Lab Data Attestation: I reviewed the patient's lab results. Lab results narrative: CBC was reviewed. There is a mild leukocytosis of 15.8. Comprehensive metabolic profile was reviewed and was within normal limits. Serum hCG was reviewed and was negative. Urinalysis was reviewed. There is no evidence of urinary tract infection or hematuria. Labs: Laboratory Results - last 24 hr 03/29/23 03/29/23 03/29/23 05:30 05:30 05:30 WBC 15.8 H RBC 4.41 Hgb 13.3 Hct 40.3 MCV 91.4 MCH 30.2 MCHC 33.0 RDW Std Deviation 41.9 RDW Coeff of Casandra 12.7 Plt Count 270 MPV 11.0 Immature Gran % (Auto) 0.400 Neut % (Auto) 82.5 H Lymph % (Auto) 10.5 L [place] % (Auto) 5.8 Eos % (Auto) 0.4 Baso % (Auto) 0.4 Absolute Neuts (auto) 13.0 H Absolute Lymphs (auto) 1.65 Nucleated RBC % 0 Sodium Cancelled Potassium Cancelled Chloride Cancelled Carbon Dioxide Cancelled Anion Gap Cancelled BUN Cancelled Creatinine Cancelled Estim Creat Clear Calc Cancelled Est GFR (MDRD) Af Amer Cancelled Est GFR (MDRD) Non-Af Cancelled BUN/Creatinine Ratio Cancelled Glucose Cancelled Calcium Cancelled Total Bilirubin AST ALT Alkaline Phosphatase Total Protein Albumin Globulin Albumin/Globulin Ratio Serum , Qual NEGATIVE Urine Color Urine Clarity Urine pH Ur Specific [place] Urine Protein Urine Glucose (UA) Urine Ketones Urine Occult Blood Urine Nitrite Urine Bilirubin Urine Urobilinogen Ur Leukocyte Esterase Urine RBC Urine WBC Ur Squamous Epith Cells Urine Bacteria Urine Mucus 11/02/22 11/02/22 05:30 05:30 WBC RBC Hgb Hct MCV MCH MCHC RDW Std Deviation RDW Coeff of Casandra Plt Count MPV Immature Gran % (Auto) Neut % (Auto) Lymph % (Auto) [place] % (Auto) Eos % (Auto) Baso % (Auto) Absolute Neuts (auto) Absolute Lymphs (auto) Nucleated RBC % Sodium 136 Potassium 4.0 Chloride 107 Carbon Dioxide 22.0 Anion Gap 7 BUN 12 Creatinine 0.91 Estim Creat Clear Calc 72.06 Est GFR (MDRD) Af Amer 91 Est GFR (MDRD) Non-Af 75 BUN/Creatinine Ratio 13.2 Glucose 140 H Calcium 8.7 Total Bilirubin 0.40 AST 15 ALT 21 Alkaline Phosphatase 61 Total Protein 7.5 Albumin 3.6 Globulin 3.9 Albumin/Globulin Ratio 0.9 Serum , Qual Urine Color Yellow Urine Clarity Clear Urine pH 8.0 Ur Specific [place] 1.015 Urine Protein 30 H Urine Glucose (UA) Normal Urine Ketones Negative Urine Occult Blood Negative Urine Nitrite Negative Urine Bilirubin Negative Urine Urobilinogen Normal Ur Leukocyte Esterase Negative Urine RBC 0 SEEN Urine WBC 0-5 SEEN Ur Squamous Epith Cells 0 SEEN Urine Bacteria RARE Urine Mucus 0 SEEN Treatment and Re-Evaluation :: Patient was given IV fluids, morphine, and Zofran. Care of the patient was turned over to the oncoming physician pending CT results. Discharge Plan Triage Chief Complaint: Abd Pain ED Provider: Bin Puente Dx/Rx/DC Orders Clinical Impression: Abdominal pain Prescriptions: No Action Adult Probiotic 3 billion cell capsule 3,000 mmu cells PO DAILY Rx Instructions: administer with a meal loratadine [Claritin] 10 mg tablet 10 mg PO DAILY sertraline [Zoloft] 50 mg tablet 50 mg PO .COMPLEX Qty: 30 12RF Rx Instructions: 50 mg PO daily day 14 through onset of menses; HASN'T STARTED YET naproxen 500 mg tablet 500 mg PO BID PRN (Reason: pain) Qty: 30 2RF Rx Instructions: administer with food or milk naproxen 500 mg tablet 500 mg PO BID PRN (Reason: pain) Qty: 30 2RF Rx Instructions: administer with food or milk albuterol sulfate [ProAir HFA] 90 mcg/actuation Hfa Aerosol Inhaler 2 puff INHALATION Q6H PRN (Reason: ASTHMA) Primary Care Provider: Terri Farnsworth Referrals: Krishna Muniz MD [Med Staff - Company Controller] - What to do if you have Problems For any increased pain, shortness of breath, bleeding, nausea or vomiting, chestpain, or any unexpected problems, contact your Primary Care Provider. Call [facility] ([phone]) or report to the closest Emergency Room. Call 911 if necessary. 11/02/22 0812 <Electronically signed by Bin Puente DO> Cosigner Signature (if applicable): CC: Terri Farnsworth DO ~ Signed ADDENDUM by Dr. Mike Espinoza MD on 11/02/22 at 0914 Patient turned over to me from the overnight physician Dr. Bin Xie. The CAT scan abdomen pelvis with oral and IV contrast that he ordered I reviewedthe radiologist reading and reviewed the scan. Patient has a cystic pelvic structure that could be a cyst versus mass versus even a fibroid. I went over this with the patient and person in the room with her. She has had both ovariancysts and fibroids before. She has had surgeries for each. She had 1 ovary removed in the past. We discussed an ultrasound which she will have done in follow-up when she follows up with her LEGAL COUNSEL Dr. Yolande Brizuela. Patient was already treated for pain here she did not anything else for pain or nausea. She will use Tylenol Motrin at home for pain and did not want narcotics. 11/02/22 0914<Electronically signed by Mike Espinoza MD> Cosigner Signature (if applicable): cc: Terri Farnsworth, DO ~* Signed [facility] Work Phone: Evaluation noteNo assessment information available [facility] Work Phone: Evaluation note* Diagnosis Onset Date Resolution Status Left ovarian cyst acute Pain in female pelvis noneac tive Hemorrhagic ovarian cyst acu te Left ovarian cyst acute Pelvic pain acute S/P laparotomy acute [facility] Work Phone: Evaluation note* Diagnosis Onset Date Resolution Status Left ovarian cyst acute Pain in female pelvis noneac tive Left ovarian cyst acute Pelvic pain acute S/P laparotomy acute Hemorrhagic ovarian cyst res olved Factor 5 Leiden mutation, heterozygous acute Left ovarian cyst acute Pelvic pain acute S/P laparotomy acute Factor 5 Leiden mutation, heterozygous acute Left ovarian cyst acute Pelvic pain acute S/P laparotomy acute [facility] Work Phone: Hospital Discharge instructions Additional Instructions Your pain is caused by a cystic structure in your pelvis that could be another ovarian cyst versus another fibroid versus other possibilities. Most likely will need an ultrasound for more definitive diagnosis. Call and follow-up with Dr. Yolande Brizuela your LEGAL COUNSEL. Motrin and Tylenol for pain.[facility] Work Phone: Hospital Discharge instructions Additional Instructions [facility]: Reason for referral (narrative)No reason for referral information availableWThe [facility] Work Phone: Summary Purpose Family History No Family History Records Found Relationship Condition Age at Onset Recorded Date/T rachell grandmother Unknown Lupus Unknown Lymphoma Unknown grandfather Abdominal aortic aneurysm (AAA) Unknown Cardiac disease Unknown Advance Directives No Advanced Directives Records Found Advance Directive Response Recorded Date/ Time Advance Directives No December 23 6 6:54am Living Will No November 02, 2022 5:11am Power of Skidder Driver No November 02 5:11am Advance Directive Response Recorded Date/ Time Advance Directives No November 03, 2 023 8:09am Living Will No November 03, 2022 8:09am Power of Skidder Driver No November 03 8:09am Advance Directive Response Recorded Date/ Time Advance Directives No November 03, 2 023 8:09am Living Will No February 08, 2023 3 :05pm Power of Skidder Driver No February 08, 2023 3:05pm Advance Directive Response Recorded Date/ Time Advance Directives No November 03, 023 8:09am Chief Complaint and Reason for Visit Chief Complaint abdominal pain Chief Complaint abdominal pain Pelvic pain PELVIC PAIN possible surgery consult, pt had US last evening Reason for Visit Left ovarian cyst Pain in female pelvis Hemorrhagic ovarian cyst Left ovarian cyst Pelvic pain S/P laparotomy Chief Complaint abdominal pain Pelvic pain PELVIC PAIN possible surgery consult, pt had US last evening RECURRENT OVARIAN CYST Reason for Visit Left ovarian cyst Pain in female pelvis Hemorrhagic ovarian cyst Left ovarian cyst Pelvic pain S/P laparotomy Chief Complaint abdominal pain Pelvic pain PELVIC PAIN possible surgery consult, pt had US last evening RECURRENT OVARIAN CYST PELVIC PAIN Reason for Visit Left ovarian cyst Pain in female pelvis Hemorrhagic ovarian cyst Left ovarian cyst Pelvic pain S/P laparotomy Chief Complaint abdominal pain Pelvic pain PELVIC PAIN possible surgery consult, pt had US last evening RECURRENT OVARIAN CYST PELVIC PAIN Needs 20 minutes/diagnostic lap. diagnostic laparoscopy, poss lt ovarian cystectomy diagnostic laparoscopy, poss lt ovarian cystectomy Reason for Visit Left ovarian cyst Pain in female pelvis Left ovarian cyst Pelvic pain S/P laparotomy Hemorrhagic ovarian cyst Factor 5 Leiden mutation, heterozygous Left ovarian cyst Pelvic pain S/P laparotomy Factor 5 Leiden mutation, heterozygous Left ovarian cyst Pelvic pain S/P laparotomy Chief Complaint PELVIC PAIN Chief Complaint Admit Date Cough December 16, 2024 8:49a m cough December 16, 2024 9:23a m Reason for Visit Admit Date Acute otitis media, bilateral December 16, 2024 8:49am Right lower lobe pulmonary infiltrate Ma y 2024 8:49am Additional Source Comments INFORMATION SOURCE (unrecogn ized section and content) DATE CREATED AUTHOR 09/25/2018 [facility] DATE CREATED AUTHOR AUTHOR'S ORGANIZ ATION 01/07/2025 [facility] Care Teams (unrecognized sec tion and content) Team Status: Active Member Role Status Dates Dr. Elvis Apodaca MD Family Provider Active Terri Farnsworth , DO Primary Care Provider Active Team Status: Inactive Member Role Status Dates Dr. Bin Puente , DO Emergency Provider Active Terri Farnsworth DO Primary Care Provider Active Team Status: Inactive Member Role Status Dates Terri Farnsworth , DO Primary Care Provider, Referring Provider Active Christen Dc NEUROLOGY STROKE PHYSICIAN, NEUROLOGY STROKE PHYSICIAN-C Attending Provider Active Team Status: Inactive Member Role Status Dates Terri Farnsworth , DO Primary Care Provider, Referring Provider Active Dr. Yolande Brizuela MD Attending Provider Active Team Status: Inactive Member Role Status Dates Dr. Bin Puente , DO Attending Provider, Emergency P rovider Active Terri Farnsworth , DO Primary Care Provider Active Team Status: Inactive Member Role Status Dates Terri Farnsworth DO Primary Care Provider Active Dr. Jacquelyn Mallory , DO Attending Provider, Refe rring Provider Active Team Status: Active Member Role Status Dates Terri Farnsworth DO Primary Care Provider Active Dr. Yolande Brizuela MD Attending Provider, Referr ing Provider Active Team Status: Active Member Role Status Dates Terri Farnsworth DO Primary Care Provider Active Dr. Yolande Brizuela MD Attending Provider Active Team Status: Inactive Member Role Status Dates Terri Farnsworth , DO Primary Care Provider Active Dr. Yolande Brizuela MD Attending Provider, Referr ing Provider Active Team Status: Inactive Member Role Status Dates Terri Farnsworth DO Primary Care Provider Active Dr. Yolande Brizuela MD Attending Provider Active Team Status: Active Member Role Status Dates Terri Farnsworth DO Primary Care Provider Active Dr. Yolande Brizuela MD Attending Pr ovider, Referring Provider, Other Provider Active Team Status: Inactive Member Role Status Dates Terri Farnsworth DO Primary Care Provi meliton, Attending Provider, Referring Provider Active Team Status: Active Member Role Status Dates Dr. Elvis Apodaca MD Family Provider Active Rocio Obando MD Primary Care Provider Active Team Status: Inactive Member Role Status Dates Rocio Obando MD Primary Care Provider Active St art: December 16, 2024 End: December 16, 2024 Rocio Obando MD Referring Provider Active Start : December 16, 2024 End: December 16, 2024 MARIA R Bishop Attending Provider Active Start: December 16, 2024 End: December 16, 2024 Team Status: Inactive Member Role Status Dates Rocio Obando MD Primary Care Provider Active St art: December 16, 2024 End: December 16, 2024 MARIA R Bishop Attending Provider Active Start: December 16, 2024 End: December 16, 2024 MARIA R Bishop Referring Provider Active Start: December 16, 2024 End: December 16, 2024 Goals (unrecognized section and content) Goals may be documented in a n alternate sectionGoals may be documented in an alternate sectionGoals may be documented in an alternate sectionGoals may be documented in an alternate sectionGoals may be documented in an alternate sectionGoals may be documented in an alternate sectionGoals may be documented in an alternate section FOR RECORDS PERTAINING TO PATIENTS WHO ARE OR HAVE BEEN ENROLLED IN A CHEMICAL DEPENDENCY/SUBSTANCEABUSE PROGRAM, SOME INFORMATION MAY BE OMITTED. This clinical summary was aggregated from multiple sources. Caution should be exercised in using it in the provision of clinical care. This summary normalizes information from multiple sources, and as a consequence, information in this document may materially change the coding, format and clinical context of patient data. In addition, data may be omitted in some cases. CLINICAL DECISIONS SHOULD BE BASED ON THE PRIMARY CLINICAL RECORDS. [facility] Relevant e-solution [facility]. provides no warranty or guarantee of the accuracy or completeness of information in this document.
== END | disposition home or self-care (01) ==
LOC: OPMRI 07:02
PROVIDERS: PCP Family Medicine
DX: R10.2 Pelvic and perineal pain (principal)
CPT/HCPCS: 72197; A9575

== ENCOUNTER → 2025-03-18 | Outpatient (CLI) | payer BC, SELFPAY ==
--- NOTE | 2025-03-18 09:41 | MRI_ITS ---
PROCEDURE: SPINE LUMBAR W/WO CONTRAST 03/18/2025 REASON FOR EXAM: BACK PAIN TECHNIQUE: SPINE LUMBAR W/WO CONTRAST Multiplanar and multisequence images were obtained without and with intravenous gadolinium-based contrast administration. CONTRAST: 18 cc Clariscan IV COMPARISON: August 22, 2018 FINDINGS: Vertebrae: Lumbar vertebral body heights are preserved. Alignment: Straightening. No spondylolisthesis. Conus Medullaris: Terminates at L1. No abnormal cord signal. T12-L1: Normal L1-2: Normal L2-3: Normal L3-4: Normal L4-5: Normal L5-S1: Mild disc desiccation. Mild loss of disc height. Mild, diffuse disc bulge in addition to a central disc protrusion. The base is approximately 7 mm. It is 4 mm AP and 6 mm cephalocaudal. No central stenosis or exit foraminal narrowing. Sacrum: Normal Postcontrast images: No mass MRI/Spine Lumbar W/WO Contrast IMPRESSION: Lumbosacral disc disease with central disc protrusion. See above description Reading Location: [id number]
--- NOTE | 2025-03-18 09:41 | MRI_ITS ---
EXAM: PELVIS W/WO CONTRAST 03/18/2025 CLINICAL HISTORY: LOW BACK PAIN. Uterine fibroids. Endometrioma. TECHNIQUE: PELVIS W/WO CONTRAST Multiplanar and multisequence images were obtained without and with intravenous gadolinium contrast. CONTRAST: 18 cc clear scan IV COMPARISON: January 09, 2025 FINDINGS: Anterior compartment: Urinary bladder and bladder neck appear normal. Middle compartment: The uterus is anteverted. Nabothian cysts are seen at the cervix. Uterine fibroids are present as well. The majority of the fibroids are less than 1 cm involving the myometrium of the body and fundus. Largest at the fundus measuring 1.5 x 2.1 x 1.1 cm (FIGO 4). At the vaginal introitus on the right there is a cyst measuring 1.3 x 2.2 x 1.0 cm consistent with a Bartholin gland cyst. A similar smaller cyst is seen on the left measuring 1.0 x 0.6 cm. Similar to the prior exam there is a complex cyst with some T1 and T2 shortening consistent with blood products. This lesion is a proximally 2.2 x 0.8 cm. On prior a similar focus was 2.0 x 1.1 cm. At the dorsal aspect of the left ovary, there is a new complex cystic mass measuring 4.7 x 6.8 x 4.9 cm. The majority of the signal is primarily fluid signal. Intermediate signal septations are seen and mild intermediate signal mural thickening; no significant T1 or T2 shortening is seen. Right ovary not seen. Posterior compartment: Signal of the rectum is normal. The potential adhesive disease/scarring between the lower uterine segment and rectum is not appreciated on today's exam. Qualitatively there is some thickening of the peritoneal reflection at the apex of the cul-de-sac. MRI/Pelvis W/WO Contrast IMPRESSION: 1. Uterine fibroids are fairly small. Index fibroid at the fundus anteriorly, FIGO 4. 2. Right ovary not seen. 3. Left endometrioma similar to prior exam. 4. New complex left ovarian cyst. Complicated cyst versus endometrioma. Maxi mal dimension 6.8 cm. ACR White Paper recommendations (Brayan, et al. J Am Peterson Radiol 2020;17:248-254) suggest the fo llowing: Consider ultrasound follow-up in 2-3 months to show some stability, interval improvement or resolution.. 5. Bartholin gland cyst cysts, [id number]. Reading Location: [id number]
== END | disposition home or self-care (01) ==
PROVIDERS: PCP Family Medicine
DX: M51.27 Other intervertebral disc displacement, lumbosacral region (principal); N75.0 Cyst of Bartholin's gland; N80.122 Deep endometriosis of left ovary; N83.292 Other ovarian cyst, left side
CPT/HCPCS: 72158; 72197; A9575; A4216

== ENCOUNTER → 2025-03-21 | Outpatient (CLI) | payer BC, SELFPAY ==
--- NOTE | 2025-03-21 14:10 | RAD_ITS ---
PROCEDURE: WRIST MIN 3 VIEWS 03/21/2025 REASON FOR EXAM: RIGHT WRIST PAIN TECHNIQUE: WRIST MIN 3 VIEWS Laterality: Right wrist. COMPARISON: None FINDINGS: Bones: No visible fracture. No suspicious bone lesion. Joints: Normal alignment. Joint spaces preserved. No arthropathic features. Soft tissues: Soft tissues are unremarkable. Other: RAD/Wrist min 3 Views IMPRESSION: NEGATIVE WRIST Reading Location: [id number]
== END | disposition home or self-care (01) ==
LOC: MTRAD 14:06
PROVIDERS: PCP Family Medicine; Referring Provider Family Medicine; Visit Provider Family Medicine
DX: M25.531 Pain in right wrist (principal)
CPT/HCPCS: 73110

== ENCOUNTER → 2025-05-07 | Outpatient (CLI) | payer BC, SELFPAY ==
--- NOTE | 2025-05-07 13:56 | BI_ITS ---
EXAM: DIAG MAMM W/CAD, BILAT; BREAST LIMITED UNILATERAL 05/07/2025 CLINICAL HISTORY: F, Age 39 y/o , BREAST MASS, LEFT SIDE; TENDERNESS Palpable lumps, history of cysts TECHNIQUE: Procedure Code: [id number]; USBRSTLIMIT Modality: MG; US Procedure: DIAG MAMM W/CAD, BILAT; BREAST LIMITED UNILATERAL. COMPARISON: Prior exam(s) dated 02/07/2024. FINDINGS: TISSUE DENSITY: The breasts are heterogeneously dense, which may obscure small masses. Bilateral Breast Mammographic Findings: No significant masses, calcifications or other abnormalities are identified. Although there are no mammographic abnormalities identified, patient complains of palpable lumps in the left breast so further evaluation of the left breast with ultrasound was performed. Left breast ultrasound Focused ultrasound of the left breast was performed in the retroareolar and lower aspect of the left breast. There are multiple anechoic simple cysts noted which correspond to the palpable lumps noted by the patient. 2 retroareolar cysts measure 0.9 and 0.7 cm, there is also a simple 0.9 cm cyst at 6 o'clock, 4 cm from the nipple. There is no suspicious shadowing solid lesion, architectural distortion or clustered shadowing calcifications BI/DIAG MAMM W/CAD, BILAT IMPRESSION: Palpable lumps correspond to simple cysts noted by ultrasound. No suspicious m ammographic or sonographic abnormalities OVERALL FINAL ASSESSMENT BI-RADS 2: BENIGN RECOMMENDATION: Routine annual follow-up in 1 Year Additional Recommendation none A letter with findings and recommendations will be mailed to the patient. Reading Location: [id number]
--- NOTE | 2025-05-07 14:16 | US_ITS ---
EXAM: DIAG MAMM W/CAD, BILAT; BREAST LIMITED UNILATERAL 05/07/2025 CLINICAL HISTORY: F, Age 39 y/o , BREAST MASS, LEFT SIDE; TENDERNESS Palpable lumps, history of cysts TECHNIQUE: Procedure Code: [id number]; USBRSTLIMIT Modality: MG; US Procedure: DIAG MAMM W/CAD, BILAT; BREAST LIMITED UNILATERAL. COMPARISON: Prior exam(s) dated 02/07/2024. FINDINGS: TISSUE DENSITY: The breasts are heterogeneously dense, which may obscure small masses. Bilateral Breast Mammographic Findings: No significant masses, calcifications or other abnormalities are identified. Although there are no mammographic abnormalities identified, patient complains of palpable lumps in the left breast so further evaluation of the left breast with ultrasound was performed. Left breast ultrasound Focused ultrasound of the left breast was performed in the retroareolar and lower aspect of the left breast. There are multiple anechoic simple cysts noted which correspond to the palpable lumps noted by the patient. 2 retroareolar cysts measure 0.9 and 0.7 cm, there is also a simple 0.9 cm cyst at 6 o'clock, 4 cm from the nipple. There is no suspicious shadowing solid lesion, architectural distortion or clustered shadowing calcifications US/Breast Limited Unilateral IMPRESSION: Palpable lumps correspond to simple cysts noted by ultrasound. No suspicious m ammographic or sonographic abnormalities OVERALL FINAL ASSESSMENT BI-RADS 2: BENIGN RECOMMENDATION: Routine annual follow-up in 1 Year Additional Recommendation none A letter with findings and recommendations will be mailed to the patient. Reading Location: [id number]
== END | disposition home or self-care (01) ==
PROVIDERS: PCP Family Medicine; Referring Provider Family Medicine; Visit Provider Family Medicine
DX: N63.20 Unspecified lump in the left breast, unspecified quadrant (principal)
CPT/HCPCS: 76642; 77062; 77066; G0279